=== PATIENT | female | born 1950 | race Caucasian/White ===

== ENCOUNTER 2017-09-25 13:15 | Emergency (ER) | payer MEDICARE, OTHER, SELFPAY ==
[2017-09-25 13:25] VITALS: BP 143/64; PULSE 99; RESP 20; TEMP 36.7; O2SAT 99; BMI 21.4
--- NOTE | 2017-09-25 13:32 | HMH.EDBACK ---
ED Disposition Clinical Impression: Contusion of tissue overlying spine Disposition: Home, Self-Care Condition on Discharge: Good Additional Instructions: Radiology thought maybe a small nodule on chest xray; this is not anything emergent but Dr. Barrera may wish to do a follow up CT at his discretion; no new fractures today but T9 showed old compression fracture. Take Aleve over the counter and/or Tylenol and see Dr. Barrera in a few days. Referrals: Alex Barrera MD [Primary Care Provider] - - Critical Care Critical Care Time: No Attestation: On , the high probability of a clinically significant, sudden or life threatening deterioration of the following system(s) required my full and direct attention, intervention and personal management. The time I documented below is in addition to time spent performing reported procedures but includes the following listed in this critical care notation. Medical Decision Making Vital Signs: 09/25/17 13:25 09/25/17 14:07 Temperature 98.0 F Temperature Source Oral Pulse Rate [Right Radial] 99 H 90 Respiratory Rate 20 20 Blood Pressure [Right Arm] 143/64 140/78 Blood Pressure Mean [Right Arm] 90 98 Blood Pressure Source [Right Arm] Automatic Cuff Automatic Cuff Blood Pressure Position [Right Arm] Sitting Sitting 02 Sat by Pulse Oximetry 99 98 Oxygen Delivery Method Room Air Room Air Orders (Tests/Meds): ED MEDICATIONS Discontinued Medications Generic Name Dose Route Start Last Admin Trade Name Freq PRN Reason Stop Dose Admin Ketorolac Tromethamine 60 mg 09/25/17 13:35 09/25/17 13:36 Toradol 60mg/2ml Vial IM 09/25/17 13:36 60 mg ONCE ONE Administration - CT Data CT Scan: C-Spine, T-Spine Time Received: 14:[address] Reviewed: Yes: I have reviewed the patient's CT results Preliminary Findings: Normal/NAD Findings Narrative: old T 9 compression fx neg acute; nodule L lung may need f/u CT - Lance Inquiry Pt receiving controlled substance: No ROS Obtained: Yes All systems reviewed & no additional complaints Physical Exam - General General appearance: alert - Head Head exam: atraumatic - Eye Eye exam: Present: normal appearance, PERRL, EOMI - ENT ENT exam: Present: normal external ear exam - Neck Neck exam: Present: normal inspection, full ROM, trachea midline, tenderness. Absent: other - Chest Chest inspection: Present: normal inspection, symmetric chest wall rise, tenderness, other (He is right axillary tenderness without any subcutaneous air, and without any crepitus deformity or step-offs noted) - Respiratory Respiratory exam: Present: normal lung sounds bilaterally. Absent: respiratory distress, wheezes - Cardiovascular Cardiovascular exam: Present: regular rate, normal rhythm. Absent: JVD - Abdominal Exam Abdominal exam: Present: soft, normal bowel sounds. Absent: distention, tenderness, guarding - Extremities Exam Extremities exam: Present: full ROM, normal capillary refill. Absent: tenderness, pedal edema, joint swelling (Stable to AP and lateral palpation of the pelvis. Forearm diffuse ecchymosis without any crepitus deformity or step-offs.) - Back Exam Back exam: Present: normal inspection, full ROM, tenderness, straight leg raise (R), straight leg raise (L) ( no focal motor or sensory deficits gait steady. diffuse T and C spine region pain without crepitus deformity step-offs or duyen point tenderness.). Absent: muscle spasm, vertebral tenderness, rashes - Neurological Exam Neurological exam: Present: alert, oriented X3, normal gait. Absent: motor sensory deficit - Psychiatric Psychiatric exam: Present: normal affect, normal mood - Skin Skin exam: Present: warm, dry, other (See above for ecchymosis) Back Pain HPI - General Chief Complaint: Fall Stated Complaint: AO 09/24/17 fell hurt right arm and lower back,rib Mode of Arrival: Ambulatory Source of Information: Patient Limitations: No Ford
--- NOTE | 2017-09-25 13:35 | ED_ITS ---
ED Disposition Clinical Impression: Contusion of tissue overlying spine Disposition: Home, Self-Care Condition on Discharge: Good Additional Instructions: Radiology thought maybe a small nodule on chest xray; this is not anything emergent but Dr. Barrera may wish to do a follow up CT at his discretion; no new fractures today but T9 showed old compression fracture. Take Aleve over the counter and/or Tylenol and see Dr. Barrera in a few days. Referrals: Alex Barrera MD [Primary Care Provider] - - Critical Care Critical Care Time: No Attestation: On , the high probability of a clinically significant, sudden or life threatening deterioration of the following system(s) required my full and direct attention, intervention and personal management. The time I documented below is in addition to time spent performing reported procedures but includes the following listed in this critical care notation. Medical Decision Making Vital Signs: 09/25/17 13:25 09/25/17 14:07 Temperature 98.0 F Temperature Source Oral Pulse Rate [Right Radial] 99 H 90 Respiratory Rate 20 20 Blood Pressure [Right Arm] 143/64 140/78 Blood Pressure Mean [Right Arm] 90 98 Blood Pressure Source [Right Arm] Automatic Cuff Automatic Cuff Blood Pressure Position [Right Arm] Sitting Sitting 02 Sat by Pulse Oximetry 99 98 Oxygen Delivery Method Room Air Room Air Orders (Tests/Meds): ED MEDICATIONS Discontinued Medications Generic Name Dose Route Start Last Admin Trade Name Freq PRN Reason Stop Dose Admin Ketorolac Tromethamine 60 mg 09/25/17 13:35 09/25/17 13:36 Toradol 60mg/2ml Vial IM 09/25/17 13:36 60 mg ONCE ONE Administration - CT Data CT Scan: C-Spine, T-Spine Time Received: 14:[address] Reviewed: Yes: I have reviewed the patient's CT results Preliminary Findings: Normal/NAD Findings Narrative: old T 9 compression fx neg acute; nodule L lung may need f/u CT - Lance Inquiry Pt receiving controlled substance: No ROS Obtained: Yes All systems reviewed & no additional complaints Physical Exam - General General appearance: alert - Head Head exam: atraumatic - Eye Eye exam: Present: normal appearance, PERRL, EOMI - ENT ENT exam: Present: normal external ear exam - Neck Neck exam: Present: normal inspection, full ROM, trachea midline, tenderness. Absent: other - Chest Chest inspection: Present: normal inspection, symmetric chest wall rise, tenderness, other (He is right axillary tenderness without any subcutaneous air , and without any crepitus deformity or step-offs noted) - Respiratory Respiratory exam: Present: normal lung sounds bilaterally. Absent: respiratory distress, wheezes - Cardiovascular Cardiovascular exam: Present: regular rate, normal rhythm. Absent: JVD - Abdominal Exam Abdominal exam: Present: soft, normal bowel sounds. Absent: distention, tenderness, guarding - Extremities Exam Extremities exam: Present: full ROM, normal capillary refill. Absent: tenderness, pedal edema, joint swelling (Stable to AP and lateral palpation of the pelvis. Forearm diffuse ecchymosis without any crepitus deformity or step- offs.) - Back Exam Back exam: Present: normal inspection, full ROM, tenderness, straight leg raise (R), straight leg raise (L) ( no focal motor or sensory deficits gait steady. diffuse
--- NOTE | 2017-09-25 13:44 | CT_ITS ---
CT cervical spine wo con INDICATION: Posttraumatic pain, neck pain following injury ITS.REASON: Fall ORDERING PHYSICIAN: Dory Orta MD PATIENT AGE: 67 years COMPARISON: None TECHNIQUE: Axial images are obtained without contrast. Sagittal and coronal reformatted images are reviewed as well. FINDINGS: There is normal alignment. No fracture or dislocation. No lytic or blastic change. No prevertebral soft tissue swelling. Fibrotic changes in lung apices. There is mild degenerative disc disease at C5-C6 and C6-C7. 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 IMPRESSION: No acute fracture. Mild cervical spondylosis
--- NOTE | 2017-09-25 13:44 | XR_ITS ---
XR chest 2V HISTORY: Posttraumatic pain ITS.REASON: Fall, rib pain ORDERING PHYSICIAN: Dory Orta MD PATIENT AGE: 67 years COMPARISON: 05/11/2017 FINDINGS: The cardiomediastinal silhouette and pulmonary vascularity are within normal limits. No lobar consolidation or collapse is evident. There is an artifact overlying the left chest. An 8 mm nodular opacity overlies the left lower lung zone nonspecific but not readily apparent on the previous study. Chest CT may be of further value. The remaining lungs are clear. Mild wedging involves T9 unchanged. IMPRESSION: 1. No acute finding. 2. 8 mm nodular opacity left lower lung zone. Developing nodule is considered. Chest CT may be of further value..
--- NOTE | 2017-09-25 13:44 | CT_ITS ---
CT thoracic spine wo con INDICATION: Pain following injury. Mid and upper back pain ITS.REASON: Fall ORDERING PHYSICIAN: Dory Orta MD PATIENT AGE: 67 years COMPARISON: Chest CT of 03/07/2017 TECHNIQUE: Axial images are obtained without contrast. Sagittal and coronal reformatted images are reviewed as well. FINDINGS: There is normal alignment. There is mild wedging of the T9 vertebral body which is chronic. There is loss of height anteriorly of approximately 40% loss of height posteriorly by 20% similar to the previous chest CT of 03/07/2017. No acute fracture or dislocation. No lytic or blastic change. There is mild spondylosis of the thoracic spine with mild degenerative disc disease and anterior spurring at T4-T7. Small Schmorl's node is present along the superior endplate of T12 with slight decrease in height of T12 similar to the previous exam. IMPRESSION: 1. No acute fracture. 2. Old wedge compression changes of T9 with minimal wedge compression changes of T12. 3. Mild thoracic spondylosis
[2017-09-25 14:07] VITALS: BP 140/78; PULSE 90; RESP 20; O2SAT 98
[2017-09-25 15:09] VITALS: BP 143/64; PULSE 74; RESP 20; O2SAT 97
== END 2017-09-25 15:09 | disposition home or self-care (01) ==
PROVIDERS: Emergency Provider Emergency Medicine; Family Provider Internal Medicine Adolescent Medicine; PCP Internal Medicine Adolescent Medicine
DX: S30.0XXA Contusion of lower back and pelvis, initial encounter (principal); W10.8XXA Fall (on) (from) other stairs and steps, initial encounter; Y93.89 Activity, other specified; Y92.9 Unspecified place or not applicable
CPT/HCPCS: 71046; 72125; 72128; 96372; 99282

== ENCOUNTER → 2017-10-07 09:18 | Outpatient (CLI) | payer MEDICARE, OTHER, SELFPAY ==
[2017-10-07 09:38] LABS: Blood Urea Nitrogen 9 mg/dL (7-18); Creatinine,Serum 0.72 mg/dL (0.55-1.02); Estimated Glomerular Filt Rate 80 ml/min (>60); GFR (African American) 97 ML/MIN (>60)
--- NOTE | 2017-10-07 09:52 | CT_ITS ---
CT chest w con HISTORY: Follow-up pulmonary nodule, solitary pulmonary nodule, follow-up abnormal chest x-ray, post traumatic chest pain ITS.REASON: PULMONARY NODULE ORDERING PHYSICIAN: Mary Kay May PATIENT AGE: 67 years TECHNIQUE: Axial images obtained following the administration of 75 mL of Isovue 370 . Sagittal, and coronal reformatted images are also generated and reviewed. COMPARISON: Chest x-ray of 09/25/[address] of 03/07/2017 FINDINGS: No mediastinal or hilar mass or adenopathy is evident. Mild thickening of the distal esophagus nonspecific. There is normal heart size There are scattered fibrotic changes. Atelectasis is present in the right middle lobe and left lower lobe. No suspicious pulmonary nodules evident.. No effusions. There is mild wedging of T9 vertebral body unchanged. Upper abdominal images are unremarkable. IMPRESSION: 1. Overall no change from 03/07/2017 with no acute finding. 2. Nodular opacity seen on the recent chest x-ray represents underlying atelectatic or fibrotic change. No suspicious pulmonary nodules are evident
--- NOTE | 2017-10-07 10:34 | HMH.ITSHM ---
METOPRLOL,ESTRADIOLOL,CALCIUM,SINGULAR ASPIRIN ALAPRAZOLOAM FLONASE
== END ==
PROVIDERS: Family Provider Internal Medicine Adolescent Medicine; PCP Internal Medicine Adolescent Medicine; Visit Provider Nurse Practitioner Family
DX: R91.1 Solitary pulmonary nodule (principal)
CPT/HCPCS: 36415; 71260; 82565; 84520; Q9967

== ENCOUNTER 2017-11-26 12:39 | Emergency (ER) | payer MEDICARE, OTHER, SELFPAY ==
[2017-11-26 12:41] VITALS: BP 127/69; BP 137/65; PULSE 64; PULSE 65; RESP 18; TEMP 36.4; O2SAT 96; O2SAT 97; BMI 21.4
[2017-11-26 13:20] VITALS: BP 122/61; PULSE 61; RESP 18; O2SAT 95
--- NOTE | 2017-11-26 14:10 | PC.NURSE ---
notified pt of delay in MD seeing pt r/t critical situation in ER. Pt voiced understanding and stated she is ok, warm blanket offered for comfort.
[2017-11-26 14:57] VITALS: BP 118/68; PULSE 62; RESP 18; TEMP 36.7; O2SAT 97
== END 2017-11-26 14:57 | disposition left against medical advice (07) ==
PROVIDERS: Emergency Provider Emergency Medicine; Family Provider Internal Medicine Adolescent Medicine; PCP Internal Medicine Adolescent Medicine
DX: R10.30 Lower abdominal pain, unspecified (principal); I10 Essential (primary) hypertension
CPT/HCPCS: 99211; 99282

== ENCOUNTER → 2017-11-28 13:56 | Outpatient (POV) | payer MEDICARE, OTHER, SELFPAY | PROVIDERS: Visit Provider Dermatology | DX: Z00.00 Encounter for general adult medical examination without abnormal findings (principal) ==

== ENCOUNTER → 2017-11-29 15:21 | Outpatient (CLI) | payer MEDICARE, OTHER, SELFPAY ==
--- NOTE | 2017-11-29 15:32 | XR_ITS ---
XR shoulder LT min 2V COMPARISON: Right shoulder same date HISTORY: Left shoulder pain after a fall TECHNIQUE: 3 views left shoulder FINDINGS: There is no fracture or dislocation. The AC joint appears normal. There are no soft tissue calcifications. IMPRESSION: Negative left shoulder
--- NOTE | 2017-11-29 15:32 | XR_ITS ---
XR cervical spine 4V COMPARISON: None HISTORY: Neck pain after a fall TECHNIQUE: AP lateral and oblique views and spot view of the odontoid FINDINGS: There is normal curvature and alignment. C1-C7 appear intact with no fracture or subluxation noted. Disc spaces are well maintained throughout. Oblique films show normal neural foramina bilaterally. The prevertebral soft tissues are normal and the odontoid is normal. IMPRESSION: Negative cervical spine
--- NOTE | 2017-11-29 15:32 | XR_ITS ---
XR shoulder RT min 2V COMPARISON: None HISTORY: Right shoulder pain after a fall TECHNIQUE: 3 views right shoulder FINDINGS: The clavicle is intact and the AC joint appears normal. The humeral head and glenoid are normal and the no soft tissue calcifications. IMPRESSION: Negative right shoulder
--- NOTE | 2017-11-29 15:33 | XR_ITS ---
XR thoracic spine 3V COMPARISON: CT scan thoracic spine 09/25/2017 HISTORY: Back pain after a fall TECHNIQUE: AP and lateral views FINDINGS: There is mild kyphotic curvature of the upper thoracic spine. There is generalized osteopenia. Again noted is mild compression fracture of T9 with approximately 40% loss of height centrally and anteriorly stable and unchanged in appearance from the previous CT scan. All remaining thoracic vertebrae appear intact. Is no paraspinal mass. IMPRESSION: Child is osteopenia, stable mild compression fracture T9
== END ==
PROVIDERS: PCP Internal Medicine Adolescent Medicine; Visit Provider Internal Medicine Adolescent Medicine
DX: M54.6 Pain in thoracic spine (principal); M54.2 Cervicalgia; M25.511 Pain in right shoulder; M25.512 Pain in left shoulder
CPT/HCPCS: 72050; 72072; 73030

== ENCOUNTER → 2017-12-04 13:19 | Outpatient (CLI) | payer MEDICARE, OTHER, SELFPAY ==
[2017-12-04 14:14] LABS: Albumin Level 3.3 gm/dL (3.4-5.0); Calcium 9.1 mg/dL (8.5-10.1); Creatinine,Serum 0.68 mg/dL (0.55-1.02); Estimated Glomerular Filt Rate 86 ml/min (>60); GFR (African American) 104 ML/MIN (>60)
== END ==
PROVIDERS: Visit Provider Obstetrics & Gynecology
DX: M81.0 Age-related osteoporosis without current pathological fracture (principal)
CPT/HCPCS: 36415; 82040; 82310; 82565

== ENCOUNTER 2017-12-05 13:09 | Outpatient (CLI) | payer MEDICARE, OTHER, SELFPAY ==
[2017-12-05 13:21] VITALS: BP 121/44; PULSE 61; RESP 18; TEMP 36.6; O2SAT 99
[2017-12-05 13:45] VITALS: BP 119/49; PULSE 65; RESP 18; O2SAT 97
== END 2017-12-05 13:50 | disposition home or self-care (01) ==
LOC: INF 13:09
PROVIDERS: Family Provider Internal Medicine Adolescent Medicine; PCP Internal Medicine Adolescent Medicine; Visit Provider Obstetrics & Gynecology
DX: M81.0 Age-related osteoporosis without current pathological fracture (principal)
CPT/HCPCS: 96365; J3489

== ENCOUNTER → 2018-03-13 13:43 | Outpatient (CLI) | payer MEDICARE, OTHER, SELFPAY ==
--- NOTE | 2018-03-13 13:55 | XR_ITS ---
. DEXA DEXA SCAN.-BONE DENSITY STUDY HIPS AND LUMBAR SPINE HISTORY: Postmenopausal female 5-year-old female TECHNIQUE: DEXA scan hip and lumbar spine The most complete data summary and color graphic presentation of the today's ( and any prior ) DEXA findings are available in PACS. Definition and treatment guidelines included. COMPARISON: . -Study is best to compare to the previous November 2015 exam as it uses the same vertebrae sampling pattern I did not use 2017 since it has a different sampling pattern LUMBAR SPINE: Overall osteoporosis L1 vertebral body demonstrates the lowest bone density with T score -2.8 with BMD0.796 g/cm sq Overall mean lumbar L1-L4 T score -2.7 with BMD0.854 g/cm sq . 2017 prior DEXA the mean T score -2.9 with BMD was0.835g/cm sq Thus when comparing today's study to the prior exam there's been a 2.3% increase mean bone density at the lumbar spine since 2017. HIPS: Femoral neck density is best predictor of hip fracture risk . demonstrates the lowest T score -0.8 with BMD0.933 g/cm sq . all region included with today's Hip Mean T score 0.4 with BMD1.054 g/cm sq . T score -0.8 with mean BMD0.933 g/cm sq Thus this reflects a 6% decrease in overall mean bone density at the hips in the interval. IMPRESSION 1. LUMBAR SPINE: Osteoporosis with T score unchanged from the previous exam 2. HIPS: Osteopenia for both hips and T score is basically unchanged from the previous exam WHO criteria for post-menopausal, Women: Normal: T-score at or above -1 SD Osteopenia: T-score between -1 and -2.5 SD Osteoporosis: T-score at or below -2.5 SD
== END ==
PROVIDERS: Family Provider Internal Medicine Adolescent Medicine; PCP Internal Medicine Adolescent Medicine; Visit Provider Internal Medicine Adolescent Medicine
DX: M81.0 Age-related osteoporosis without current pathological fracture (principal)
CPT/HCPCS: 77080

== ENCOUNTER 2018-03-20 15:31 | Inpatient (IN) ==
[2018-03-20 15:53] LABS: Appearance,Urine CLEAR (Clear); Bilirubin,Urine Negative (Negative); Blood, Urine Negative (Negative); Color,Urine YELLOW (Yellow); Glucose,Urine (UA) Negative (Negative); Ketones,Urine Negative (Negative); Leukocyte Esterase,Urine Negative (Negative); Microscopic, Urine URINE MICROSCOPIC (MICROSCOPIC); PH,Urine 6.5 (5.0-8.5); Protein,Urine Negative (Negative); Urobilinogen,Urine 0.2 EU/dl (0.2)
[2018-03-20 16:04] LABS: Bacteria,Urine Trace /lpf
--- NOTE | 2018-03-20 18:20 | Emergency Department Note ---
ED Disposition Clinical Impression: Altered mental status, Hypertension, Postmenopausal Disposition: Still a Patient Condition on Discharge: Fair Instructions: DI for Urinary Tract Infection (UTI), DI for Urinary Tract Infection in Children Referrals: Alex Barrera MD [Primary Care Provider] - - Critical Care Critical Care Time: No Attestation: On 03/20/18, the high probability of a clinically significant, sudden or life threatening deterioration of the following system(s) required my full and direct attention, intervention and personal management. The time I documented below is in addition to time spent performing reported procedures but includes the following listed in this critical care notation. Medical Decision Making - Lance Inquiry Pt receiving controlled substance: No Lance was queried for this patient: No Vital Signs: 03/20/18 15:31 Temperature 99.0 F Temperature Source Oral Pulse Rate [Right Radial] 92 H Respiratory Rate 16 Blood Pressure [Right Arm] 144/75 Blood Pressure Mean [Right Arm] 98 Blood Pressure Source [Right Arm] Automatic Cuff Blood Pressure Position [Right Arm] Supine 02 Sat by Pulse Oximetry 98 Oxygen Delivery Method Room Air - Lab Data Lab Results 03/20/18 15:50: Urine Color Yellow, Urine Appearance Clear, Urine pH 6.5, Ur Specific [place] 1.010, Urine Protein Negative, Urine Glucose (UA) Negative, Urine Ketones Negative, Urine Blood Negative, Urine Nitrate Negative, Urine Bilirubin Negative, Urine Urobilinogen 0.2, Ur Leukocyte Esterase Negative, Urine RBC None, Urine WBC None, Ur Squamous Epith Cells 5-10, Urine Bacteria Trace 03/20/18 18:56: WBC 9.4, RBC 4.19 L, Hgb 13.0, Hct 40.4, MCV 96.4, MCH 31.1, MCHC 32.3, RDW 13.0, Plt Count 290, MPV 7.5, Neut % (Auto) 69.3, Lymph % (Auto) 22.0, Wilson % (Auto) 6.9, Eos % (Auto) 1.5, Baso % (Auto) 0.3, Neut # (Auto) 6.5 , Lymph # (Auto) 2.1, Wilson # (Auto) 0.6, Eos # (Auto) 0.1, Baso # (Auto) 0.0 03/20/18 18:56: Sodium 144, Potassium 3.5, Chloride 111 H, Carbon Dioxide 27, Anion Gap 9.5, BUN 5 L, Creatinine 0.72, Estimated Creat Clear 40, Estimated GFR 80, Est GFR ( Amer) 97, Glucose 96, Calcium 8.7, Total Bilirubin 0.3 , AST 20, ALT 13, Alkaline Phosphatase 74, Total Creatine Kinase 29, CK-MB (CK-2 ) 0.6, CK-MB (CK-2) Rel Index 2.1, Troponin I < 0.02, Total Protein 6.5, Albumin 3.0 L, Globulin 3.5 H, Albumin/Globulin Ratio 0.9 L Result diagrams: 03/20/18 18:56 03/20/18 18:56 Orders (Tests/Meds): ORDERS Category Date Time Status XR acute abdomen series Stat Exams 03/20/18 18:01 Taken - Radiology Data #1 Image(s): Chest, Abdomen Image Reviewed: Yes I reviewed the patient's radiology image Preliminary Findings: Normal/NAD Postop changes no acute. - CT Data CT Scan: Head Time Received: 19:17 Findings Narrative: MPRESSION: No acute adrenal findings. Stable CT of the head without contrast. Medical Decision Narrative: Patient remained symptomatic with her anterograde amnesia, her CT scan was negative for acute events she had normal labs. I spoke with Dr. Valdivia is covering for her primary care physician Dr. Barrera who agreed to admit the patient for observation. I discussed with the family and the patient were agreeable for admission. Altered Mental Status HPI - General Chief Complaint: Urogenital-Female Stated Complaint: FREQUENT URINATION Time Seen by Provider: 03/20/18 16:00 Mode of Arrival: EMS Limitations: No Limitations Description of Symptoms (Recalled from ER Triage Doc. by RN): PT COMPLAINS OF URINARY URGENCY, FREQUENCY AND HESITATION FOR TWO DAYS. - History of Present Illness HPI narrative: 67 years old white female with history of anxiety and anemia. But by her son today because of altered mental status started at 9 AM reported by his father, she is repeating herself and forgetful, not believe she might have hypoglycemia so he gave her food and her sugar was 106, he complained of suprapubic tenderness and dysuria so she was brought to the ED underwent a negative urine examination. She denies having chest pain, course of breath palpitations nausea or vomiting, or diarrhea. Has no hematemesis coffee-ground emesis hemoptysis melanotic stool or bleeding per rectum. Her son stated that when she goes up to the bathroom she forgets where her bed to get her back to her bedroom in the ED. complaint: altered mental status Time: 09:00 Timing confirmed by: spouse, family member Severity: mild Consistency of symptoms: waxing and waning Associated symptoms: denies other symptoms - Related Data Home Medications Medication Instructions Recorded Confirmed Estradiol 1 mg PO DAILY 11/26/17 03/20/18 ALPRAZolam [Xanax 0.5mg tab] 0.5 mg PO BID 12/05/17 03/20/18 ALPRAZolam [Xanax Xr 1mg Tab] 1 mg PO HS 12/05/17 03/20/18 Aspirin [Aspirin 81mg chewable 81 mg PO DAILY 12/05/17 03/20/18 tab] Calcium Carbonate [Calcium] 1,200 mg PO DAILY 12/05/17 03/20/18 Cholecalciferol (Vitamin D3) 1,000 unit PO DAILY 12/05/17 03/20/18 [Vitamin D3 1,000 Unit Cap] Metoprolol Tartrate 50 mg PO BID 12/05/17 03/20/18 Montelukast Sodium [Singulair 10mg 10 mg PO PM 12/05/17 03/20/18 tablet] Thiamine HCl [Vitamin B-1 100mg/mL 100 mg IJ MONTHLY 12/05/17 03/20/18 vial] Vitamin E 1,000 unit PO DAILY 12/05/17 03/20/18 diphenhydrAMINE HCl [Benadryl] 25 mg PO BID 12/05/17 03/20/18 Raloxifene HCl 60 mg PO DAILY 03/20/18 03/20/18 Allergies Allergy/AdvReac Type Severity Reaction Status Date / Time amoxicillin [From AMOXIL] Allergy Intermediate I-HIVES Verified 09/25/17 13:34 clindamycin [CLINDAMYCIN] Allergy Intermediate I-HIVES Verified 09/25/17 13:34 Penicillins [PENICILLINS] Allergy Intermediate I-HIVES Verified 09/25/17 13:34 Sulfa (Sulfonamide Allergy Intermediate I-HIVES Verified 09/25/17 13:34 Antibiotics) [SULFA (SULFONAMIDE ANTIBIOTICS)] codeine [CODEINE] Allergy Unknown NAUSEA AND Verified 09/25/17 13:34 VOMITING erythromycin base Allergy Unknown I-HIVES Verified 09/25/17 13:34 [ERYTHROMYCIN BASE] Fish Containing Products Allergy Unknown FACIAL Verified 09/25/17 13:34 [FISH CONTAINING PRODUCTS] SWELLLING latex [LATEX] Allergy Unknown I-HIVES Verified 09/25/17 13:34 Iodinated Contrast Media - Allergy Verified 11/26/17 12:52 Oral and [facility] History I have reviewed the patient's past medical history: Yes Medical History: Denies:: Cancer, Diabetes Mellitus Type 1, Diabetes Mellitus Type 2 - Social History Smoking Status: Never smoker Alcohol Intake: never - Psychiatric History Expresses thoughts of harming self/others: None Suicide Plan Description: No Plan ROS Obtained: Yes All systems reviewed & no additional complaints Physical Exam - General General appearance: alert, in no apparent distress - Head Head exam: atraumatic, normocephalic, normal inspection - Eye Eye exam: Present: normal appearance, PERRL, EOMI. Absent: scleral icterus - ENT ENT exam: Present: normal exam, normal oropharynx, mucous membranes moist, TM's normal bilaterally, normal external ear exam - Neck Neck exam: Present: normal inspection, full ROM, trachea midline. Absent: tenderness, meningismus, lymphadenopathy - Chest Chest inspection: Present: normal inspection, symmetric chest wall rise. Absent : tenderness - Respiratory Respiratory exam: Present: normal lung sounds bilaterally. Absent: respiratory distress, wheezes - Cardiovascular Cardiovascular exam: Present: regular rate, normal rhythm. Absent: JVD - Abdominal Exam Abdominal exam: Present: soft, normal bowel sounds. Absent: distention, tenderness, guarding, rebound, rigidity - External exam: Present: normal external exam - Extremities Exam Extremities exam: Present: normal inspection, full ROM, normal capillary refill. Absent: tenderness, calf tenderness - Back Exam Back exam: Present: normal inspection. Absent: tenderness - Neurological Exam Neurological exam: Present: alert, oriented X3, CN II-XII intact, normal gait, motor sensory deficit, reflexes normal - Psychiatric Psychiatric exam: Present: normal affect, normal mood - Skin Skin exam: Present: warm, dry, intact, normal color - Lymphatic Lymphatic Findings: no adenopathy
[2018-03-20 19:04] LABS: Basophils % 0.3 % (0.1-2.0); Eosinophils # 0.1 K/mm3 (0.0-0.4); Eosinophils % 1.5 % (0.1-12.0); Hematocrit 40.4 % (37.0-47.0); Lymphocytes # 2.1 K/mm3 (0.7-4.5); Mean Corpuscular HGB Conc 32.3 g/dL (31.8-35.4); Mean Corpuscular Hemoglobin 31.1 pg (27.0-31.2); Mean Corpuscular Volume 96.4 fl (81-99); Mean Platelet Volume 7.5 fl (7.4-10.4); Monocytes # 0.6 K/mm3 (0.1-1.0); Monocytes % 6.9 % (1.7-9.3); Neutrophils # 6.5 K/mm3 (1.8-7.8); Neutrophils % 69.3 % (37.0-80.0); Platelet Count 290 K/mm3 (142-424); Red Blood Count 4.19 M/mm3 (4.20-5.40); White Blood Count 9.4 K/mm3 (4.8-10.8)
[2018-03-20 19:28] LABS: Alanine Aminotransferase 13 U/L (12-78); Albumin/Globulin Ratio 0.9 (1.1-1.8); Alkaline Phosphatase 74 U/L (46-116); Anion Gap 9.5 mEq/L (5-15); Aspartate Amino Transferase 20 U/L (15-37); Bilirubin,Total 0.3 mg/dL (0.2-1.0); Blood Urea Nitrogen 5 mg/dL (7-18); Calcium 8.7 mg/dL (8.5-10.1); Carbon Dioxide 27 mmol/L (21.0-32.0); Chloride 111 mmol/L (98-107); Creatine Kinase 29 U/L (26-192); Globulin 3.5 gm/dl (1.3-3.2); Glucose 96 mg/dL (74-106); Potassium 3.5 mmoL/L (3.5-5.1); Sodium 144 mmol/L (136-145); Total Protein,Serum 6.5 gm/dL (6.4-8.2)
[2018-03-21 06:42] LABS: Basophils % 0.3 % (0.1-2.0); Eosinophils % 0.3 % (0.1-12.0); Hematocrit 42.9 % (37.0-47.0); Hemoglobin 13.8 g/dL (12.2-16.2); Lymphocytes # 1.8 K/mm3 (0.7-4.5); Lymphocytes % 14.7 K/mm3 (10-50); Mean Corpuscular Hemoglobin 31.2 pg (27.0-31.2); Mean Corpuscular Volume 97.2 fl (81-99); Mean Platelet Volume 7.5 fl (7.4-10.4); Monocytes # 0.5 K/mm3 (0.1-1.0); Neutrophils # 9.7 K/mm3 (1.8-7.8); Neutrophils % 80.7 % (37.0-80.0); Platelet Count 294 K/mm3 (142-424); Red Blood Count 4.42 M/mm3 (4.20-5.40); White Blood Count 12.1 K/mm3 (4.8-10.8)
[2018-03-21 06:50] LABS: Anion Gap 13.1 mEq/L (5-15); Calcium 8.9 mg/dL (8.5-10.1); Potassium 4.1 mmoL/L (3.5-5.1)
--- NOTE | 2018-03-21 07:27 | Pharmacy Consult Notes ---
[facility] Pharmacy VTE Monitoring - Patient Demographics Admission date: 03/20/18 Report Date: 03/21/18 Time: 07:26 Allergies/Adverse Reactions: Patient Allergies amoxicillin [From AMOXIL] Allergy (Intermediate, Verified 09/25/17 13:34) I-HIVES clindamycin [CLINDAMYCIN] Allergy (Intermediate, Verified 09/25/17 13:34) I-HIVES Penicillins [PENICILLINS] Allergy (Intermediate, Verified 09/25/17 13:34) I-HIVES Sulfa (Sulfonamide Antibiotics) [SULFA (SULFONAMIDE ANTIBIOTICS)] Allergy ( Intermediate, Verified 09/25/17 13:34) I-HIVES codeine [CODEINE] Allergy (Unknown, Verified 09/25/17 13:34) NAUSEA AND VOMITING erythromycin base [ERYTHROMYCIN BASE] Allergy (Unknown, Verified 09/25/17 13:34) I-HIVES Fish Containing Products [FISH CONTAINING PRODUCTS] Allergy (Unknown, Verified 09/25/17 13:34) FACIAL SWELLLING latex [LATEX] Allergy (Unknown, Verified 09/25/17 13:34) I-HIVES Iodinated Contrast Media - Oral and Allergy (Verified 11/26/17 12:52) Height: 5 m Weight: 49.101 kg Patient Problems: Current Active Problems Altered mental status (Acute) Hypertension (Acute) Postmenopausal (Acute) - VTE Risk Labs: VTE Related Lab Results Hgb 13.8 g/dL (12.2-16.2) 03/21/18 06:25 Hct 42.9 % (37.0-47.0) 03/21/18 06:25 Plt Count 294 K/mm3 (142-424) 03/21/18 06:25 BUN 4 mg/dL (7-18) L 03/21/18 06:25 Creatinine 0.68 mg/dL (0.55-1.02) 03/21/18 06:25 Estimated Creat Clear 41 mL/min (0-300) 03/21/18 06:25 VTE Score: 3 VTE Risk Level: Low Risk - Prophylaxis VTE Prophylaxis Ordered?: Yes Types of VTE Prophylaxis: TEDS Knee High Location of Applied Device: Bilateral Lower Extremeties - VTE Diagnosis Confirmed Treatment or plan recommended: Continue Current Treatment
--- NOTE | 2018-03-21 09:59 | Carotid Imaging Report ---
"Cerebrovascular Exam Indications: 780.4 Dizziness and giddiness. IMPRESSIONS 1. The bilateral vertebral arteries are patent with normal antegrade flow. 2. Study suggests less than 20% stenosis involving the right internal carotid artery and the left internal carotid artery. History: Risk factors: Hypertension. Altered mental status Carotid duplex study. Complete study and Doppler flow study including spectral analysis, color and huggins scale imaging. Location: Bedside. Patient status: Inpatient. Tables: Arterial flow: + +--------+--------+ |Location |V sys |V ed | + +--------+--------+ |Right CCA - proximal|99cm/s |21.2cm/s| + +--------+--------+ |Right CCA - distal |84.1cm/s|23.6cm/s| + +--------+--------+ |Right ECA |164cm/s |--------| + +--------+--------+ |Right ICA - proximal|67.6cm/s|18.1cm/s| + +--------+--------+ |Right ICA - mid |107cm/s |33.8cm/s| + +--------+--------+ |Right ICA - distal |97.4cm/s|22cm/s | + +--------+--------+ |Right vertebral |48.1cm/s|--------| + +--------+--------+ |Left CCA - proximal |82.5cm/s|15.7cm/s| + +--------+--------+ |Left CCA - distal |75.6cm/s|15.7cm/s| + +--------+--------+ |Left ECA |133cm/s |--------| + +--------+--------+ |Left ICA - proximal |60.9cm/s|14.7cm/s| + +--------+--------+ |Left ICA - mid |87.4cm/s|22.6cm/s| + +--------+--------+ |Left ICA - distal |82.5cm/s|26.5cm/s| + +--------+--------+ |Left vertebral |57.9cm/s|--------| + +--------+--------+ Velocity ratios: + + + + + + | |Right, V sys|Right, V ed|Left, V sys|Left, V ed| + + + + + + |Max ICA/dist CCA|1.27 |1.43 |1.16 |1.69 | + + + + + + (Report amended ) Electronically signed by: Cecilio Castro [id number]"
--- NOTE | 2018-03-21 10:20 | Progress Note ---
Internal Medicine - PN: Subj *Date: 03/21/18 *Time: 17:53 Interval history: Patient remains pleasantly confused this morning. Thinks it is 1987, knows she is in [facility], Her name and sons name at bedside. HAs poor recall of acute events over the past 24hrs. Afebrile, hemodynamically stable. Has continued to have N/V/D overnight. Feels "cold" this morning per her report. Denies CP, SOA, fever. C/o abdominal tenderness. Son at bedside, states she is significantly different from her baseline. At baseline she manages home finances, go shopping, is usually "pretty sharp". Has had no focal deficits. No acute injuries that he recalls. He reports she was complaining of burning with urination and was concerned she might have a UTI. Exam Vital signs and Labs for Last 24 Hours: Temp Pulse Resp BP Pulse Ox 97.8 F 63 18 157/61 98 03/21/18 08:00 03/21/18 08:00 03/21/18 08:00 03/21/18 08:00 03/21/18 08:00 Laboratory Results - last 24 hr 03/20/18 15:50: Urine Color Yellow, Urine Appearance Clear, Urine pH 6.5, Ur Specific [place] 1.010, Urine Protein Negative, Urine Glucose (UA) Negative, Urine Ketones Negative, Urine Blood Negative, Urine Nitrate Negative, Urine Bilirubin Negative, Urine Urobilinogen 0.2, Ur Leukocyte Esterase Negative, Urine RBC None, Urine WBC None, Ur Squamous Epith Cells 5-10, Urine Bacteria Trace 03/20/18 18:56: WBC 9.4, RBC 4.19 L, Hgb 13.0, Hct 40.4, MCV 96.4, MCH 31.1, MCHC 32.3, RDW 13.0, Plt Count 290, MPV 7.5, Neut % (Auto) 69.3, Lymph % (Auto) 22.0, [place] % (Auto) 6.9, Eos % (Auto) 1.5, Baso % (Auto) 0.3, Neut # (Auto) 6.5 , Lymph # (Auto) 2.1, [place] # (Auto) 0.6, Eos # (Auto) 0.1, Baso # (Auto) 0.0 03/20/18 18:56: Sodium 144, Potassium 3.5, Chloride 111 H, Carbon Dioxide 27, Anion Gap 9.5, BUN 5 L, Creatinine 0.72, Estimated Creat Clear 40, Estimated GFR 80, Est GFR ( Amer) 97, Glucose 96, Calcium 8.7, Total Bilirubin 0.3 , AST 20, ALT 13, Alkaline Phosphatase 74, Total Creatine Kinase 29, CK-MB (CK-2 ) 0.6, CK-MB (CK-2) Rel Index 2.1, Troponin I < 0.02, Total Protein 6.5, Albumin 3.0 L, Globulin 3.5 H, Albumin/Globulin Ratio 0.9 L 03/21/18 06:25: WBC 12.1 H D, RBC 4.42, Hgb 13.8, Hct 42.9, MCV 97.2, MCH 31.2, MCHC 32.0, RDW 13.0, Plt Count 294, MPV 7.5, Neut % (Auto) 80.7 H, Lymph % (Auto ) 14.7, [place] % (Auto) 4.0, Eos % (Auto) 0.3, Baso % (Auto) 0.3, Neut # (Auto) 9.7 H, Lymph # (Auto) 1.8, [place] # (Auto) 0.5, Eos # (Auto) 0.0, Baso # (Auto) 0.0 03/21/18 06:25: Sodium 145, Potassium 4.1, Chloride 107, Carbon Dioxide 29, Anion Gap 13.1, BUN 4 L, Creatinine 0.68, Estimated Creat Clear 41, Estimated GFR 86, Est GFR ( Amer) 104, Glucose 122 H D, Calcium 8.9 I & O for Last 24 hours: Intake & Output 03/18/18 03/19/18 03/20/18 03/21/18 23:59 23:59 23:59 23:59 Intake Total 490 / 490 Balance 490 / 490 Weight 49.101 kg 49.101 kg - *Routine HEENT Exam Head: Present: normocephalic, atraumatic Eye: Present: EOMI, PERRL ENT: Present: mucous membranes moist - *Routine Neck Exam Present: supple. Absent: carotid bruit, lymphadenopathy - *Routine Respiratory Exam Present: CTA bilaterally. Absent: wheezes, crackles - *Routine Cardiovascular Exam Present: RRR, Normal S1, Normal S2. Absent: murmur - *Routine Abdominal Exam Present: soft, normoactive bowel sounds, tenderness (In lower quadrants). Absent: distended, rebound - *Routine Rectal Exam Patient deferred: visual exam - *Routine Exam Patient deferred: external exam - *Routine Extremities Exam Absent: clubbing, edema Comments: Hands and feet cool to touch, cap refill 2-3 seconds - *Routine Skin Exam Present: intact, dry. Absent: erythema - *Routine Neurological Exam Present: alert. Absent: sensory deficit, motor deficit (Oriented to person and place, disoriented to time) Assessment and Plan (1) Gastroenteritis Current visit: Yes Status: Acute Category: Medical Code(s): K52.9 - Noninfective gastroenteritis and colitis, unspecified Present on admission, nausea and vomiting and diarrhea prior to admission -Stool PCR ordered -Continue Zofran for nausea (2) Altered mental status Current visit: Yes Status: Acute Category: Medical Code(s): R41.82 - Altered mental status, unspecified Unclear etiology, insetting of acute gastroenteritis, suspect due to acute illness -UA unremarkable, urine culture pending -CT negative -MRI ordered, appropriate age-related changes, no acute abnormalities, infarcts , injuries -Carotid duplex normal with no pathologic occlusions -Decreased Xanax dose to half her home dose, continue neuro checks (3) Hypertension Current visit: Yes Status: Acute Category: Medical Code(s): I10 - Essential (primary) hypertension Continue home treatment (4) Abdominal pain Current visit: No Status: Acute Category: Medical Code(s): R10.9 - Unspecified abdominal pain
[2018-03-21 20:16] LABS: Microscopic, Urine URINE MICROSCOPIC (MICROSCOPIC)
[2018-03-21 20:29] LABS: Appearance,Urine CLEAR (Clear); Bilirubin,Urine Negative (Negative); Blood, Urine Negative (Negative); Color,Urine YELLOW (Yellow); Glucose,Urine (UA) Negative (Negative); Ketones,Urine 1+ (Negative); Leukocyte Esterase,Urine Negative (Negative); Protein,Urine Negative (Negative); Urobilinogen,Urine 0.2 EU/dl (0.2)
[2018-03-21 20:47] LABS: Bacteria,Urine Trace /lpf; Mucus,Urine Trace /lpf; RBC,Urine Occasional #/hpf (0-3); Squamous Epithelial Cell,Urine Occasional #/hpf (0-5); WBC,Urine Occasional #/hpf (0-3)
[2018-03-22 06:53] LABS: Basophils % 0.2 % (0.1-2.0); Eosinophils # 0.2 K/mm3 (0.0-0.4); Eosinophils % 1.5 % (0.1-12.0); Hematocrit 40.6 % (37.0-47.0); Hemoglobin 13.2 g/dL (12.2-16.2); Lymphocytes # 1.4 K/mm3 (0.7-4.5); Lymphocytes % 9.9 K/mm3 (10-50); Mean Corpuscular HGB Conc 32.5 g/dL (31.8-35.4); Mean Corpuscular Hemoglobin 31.3 pg (27.0-31.2); Mean Corpuscular Volume 96.1 fl (81-99); Mean Platelet Volume 7.8 fl (7.4-10.4); Monocytes # 0.6 K/mm3 (0.1-1.0); Monocytes % 3.8 % (1.7-9.3); Neutrophils # 12.2 K/mm3 (1.8-7.8); Neutrophils % 84.5 % (37.0-80.0); Platelet Count 296 K/mm3 (142-424); Red Blood Count 4.22 M/mm3 (4.20-5.40); Red Cell Distribution Width 12.8 % (11.5-17.5); White Blood Count 14.4 K/mm3 (4.8-10.8)
[2018-03-22 07:14] LABS: Albumin/Globulin Ratio 0.8 (1.1-1.8); Anion Gap 10.2 mEq/L (5-15); Bilirubin,Total 0.5 mg/dL (0.2-1.0); Calcium 8.7 mg/dL (8.5-10.1); Globulin 3.6 gm/dl (1.3-3.2); Potassium 3.2 mmoL/L (3.5-5.1); Thyroid Stimulating Hormone 1.21 uIU/ml (0.358-3.740); Total Protein,Serum 6.6 gm/dL (6.4-8.2)
--- NOTE | 2018-03-22 14:52 | Progress Note ---
Internal Medicine - PN: Subj *Date: 03/22/18 *Time: 14:49 Interval history: Held Xanax overnight. Patient continues to be pleasantly confused this morning. Additionally after CT scan last night of abdomen, bladder noted to be quite distended. David placed with greater than 600 cc of urine voided significant for urinary retention. David anchored overnight to help relieve bladder distention with improvement and lower abdominal pain per report. Has remained afebrile hemodynamically stable, no acute events on telemetry overnight. Patient reports intermittent nausea, denies emesis, denies diarrhea. Has had no bowel movement yet today. Family remains at bedside with concern for patient remaining confused. Continues to have poor appetite. Of note, further history from family obtained last night after extensive come. Appears patient has had difficulty with recall and confusion as long ago as 4-6 weeks ago. Son states she was having more more difficulty playing [employer] and remembering certain hands. This was unlike her. Things became acutely worse with her recent diarrhea. Of note as well had fall 4-5 months ago. Was continuing to take raloxifene, estradiol, meclizine, Benadryl, Xyzal, Xanax. Unclear dosing regimen as patient's recall of her medication regimen is only consistent with the Xanax dosing. When asked about any of her medication she states "I take a half in the morning and half in the afternoon and a whole tablet at night". Concerned she may have been taking more than her prescribed dosage. She is on significant anticholinergic medications that could account for urinary retention, diarrhea, altered mental status. Exam Vital signs and Labs for Last 24 Hours: Temp Pulse Resp BP Pulse Ox 98.7 F 78 18 171/74 95 03/22/18 07:38 03/22/18 07:38 03/22/18 07:38 03/22/18 07:38 03/22/18 07:38 Laboratory Results - last 24 hr 03/21/18 19:55: Urine Color Yellow, Urine Appearance Clear, Urine pH 7.0, Ur Specific [place] 1.020, Urine Protein Negative, Urine Glucose (UA) Negative, Urine Ketones 1+, Urine Blood Negative, Urine Nitrate Negative, Urine Bilirubin Negative, Urine Urobilinogen 0.2, Ur Leukocyte Esterase Negative, Urine RBC Occasional, Urine WBC Occasional, Ur Squamous Epith Cells Occasional, Urine Bacteria Trace, Urine Mucus Trace 03/22/18 06:43: WBC 14.4 H, RBC 4.22, Hgb 13.2, Hct 40.6, MCV 96.1, MCH 31.3 H, MCHC 32.5, RDW 12.8, Plt Count 296, MPV 7.8, Neut % (Auto) 84.5 H, Lymph % (Auto ) 9.9 L, [place] % (Auto) 3.8, Eos % (Auto) 1.5, Baso % (Auto) 0.2, Neut # (Auto) 12.2 H, Lymph # (Auto) 1.4, [place] # (Auto) 0.6, Eos # (Auto) 0.2, Baso # (Auto) 0.0 03/22/18 06:43: Sodium 132 L, Potassium 3.2 L D, Chloride 98, Carbon Dioxide 27 , Anion Gap 10.2, BUN 4 L, Creatinine 0.68, Estimated Creat Clear 41, Estimated GFR 86, Est GFR ( Amer) 104, Glucose 151 H, Calcium 8.7, Total Bilirubin 0.5, AST 21, ALT 13, Alkaline Phosphatase 74, Total Protein 6.6, Albumin 3.0 L, Globulin 3.6 H, Albumin/Globulin Ratio 0.8 L, TSH 1.21 I & O for Last 24 hours: Intake & Output 03/19/18 03/20/18 03/21/18 03/22/18 23:59 23:59 23:59 23:59 Intake Total 1828 / 1828 1184 / 1184 Output Total 2300 / 2300 Balance 1828 / 1828 -1116 / -1116 Weight 49.101 kg 49.101 kg Microbiology Reports for the Last 24 Hours: Microbiology 03/20/18 15:50 Urine,Random Urine Culture - Preliminary NO GROWTH AFTER 24 HOURS - *Routine HEENT Exam Head: Present: normocephalic, atraumatic Eye: Present: EOMI ENT: Present: mucous membranes moist - *Routine Neck Exam Present: supple. Absent: lymphadenopathy - *Routine Respiratory Exam Present: CTA bilaterally. Absent: accessory muscle use, wheezes, crackles - *Routine Cardiovascular Exam Present: RRR, Normal S1, Normal S2. Absent: murmur - *Routine Abdominal Exam Present: soft Comments: Hypoactive active bowel sounds, interval improvement in lower abdominal discomfort with palpation, no rebound, no tympany. - *Routine Rectal Exam Patient deferred: visual exam - *Routine Exam Patient deferred: external exam - *Routine Extremities Exam Present: edema (Trace lower extremity edema). Absent: cyanosis, clubbing - *Routine Skin Exam Present: intact. Absent: cyanosis - *Routine Neurological Exam Present: alert, CN II-XII intact. Absent: sensory deficit (Oriented to person and place, disoriented to time, slow recall with answers "I do not know" to multiple questions.) Assessment and Plan (1) Gastroenteritis Current visit: Yes Status: Acute Category: Medical Code(s): K52.9 - Noninfective gastroenteritis and colitis, unspecified (2) Altered mental status Current visit: Yes Status: Acute Category: Medical Code(s): R41.82 - Altered mental status, unspecified Suspect secondary to either adverse and affect this patient was on raloxifene, estradiol, Benadryl, Xyzal, meclizine, Xanax prior to admission versus acute GI illness causing mild metabolic encephalopathy. (3) Hypertension Current visit: Yes Status: Acute Category: Medical Code(s): I10 - Essential (primary) hypertension (4) Abdominal pain Current visit: No Status: Acute Category: Medical Code(s): R10.9 - Unspecified abdominal pain - Assessment and plan all Dx Assessment and Plan for all problems:: Patient continues to have encephalopathy with confusion to time. Workup today unremarkable with normal CT, MRI, abdominal CT significant for mild inflammation just above enterocolitis Diarrhea resolved Urinary retention resolved, remove David today, UA negative, urine culture pending Continue to hold sedating and anticholinergic medications CIWA score to assess for benzo withdrawal Initiate Paxil this evening Discontinue IV fluids, encourage p.o. intake Zofran for nausea
[2018-03-23 04:12] LABS: Basophils % 0.1 % (0.1-2.0); Eosinophils # 0.2 K/mm3 (0.0-0.4); Eosinophils % 1.9 % (0.1-12.0); Hematocrit 37.5 % (37.0-47.0); Hemoglobin 12.5 g/dL (12.2-16.2); Lymphocytes # 1.7 K/mm3 (0.7-4.5); Lymphocytes % 13.7 K/mm3 (10-50); Mean Corpuscular HGB Conc 33.3 g/dL (31.8-35.4); Mean Corpuscular Hemoglobin 30.8 pg (27.0-31.2); Mean Corpuscular Volume 92.5 fl (81-99); Monocytes # 0.6 K/mm3 (0.1-1.0); Monocytes % 5.3 % (1.7-9.3); Neutrophils # 9.5 K/mm3 (1.8-7.8); Neutrophils % 78.9 % (37.0-80.0); Platelet Count 251 K/mm3 (142-424); Red Blood Count 4.05 M/mm3 (4.20-5.40); Red Cell Distribution Width 12.7 % (11.5-17.5)
--- NOTE | 2018-03-23 04:30 | Progress Note ---
Internal Medicine - PN: Subj *Date: 03/23/18 *Time: 05:05 Interval history: Mrs. Bradford had significant interval improvement throughout the course of Saturday and her orientation, alertness, interactivity. Patient was initiating conversations, had become oriented to person place and time throughout the course of the day. Able to ambulate several times with assistance. Spontaneously voiding. No further episodes of diarrhea, but was passing flatus. Still had poor appetite. Denied any shortness of breath, fever, tremor , agitation. Of note, at approximately 1:45 AM on Saturday morning Ms. Bradford had an episode best described as seizure-like. She had stiffening of her arms and posturing for approximately 20 seconds with subsequent relaxation, deep breathing, decreased responsiveness. Son witnessed episode and states had a similar episode the night before lasting less than 30 seconds. Of concern after a suspected post ictal. She developed acute delirium where she was talking to her dog, answering questions in a nonsensical manner, responding to internal stimuli as well as external stimuli intermittently. She was quite agitated, attempting to get out of bed in a very confused altered state. She did not have any focal deficits with laterality. Administered 1 mg of Ativan, patient calmed for approximately 10 minutes, with return to delirious state. Subsequently received at approximately 3:45 AM a combination of Benadryl, Haldol , Ativan for her acute delirium and agitation in the setting of suspected withdrawal from multiple medications. Medication list obtained from family that they state patient has been taking for the past 6 months consists of trazodone 100 mg nightly (not prescribed to patient), promethazine (not prescribed the patient), omeprazole, metoprolol, meclizine, estradiol, diphenhydramine, Xanax 1 mg. Exam Vital signs and Labs for Last 24 Hours: Temp Pulse Resp BP Pulse Ox 98.3 F 60 18 147/63 97 03/22/18 20:00 03/22/18 20:00 03/22/18 20:00 03/22/18 20:00 03/22/18 20:00 Laboratory Results - last 24 hr 03/22/18 06:43: WBC 14.4 H, RBC 4.22, Hgb 13.2, Hct 40.6, MCV 96.1, MCH 31.3 H, MCHC 32.5, RDW 12.8, Plt Count 296, MPV 7.8, Neut % (Auto) 84.5 H, Lymph % (Auto ) 9.9 L, [place] % (Auto) 3.8, Eos % (Auto) 1.5, Baso % (Auto) 0.2, Neut # (Auto) 12.2 H, Lymph # (Auto) 1.4, [place] # (Auto) 0.6, Eos # (Auto) 0.2, Baso # (Auto) 0.0 03/22/18 06:43: Sodium 132 L, Potassium 3.2 L D, Chloride 98, Carbon Dioxide 27 , Anion Gap 10.2, BUN 4 L, Creatinine 0.68, Estimated Creat Clear 41, Estimated GFR 86, Est GFR ( Amer) 104, Glucose 151 H, Calcium 8.7, Total Bilirubin 0.5, AST 21, ALT 13, Alkaline Phosphatase 74, Total Protein 6.6, Albumin 3.0 L, Globulin 3.6 H, Albumin/Globulin Ratio 0.8 L, TSH 1.21 03/23/18 03:14: POC Glucose 108 03/23/18 04:00: WBC 12.0 H, RBC 4.05 L, Hgb 12.5, Hct 37.5, MCV 92.5, MCH 30.8, MCHC 33.3, RDW 12.7, Plt Count 251, MPV 8.0, Neut % (Auto) 78.9, Lymph % (Auto) 13.7, [place] % (Auto) 5.3, Eos % (Auto) 1.9, Baso % (Auto) 0.1, Neut # (Auto) 9.5 H, Lymph # (Auto) 1.7, [place] # (Auto) 0.6, Eos # (Auto) 0.2, Baso # (Auto) 0.0 I & O for Last 24 hours: Intake & Output 03/20/18 03/21/18 03/22/18 03/23/18 23:59 23:59 23:59 23:59 Intake Total 1828 / 1828 1304 / 1304 Output Total 2700 / 2700 Balance 1827 / 8 -1396 / -1396 Weight 49.101 kg 49.101 kg Microbiology Reports for the Last 24 Hours: Microbiology 03/20/18 15:50 Urine,Random Urine Culture - Preliminary NO GROWTH AFTER 24 HOURS Narrative: Exam obtained at time of agitation - *Routine HEENT Exam Head: Present: normocephalic, atraumatic Eye: Present: EOMI, PERRL. Absent: conjunctival icterus, periorbital swelling ENT: Present: mucous membranes moist Comments: Injury to bottom lip consistent with biting of lip - *Routine Neck Exam Present: supple, full ROM. Absent: JVD, lymphadenopathy - *Routine Respiratory Exam Present: CTA bilaterally. Absent: prolonged expiratory phase, rales, respiratory distress, wheezes, crackles - *Routine Cardiovascular Exam Present: RRR, Normal S1, Normal S2. Absent: murmur, gallop - *Routine Abdominal Exam Present: soft. Absent: tenderness, rigid Comments: Hypoactive bowel sounds - *Routine Rectal Exam Patient deferred: visual exam - *Routine Exam Patient deferred: external exam - *Routine Extremities Exam Present: full ROM, pulses intact. Absent: cyanosis, clubbing, edema - *Routine Skin Exam Present: intact. Absent: cyanosis, erythema - *Routine Neurological Exam Present: altered mental status, moving all extremities, hearing grossly intact, normal speech (Speech not dysarthric, nonsensical responses to questions, speaking to internal stimulus). Absent: clonus, hemineglect, facial asymmetry, tremors Assessment and Plan (1) Altered mental status Current visit: Yes Status: Acute Category: Medical Code(s): R41.82 - Altered mental status, unspecified Continue to suspect secondary to medication side effect given combination of anticholinergic, antihistamine, MAOI medications. -Placed on telemetry after combination for agitation -Neurochecks every 4 -Initiate Xanax 0.5 mg at night -Labs pending -Continues to meet criteria for hospitalization given acute delirium overnight (2) Gastroenteritis Current visit: Yes Status: Acute Category: Medical Code(s): K52.9 - Noninfective gastroenteritis and colitis, unspecified (3) Hypertension Current visit: Yes Status: Acute Category: Medical Code(s): I10 - Essential (primary) hypertension (4) Abdominal pain Current visit: No Status: Acute Category: Medical Code(s): R10.9 - Unspecified abdominal pain (5) Acute hyponatremia Current visit: Yes Status: Acute Category: Medical Code(s): E87.1 - Hypo- osmolality and hyponatremia Unclear etiology at this time, clinically patient appears euvolemic with normal vitals, normal skin turgor, moist mucous membranes, no edema. Strong suspicion hyponatremia due to SIADH in the setting of normal saline infusion with decrease in serum sodium 2 days in a row -Fluid status for hospitalization essentially neutral with a few missed voids per family -Has had poor p.o. intake but receiving normal saline IV infusion until yesterday morning -Acute change could account for patient's altered mental status and delirium experienced overnight -Urine studies ordered, pending -Serum Osm is a send out lab, ordered, pending -For the time being will fluid restrict as patient appears euvolemic -Labs every 6 hrs today to monitor for improvement (6) Hypokalemia Current visit: Yes Status: Acute Category: Medical Code(s): E87.6 - Hypokalemia Urine studies pending -Replace via IV given patient's poor p.o. intake -Transition oral replacement unable to tolerate p.o. better
[2018-03-23 04:33] LABS: Albumin Level 3.1 gm/dL (3.4-5.0); Albumin/Globulin Ratio 0.9 (1.1-1.8); Anion Gap 11.5 mEq/L (5-15); Bilirubin,Total 0.8 mg/dL (0.2-1.0); Calcium 8.5 mg/dL (8.5-10.1); Globulin 3.5 gm/dl (1.3-3.2); Total Protein,Serum 6.6 gm/dL (6.4-8.2)
[2018-03-23 04:37] LABS: Phosphorous 1.7 mg/dL (2.4-4.9); Potassium 2.5 mmoL/L (3.5-5.1)
[2018-03-23 06:49] LABS: Microscopic, Urine URINE MICROSCOPIC (MICROSCOPIC)
[2018-03-23 07:10] LABS: Appearance,Urine CLEAR (Clear); Bilirubin,Urine Negative (Negative); Blood, Urine TRACE-L (Negative); Color,Urine YELLOW (Yellow); Glucose,Urine (UA) Negative (Negative); Ketones,Urine Negative (Negative); Leukocyte Esterase,Urine 1+ (Negative); Protein,Urine Negative (Negative); Specific Gravity, Urine <= 1.005 (1.005-1.030); Urobilinogen,Urine 0.2 EU/dl (0.2)
[2018-03-23 07:13] LABS: Bacteria,Urine 2+ /lpf
[2018-03-23 09:34] LABS: Phosphorous 1.7 mg/dL (2.4-4.9)
[2018-03-23 10:09] LABS: Anion Gap 9.6 mEq/L (5-15); Calcium 8.6 mg/dL (8.5-10.1)
[2018-03-23 10:10] LABS: Potassium 2.6 mmoL/L (3.5-5.1)
[2018-03-23 15:28] LABS: Phosphorous 1.5 mg/dL (2.4-4.9)
[2018-03-23 21:53] LABS: Anion Gap 7.4 mEq/L (5-15); Calcium 8.9 mg/dL (8.5-10.1); Potassium 3.4 mmoL/L (3.5-5.1)
[2018-03-23 22:00] LABS: Phosphorous 1.5 mg/dL (2.4-4.9)
[2018-03-24 05:52] LABS: Basophils % 0.2 % (0.1-2.0); Eosinophils # 0.3 K/mm3 (0.0-0.4); Eosinophils % 2.4 % (0.1-12.0); Hemoglobin 12.6 g/dL (12.2-16.2); Lymphocytes # 1.9 K/mm3 (0.7-4.5); Lymphocytes % 17.4 K/mm3 (10-50); Mean Corpuscular HGB Conc 32.3 g/dL (31.8-35.4); Mean Corpuscular Hemoglobin 30.5 pg (27.0-31.2); Mean Corpuscular Volume 94.5 fl (81-99); Mean Platelet Volume 8.5 fl (7.4-10.4); Monocytes # 0.8 K/mm3 (0.1-1.0); Monocytes % 7.1 % (1.7-9.3); Neutrophils # 8.1 K/mm3 (1.8-7.8); Platelet Count 260 K/mm3 (142-424); Red Blood Count 4.13 M/mm3 (4.20-5.40); Red Cell Distribution Width 12.9 % (11.5-17.5); White Blood Count 11.1 K/mm3 (4.8-10.8)
[2018-03-24 06:21] LABS: Anion Gap 7.4 mEq/L (5-15); Potassium 3.4 mmoL/L (3.5-5.1)
[2018-03-24 06:22] LABS: Calcium 8.4 mg/dL (8.5-10.1)
[2018-03-24 06:23] LABS: Phosphorous 1.8 mg/dL (2.4-4.9)
--- NOTE | 2018-03-24 08:27 | Progress Note ---
Internal Medicine - PN: Subj *Date: 03/24/18 *Time: 08:23 Interval history: Patient markedly improved overnight, sodium levels improved during the day yesterday up to 133 and this morning she is at 143. Mental status has improved nicely. Her sons are at bedside and reports that she is "back to her normal self." Urine culture observed this morning. Exam Vital signs and Labs for Last 24 Hours: Temp Pulse Resp BP Pulse Ox 98.2 F 78 20 121/43 99 03/24/18 07:59 03/24/18 07:59 03/24/18 07:59 03/24/18 07:59 03/24/18 07:59 Laboratory Results - last 24 hr 03/23/18 06:35: Urine Color Yellow, Urine Appearance Clear, Urine pH 7.0, Ur Specific [place] <= 1.005, Urine Protein Negative, Urine Glucose (UA) Negative, Urine Ketones Negative, Urine Blood Trace-l, Urine Nitrate Negative, Urine Bilirubin Negative, Urine Urobilinogen 0.2, Ur Leukocyte Esterase 1+ A, Urine RBC 3-5, Urine WBC 10-20, Ur Squamous Epith Cells 5-10, Urine Bacteria 2+ 03/23/18 09:08: Phosphorus 1.7 L, Magnesium 1.5 03/23/18 09:08: Sodium 129 L, Potassium 2.6 L*, Chloride 94 L, Carbon Dioxide 28 , Anion Gap 9.6, BUN 6 L, Creatinine 0.66, Estimated Creat Clear 41, Estimated GFR 89, Est GFR ( Amer) 107, Glucose 90, Calcium 8.6, Troponin I 0.02 03/23/18 15:02: Sodium 133 L, Potassium 3.0 L, Chloride 98, Carbon Dioxide 28, Anion Gap 10.0, BUN 7, Creatinine 0.71, Estimated Creat Clear 41, Estimated GFR 82, Est GFR ( Amer) 99, Glucose 92, Calcium 9.0, Phosphorus 1.5 L, Magnesium 2.2 D 03/23/18 15:02: Troponin I < 0.02 03/23/18 15:04: POC Glucose 86 03/23/18 21:30: Sodium 135 L, Potassium 3.4 L, Chloride 102, Carbon Dioxide 29, Anion Gap 7.4, BUN 9 D, Creatinine 0.75, Estimated Creat Clear 41, Estimated GFR 77, Est GFR ( Amer) 93, Glucose 96, Calcium 8.9, Phosphorus 1.5 L, Magnesium 2.2 03/23/18 21:30: Ammonia 21 03/24/18 05:30: WBC 11.1 H, RBC 4.13 L, Hgb 12.6, Hct 39.0, MCV 94.5, MCH 30.5, MCHC 32.3, RDW 12.9, Plt Count 260, MPV 8.5, Neut % (Auto) 73.0, Lymph % (Auto) 17.4, [place] % (Auto) 7.1, Eos % (Auto) 2.4, Baso % (Auto) 0.2, Neut # (Auto) 8.1 H, Lymph # (Auto) 1.9, [place] # (Auto) 0.8, Eos # (Auto) 0.3, Baso # (Auto) 0.0 03/24/18 05:30: Sodium 143, Potassium 3.4 L, Chloride 110 H, Carbon Dioxide 29, Anion Gap 7.4, BUN 7, Creatinine 0.71, Estimated Creat Clear 41, Estimated GFR 82, Est GFR ( Amer) 99, Glucose 92, Calcium 8.4 L, Phosphorus 1.8 L, Magnesium 2.1 I & O for Last 24 hours: Intake & Output 03/21/18 03/22/18 03/23/18 03/24/18 11:59 11:59 11:59 11:59 Intake Total 640 / 640 2372 / 2372 220 / 220 1296 / 1296 Output Total 2300 / 2300 1400 / 1400 250 / 250 Balance 640 / 640 72 / 72 -1180 / -1180 1046 / 1046 Weight 108 lb 4 oz Microbiology Reports for the Last 24 Hours: Microbiology 03/23/18 06:35 Urine,Catheterized Urine Culture - Preliminary Gram Negative Rods 03/20/18 15:50 Urine,Random Urine Culture - Final Multiple organisms, suggests contamination. Narrative: Patient is awake, alert, oriented 2, a little fuzzy about the date but much more oriented than previous notes. She recognizes me, recognizes all of her family. Understand she is in the hospital. No focal neurologic deficits. Able to cloth calender with hands bilaterally, able to move arms and legs well. No tremors. Heart rate regular, lungs clear, abdomen soft. She ate a banana and a bowl of Cheerios for breakfast. Assessment and Plan (1) Altered mental status Current visit: Yes Status: Acute Category: Medical Code(s): R41.82 - Altered mental status, unspecified Overall improved. Multifactorial etiology-inappropriate administration of medications by her . Patient's own Xanax therapy interacted with this. Overall medical frailty and now the evidence of UTI. PT/OT evaluation to see if patient would benefit from skilled care stay. EEG today to complete workup for mental status changes. Possible discharge from acute care tomorrow depending on electrolytes, any changes through the night and urinary sensitivity. (2) Gastroenteritis Current visit: Yes Status: Acute Category: Medical Code(s): K52.9 - Noninfective gastroenteritis and colitis, unspecified (3) Hypertension Current visit: Yes Status: Acute Category: Medical Code(s): I10 - Essential (primary) hypertension (4) Abdominal pain Current visit: No Status: Acute Category: Medical Code(s): R10.9 - Unspecified abdominal pain (5) Acute hyponatremia Current visit: Yes Status: Acute Category: Medical Code(s): E87.1 - Hypo- osmolality and hyponatremia Overall improving. Hold IV fluids today. (6) Hypokalemia Current visit: Yes Status: Acute Category: Medical Code(s): E87.6 - Hypokalemia (7) Urinary tract infection Current visit: Yes Status: Acute Category: Medical Code(s): N39.0 - Urinary tract infection, site not specified Start ceftriaxone. Patient has had cephalosporins in office before. Await sensitivity results. - Assessment and plan all Dx Assessment and Plan for all problems:: Urinary tract infection
--- NOTE | 2018-03-24 15:16 | History & Physical Report ---
*Admission Date: 03/20/18 *Chief complaint: Altered Mental Status *History of present illness: Mrs. Bradford is a pleasantly confused 67yo F with Hx of Anxiety who was brought in by her family last night to the ER due to several days of confusion and unsteady gate. Further Hx elicited from her family at bedside is positive for symptoms of memory loss and early signs of AMS as long as 1 month ago. Most acutely, she has become confused to place and time over the past 3 days after developing a GI illness with diarrhea, N/V. Her family reports that before her Sx began she reportedly ate some "bad chicken" that had been in the fridge for an unspecified time period. She has not been febrile. No blood in stools. Has felt more weak, having trouble urinating, gait has been wobbly and unsteady. Her son who is an EMT checked her Blood glucose, found to be mid 80s. He was concerned for dehydration and AMS so he brought her to the ER. Of history, she had a similar episode with a fall ~4months ago with resolution of baseline mental status after several days. Of Note, family did some investigating and found that she has been taking or been given a stable "cocktail" of meds nightly for the past 5-6 months. They report she gets help with her meds from her and she has been taking Trazadone (not hers), Promethazine (not hers), meclizine, metoprolol, benadryl as needed, estradiol 1mg, raloxifene, and xanax (0.5mg AM and Mid day, 1mg QHS). Reviewed labs obtained in ER: significant for UA with no LE or Nitrates, BMP with Na, Cl, K in normal range, Cr: 0.6. CBC with no signs of Anemia or leukocytosis. Head CT with no acute intracranial process. [facility] History Medical History: Reports:: Palpitations Denies:: Cancer, Diabetes Mellitus Type 1, Diabetes Mellitus Type 2 - *Social History Smoking Status: Never smoker Alcohol Intake: never Occupational Status: retired - Psychiatric History Expresses thoughts of harming self/others: None Suicide Plan Description: No Plan Meds Home Medications Medication Instructions Recorded Confirmed Type Estradiol 1 mg PO DAILY 11/26/17 03/21/18 History ALPRAZolam [Xanax 0.5mg tab] 0.5 mg PO BID 12/05/17 03/21/18 History ALPRAZolam [Xanax Xr 1mg Tab] 1 mg PO HS 12/05/17 03/21/18 History Aspirin [Aspirin 81mg chewable 81 mg PO DAILY 12/05/17 03/21/18 History tab] Calcium Carbonate [Calcium] 1,200 mg PO DAILY 12/05/17 03/21/18 History Cholecalciferol (Vitamin D3) 1,000 unit PO DAILY 12/05/17 03/21/18 History [Vitamin D3 1,000 Unit Cap] Metoprolol Tartrate 50 mg PO BID 12/05/17 03/21/18 History Montelukast Sodium [Singulair 10mg 10 mg PO HS 12/05/17 03/21/18 History tablet] Thiamine HCl [Vitamin B-1 100mg/mL 100 mg IM MONTHLY 12/05/17 03/21/18 History vial] Vitamin E 1,000 unit PO DAILY 12/05/17 03/21/18 History diphenhydrAMINE HCl [Benadryl] 25 mg PO BID 12/05/17 03/21/18 History Raloxifene HCl 60 mg PO DAILY 03/20/18 03/21/18 History Fluticasone Propionate [Flonase 1 spr NS BID 03/21/18 03/21/18 History 50mcg nasal spray 16gm] Levocetirizine Dihydrochloride 5 mg PO HS 03/21/18 03/21/18 History [Xyzal] Meclizine HCl [Meclizine 25mg Tab] 25 mg PO TIDP PRN 03/21/18 03/21/18 History Tobramycin/Dexamethasone [Tobradex 2 drops EYE-BOTH QID 03/21/18 03/21/18 History opth susp 2.5mL] Allergies Allergy/AdvReac Type Severity Reaction Status Date / Time amoxicillin [From AMOXIL] Allergy Intermediate I-HIVES Verified 09/25/17 13:34 clindamycin [CLINDAMYCIN] Allergy Intermediate I-HIVES Verified 09/25/17 13:34 Penicillins [PENICILLINS] Allergy Intermediate I-HIVES Verified 09/25/17 13:34 Sulfa (Sulfonamide Allergy Intermediate I-HIVES Verified 09/25/17 13:34 Antibiotics) [SULFA (SULFONAMIDE ANTIBIOTICS)] codeine [CODEINE] Allergy Unknown NAUSEA AND Verified 09/25/17 13:34 VOMITING erythromycin base Allergy Unknown I-HIVES Verified 09/25/17 13:34 [ERYTHROMYCIN BASE] Fish Containing Products Allergy Unknown FACIAL Verified 09/25/17 13:34 [FISH CONTAINING PRODUCTS] SWELLLING latex [LATEX] Allergy Unknown I-HIVES Verified 09/25/17 13:34 Iodinated Contrast Media - Allergy Verified 11/26/17 12:52 Oral and Exam Vital signs and Labs for Last 24 Hours: Temp Pulse Resp BP Pulse Ox 98.0 F 78 18 109/46 99 03/24/18 12:00 03/24/18 12:00 03/24/18 12:00 03/24/18 12:00 03/24/18 12:00 Laboratory Results - last 24 hr 03/23/18 06:35: Urine Color Yellow, Urine Appearance Clear, Urine pH 7.0, Ur Specific [place] <= 1.005, Urine Protein Negative, Urine Glucose (UA) Negative, Urine Ketones Negative, Urine Blood Trace-l, Urine Nitrate Negative, Urine Bilirubin Negative, Urine Urobilinogen 0.2, Ur Leukocyte Esterase 1+ A, Urine RBC 3-5, Urine WBC 10-20, Ur Squamous Epith Cells 5-10, Urine Bacteria 2+ 03/23/18 15:02: Sodium 133 L, Potassium 3.0 L, Chloride 98, Carbon Dioxide 28, Anion Gap 10.0, BUN 7, Creatinine 0.71, Estimated Creat Clear 41, Estimated GFR 82, Est GFR ( Amer) 99, Glucose 92, Calcium 9.0, Phosphorus 1.5 L, Magnesium 2.2 D 03/23/18 15:02: Troponin I < 0.02 03/23/18 15:04: POC Glucose 86 03/23/18 21:30: Sodium 135 L, Potassium 3.4 L, Chloride 102, Carbon Dioxide 29, Anion Gap 7.4, BUN 9 D, Creatinine 0.75, Estimated Creat Clear 41, Estimated GFR 77, Est GFR ( Amer) 93, Glucose 96, Calcium 8.9, Phosphorus 1.5 L, Magnesium 2.2 03/23/18 21:30: Ammonia 21 03/24/18 05:30: WBC 11.1 H, RBC 4.13 L, Hgb 12.6, Hct 39.0, MCV 94.5, MCH 30.5, MCHC 32.3, RDW 12.9, Plt Count 260, MPV 8.5, Neut % (Auto) 73.0, Lymph % (Auto) 17.4, [place] % (Auto) 7.1, Eos % (Auto) 2.4, Baso % (Auto) 0.2, Neut # (Auto) 8.1 H, Lymph # (Auto) 1.9, [place] # (Auto) 0.8, Eos # (Auto) 0.3, Baso # (Auto) 0.0 03/24/18 05:30: Sodium 143, Potassium 3.4 L, Chloride 110 H, Carbon Dioxide 29, Anion Gap 7.4, BUN 7, Creatinine 0.71, Estimated Creat Clear 41, Estimated GFR 82, Est GFR ( Amer) 99, Glucose 92, Calcium 8.4 L, Phosphorus 1.8 L, Magnesium 2.1 I & O for Last 24 hours: Intake & Output 03/21/18 03/22/18 03/23/18 03/24/18 23:59 23:59 23:59 23:59 Intake Total 1828 / 1828 1304 / 1304 450 / 450 1153 / 1153 Output Total 2700 / 2700 1250 / 1250 Balance 1828 / 1828 -1396 / -1396 -800 / -800 1153 / 1153 Weight 49.101 kg Microbiology Reports for the Last 24 Hours: Microbiology 03/23/18 06:35 Urine,Catheterized Urine Culture - Preliminary Gram Negative Rods - *Routine HEENT Exam Head: Present: normocephalic, atraumatic Eye: Present: EOMI, PERRL. Absent: conjunctival icterus ENT: Present: mucous membranes moist, dentition normal - *Routine Neck Exam Present: supple, full ROM. Absent: JVD, lymphadenopathy - *Routine Respiratory Exam Present: CTA bilaterally. Absent: prolonged expiratory phase, rales, stridor, wheezes - *Routine Cardiovascular Exam Present: RRR, Normal S1, Normal S2 - *Routine Abdominal Exam Present: soft Comments: hypoactive BS, TTP diffusely in RLQ and LLQ with significant Tenderness in suprapubic region - *Routine Rectal Exam Patient deferred: visual exam - *Routine Exam Patient deferred: external exam - *Routine Extremities Exam Present: full ROM, pulses intact, normal capillary refill. Absent: cyanosis, clubbing, edema, joint swelling - *Routine Skin Exam Present: intact, dry. Absent: cyanosis, erythema, jaundice Comments: multiple ecchymoses on bilateral UEs - *Routine Neurological Exam Present: alert, CN II-XII intact, altered mental status. Absent: sensory deficit, motor deficit oriented to person and place, disoriented to time H&P: Result - Labs Labs: Short CBC 03/24/18 Range/Units 05:30 WBC 11.1 H (4.8-10.8) K/mm3 Hgb 12.6 (12.2-16.2) g/dL Hct 39.0 (37.0-47.0) % Plt Count 260 (142-424) K/mm3 BMP 03/23/18 03/23/18 03/24/18 15:02 21:30 05:30 Sodium 133 L 135 L 143 Potassium 3.0 L 3.4 L 3.4 L Chloride 98 102 110 H Carbon Dioxide 28 29 29 BUN 7 9 D 7 Creatinine 0.71 0.75 0.71 Glucose 92 96 92 Calcium 9.0 8.9 8.4 L Cardiac Enzymes 03/23/18 Range/Units 15:02 Troponin I < 0.02 (0.00-0.06) ng/ml Urine 03/23/18 Range/Units 06:35 Urine Color Yellow (Yellow) Urine Appearance Clear (Clear) Urine pH 7.0 (5.0-8.5) Ur Specific [place] <= 1.005 (1.005-1.030) Urine Protein Negative (Negative) Urine Glucose (UA) Negative (Negative) - Impressions 67 yo female with Gastroenteritis and AMS. Given acute illness in setting of multiple Anticholinergic medications suspect adverse reaction to medication. The combination of xanax, trazadone, promethazine, benadryl, and meclizine property assistant have side effects of diarrhea, urinary retention, confusion, hallucinations, tremors, tachycardia. I suspect her encephalopathy is due to medications vs acute illness in the setting of having normal metabolic panels, normal UA, normal Head CT, no recent trauma Assessment and Plan (1) Altered mental status Current visit: Yes Status: Acute Category: Medical Code(s): R41.82 - Altered mental status, unspecified (2) Gastroenteritis Current visit: Yes Status: Acute Category: Medical Code(s): K52.9 - Noninfective gastroenteritis and colitis, unspecified (3) Hypertension Current visit: Yes Status: Acute Category: Medical Code(s): I10 - Essential (primary) hypertension (4) Abdominal pain Current visit: No Status: Acute Category: Medical Code(s): R10.9 - Unspecified abdominal pain - Assessment and plan all Dx Assessment and Plan for all problems:: Admit for rehydration and infectious work-up - UC pending, Stool PCR ordered if repeat Diarrhea - Repeat labs in AM - MRI head to look for additional intracranial processes unable to be identified on CT - Hold home meds in setting of acute encephalopathy - MIVF NS @75cc/hr - PO as tolerated - PT/OT consult when appropriate - Neuro checks - Carotid duplex to assess cerebral flow.
[2018-03-25 06:01] LABS: Basophils % 0.1 % (0.1-2.0); Eosinophils # 0.1 K/mm3 (0.0-0.4); Eosinophils % 0.8 % (0.1-12.0); Hemoglobin 12.1 g/dL (12.2-16.2); Lymphocytes % 14.6 K/mm3 (10-50); Mean Corpuscular HGB Conc 32.6 g/dL (31.8-35.4); Mean Corpuscular Hemoglobin 30.7 pg (27.0-31.2); Mean Platelet Volume 7.9 fl (7.4-10.4); Monocytes # 1.1 K/mm3 (0.1-1.0); Monocytes % 8.1 % (1.7-9.3); Neutrophils # 10.6 K/mm3 (1.8-7.8); Neutrophils % 76.4 % (37.0-80.0); Platelet Count 266 K/mm3 (142-424); Red Blood Count 3.93 M/mm3 (4.20-5.40); White Blood Count 13.8 K/mm3 (4.8-10.8)
[2018-03-25 06:07] LABS: Albumin Level 2.6 gm/dL (3.4-5.0); Albumin/Globulin Ratio 0.8 (1.1-1.8); Anion Gap 6.1 mEq/L (5-15); Bilirubin,Total 0.6 mg/dL (0.2-1.0); Globulin 3.2 gm/dl (1.3-3.2); Potassium 3.1 mmoL/L (3.5-5.1); Total Protein,Serum 5.8 gm/dL (6.4-8.2)
--- NOTE | 2018-03-25 08:25 | Progress Note ---
Internal Medicine - PN: Subj *Date: 03/25/18 *Time: 14:00 Interval history: Mrs. Bradford remains hemodynamically stable this morning. Her labs are remarkable for elevation in her leukocytosis, hyponatremia, hypokalemia. Contacted [facility] this morning to track down urine sodium obtained over the weekend, noted to be 35 at time patient had serum sodium of 122. Of note Ms. Bradford received 1 L IV fluid infusion yesterday of normal saline. And has proceeded to develop worsening hyponatremia from being normal and atraumatic yesterday. Remains alert, not agitated or combative, oriented to person and place but not time. Noted to have some additional short-term deficits with recall. Son at bedside this morning states she had a "decent" night. Ambulating with assistance, no further episodes of seizure-like activity overnight. Remains afebrile, had one loose stool overnight, urinating independently, denies lower abdominal pain, significant nausea. Complains of slight headache, itching of left eye. Exam Vital signs and Labs for Last 24 Hours: Temp Pulse Resp BP Pulse Ox 99.8 F H 56 L 16 123/44 93 L 03/25/18 07:56 03/25/18 07:56 03/25/18 07:56 03/25/18 07:56 03/25/18 07:56 Laboratory Results - last 24 hr 03/25/18 05:45: WBC 13.8 H, RBC 3.93 L, Hgb 12.1 L, Hct 37.0, MCV 94.0, MCH 30.7 , MCHC 32.6, RDW 13.0, Plt Count 266, MPV 7.9, Neut % (Auto) 76.4, Lymph % (Auto ) 14.6, [place] % (Auto) 8.1, Eos % (Auto) 0.8, Baso % (Auto) 0.1, Neut # (Auto) 10.6 H, Lymph # (Auto) 2.0, [place] # (Auto) 1.1 H, Eos # (Auto) 0.1, Baso # (Auto ) 0.0 03/25/18 05:45: Sodium 132 L, Potassium 3.1 L, Chloride 99, Carbon Dioxide 30, Anion Gap 6.1, BUN 8, Creatinine 0.68, Estimated Creat Clear 43, Estimated GFR 86, Est GFR ( Amer) 104, Glucose 98, Calcium 8.0 L, Total Bilirubin 0.6, AST 21, ALT 14, Alkaline Phosphatase 69, Total Protein 5.8 L, Albumin 2.6 L, Globulin 3.2, Albumin/Globulin Ratio 0.8 L I & O for Last 24 hours: Intake & Output 03/22/18 03/23/18 03/24/18 03/25/18 23:59 23:59 23:59 23:59 Intake Total 1304 / 1304 450 / 450 2263 / 2263 360 / 360 Output Total 2700 / 2700 1250 / 1250 118 / 118 Balance -1396 / -1396 -800 / -800 2263 / 2263 242 / 242 Weight 50.802 kg Microbiology Reports for the Last 24 Hours: Microbiology 03/23/18 06:35 Urine,Catheterized Urine Culture - Final Escherichia coli - *Routine HEENT Exam Head: Present: normocephalic, atraumatic Eye: Present: EOMI, PERRL, scleral injection (Left eye with injection mild erythema of eyelid, 2 mm stye upper eyelid medial corner). Absent: conjunctival icterus ENT: Present: mucous membranes moist - *Routine Neck Exam Present: supple - *Routine Respiratory Exam Present: CTA bilaterally. Absent: accessory muscle use, rales, wheezes, crackles - *Routine Cardiovascular Exam Present: RRR, Normal S1, Normal S2 - *Routine Abdominal Exam Present: soft, normoactive bowel sounds. Absent: tenderness - *Routine Rectal Exam Patient deferred: visual exam - *Routine Exam Patient deferred: external exam - *Routine Extremities Exam Present: pulses intact. Absent: cyanosis, clubbing, edema, full ROM - *Routine Skin Exam Present: intact. Absent: cyanosis - *Routine Neurological Exam Present: alert, CN II-XII intact. Absent: sensory deficit, abnormal gait ( Oriented to person, place. Disoriented to time. Poor short-term recall, has immediate recall but not five-minute recall. Intact long-term memory.) - Routine Psychiatric Exam Present: normal affect, cooperative. Absent: tactile hallucinations - Detailed Eye Exam Eyelids: Left normal inspection Assessment and Plan (1) Altered mental status Current visit: Yes Status: Acute Category: Medical Code(s): R41.82 - Altered mental status, unspecified (2) Gastroenteritis Current visit: Yes Status: Acute Category: Medical Code(s): K52.9 - Noninfective gastroenteritis and colitis, unspecified (3) Hypertension Current visit: Yes Status: Acute Category: Medical Code(s): I10 - Essential (primary) hypertension (4) Abdominal pain Current visit: No Status: Acute Category: Medical Code(s): R10.9 - Unspecified abdominal pain (5) Acute hyponatremia Current visit: Yes Status: Acute Category: Medical Code(s): E87.1 - Hypo- osmolality and hyponatremia (6) Hypokalemia Current visit: Yes Status: Acute Category: Medical Code(s): E87.6 - Hypokalemia (7) Urinary tract infection Current visit: Yes Status: Acute Category: Medical Code(s): N39.0 - Urinary tract infection, site not specified - Assessment and plan all Dx Assessment and Plan for all problems:: Mrs. Bradford's urine culture returned from Saturday with E. coli. Significant resistance to multiple antibiotics. -Due to her allergies to medications will initiate ertapenem -Sodium noted to be low this morning. Urine sodium 35 from similar episode on Saturday suggestive of SIADH. -Fluid restrict less than 1 for today -Repeat labs every 8 hours -Neurochecks.
[2018-03-25 14:59] LABS: Anion Gap 8.6 mEq/L (5-15); Calcium 8.6 mg/dL (8.5-10.1); Phosphorous 2.5 mg/dL (2.4-4.9)
[2018-03-25 15:12] LABS: Potassium 2.6 mmoL/L (3.5-5.1)
[2018-03-25 20:22] LABS: Anion Gap 8.3 mEq/L (5-15); Calcium 8.8 mg/dL (8.5-10.1); Potassium 3.3 mmoL/L (3.5-5.1)
[2018-03-26 07:16] LABS: Anion Gap 8.4 mEq/L (5-15); Calcium 9.1 mg/dL (8.5-10.1); Potassium 3.4 mmoL/L (3.5-5.1)
--- NOTE | 2018-05-12 14:24 | Swing Bed Reports ---
*Admission Date: 03/20/18 *Chief complaint: UTI/acute delirium/SIADH *History of present illness: Mrs. Bradford is a pleasantly confused 67yo F with Hx of Anxiety who was brought in by her family last night to the ER due to several days of confusion and unsteady gate. Further Hx elicited from her family at bedside is positive for symptoms of memory loss and early signs of AMS as long as 1 month ago. Most acutely, she has become confused to place and time over the past 3 days after developing a GI illness with diarrhea, N/V. Her family reports that before her Sx began she reportedly ate some "bad chicken" that had been in the fridge for an unspecified time period. She has not been febrile. No blood in stools. Has felt more weak, having trouble urinating, gait has been wobbly and unsteady. Her son who is an EMT checked her Blood glucose, found to be mid 80s. He was concerned for dehydration and AMS so he brought her to the ER. Of history, she had a similar episode with a fall ~4months ago with resolution of baseline mental status after several days. Of Note, family did some investigating and found that she has been taking or been given a stable "cocktail" of meds nightly for the past 5-6 months. They report she gets help with her meds from her and she has been taking Trazadone (not hers), Promethazine (not hers), meclizine, metoprolol, benadryl as needed, estradiol 1mg, raloxifene, and xanax (0.5mg AM and Mid day, 1mg QHS). Reviewed labs obtained in ER: significant for UA with no LE or Nitrates, BMP with Na, Cl, K in normal range, Cr: 0.6. CBC with no signs of Anemia or leukocytosis. Head CT with no acute intracranial process. Hospital Course Hospital Course: Patient was admitted to acute care is in the. Workup ensued, revealing no evidence of structural damage or stroke in the CT or MRI images. EEG was done which revealed normal waveforms for age. Patient was found to have significant hyponatremia that was corrected with fluid restriction and appropriate IV fluid administration, and elevated urine sodium consistent with SIADH. It was also found that her who suffers from significant psychiatric illness and is treated at the [facility], has been giving her some of his medications at night including trazodone and high-dose Benadryl along with her chronic benzodiazepine doses. These were obviously held and her mental status cleared over the next 3-4 days. Urine culture grew E. coli, only sensitive to Invanz and Macrobid. Invanz was begun and she tolerated this very nicely Sodium improved with fluid restriction as noted above. Patient was found to be significantly weak, and PT/OT recommended ongoing re habilitation in a subacute setting. She will be transferred over to the swing bed today for ongoing IV antibiotics, PT/OT and ongoing observation of her sodium levels. In retrospect she has had some memory deficits over the past couple of months and the diagnosis of early dementia with acute worsening delirium needs to be considered. This will be addressed as an outpatient. Please note prognosis is good. Exam Vital signs and Labs for Last 24 Hours: Temp Pulse Resp BP Pulse Ox 98.3 F 57 L 18 184/68 95 03/26/18 07:30 03/26/18 07:30 03/26/18 07:30 03/26/18 07:30 03/26/18 07:30 Laboratory Results - last 24 hr 03/25/18 14:06: Sodium 135 L, Potassium 2.6 L*, Chloride 100, Carbon Dioxide 29, Anion Gap 8.6, BUN 11 D, Creatinine 0.79, Estimated Creat Clear 43, Estimated GFR 72, Est GFR ( Amer) 87, Glucose 117 H, Calcium 8.6, Phosphorus 2.5 D , Magnesium 1.9 03/25/18 20:01: Sodium 137, Potassium 3.3 L D, Chloride 102, Carbon Dioxide 30, Anion Gap 8.3, BUN 12, Creatinine 0.79, Estimated Creat Clear 43, Estimated GFR 72, Est GFR ( Amer) 87, Glucose 106, Calcium 8.8 03/25/18 20:01: Magnesium 1.9 03/26/18 06:16: Sodium 140, Potassium 3.4 L, Chloride 106, Carbon Dioxide 29, Anion Gap 8.4, BUN 9, Creatinine 0.67, Estimated Creat Clear 43, Estimated GFR 87, Est GFR ( Amer) 106 D, Glucose 93, Calcium 9.1, Magnesium 2.0 I & O for Last 24 hours: Intake & Output 03/23/18 03/24/18 03/25/18 08/01/18 11:59 11:59 11:59 11:59 Intake Total 220 / 220 1503 / 1503 1540 / 1540 930 / 930 Output Total 1400 / 1400 250 / 250 468 / 468 1725 / 1725 Balance -1180 / -1180 1253 / 1253 1072 / 1072 -795 / -795 Weight 112 lb Microbiology Reports for the Last 24 Hours: Microbiology 03/23/18 06:35 Urine,Catheterized Urine Culture - Final Escherichia coli Narrative: Patient is alert. Pleasant. Talkative, oriented 2. Does have a little bit of waxing and waning of memory according to her son but is overall vastly improved. Heart rate regular without murmurs. Anterior lung zarate are clear. Abdomen is soft and nontender. She has no edema. She is globally weak but has no symmetric deficits of power or strength or sensation. Results Labs on day of discharge: Labs from last 24 hours 03/26/18 03/25/18 03/25/18 06:16 20:01 20:01 Sodium 140 137 Potassium 3.4 L 3.3 L D Chloride 106 102 Carbon Dioxide 29 30 Anion Gap 8.4 8.3 BUN 9 12 Creatinine 0.67 0.79 Estimated Creat Clear 43 43 Estimated GFR 87 72 Est GFR ( Amer) 106 D 87 Glucose 93 106 Calcium 9.1 8.8 Phosphorus Magnesium 2.0 1.9 03/25/18 14:06 Sodium 135 L Potassium 2.6 L* Chloride 100 Carbon Dioxide 29 Anion Gap 8.6 BUN 11 D Creatinine 0.79 Estimated Creat Clear 43 Estimated GFR 72 Est GFR ( Amer) 87 Glucose 117 H Calcium 8.6 Phosphorus 2.5 D Magnesium 1.9 DS: Diagnosis - Discharge Diagnosis (1) Altered mental status Status: Resolved (2) Gastroenteritis Status: Resolved (3) Hypertension Status: Chronic (4) Abdominal pain Status: Resolved (5) Acute hyponatremia Status: Resolved (6) Hypokalemia Status: Resolved (7) Urinary tract infection Status: Acute (8) SIADH (syndrome of inappropriate ADH production) Status: Chronic Problem details: Admit to swing bed for further management of urinary tract infection, continuation of IV ertapenem. Continue physical therapy daily Continue to monitor electrolytes with fluid restriction (9) Early onset Alzheimer's dementia Status: Chronic Discharge/Transfer (Swing Bed) - Plan of Care Resident has been informed of condition and prognosis?: Yes Mobility Status: ambulatory with assistance Goal of treatment:: Improvement Rehab Potential: Good Mental Status: Oriented x 2 I concur with the most recent H&P: Yes Date of most recent H&P: 03/26/18 Certification: I have reviewed and agree with this resident's plan of care. I certify that post-hospital fdc facility services are required to be given on an inpatient basis because of the need for fdc care on a continuing basis for the condition(s) for which he/she is receiving inpatient hospital services prior to admission to swing bed. I also certify that the resident meets existing SNF level of care definition. - Discharge from Acute Disposition: [facility] Condition: Good Current Home Med List: Home Medications Medication Instructions Recorded Confirmed Type Fluticasone Propionate [Flonase 1 spr NS BID 03/21/18 03/21/18 History 50mcg nasal spray 16gm] Home Med List for [facility]: Continue Aspirin [Aspirin 81mg chewable tab] 81 mg PO DAILY Metoprolol Tartrate 50 mg PO BID Calcium Carbonate [Calcium] 1,200 mg PO DAILY Fluticasone Propionate [Flonase 50mcg nasal spray 16gm] 1 spr NS BID Cholecalciferol (Vitamin D3) [Vitamin D3 1,000 Unit Cap] 1,000 unit PO DAILY Discontinued Estradiol 2 mg PO DAILY Vitamin E 1,000 unit PO DAILY Thiamine HCl [Vitamin B-1 100mg/mL vial] 100 mg IM MONTHLY diphenhydrAMINE HCl [Benadryl] 25 mg PO BID ALPRAZolam [Xanax Xr 1mg Tab] 1 mg PO HS ALPRAZolam [Xanax 0.5mg tab] 0.5 mg PO BID Raloxifene HCl 60 mg PO DAILY Meclizine HCl [Meclizine 25mg Tab] 25 mg PO TIDP PRN PRN Reason: Vertigo Levocetirizine Dihydrochloride [Xyzal] 5 mg PO HS Tobramycin/Dexamethasone [Tobradex opth susp 2.5mL] 2 drops EYE-BOTH QID No Action LORazepam [Ativan 0.5mg tablet] 0.25 mg PO HS
== END 2018-03-26 11:47 | disposition swing bed (61) ==
LOC: 2ND 15:31 → ER 15:31 → 2ND 21:50
PROVIDERS: ADMIT Family Medicine; ATTEND Internal Medicine Adolescent Medicine
DX: T43.1X5A Adverse effect of monoamine-oxidase-inhibitor antidepressants, initial encounter; T44.3X5A Adverse effect of other parasympatholytics [anticholinergics and antimuscarinics] and spasmolytics, initial encounter; K52.9 Noninfective gastroenteritis and colitis, unspecified; G30.0 Alzheimer's disease with early onset; N39.0 Urinary tract infection, site not specified; E22.2 Syndrome of inappropriate secretion of antidiuretic hormone; F02.81 Dementia in other diseases classified elsewhere, unspecified severity, with behavioral disturbance; I10 Essential (primary) hypertension; R41.82 Altered mental status, unspecified; E87.6 Hypokalemia; Z91.83 Wandering in diseases classified elsewhere

== ENCOUNTER 2018-03-26 11:48 | Inpatient (IN) ==
--- NOTE | 2018-03-26 12:21 | Pharmacy Consult Notes ---
[facility] Pharmacy VTE Monitoring - Patient Demographics Admission date: 03/26/18 Report Date: 03/26/18 Time: 12:20 Allergies/Adverse Reactions: Patient Allergies amoxicillin [From AMOXIL] Allergy (Intermediate, Verified 09/25/17 13:34) I-HIVES clindamycin [CLINDAMYCIN] Allergy (Intermediate, Verified 09/25/17 13:34) I-HIVES Penicillins [PENICILLINS] Allergy (Intermediate, Verified 09/25/17 13:34) I-HIVES Sulfa (Sulfonamide Antibiotics) [SULFA (SULFONAMIDE ANTIBIOTICS)] Allergy ( Intermediate, Verified 09/25/17 13:34) I-HIVES codeine [CODEINE] Allergy (Unknown, Verified 09/25/17 13:34) NAUSEA AND VOMITING erythromycin base [ERYTHROMYCIN BASE] Allergy (Unknown, Verified 09/25/17 13:34) I-HIVES Fish Containing Products [FISH CONTAINING PRODUCTS] Allergy (Unknown, Verified 09/25/17 13:34) FACIAL SWELLLING latex [LATEX] Allergy (Unknown, Verified 09/25/17 13:34) I-HIVES Iodinated Contrast Media - Oral and Allergy (Verified 11/26/17 12:52) Height: 1.55 m Weight: 52.305 kg - Prophylaxis VTE Prophylaxis Ordered?: Yes Types of VTE Prophylaxis: TEDS Knee High Location of Applied Device: Bilateral Lower Extremeties - VTE Diagnosis Confirmed Treatment or plan recommended: Continue Current Treatment
[2018-03-26 21:44] LABS: Anion Gap 8.8 mEq/L (5-15); Calcium 9.1 mg/dL (8.5-10.1); Potassium 3.8 mmoL/L (3.5-5.1)
[2018-03-27 07:30] LABS: Calcium 9.2 mg/dL (8.5-10.1)
[2018-03-27 07:37] LABS: Anion Gap 9.2 mEq/L (5-15); Potassium 4.2 mmoL/L (3.5-5.1)
[2018-03-28 06:22] LABS: Anion Gap 6.6 mEq/L (5-15); Potassium 4.6 mmoL/L (3.5-5.1)
--- NOTE | 2018-03-28 07:57 | Progress Note ---
Internal Medicine - PN: Subj *Date: 03/28/18 *Time: 09:15 Interval history: No acute events overnight people on room air. Reports feeling much better. Tolerating regular diet. Voiding independently. Denies any confusion. Interview this morning with patient oriented to person place and time with intact short-term memory. Motor dynamically. Labs reviewed and stable. Exam Vital signs and Labs for Last 24 Hours: Temp Pulse Resp BP Pulse Ox 97.8 F 63 17 131/53 95 03/27/18 20:00 03/27/18 20:00 03/27/18 20:00 03/27/18 20:00 03/27/18 20:00 Laboratory Results - last 24 hr 03/28/18 05:35: Sodium 138, Potassium 4.6, Chloride 106, Carbon Dioxide 30, Anion Gap 6.6, BUN 8, Creatinine 0.68, Estimated Creat Clear 44, Estimated GFR 86, Est GFR ( Amer) 104, Glucose 96, Calcium 9.0 I & O for Last 24 hours: Intake & Output 03/25/18 03/26/18 03/27/18 03/28/18 23:59 23:59 23:59 23:59 Intake Total 600 / 600 1270 / 1270 10 / 10 Output Total 950 / 950 300 / 300 200 / 200 Balance -350 / -350 970 / 970 -190 / -190 Weight 52.305 kg - *Routine HEENT Exam Head: Present: normocephalic, atraumatic Eye: Present: EOMI ENT: Present: mucous membranes moist - *Routine Neck Exam Present: supple. Absent: lymphadenopathy - *Routine Respiratory Exam Present: CTA bilaterally. Absent: prolonged expiratory phase, rales, wheezes, crackles - *Routine Cardiovascular Exam Present: RRR, Normal S1, Normal S2. Absent: murmur - *Routine Abdominal Exam Present: soft, normoactive bowel sounds. Absent: tenderness - *Routine Rectal Exam Patient deferred: visual exam - *Routine Exam Patient deferred: external exam - *Routine Extremities Exam Absent: cyanosis, clubbing, edema - *Routine Skin Exam Present: intact. Absent: cyanosis - *Routine Neurological Exam Present: alert, oriented X3, CN II-XII intact. Absent: sensory deficit Assessment and Plan (1) Altered mental status Current visit: No Status: Resolved Category: Medical Code(s): R41.82 - Altered mental status, unspecified (2) Urinary tract infection Current visit: No Status: Acute Category: Medical Code(s): N39.0 - Urinary tract infection, site not specified Continue ertapenem through tomorrow for 5 total days of carbapenem treatment, transition to Macrobid tomorrow for total of 10d of treatment (3) Acute hyponatremia Current visit: No Status: Chronic Category: Medical Code(s): E87.1 - Hypo- osmolality and hyponatremia Stable, continue fluid restriction (4) SIADH (syndrome of inappropriate ADH production) Current visit: No Status: Chronic Category: Medical Code(s): E22.2 - Syndrome of inappropriate secretion of antidiuretic hormone Etiology still not clear, suspect due to medications or acute illness as cortisol is normal, TSH is normal. Responding appropriately to fluid restriction. Will pursue outpatient nephrology consult after discharge.
[2018-03-29 07:10] LABS: Anion Gap 6.8 mEq/L (5-15); Calcium 9.4 mg/dL (8.5-10.1); Potassium 4.8 mmoL/L (3.5-5.1)
[2018-03-30 07:14] LABS: Anion Gap 8.4 mEq/L (5-15); Potassium 4.4 mmoL/L (3.5-5.1)
--- NOTE | 2018-03-30 13:11 | Discharge Summary ---
General - General Admission date:: 03/26/18 Discharge date: 03/30/18 HPI HPI: This serves as HPI and hospital course. Ms. Bradford is a 67-year-old who presented initially with significant altered mental status. History determined that she had been taking a significant combination of potentially toxic medications including trazodone, alprazolam, Benadryl, meclizine, Phenergan, estradiol. In addition prior to admission she had eaten some "bad chicken" causing significant gastroenteritis. She was additionally diagnosed with UTI during admission. While admitted at [facility] she developed significant fluctuations in her sodium and potassium. Determined to be due to SIADH. Through fluid restriction and aggressive replacement electrolytes have normalized. Patient's clinically improved with antibiotic therapy and significant alteration to her medication regimen. Time she is participating in physical therapy, ambulating with assistance. Continuing IV antibiotics for UTI. Hospital Course Hospital Course: Ms. Bradford was admitted to swing bed for continued IV antibiotics for her E. coli UTI and continued monitoring of her hyponatremia/SIADH and fluid restriction. She has done quite well through her admission with resumption of baseline mental status. Significant improvement in orientation to person place time and short-term memory recall. Her electrolytes have been stable with fluid restriction. She has remained afebrile and hemodynamically stable. Has had no complaints of abdominal pain, dysuria, confusion. No further episodes of acute delirium. Tolerating regular diet and oral medications. Stable for discharge home. Objective Vital signs: Temp Pulse Resp BP Pulse Ox 98.0 F 54 L 18 147/55 97 03/30/18 07:46 03/30/18 07:46 03/30/18 07:46 03/30/18 07:46 03/30/18 07:50 - *Routine HEENT Exam Head: Present: normocephalic, atraumatic Eye: Present: EOMI, PERRL ENT: Present: mucous membranes moist, dentition normal - *Routine Neck Exam Present: supple. Absent: lymphadenopathy - *Routine Respiratory Exam Present: CTA bilaterally. Absent: prolonged expiratory phase, rales, wheezes, crackles - *Routine Cardiovascular Exam Present: RRR, Normal S1, Normal S2. Absent: murmur - *Routine Abdominal Exam Present: soft, normoactive bowel sounds. Absent: tenderness - *Routine Rectal Exam Patient deferred: visual exam - *Routine Exam Patient deferred: external exam - *Routine Extremities Exam Present: full ROM, pulses intact. Absent: cyanosis, clubbing, edema - *Routine Skin Exam Present: intact. Absent: cyanosis, erythema, dry - *Routine Neurological Exam Present: alert, oriented X3, CN II-XII intact. Absent: sensory deficit, motor deficit, altered mental status, abnormal gait - Routine Psychiatric Exam Present: normal affect, normal thought process, cooperative, good insight. Absent: visual hallucinations Results Labs on day of discharge: Labs from last 24 hours 03/30/18 06:15 Sodium 141 Potassium 4.4 Chloride 106 Carbon Dioxide 31 Anion Gap 8.4 BUN 9 D Creatinine 0.70 Estimated Creat Clear 44 Estimated GFR 83 Est GFR ( Amer) 100 Glucose 96 Calcium 9.0 DS: Diagnosis - Discharge Diagnosis (1) Altered mental status Status: Resolved (2) Urinary tract infection Status: Acute (3) Acute hyponatremia Status: Resolved (4) SIADH (syndrome of inappropriate ADH production) Status: Chronic Problem details: Admit to swing bed for further management of urinary tract infection, continuation of IV ertapenem. Continue physical therapy daily Continue to monitor electrolytes with fluid restriction Discharge Plan - Patient Discharge Instructions ACTIVITY: Continue current activity, Ambulate as tolerated DIET: continue same diet Additional Instructions: No salt restriction in her diet. Continue fluid restriction with no more than 1 -1.2 L per day. Follow-up as instructed March 31 in the morning with outpatient infusion at [facility] for 1 more dose of ertapenem IV antibiotic to complete treatment for E. coli urinary tract infection. Patient Instructions: High-Potassium Diet - Follow up Plan Follow up with: Ang Warner MD [Staff Physician] - 04/04/18 11:30 am Disposition: Home, Self-Half-Way Medications: Home Medications Medication Instructions Recorded Confirmed Type Aspirin [Aspirin 81mg chewable 81 mg PO DAILY 12/05/17 03/26/18 History tab] Calcium Carbonate [Calcium] 1,200 mg PO DAILY 12/05/17 03/26/18 History Cholecalciferol (Vitamin D3) 1,000 unit PO DAILY 12/05/17 03/26/18 History [Vitamin D3 1,000 Unit Cap] Metoprolol Tartrate 50 mg PO BID 12/05/17 03/26/18 History Montelukast Sodium [Singulair 10mg 10 mg PO HS 12/05/17 03/26/18 History tablet] Fluticasone Propionate [Flonase 1 spr NS BID 03/21/18 03/26/18 History 50mcg nasal spray 16gm] Prescriptions/Medication Reconciliation: New LORazepam [Ativan 0.5mg tablet] 0.25 mg PO HS tablet Continue Aspirin [Aspirin 81mg chewable tab] 81 mg PO DAILY Metoprolol Tartrate 50 mg PO BID Calcium Carbonate [Calcium] 1,200 mg PO DAILY Fluticasone Propionate [Flonase 50mcg nasal spray 16gm] 1 spr NS BID Cholecalciferol (Vitamin D3) [Vitamin D3 1,000 Unit Cap] 1,000 unit PO DAILY Discontinued Montelukast Sodium [Singulair 10mg tablet] 10 mg PO HS Other Amb Orders: Basic Metabolic Panel Time Frame: 2 Days, Facility: [facility], Location: Laboratory Magnesium Time Frame: 2 Days, Facility: [facility], Location: Laboratory
== END 2018-03-30 14:47 | disposition home or self-care (01) ==
LOC: 2ND 11:48
PROVIDERS: ADMIT Internal Medicine Adolescent Medicine; ATTEND Internal Medicine Adolescent Medicine
CPT/HCPCS: 36415; 80048; 83735; 87507; 93880; 97165; J1335; J2405

== ENCOUNTER 2018-03-31 10:12 | Outpatient (CLI) | payer MEDICARE, OTHER, SELFPAY ==
[2018-03-31 10:53] VITALS: BMI 19.7
[2018-03-31 11:25] LABS: Anion Gap 7.6 mEq/L (5-15); Blood Urea Nitrogen 13 mg/dL (7-18); Calcium 9.8 mg/dL (8.5-10.1); Carbon Dioxide 30 mmol/L (21.0-32.0); Chloride 105 mmol/L (98-107); Creatinine Clearance Estimated 38 mL/min (0-300); Creatinine,Serum 0.75 mg/dL (0.55-1.02); Estimated Glomerular Filt Rate 77 ml/min (>60); GFR (African American) 93 ML/MIN (>60); Glucose 85 mg/dL (74-106); Magnesium 2.4 mg/dL (1.4-2.2); Potassium 3.6 mmoL/L (3.5-5.1); Sodium 139 mmol/L (136-145)
[2018-03-31 12:22] VITALS: BP 123/56; PULSE 56; RESP 20; TEMP 36.8; O2SAT 97
== END 2018-03-31 12:05 | disposition home or self-care (01) ==
LOC: INF 10:16
PROVIDERS: PCP Internal Medicine Adolescent Medicine; Visit Provider Internal Medicine Adolescent Medicine
DX: E22.2 Syndrome of inappropriate secretion of antidiuretic hormone (principal); N39.0 Urinary tract infection, site not specified; B96.20 Unspecified Escherichia coli [E. coli] as the cause of diseases classified elsewhere
CPT/HCPCS: 80048; 83735; 96365; J1335

== ENCOUNTER → 2018-04-04 12:39 | Outpatient (CLI) | payer MEDICARE, OTHER, SELFPAY ==
[2018-04-04 14:13] LABS: Anion Gap 11.2 mEq/L (5-15); Blood Urea Nitrogen 11 mg/dL (7-18); Calcium 10.4 mg/dL (8.5-10.1); Carbon Dioxide 33 mmol/L (21.0-32.0); Chloride 106 mmol/L (98-107); Creatinine,Serum 0.83 mg/dL (0.55-1.02); Estimated Glomerular Filt Rate 68 ml/min (>60); GFR (African American) 82 ML/MIN (>60); Glucose 82 mg/dL (74-106); Magnesium 2.2 mg/dL (1.4-2.2); Potassium 4.2 mmoL/L (3.5-5.1); Sodium 146 mmol/L (136-145)
== END ==
PROVIDERS: Visit Provider Internal Medicine Adolescent Medicine
DX: E22.2 Syndrome of inappropriate secretion of antidiuretic hormone (principal)
CPT/HCPCS: 36415; 80048; 83735

== ENCOUNTER → 2018-07-02 11:54 | Outpatient (CLI) | payer MEDICARE, OTHER, SELFPAY ==
--- NOTE | 2018-07-02 11:59 | XR_ITS ---
XR chest 2V HISTORY: ITS.REASON: PLEURITIC CHEST PAIN ORDERING PHYSICIAN: Alex Barrera MD PATIENT AGE: 67 years COMPARISON: 09/25/2017 FINDINGS: The cardiomediastinal silhouette and pulmonary vascularity are within normal limits. The lungs are clear without infiltrates, suspicious nodules, or pleural effusions. There is mild wedging of T11 and T9. The wedging at T11 has developed since 09/25/2017 in the wedging at T9 is unchanged. There is loss of height anteriorly of approximately 30-40% at both T11 and T9. Previously noted nodular opacity overlying the left lower lung zone is not apparent on today's exam IMPRESSION: 1. There are wedge compression changes at T11 which have developed since the previous exam. Mild wedging at T9 also noted unchanged. 2. Otherwise negative
== END ==
PROVIDERS: PCP Internal Medicine Adolescent Medicine; Visit Provider Internal Medicine Adolescent Medicine
DX: R07.81 Pleurodynia (principal)
CPT/HCPCS: 71046

== ENCOUNTER → 2018-09-15 14:49 | Outpatient (CLI) | payer MEDICARE, OTHER, SELFPAY ==
[2018-09-15 15:22] LABS: Basophils # 0.1 K/mm3 (0-0.2); Basophils % 0.7 % (0.1-2.0); Eosinophils # 0.2 K/mm3 (0.0-0.4); Eosinophils % 2.6 % (0.1-12.0); Hematocrit 44.7 % (37.0-47.0); Hemoglobin 13.9 g/dL (12.2-16.2); Lymphocytes # 2.8 K/mm3 (0.7-4.5); Lymphocytes % 30.8 % (10-50); Mean Corpuscular HGB Conc 31.1 g/dL (31.8-35.4); Mean Corpuscular Hemoglobin 31.1 pg (27.0-31.2); Mean Corpuscular Volume 99.8 fl (81-99); Mean Platelet Volume 6.9 fl (7.4-10.4); Monocytes # 0.6 K/mm3 (0.1-1.0); Monocytes % 6.4 % (1.7-9.3); Neutrophils # 5.5 K/mm3 (1.8-7.8); Neutrophils % 59.5 % (37.0-80.0); Platelet Count 331 K/mm3 (142-424); Red Blood Count 4.48 M/mm3 (4.20-5.40); Red Cell Distribution Width 14.6 % (11.5-17.5); White Blood Count 9.2 K/mm3 (4.8-10.8)
[2018-09-15 19:05] LABS: Alanine Aminotransferase 19 U/L (12-78); Albumin Level 3.3 gm/dL (3.4-5.0); Albumin/Globulin Ratio 0.9 (1.1-1.8); Alkaline Phosphatase 101 U/L (46-116); Anion Gap 11.7 mEq/L (5-15); Aspartate Amino Transferase 25 U/L (15-37); Bilirubin,Total 0.3 mg/dL (0.2-1.0); Blood Urea Nitrogen 12 mg/dL (7-18); Carbon Dioxide 30 mmol/L (21.0-32.0); Chloride 98 mmol/L (98-107); Creatinine,Serum 0.99 mg/dL (0.55-1.02); Estimated Glomerular Filt Rate 55 ml/min (>60); GFR (African American) 67 ML/MIN (>60); Globulin 3.7 gm/dl (1.3-3.2); Glucose 91 mg/dL (74-106); Potassium 4.7 mmoL/L (3.5-5.1); Sodium 135 mmol/L (136-145)
== END ==
PROVIDERS: Visit Provider Internal Medicine Adolescent Medicine
DX: R53.83 Other fatigue (principal)
CPT/HCPCS: 36415; 80053; 85025

== ENCOUNTER → 2018-11-14 08:54 | Outpatient (POV) | payer MEDICARE, SELFPAY ==
[2018-11-14 09:21] VITALS: BP 149/55; PULSE 60; RESP 18; O2SAT 98
--- NOTE | 2018-11-14 09:48 | HMH.PMCON ---
Assessment and Plan (1) Compression fracture of body of thoracic vertebra Current visit: Yes Status: Acute Category: Medical Code(s): S22.000A - Wedge compression fracture of unspecified thoracic vertebra, initial encounter for closed fracture - Assessment and plan all Dx Assessment and Plan for all problems:: We will order this patient a back brace to help stabilize her spine. We will also order a MRI of the thoracic and lumbar spine to discern activity uptake and acuteness of the T10 and T12 compression fractures. Tentatively we will put her on the schedule for kyphoplasty of T10 and T12 next Saturday. HPI - Data of Consult Patient: new to practice Consult date: 11/14/18 Requesting Physician: Roger Salvador MD Primary Care Provider: Alex Barrera MD - Consult Narrative Reason for consult: Compression fracture History of present illness: Ms. Bradford is a 68 year old female who has increasing mid back pain. She does have a CT scan which does show compression fractures of T10 and T12 age-indeterminate. There is 75% loss of height at T10 vertebral body and 60% loss of height at T12. Talking to the patient she says all this started after she went to the chiropractor 3 months ago. She does not have a back brace. She does have increasing mid back pain. There is approximately 7 mm retropulsion centrally at the T12 compression fracture. She also has degenerative changes seen throughout the thoracic lumbar spine. CC: Roger Salvador MD [facility] History I have reviewed the patient's past medical history: Yes Medical History: Reports:: Asthma, Palpitations Denies:: Cancer, Diabetes Mellitus Type 1, Diabetes Mellitus Type 2, Hypertension Other Medical History: Reports: Hormone Therapy Other Surgeries: Yes: Other (hysterectomy) - *Social History Smoking Status: Never smoker Alcohol Intake: never *Occupational Status:: retired Housing: house Household Members: spouse *Travel in the last 8 weeks: None - Psychiatric History Expresses thoughts of harming self/others: None Suicide Plan Description: No Plan Family Hx:: Unable to obtain Review of Systems - Review of Systems Review of systems:: pertinent systems reviewed and negative unless documented below - *Musculoskeletal Reports back pain, Reports loss of height Meds Home Medications Medication Instructions Recorded Confirmed Type Aspirin [Aspirin 81mg chewable 81 mg PO DAILY 12/05/17 11/08/18 History tab] Calcium Carbonate [Calcium] 1,200 mg PO DAILY 12/05/17 11/08/18 History Cholecalciferol (Vitamin D3) 1,000 unit PO DAILY 12/05/17 11/08/18 History [Vitamin D3 1,000 Unit Cap] Metoprolol Tartrate 50 mg PO BID 12/05/17 11/08/18 History Fluticasone Propionate [Flonase 1 spr NS BID 03/21/18 11/08/18 History 50mcg nasal spray 16gm] LORazepam [Ativan 0.5mg 0.25 mg PO HS 03/31/18 11/08/18 History tablet] Hydrocod/Acet 5/325 mg [Porter 1 tab PO BID PRN #5 tab 11/08/18 Rx 5/325mg tablet] levoFLOXacin [Levaquin 500mg 500 mg PO DAILY #7 tab 11/08/18 Rx tab] Allergies Allergy/AdvReac Type Severity Reaction Status Date / Time amoxicillin [From AMOXIL] Allergy Intermediate I-HIVES Verified 11/08/18 20:03 clindamycin [CLINDAMYCIN] Allergy Intermediate I-HIVES Verified 11/08/18 20:03 Penicillins [PENICILLINS] Allergy Intermediate I-HIVES Verified 11/08/18 20:03 Sulfa (Sulfonamide Allergy Intermediate I-HIVES Verified 11/08/18 20:03 Antibiotics) [SULFA (SULFONAMIDE ANTIBIOTICS)] codeine [CODEINE] Allergy Unknown NAUSEA AND Verified 11/08/18 20:03 VOMITING erythromycin base Allergy Unknown I-HIVES Verified 11/08/18 20:03 [ERYTHROMYCIN BASE] Fish Containing Products Allergy Unknown FACIAL Verified 11/08/18 20:03 [FISH CONTAINING PRODUCTS] SWELLLING latex [LATEX] Allergy Unknown I-HIVES Verified 11/08/18 20:03 Iodinated Contrast Media - Allergy Verified 11/08/18 20:03 Oral and Objective
== END ==
PROVIDERS: PCP Internal Medicine Adolescent Medicine; Visit Provider Anesthesiology
DX: M48.54XA Collapsed vertebra, not elsewhere classified, thoracic region, initial encounter for fracture (principal)
CPT/HCPCS: 99201

== ENCOUNTER → 2018-11-19 14:48 | Outpatient (CLI) | payer MEDICARE, SELFPAY ==
--- NOTE | 2018-11-19 14:50 | MR_ITS ---
MR thoracic spine wo con HISTORY: Mid and low back pain x3 months. Compression fracture, abnormal CT scan ITS.REASON: BACK PAIN ORDERING PHYSICIAN: Roger Salvador MD PATIENT AGE: 68 years Comparison: 11/19/2018, 07/02/2018 TECHNIQUE: Standard multiplanar multiecho sequences are performed without contrast. 3-D MIP and myelographic images are also rendered and reviewed FINDINGS: Reviewing multiple previous studies there appears to be 13 sets of ribs with 13th thoracic vertebra. Wedge compression changes are present involving T9, T11, and T 13,. The compression changes at T9 were present on prior lateral chest radiograph of 07/02/2018 and do not appear acute. There is loss of height anteriorly of approximately 40% with only minimal posterior ridging at the superior posterior aspect of T9 without impingement. There are wedge compression changes involving T11 with loss of height centrally of greater than 50%. There is anterolisthesis of the anterior aspect of T11 vertebral body by approximately 4 mm with mild retropulsion of 3 mm without impingement upon the cord. Degenerative disc disease is present at T10-T11 and T11-T12. Central compression changes are also present at T 13 with loss of height centrally of greater than 50%. There is retropulsion of the posterior inferior aspect of this vertebral body x 7 mm causing canal stenosis of 10 mm. There is some minimal flattening of the cord anteriorly. This compression fracture also appears acute. IMPRESSION: 1. There are 13 thoracic vertebra with 13 sets of ribs. 2. Acute compression fractures involve the T11 and T 13 with loss of height of greater than 50% at both levels. There is moderate retropulsion of the posterior aspect of the T 13 vertebral body x 7 mm causing some minimal flattening of the cord anteriorly and canal stenosis. 3. Chronic wedge compression changes at T9.
== END ==
PROVIDERS: PCP Internal Medicine Adolescent Medicine; Visit Provider Anesthesiology
DX: M54.6 Pain in thoracic spine (principal)
CPT/HCPCS: 72146

== ENCOUNTER → 2019-02-02 11:06 | Outpatient (POV) | payer MEDICARE, SELFPAY ==
[2019-02-02 11:24] VITALS: BP 105/69; PULSE 66; RESP 18; O2SAT 98; BMI 22.4
--- NOTE | 2019-02-02 11:38 | HMH.PAINSOAP ---
[facility] Pain Management SOAP Note Subjective:: She is a pleasant 68-year-old white female who has increasing mid back pain. Patient has an MRI showing compression fractures at T10 and T 13. She rates her pain today and 7 out of 10. She is utilizing a back brace. Patient is interested in a kyphoplasty. Patient states that all of her pain began when she went to chiropractor 3 months ago. There are degenerative changes seen throughout the thoracic spine. ROS General: no recent weight change, no fever, no sleep disturbances Respiratory: no cough, no shortness of air, no recurring pulmonary infections Cardiovascular/Peripheral Vascular: No chest pain, No palpitations, no edema, no shortness of breath. Gastrointestinal: no incontinence, normal bowel movements reported Genitourinary: no incontinence Musculoskeletal: Back pain Psychiatric: normal mood/ affect, Neurological: [denies weakness in extremities], [denies balance issues] Objective:: Physical Exam General: Alert and oriented x3, no acute distress, pleasant and cooperative, [on room air] Lungs: Resps E/U, Symmetrical chest expansion, Eyes: PERRL Musculoskeletal: Flexion and extension of thoracic and lumbar spine somewhat guarded secondary to pain, deep tendon reflexes normal, strength in upper and lower extremities [5/5], [abnormal gait noted] Neurological: speech clear, jack setter equal, no gross sensory deficits Assessment:: Degenerative disc disease thoracic spine, compression fracture of thoracic vertebrae Plan:: We will set the patient up for high so we will tentatively plan on doing a T10 and t13 kyphoplasty. I discussed this with the patient. She was given an appointment time. Patient's not on any anticoagulation therapy. She is also not on any oral antibiotics. She has no open wounds. Dr. Salvador has reviewed this note and agrees with this plan of care. This note was dictated using voice recognition software and may contain errors or omissions
--- NOTE | 2019-02-02 11:41 | P.CONS_ITS ---
[facility] Pain Management SOAP Note Subjective:: She is a pleasant 68-year-old white female who has increasing mid back pain. Patient has an MRI showing compression fractures at T10 and T 13. She rates her pain today and 7 out of 10. She is utilizing a back brace. Patient is interested in a kyphoplasty. Patient states that all of her pain began when she went to chiropractor 3 months ago. There are degenerative changes seen throughout the thoracic spine. ROS General: no recent weight change, no fever, no sleep disturbances Respiratory: no cough, no shortness of air, no recurring pulmonary infections Cardiovascular/Peripheral Vascular: No chest pain, No palpitations, no edema, no shortness of breath. Gastrointestinal: no incontinence, normal bowel movements reported Genitourinary: no incontinence Musculoskeletal: Back pain Psychiatric: normal mood/ affect, Neurological: [denies weakness in extremities], [denies balance issues] Objective:: Physical Exam General: Alert and oriented x3, no acute distress, pleasant and cooperative, [on room air] Lungs: Resps E/U, Symmetrical chest expansion, Eyes: PERRL Musculoskeletal: Flexion and extension of thoracic and lumbar spine somewhat guarded secondary to pain, deep tendon reflexes normal, strength in upper and lower extremities [5/5], [abnormal gait noted] Neurological: speech clear, property adjuster equal, no gross sensory deficits Assessment:: Degenerative disc disease thoracic spine, compression fracture of thoracic vertebrae Plan:: We will set the patient up for high so we will tentatively plan on doing a T10 and t13 kyphoplasty. I discussed this with the patient. She was given an appointment time. Patient's not on any anticoagulation therapy. She is also not on any oral antibiotics. She has no open wounds. Dr. Salvador has reviewed this note and agrees with this plan of care. This note was dictated using voice recognition software and may contain errors or omissions
== END ==
PROVIDERS: PCP Internal Medicine Adolescent Medicine; Visit Provider Clinical Nurse Specialist Family Health
DX: M51.34 Other intervertebral disc degeneration, thoracic region (principal); M48.54XA Collapsed vertebra, not elsewhere classified, thoracic region, initial encounter for fracture
CPT/HCPCS: 99212

== ENCOUNTER → 2019-03-10 13:02 | Outpatient (CLI) | payer MEDICARE, SELFPAY ==
[2019-03-10 13:06] LABS: Adenovirus F 40/41, stool Not Detected (NotDetected); Astrovirus Not Detected (NotDetected); Campylobacter Not Detected (NotDetected); Clostridium Difficile A/B, PCR Not Detected (NotDetected); Cryptosporidium Not Detected (NotDetected); Cyclospora Cayetanesis Not Detected (NotDetected); Entamoeba histolytica Not Detected (NotDetected); Enteroaggregative E coli Not Detected (NotDetected); Enteropathogenic E coli Not Detected (NotDetected); Enterotoxigenic E coli Not Detected (NotDetected); Giardia lamblia Not Detected (NotDetected); Norovirus Not Detected (NotDetected); Plesimonas Shigalloides, PCR Not Detected (NotDetected); Rotavirus A Not Detected (NotDetected); Salmonella, PCR Not Detected (NotDetected); Sapovirus Not Detected (NotDetected); Shiga-like toxin E coli Not Detected (NotDetected); Shigella Enterovasive E coli Not Detected (NotDetected); Vibrio Cholerae Not Detected (NotDetected); Vibrio, PCR Not Detected (NotDetected); Yersinia Entercolitica, PCR Not Detected (NotDetected)
== END ==
PROVIDERS: Visit Provider Internal Medicine Adolescent Medicine
DX: R19.7 Diarrhea, unspecified (principal)
CPT/HCPCS: 87506

== ENCOUNTER → 2019-04-20 10:17 | Outpatient (POV) | payer MEDICARE, SELFPAY ==
[2019-04-20 10:27] VITALS: BP 145/56; PULSE 66; RESP 18; O2SAT 98; BMI 21.4
--- NOTE | 2019-04-20 10:31 | P.CONS_ITS ---
[facility] Pain Management SOAP Note Subjective:: Patient is a pleasant 68-year-old white female who presents today for follow-up after lumbar epidural steroid injection which is post kyphoplasty. She rates her pain a 5 out of 10 states she is doing extremely well. Patient says her pain has improved immensely. ROS General: no recent weight change, no fever, no sleep disturbances Respiratory: no cough, no shortness of air, no recurring pulmonary infections Cardiovascular/Peripheral Vascular: No chest pain, No palpitations, no edema, no shortness of breath. Gastrointestinal: no incontinence, normal bowel movements reported Genitourinary: no incontinence Musculoskeletal: Back pain Psychiatric: normal mood/ affect Neurological: [denies weakness in extremities], [denies balance issues] Objective:: Physical Exam General: Alert and oriented x3, no acute distress, pleasant and cooperative, [on room air] Lungs: Resps E/U, Symmetrical chest expansion, Eyes: PERRL Musculoskeletal: Flexion and extension of thoracic and lumbar spine somewhat guarded secondary to pain, deep tendon reflexes normal, strength in upper and lower extremities [5/5], [abnormal gait noted] Neurological: speech clear, miniature model maker equal, no gross sensory deficits Assessment:: 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 Dr. Salvador has reviewed this note and agrees with this plan of care. This note was dictated using voice recognition software and may contain errors or omissions Pain Management Hx Components *Have you ever received a pneumonia vaccine?: No *Have you received a flu vaccine this season?: No - *Social History *Occupational Status:: other *Travel in the last 8 weeks: None
== END ==
PROVIDERS: PCP Internal Medicine Adolescent Medicine; Visit Provider Clinical Nurse Specialist Family Health
DX: M51.36 Other intervertebral disc degeneration, lumbar region (principal); M48.54XD Collapsed vertebra, not elsewhere classified, thoracic region, subsequent encounter for fracture with routine healing; M85.80 Other specified disorders of bone density and structure, unspecified site; Z87.39 Personal history of other diseases of the musculoskeletal system and connective tissue
CPT/HCPCS: 99212

== ENCOUNTER → 2019-06-22 11:06 | Outpatient (POV) | payer MEDICARE, SELFPAY ==
[2019-06-22 12:13] VITALS: BP 135/67; PULSE 59; RESP 18; O2SAT 98; BMI 21.7
--- NOTE | 2019-06-22 12:40 | HMH.PAINSOAP ---
[facility] Pain Management SOAP Note Subjective:: Patient is a pleasant 68-year-old white female who presents today for follow-up. Patient had a kyphoplasty and was doing well until just recently she went to the ER for increased pain. It was found that she had 3 new compression fractures. She rates her pain today an 8 out of 10. We did a long discussion about options. Patient and I discussed both injective therapy along with potential intrathecal therapy. Discussed starting with epidural injections to see if this is beneficial. She is not on any anticoagulation therapy. She is on anti-inflammatories. ROS General: no recent weight change, no fever, no sleep disturbances Respiratory: no cough, no shortness of air, no recurring pulmonary infections Cardiovascular/Peripheral Vascular: No chest pain, No palpitations, no edema, no shortness of breath. Gastrointestinal: no new onset incontinence, normal bowel movements reported Genitourinary: no new onset incontinence Musculoskeletal: Back pain Psychiatric: normal mood/ affect, Neurological: [denies new onset weakness in extremities], [denies new onset balance issues] Objective:: Physical Exam General: Alert and oriented x3, no acute distress, pleasant and cooperative, [on room air] Lungs: Resps E/U, Symmetrical chest expansion, [CTA bilateral] Eyes: PERRL Musculoskeletal: Flexion and extension of thoracic and lumbar spine somewhat guarded secondary to pain, deep tendon reflexes normal, strength in upper and lower extremities [5/5], [abnormal gait noted] Neurological: speech clear, life skills coordinator equal, no gross sensory deficits Assessment:: Acute compression fracture T6 T8-T9. Plan:: We will schedule a T7-T8 epidural injection to see if this is beneficial for the patient. We also discussed potential intrathecal therapy I do believe it would be beneficial for her. I gave her information on both the injection and the intrathecal pain pump to review. She is been instructed to call the office if she has any issues prior to her next appointment. Dr. Salvador has reviewed this note and agrees with this plan of care. This note was dictated using voice recognition software and may contain errors or omissions [facility] History I have reviewed the patient's past medical history: Yes Medical History: Reports:: Asthma, Hypertension, Palpitations Denies:: Cancer, Diabetes Mellitus Type 1, Diabetes Mellitus Type 2, Internal Pacemaker, MRSA, Seizures *Have you ever received a pneumonia vaccine?: Yes *Have you received a flu vaccine this season?: Yes Other Medical History: Reports: Hormone Therapy. Denies: Blood Transfusion Reaction Other Surgeries: Yes: Other (hysterectomy). No: Pacemaker Amputation: No Fractures: No - *Social History Smoking Status: Never smoker Alcohol Intake: never Substance Use Type: other *Occupational Status:: other Housing: house Household Members: spouse *Travel in the last 8 weeks: None Family Hx:: Unable to obtain
--- NOTE | 2019-06-22 12:43 | P.CONS_ITS ---
[facility] Pain Management SOAP Note Subjective:: Patient is a pleasant 68-year-old white female who presents today for follow-up. Patient had a kyphoplasty and was doing well until just recently she went to the ER for increased pain. It was found that she had 3 new compression fractures. She rates her pain today an 8 out of 10. We did a long discussion about options. Patient and I discussed both injective therapy along with potential intrathecal therapy. Discussed starting with epidural injections to see if this is beneficial. She is not on any anticoagulation therapy. She is on anti-inflammatories. ROS General: no recent weight change, no fever, no sleep disturbances Respiratory: no cough, no shortness of air, no recurring pulmonary infections Cardiovascular/Peripheral Vascular: No chest pain, No palpitations, no edema, no shortness of breath. Gastrointestinal: no new onset incontinence, normal bowel movements reported Genitourinary: no new onset incontinence Musculoskeletal: Back pain Psychiatric: normal mood/ affect, Neurological: [denies new onset weakness in extremities], [denies new onset balance issues] Objective:: Physical Exam General: Alert and oriented x3, no acute distress, pleasant and cooperative, [on room air] Lungs: Resps E/U, Symmetrical chest expansion, [CTA bilateral] Eyes: PERRL Musculoskeletal: Flexion and extension of thoracic and lumbar spine somewhat guarded secondary to pain, deep tendon reflexes normal, strength in upper and lower extremities [5/5], [abnormal gait noted] Neurological: speech clear, cold rolling supervisor equal, no gross sensory deficits Assessment:: Acute compression fracture T6 T8-T9. Plan:: We will schedule a T7-T8 epidural injection to see if this is beneficial for the patient. We also discussed potential intrathecal therapy I do believe it would be beneficial for her. I gave her information on both the injection and the intrathecal pain pump to review. She is been instructed to call the office if she has any issues prior to her next appointment. Dr. Salvador has reviewed this no te and agrees with this plan of care. This note was dictated using voice recognition software and may contain errors or omissions [facility] History I have reviewed the patient's past medical history: Yes Medical History: Reports:: Asthma, Hypertension, Palpitations Denies:: Cancer, Diabetes Mellitus Type 1, Diabetes Mellitus Type 2, Internal Pacemaker, MRSA, Seizures *Have you ever received a pneumonia vaccine?: Yes *Have you received a flu vaccine this season?: Yes Other Medical History: Reports: Hormone Therapy. Denies: Blood Transfusion Reaction Other Surgeries: Yes: Other (hysterectomy). No: Pacemaker Amputation: No Fractures: No - *Social History Smoking Status: Never smoker Alcohol Intake: never Substance Use Type: other *Occupational Status:: other Housing: house Household Members: spouse *Travel in the last 8 weeks: None Family Hx:: Unable to obtain
== END ==
PROVIDERS: PCP Internal Medicine Adolescent Medicine; Visit Provider Clinical Nurse Specialist Family Health
DX: M48.54XA Collapsed vertebra, not elsewhere classified, thoracic region, initial encounter for fracture
CPT/HCPCS: 99212

== ENCOUNTER → 2019-09-10 11:33 | Outpatient (CLI) | payer MEDICARE, SELFPAY ==
--- NOTE | 2019-09-10 11:44 | XR_ITS ---
PROCEDURE: XR CHEST 2V CLINICAL HISTORY: right sided chest pain COMPARISON: CHESTW CT chest w con from 10/07/2017 [id number] XR chest portable from 10/11/2018 XR CHEST 2V from 06/19/2019 XR CHEST 2V from 08/01/2019 FINDINGS: The cardiomediastinal silhouette and pulmonary vascularity are within normal limits. There are atelectatic changes in the right upper lobe anteriorly. The remaining lungs are clear. Status post prior vertebroplasty at T11. Multiple wedge compression changes are present with severe compression of L1 which is not significantly changed, moderate wedging of T10 not significantly changed and T9 slightly greater on today's exam. Moderate wedging also present involving T7 which may be slightly greater. IMPRESSION: 1. Right perihilar/upper lobe atelectatic or fibrotic change. 2. Multiple wedge compression fractures of the thoracic spine which have slightly increased at T9 and T7 Dictated by: Cecilio Castro MD 09/10/2019 16:54 Electronically signed by Cecilio Castro MD in [place] 09/10/2019 16:54
== END ==
PROVIDERS: PCP Physician Assistant; Visit Provider Internal Medicine Cardiovascular Disease
DX: I10 Essential (primary) hypertension (principal); I73.9 Peripheral vascular disease, unspecified; R06.00 Dyspnea, unspecified; R56.9 Unspecified convulsions; R79.89 Other specified abnormal findings of blood chemistry; R94.31 Abnormal electrocardiogram [ECG] [EKG]; R07.9 Chest pain, unspecified
CPT/HCPCS: 71046; 93270

== ENCOUNTER → 2019-09-21 06:18 | Outpatient (CLI) | payer MEDICARE, SELFPAY ==
--- NOTE | 2019-09-21 | CA_ITS ---
APPROVED REPORT Exam: Pharmacologic Technologist: Jania German Ht: 5 ft 0 in Wt: 112 lbs BSA: 1.46 m2 HR: 66 bpm BP: 139/59 mmHg Indications: Shortness of Breath, Seizures Medical History Medications: Metoprolol,,,,, Vitamin D3,,,,, Albuterol,,,,, Calcium,,,,, PaROXETINE,,,,, Levetiracetam,,,,, FluTICASONE,,,,, AZelastine,,,,, Budesonide,,,,, Stress Test Details Test: LEXISCAN HR Resting HR: 66 bpm Max Heart Rate (APMHR): 149 bpm Max HR Achieved: 91 bpm Target HR (85% APMHR): 126 bpm % of APMHR: 61 Recovery HR: 76 bpm BP Resting BP: 139.0/59.0 mmHg Max BP: 159.0/85.0 mmHg Recovery BP: 141.0/64.0 mmHg ECG Clinical Exercise duration: 04:00 min Highest Stage Achieved: Exercise capacity: 1.0 METs Stress ECG Conclusion Resting ECG: Sinus rhythm. Lexiscan portion completed. Patient complained of shortness of breath and palpitations during infusion. Symptoms: Shortness of breath. Palpitations during peak infusion. Resolved in recovery. No chest pain. Arrhythmias/Ectopy: Occasional PVC. Trigeminy noted. ST-T Changes: Less than 1.[address] depression. Conclusion: Images to follow. Electronically signed by : Aidan Goldstein, 09/21/2019 19:55:44
--- NOTE | 2019-09-21 06:21 | CA_ITS ---
APPROVED REPORT EXAM: Comprehensive 2D, Doppler, and color-flow Echocardiogram Correctional Medicine Physician: Denita Srivastava RVT Ht: 5 ft 0 in Wt: 110lbs BSA: 1.45 BP: 139/52 mmHg Indications: Shortness of Breath, Hyperlipidemia, Hypertension,Elevated troponin,Abn EKG,Seizures 2D Dimensions LVOT 2.06 cm (M/F) 1.5-2.5 M-Mode Dimensions RVDd 2.17 cm (0.9-2.6) LVDd 5.43 cm (3.5-5.7) LVDs 3.87 cm (3.5-5.7) IVSd 0.82 cm (0.6-1.1) PWd 0.71 cm (0.6-1.1) EF (Teich) 54.80% FS 28.70% EDV (Teich) 143.10 mL ESV (Teich) 64.70 mL LV Diastology E/A Ratio 0.78 Mitral Valve MV A Velocity 72.00 (40-130 cm/s) Left Ventricle Left atrium is mildly enlarged, left ventricle is normal size, mild concentric left ventricular hypertrophy, visually estimated ejection fraction 55% with no regional wall motion abnormality. Grade 1 diastolic dysfunction seen without tissue Doppler evidence of raise left atrial pressure. Right Ventricle Right atrium right ventricular mildly enlarged with normal contractility. Aortic Valve Aortic valve is thickened and calcified leaflet chordae display good mobility, there is moderate aortic insufficiency. Mitral Valve Mitral valve leaflets are minimally thickened, there is moderate mitral regurgitation. Tricuspid Valve Tricuspid valve is grossly normal, there is mild tricuspid regurgitation, tricuspid regurgitation jet velocity is inadequate for calculation of the right ventricular systolic pressure. Pulmonic Valve Pulmonic valve is poorly visualized. Great Vessels Aortic root is normal size. Pericardium No significant pericardial effusion noted. Conclusion 1. Mildly enlarged left atrium, normal left ventricular size, mild concentric left ventricular hypertrophy, visually estimated ejection fraction 55% with no regional wall motion abnormality, grade 1 diastolic dysfunction seen without tissue Doppler evidence of raise left atrial pressure. 2. Moderate aortic, moderate mitral and mild tricuspid regurgitation. 3. No significant pericardial effusion noted. Electronically signed by : Aidan Goldstein, 09/21/2019 20:30:46
--- NOTE | 2019-09-21 06:29 | NM_ITS ---
APPROVED REPORT Exam: Nuclear Stress Test Indication: SOB, Family history Patient Location: Outpatient Stress Tech: Jania German [place] Tech:Cande Granger, ARRT, RT (R)(N) Ht: 5 ft 0 in Wt: 112 lbs Bra Size: 36B HR: 66 bpm BP: 139/59 mmHg BSA: 1.46 m2 History: SOB, Family history Procedure: Patient received a 0.4 mg of intravenous Lexiscan, resting heart rate 66 bpm, resting blood pressure 139/59 mmHg, with Lexiscan maximum heart rate achived was 88 bpm which is % of the maximum predicted heart rate and blood pressure was 140/59 mmHg. With Lexiscan, patient denied any complaint of chest pain. Electrocardiogram Resting electrocardiogram showed sinus rhythm, nonspecific ST-T changes, with Lexiscan there is less than 1.[address] segment depression noted from the baseline EKG. The EKG portion of the Lexiscan Myoview is nondiagnostic. Cardiac Stress and Resting SPECT Images: Cardiac Stress and Resting SPECT images were obtained using technetium 99m Myoview 32.1 mCi stress and 9.89 mCi at rest. Gated SPECT for analysis of segmental wall motion and calculation of the ejection fraction also done. Cardiac stress and resting SPECT images show uniform myocardial activity without segmental perfusion abnormality, computer derived ejection fraction is over 65% with no regional wall motion abnormality, right ventricle is normal size and contractility. Conclusion: 1. The EKG portion of the Lexiscan Myoview is nondiagnostic. 2. No scintigraphic evidence of reversible ischemia seen, computer derived ejection fraction is over 65% with no regional wall motion abnormality, right ventricle is normal size and contractility. 3. Normal Lexiscan Myoview study. Electronically signed by : Aidan Goldstein, 09/21/2019 19:57:27
--- NOTE | 2019-09-21 07:38 | HMH.ITSHM ---
Current Home Medications as stated by this patient Nicci Bradford or in store representative. []PAROXETINE METOPROLOL LEVETIRACETAM BUDESONIDE AZELASTINE FLUTICASONE VITAMIN D3 CALCIUM ALBUTEROL
--- NOTE | 2019-09-21 15:01 | MR_ITS ---
PROCEDURE: MR HEAD/BRAIN WO CON CLINICAL INDICATION: seizure, LOC Seizure, loss of consciousness COMPARISON: HEADWO CT head/brain wo con from 10/11/2018 TECHNIQUE: Routine multiplanar multi echo sequences are performed without gadolinium enhancement. FINDINGS: No midline shift, mass effect, intracranial hemorrhage, or hydrocephalus. No evidence of acute infarction. There are periventricular and subcortical T2 white matter hyperintensities consistent with ischemic gliotic change from microvascular disease. The cerebellopontine angles, cerebellum, and brainstem are unremarkable. The pituitary, optic chiasm, corpus callosum, and craniocervical junction have an unremarkable appearance. No mastoid effusion or sinus air-fluid level.. There are scattered perivascular dilated spaces as an incidental finding. The hippocampal gyri are symmetric as are the temporal horns. There is however slight increase in FLAIR signal in the left hippocampus. This is of questionable clinical significance IMPRESSION: 1. There is slight increase in FLAIR signal within the left hippocampus compared to the right side. This is of questionable clinical significance. Suggest neurological correlation. Repeat exam without and with contrast may provide further evaluation if clinically warranted. Follow-up is recommended. 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 2. Otherwise negative MRI of the brain without contrast Dictated by: Cecilio Castro MD 09/22/2019 10:02 Electronically signed by Cecilio Castro MD in [place] 09/22/2019 10:02
== END ==
PROVIDERS: PCP Physician Assistant; Visit Provider Internal Medicine Cardiovascular Disease
DX: R06.00 Dyspnea, unspecified (principal); I10 Essential (primary) hypertension; I73.9 Peripheral vascular disease, unspecified; R06.02 Shortness of breath; R79.89 Other specified abnormal findings of blood chemistry; R94.31 Abnormal electrocardiogram [ECG] [EKG]; R41.89 Other symptoms and signs involving cognitive functions and awareness
CPT/HCPCS: 70551; 78452; 93017; 93306; A9502; J2785

== ENCOUNTER → 2019-09-22 07:47 | Outpatient (CLI) | payer SELFPAY ==
--- NOTE | 2019-09-22 07:48 | CT_ITS ---
PROCEDURE: CT HEART W CALCIUM SCORE CLINICAL HISTORY: cardiac work up COMPARISON: CHESTW CT chest w con from 10/07/2017 TECHNIQUE: Axial images obtained with sagittal and coronal reformats. All CT scans at the facility use one or more dose reduction, viz: automated exposure control, ma/kV adjustment per patient size (including targeted exams where dose is matched to indication, i.e. head), or iterative reconstruction technique. FINDINGS: The coronary artery calcium score is 34 indicating mild atherosclerotic calcific plaque burden with moderate cardiovascular disease risk. Incidental findings include atelectatic or fibrotic changes in the right upper lobe with volume loss of the right upper lobe medially. This has developed since 10/07/2017. There is mild bronchial thickening. There are mild atelectatic or fibrotic changes in the left lung base. IMPRESSION: 1. Moderate cardiovascular disease risk with the coronary artery calcium score of 34. 2. Right upper lobe fibrotic or atelectatic changes with bronchial thickening. Dictated by: Cecilio Castro MD 09/23/2019 10:53 Electronically signed by Cecilio Castro MD in [place] 09/23/2019 10:54
== END ==
PROVIDERS: PCP Physician Assistant; Visit Provider Internal Medicine Cardiovascular Disease
DX: Z13.6 Encounter for screening for cardiovascular disorders (principal); I10 Essential (primary) hypertension; I73.9 Peripheral vascular disease, unspecified; R06.02 Shortness of breath; R79.89 Other specified abnormal findings of blood chemistry; R94.31 Abnormal electrocardiogram [ECG] [EKG]
CPT/HCPCS: 75571

== ENCOUNTER → 2019-09-23 09:43 | Outpatient (CLI) | payer MEDICARE, SELFPAY | PROVIDERS: PCP Physician Assistant; Visit Provider Physician Assistant | DX: R41.89 Other symptoms and signs involving cognitive functions and awareness (principal) | CPT/HCPCS: 95816 ==

== ENCOUNTER → 2019-09-29 07:28 | Outpatient (CLI) | payer MEDICARE, SELFPAY ==
--- NOTE | 2019-09-29 07:29 | CT_ITS ---
PROCEDURE: CT ABDOMEN WO CON CLINICAL HISTORY: abdominal pain Abdominal pain and diarrhea COMPARISON: CT ABDOMEN PELVIS W CON from 08/02/2019 TECHNIQUE: Axial images obtained with sagittal and coronal reformats. All CT scans at the facility use one or more dose reduction, viz: automated exposure control, ma/kV adjustment per patient size (including targeted exams where dose is matched to indication, i.e. head), or iterative reconstruction technique. FINDINGS: No acute finding in the lung bases. Prior cholecystectomy. Small hiatal hernia. The liver, spleen, adrenal glands, pancreas, and kidneys show no acute finding. Mild amount of retained colonic feces. Fluid-filled small bowel loops are present in the mid abdominal region. There is mild thickening of the descending colon which could be due to nondistention or colitis. Pelvis is not included on the exam. There is severe wedge compression fracture of T12 with loss of height centrally of near 90 percent. There is retropulsion the posterior aspect of the T12 vertebral body inferiorly by nearly 11 mm. This is not significantly changed. There is also severe wedging T10. There has been prior kyphoplasty at T10. IMPRESSION: 1. Retained colonic feces with possible enterocolitis. 2. No change severe wedging of T12 with retropulsion and prior kyphoplasty with severe wedging at T10 Dictated by: Cecilio Castro MD 09/30/2019 12:49 Electronically signed by Cecilio Castro MD in [place] 09/30/2019 12:49
== END ==
PROVIDERS: PCP Physician Assistant; Visit Provider Physician Assistant
DX: R10.9 Unspecified abdominal pain (principal); R63.0 Anorexia
CPT/HCPCS: 74150

== ENCOUNTER → 2019-10-21 10:35 | Outpatient (CLI) | payer MEDICARE, SELFPAY ==
--- NOTE | 2019-10-21 10:41 | XR_ITS ---
PROCEDURE: XR HIP LT 2-3V W/PELVIS CLINICAL INDICATION: Left hip pain COMPARISON: BONE BONE DENSITOMETRY(HIP:LT SPINE from 06/07/2014 BONE3 BONE DENSITOMETRY(HIP:LT SPINE from 12/09/2015 BONE3 BONE DENSITOMETRY(HIP:LT SPINE from 04/25/2017 FINDINGS: No fracture or dislocation is evident. No significant degenerative change. No lytic or blastic change. Unremarkable soft tissues. IMPRESSION: Negative left hip Dictated by: Cecilio Castro MD 10/21/2019 12:00 Electronically signed by Cecilio Castro MD in [place] 10/21/2019 12:00
== END ==
PROVIDERS: PCP Physician Assistant; Visit Provider Physician Assistant
DX: M25.552 Pain in left hip (principal)
CPT/HCPCS: 73502

== ENCOUNTER → 2020-01-11 09:11 | Outpatient (POV) | payer MEDICARE, SELFPAY ==
[2020-01-11 09:40] VITALS: BP 157/65; PULSE 65; RESP 18; TEMP 36.6; O2SAT 98; BMI 19.5
--- NOTE | 2020-01-11 09:41 | HMH.PAINSOAP ---
[facility] Pain Management SOAP Note Subjective:: Patient is a pleasant 69-year-old white female who presents today for follow-up. She has had a kyphoplasty and did well after it however she had increased pain and new compression fractures. Her pain is in a 6 out of 10 today. We had a long discussion about options patient and I discussed with injective therapy along with potential intrathecal therapy. We discussed starting with epidural injections to see if this is beneficial. We will do a series of 3 epidural injections. She is not on any anticoagulation therapy. She is on anti-inflammatories. ROS General: no recent weight change, no fever, no sleep disturbances Respiratory: no cough, no shortness of air, no recurring pulmonary infections Cardiovascular/Peripheral Vascular: No chest pain, No palpitations, no edema, no shortness of breath. Gastrointestinal: no new onset incontinence, normal bowel movements reported Genitourinary: no new onset incontinence Musculoskeletal: Back pain Psychiatric: normal mood/ affect Neurological: [denies new onset weakness in extremities], [denies new onset balance issues] Objective:: Physical Exam General: Alert and oriented x3, no acute distress, pleasant and cooperative, [on room air] Lungs: Resps E/U, Symmetrical chest expansion, Eyes: PERRL Musculoskeletal: Flexion and extension of lumbar and thoracic spine somewhat guarded secondary to pain, deep tendon reflexes normal, strength in upper and lower extremities [5/5], antalgic gait noted Neurological: speech clear, buttonhole machine operator equal, no gross sensory deficits Assessment:: Multiple compression fractures T6 T8-T9 Plan:: We will schedule a T 78 epidural injection to see if this is beneficial for the patient. I gave her information about the injection. We discussed risks and benefits. She wants to proceed. She is been instructed to call the office if she has any issues prior to her next appointment. Dr. Salvador has reviewed this note and agrees with this plan of care. This note was dictated using voice recognition software and may contain errors or omissions [facility] History I have reviewed the patient's past medical history: Yes Medical History: Reports:: Asthma, Hypertension, Palpitations, Seizures Denies:: Cancer, Diabetes Mellitus Type 1, Diabetes Mellitus Type 2, Internal Pacemaker, MRSA *Have you ever received a pneumonia vaccine?: No *Have you received a flu vaccine this season?: No Other Medical History: Reports: Anemia, Hormone Therapy. Denies: Blood Transfusion Reaction Other Surgeries: Yes: , Hysterectomy-Total, Other (hysterectomy). No: Pacemaker Amputation: No Fractures: No - *Social History Smoking Status: Never smoker Alcohol Intake: never Substance Use Type: other, denies use *Occupational Status:: retired Housing: house Household Members: spouse *Travel in the last 8 weeks: None Family Hx:: Coronary Artery Disease, Cancer
== END ==
PROVIDERS: PCP Physician Assistant; Visit Provider Clinical Nurse Specialist Family Health
DX: S22.050A Wedge compression fracture of T5-T6 vertebra, initial encounter for closed fracture; S22.060A Wedge compression fracture of T7-T8 vertebra, initial encounter for closed fracture
CPT/HCPCS: 99212

== ENCOUNTER 2020-01-15 13:46 | Day surgery (SDC) | payer MEDICARE, SELFPAY ==
[2020-01-15 14:03] VITALS: BP 145/41; PULSE 62; RESP 18; TEMP 36.6; O2SAT 97
[2020-01-15 14:23] VITALS: BP 132/85; BP 138/89; PULSE 85; PULSE 88; RESP 18; O2SAT 98
[2020-01-15 14:33] VITALS: BP 156/63; PULSE 64; RESP 18; O2SAT 97
--- NOTE | 2020-01-15 14:46 | HMH.PMPROC ---
- Procedure Date: 01/15/20 Time: 14:46 Anesthesiologist:: Roger Salvador MD Complications:: None Pre-procedure Diagnosis:: Degenerative disc disease of the thoracic spine with multiple compression fractures of T6, T8 and T9. Post-procedure Diagnosis:: Same Indications for Procedure:: This patient is a pleasant 69-year-old white female who we are treating for mid back pain with multiple compression fractures of T6, T8 and T9. We will do a thoracic epidural steroid injection today to see if this will help with her mid back pain symptoms. Procedure Details:: Thoracic epidural steroid injection under fluoroscopy Informed consent was obtained risk and benefits of the procedure were explained to the patient. Patient was taken to the procedure room. The back was prepped using ChloraPrep. The skin and subcutaneous tissues were anesthetized using lidocaine. I placed a 17-gauge epidural needle and advanced into the T7-T8 interspace. After confirmation of needle placement in the epidural space, with dye we injected 3 mils lidocaine 1.5% and Depo-Medrol 80 mg into the thoracic epidural space. The patient tolerated the procedure well with no complications. Plan and Disposition:: We will follow-up with her in 2 weeks. Will reevaluate symptoms at that time. I do believe that she may be a candidate for intrathecal therapy in the future.
== END 2020-01-15 14:34 | disposition home or self-care (01) ==
LOC: SC.PAINP 13:48
PROVIDERS: PCP Physician Assistant; Visit Provider Anesthesiology
DX: M51.34 Other intervertebral disc degeneration, thoracic region (principal); S22.050A Wedge compression fracture of T5-T6 vertebra, initial encounter for closed fracture; S22.060A Wedge compression fracture of T7-T8 vertebra, initial encounter for closed fracture; S22.070A Wedge compression fracture of T9-T10 vertebra, initial encounter for closed fracture; I10 Essential (primary) hypertension; M81.0 Age-related osteoporosis without current pathological fracture; I49.9 Cardiac arrhythmia, unspecified; J45.909 Unspecified asthma, uncomplicated
CPT/HCPCS: 62321; J1040; Q9966

== ENCOUNTER 2020-01-22 09:27 | Day surgery (SDC) | payer MEDICARE, SELFPAY ==
[2020-01-22 09:51] VITALS: BP 127/56; PULSE 65; RESP 18; TEMP 36.7; O2SAT 98; BMI 42.2
[2020-01-22 10:39] VITALS: BP 147/55; PULSE 59; RESP 18
[2020-01-22 10:40] VITALS: BP 155/74; PULSE 85; RESP 18; O2SAT 99
[2020-01-22 11:00] VITALS: BP 150/54; PULSE 57; RESP 20; O2SAT 98
--- NOTE | 2020-01-22 11:50 | P.PCN_ITS ---
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 Post-procedure Diagnosis:: Same Indications for Procedure:: This patient's pleasant 69-year-old white female who we are treating for mid back pain with multiple compression fractures of T6, T8 and T9. She did very well from her last thoracic epidural steroid injection. She is 80 to 90% better. She still has some residual pain. We will do a repeat thoracic epid ural steroid injection under fluoroscopy today. Procedure Details:: Thoracic epidural steroid injection under fluoroscopy Informed consent was obtained risk and benefits of the procedure was explained to the patient. Patient was taken to the procedure room. The back was prepped using ChloraPrep. The skin and subcutaneous tissues were anesthetized using lidocaine. I placed a 17-gauge epidural needle into the T7-T8 interspace. After confirmation of needle placement in the epidural space with dye, we injected 3 mL lidocaine 1.5% and Depo-Medrol 80 mg into the thoracic epidural space. Patient tolerated the procedure well with no complications. Plan and Disposition:: I am very pleased with her progress. We will hold off on a third epidural steroid injection. We will follow-up with her in 2 weeks. Will reevaluate her symptoms at that time. Again if she does not get long-term relief she may be a candidate for intrathecal therapy.
== END 2020-01-22 11:00 | disposition home or self-care (01) ==
LOC: SC.PAINP 09:29
PROVIDERS: PCP Physician Assistant; Visit Provider Anesthesiology
DX: S22.050A Wedge compression fracture of T5-T6 vertebra, initial encounter for closed fracture (principal); S22.060A Wedge compression fracture of T7-T8 vertebra, initial encounter for closed fracture; S22.070A Wedge compression fracture of T9-T10 vertebra, initial encounter for closed fracture; Z88.0 Allergy status to penicillin; Z88.2 Allergy status to sulfonamides; Z88.8 Allergy status to other drugs, medicaments and biological substances; J45.909 Unspecified asthma, uncomplicated; I10 Essential (primary) hypertension; R00.2 Palpitations; D64.9 Anemia, unspecified; Z79.890 Hormone replacement therapy; Z90.710 Acquired absence of both cervix and uterus
CPT/HCPCS: 62321; J1040; Q9966

== ENCOUNTER → 2020-02-09 17:13 | Outpatient (CLI) | payer MEDICARE, SELFPAY | PROVIDERS: Visit Provider Physician Assistant | DX: R10.9 Unspecified abdominal pain (principal) | CPT/HCPCS: 87086; 87088 ==

== ENCOUNTER → 2020-02-19 13:28 | Outpatient (CLI) | payer MEDICARE, SELFPAY | PROVIDERS: Visit Provider Physician Assistant | DX: N39.0 Urinary tract infection, site not specified (principal); R10.9 Unspecified abdominal pain | CPT/HCPCS: 87086; 87088; 87186 ==

== ENCOUNTER 2020-05-08 03:55 | Emergency (ER) | payer MEDICARE, SELFPAY ==
[2020-05-08 04:01] VITALS: BP 168/75; PULSE 71; RESP 16; TEMP 36.8; O2SAT 95; BMI 19.1
[2020-05-08 04:06] VITALS: BMI 19.1
--- NOTE | 2020-05-08 04:07 | CT_ITS ---
PROCEDURE: CT HEAD/BRAIN WO CON CLINICAL INDICATION: seizure COMPARISON: CT HEADWO CT head/brain wo con from 10/11/2018 TECHNIQUE: Axial images obtained. All CT scans at the facility use one or more dose reduction, viz: automated exposure control, ma/kV adjustment per patient size (including targeted exams where dose is matched to indication, i.e. head), or iterative reconstruction technique. FINDINGS: No midline shift, mass effect, intracranial hemorrhage, hydrocephalus, or extra-axial fluid collection is evident. The sylvian fissures and cortical sulci are mildly prominent. There are mild periventricular hypodensities consistent with chronic ischemic white matter changes. The calvarium has an unremarkable appearance. No mastoid effusion, mild chronic inflammatory changes of the mastoids noted.. No sinus air-fluid level. IMPRESSION: Findings of age-appropriate cortical atrophy and mild chronic ischemic white matter changes, no acute intracranial pathology noted Dictated by: Dr. Jason Vu MD 05/08/2020 08:50 Dr. Jason Vu MD in [place] 05/08/2020 08:50
--- NOTE | 2020-05-08 04:07 | HMH.EDGENADL ---
ED Disposition Clinical Impression: Seizure disorder Disposition: Home, Self-Care Condition on Discharge: Good Instructions: DI for Seizure Disorder -- Adult Additional Instructions: Stop taking gabapentin. Take Dilantin 200 mg twice a day first day, then 100 mg twice a day thereafter. See Dr. Warner in the office this week. Call tomorrow morning for appointment. Additional instructions for SEIZURE OR LOSS OF CONSCIOUSNESS/POSSIBLE SEIZURE: NO DRIVING, BIKE RIDING, SWIMMING, TUB BATHING, LADDERS UNTIL CLEARED BY DOCTOR. RETURN IF SEIZURE RECURS. NO ALCOHOL OR STREET DRUGS. See your physician as soon as possible for follow-up. Return to the emergency department if seizure recurs. Prescriptions: Phenytoin Sodium Extended [Dilantin 100mg Capsule] 100 mg PO BID #60 cap Prescription Printed Referrals: Melina Shaw PA [Primary Care Provider] - - Critical Care Critical Care Time: No Attestation: On , the high probability of a clinically significant, sudden or life threatening deterioration of the following system(s) required my full and direct attention, intervention and personal management. The time I documented below is in addition to time spent performing reported procedures but includes the following listed in this critical care notation. Medical Decision Making - Medical Records Medical records reviewed: Yes: I reviewed the patient's medical records. MR Comment: I reviewed [facility] portal. Patient was admitted there through the emergency department on 08/27/2019 for seizure. At that time started on Keppra. Seen by primary care provider 02/18/2020 and Keppra discontinued, started on gabapentin. EEG done here 09/23/2019, normal. - Lance Inquiry Pt receiving controlled substance: Yes (ativan for seizure prophylaxis) Lance was queried for this patient: No Reason not queried -: Emergent pt cond-no time Risks and benefits of using a controlled substance: were not discussed with pt by me Vital Signs: 05/08/20 04:01 05/08/20 04:12 05/08/20 04:54 Temperature 98.2 F Temperature Source Oral Pulse Rate Pulse Rate [Right Brachial] 71 70 65 Respiratory Rate 16 16 16 Blood Pressure Blood Pressure [Right Arm] 168/75 H 166/73 H 159/62 H Blood Pressure Mean [Right Arm] 106 104 94 Blood Pressure Source Blood Pressure Source [Right Arm] Automatic Cuff Automatic Cuff Blood Pressure Position Blood Pressure Position [Right Arm] Sitting Sitting 02 Sat by Pulse Oximetry 95 92 L 96 Oxygen Delivery Method Room Air Room Air Room Air 05/08/20 05:05 Temperature 98.2 F Temperature Source Oral Pulse Rate 68 Pulse Rate [Right Brachial] Respiratory Rate 16 Blood Pressure 170/73 H Blood Pressure [Right Arm] Blood Pressure Mean [Right Arm] Blood Pressure Source Automatic Cuff Blood Pressure Source [Right Arm] Blood Pressure Position Sitting Blood Pressure Position [Right Arm] 02 Sat by Pulse Oximetry Oxygen Delivery Method Room Air - Lab Data Lab results reviewed: Yes: I reviewed the patient's lab results. Lab Results 05/08/20 02:58: WBC 8.4, RBC 3.59 L, Hgb 11.7 L, Hct 36.1 L, MCV 100.4 H, MCH 32.5 H, MCHC 32.4, RDW 13.6, Plt Count 268, MPV 8.2, Neut % (Auto) 54.3, Lymph % (Auto) 35.3, [place] % (Auto) 7.0, Eos % (Auto) 2.8, Baso % (Auto) 0.6, Neut # (Auto) 4.6, Lymph # (Auto) 3.0, [place] # (Auto) 0.6, Eos # (Auto) 0.2, Baso # (Auto) 0.1 05/08/20 02:58: Sodium 140, Potassium 3.5, Chloride 105, Carbon Dioxide 26, Anion Gap 12.5, BUN 10, Creatinine 0.80, Estimated Creat Clear 36, Estimated GFR 71, Est GFR ( Amer) 86, Glucose 108 H, Calcium 9.7, Total Bilirubin 0.3, AST 45 H, ALT 12, Alkaline Phosphatase 82, Total Protein 6.1 L, Albumin 3.3 L, Globulin 2.8, Albumin/Globulin Ratio 1.2 05/08/20 04:11: Urine Color Yellow, Urine Appearance Clear, Urine pH 6.5, Ur Specific [place] 1.010, Urine Protein Negative, Urine Glucose (UA) Negative, Urine Ketones Negative, Urine Blood Nega
--- NOTE | 2020-05-08 04:09 | XR_ITS ---
PROCEDURE: XR CHEST 2V CLINICAL HISTORY: seizure COMPARISON: CT CHESTW CT chest w con from 10/07/2017 CR XR CHEST 2V from 06/19/2019 CR XR CHEST 2V from 08/01/2019 CR XR CHEST 2V from 09/10/2019 FINDINGS: The lung zarate are well expanded and appear clear of infiltrate. There is minimal focal postinflammatory scarring right suprahilar region. There is borderline cardiomegaly however the vascularity is normal and there is no pleural fluid. There is mild kyphotic curvature of the thoracic spine with generalized osteopenia there has been a previous vertebroplasty T11. Additional mild multilevel compression fractures are seen mid lower thoracic spine. IMPRESSION: No acute findings. Dictated by: Dr. Jason Vu MD 05/08/2020 08:45 Dr. Jason Vu MD in [place] 05/08/2020 08:45
[2020-05-08 04:12] VITALS: BP 166/73; PULSE 70; RESP 16; O2SAT 92
[2020-05-08 04:18] LABS: Appearance,Urine CLEAR (Clear); Bilirubin,Urine Negative (Negative); Blood, Urine Negative (Negative); Color,Urine YELLOW (Yellow); Glucose,Urine (UA) Negative (Negative); Ketones,Urine Negative (Negative); Leukocyte Esterase,Urine Negative (Negative); Microscopic, Urine URINE MICROSCOPIC (MICROSCOPIC); Nitrate,Urine Negative (Negative); PH,Urine 6.5 (5.0-8.5); Protein,Urine Negative (Negative); Urobilinogen,Urine 0.2 EU/dl (0.2)
[2020-05-08 04:21] LABS: Alanine Aminotransferase 12 U/L (12-78); Albumin Level 3.3 g/dl (3.5-5.0); Albumin/Globulin Ratio 1.2 (1.1-1.8); Alkaline Phosphatase 82 U/L (38-126); Anion Gap 12.5 mEq/L (5-15); Aspartate Amino Transferase 45 U/L (14-36); Bilirubin,Total 0.3 mg/dl (0.2-1.3); Blood Urea Nitrogen 10 mg/dl (7-17); Calcium 9.7 mg/dl (8.4-10.2); Carbon Dioxide 26 mmol/L (22.0-30.0); Chloride 105 mmol/L (98-107); Creatinine Clearance Estimated 36 mL/min (50-200); Estimated Glomerular Filt Rate 71 ml/min (>60); GFR (African American) 86 ML/MIN (>60); Globulin 2.8 g/dL (1.3-3.2); Glucose 108 mg/dl (74-100); Potassium 3.5 mmoL/L (3.5-5.1); Sodium 140 mmol/L (136-145); Total Protein,Serum 6.1 g/dl (6.3-8.2)
[2020-05-08 04:25] LABS: Basophils # 0.1 K/mm3 (0-0.2); Basophils % 0.6 % (0.1-2.0); Eosinophils # 0.2 K/mm3 (0.0-0.4); Eosinophils % 2.8 % (0.1-12.0); Hematocrit 36.1 % (37.0-47.0); Hemoglobin 11.7 g/dL (12.2-16.2); Lymphocytes % 35.3 % (10-50); Mean Corpuscular HGB Conc 32.4 g/dL (31.8-35.4); Mean Corpuscular Hemoglobin 32.5 pg (27.0-31.2); Mean Corpuscular Volume 100.4 fl (81-99); Mean Platelet Volume 8.2 fl (7.4-10.4); Monocytes # 0.6 K/mm3 (0.1-1.0); Neutrophils # 4.6 K/mm3 (1.8-7.8); Neutrophils % 54.3 % (37.0-80.0); Platelet Count 268 K/mm3 (142-424); Red Blood Count 3.59 M/mm3 (4.20-5.40); Red Cell Distribution Width 13.6 % (11.5-17.5); White Blood Count 8.4 K/mm3 (4.8-10.8)
[2020-05-08 04:28] LABS: Barbiturates Screen,Urine Negative ng/ml (<200); Benzodiazepines Screen,Urine Negative ng/ml (<200)
[2020-05-08 04:29] LABS: Amphetamine/Metha Screen,Urine Negative ng/ml (<1000)
[2020-05-08 04:30] LABS: Cannabinoid Screen,Urine Negative ng/ml (<50); Methadone Screen,Urine Negative ng/ml (<300)
[2020-05-08 04:31] LABS: Cocaine Screen,Urine Negative ng/ml (<300)
[2020-05-08 04:32] LABS: Opiate Screen,Urine Negative ng/ml (<300); Phencyclidine Screen,Urine Negative ng/ml (<25)
[2020-05-08 04:54] VITALS: BP 159/62; PULSE 65; RESP 16; O2SAT 96
[2020-05-08 05:05] VITALS: BP 170/73; PULSE 68; RESP 16; TEMP 36.8; O2SAT 97
== END 2020-05-08 05:14 | disposition home or self-care (01) ==
PROVIDERS: Emergency Provider Emergency Medicine; PCP Physician Assistant
DX: G40.909 Epilepsy, unspecified, not intractable, without status epilepticus (principal); I10 Essential (primary) hypertension; R00.2 Palpitations; Z90.710 Acquired absence of both cervix and uterus; Z79.899 Other long term (current) drug therapy; Z88.0 Allergy status to penicillin; Z88.2 Allergy status to sulfonamides; Z88.5 Allergy status to narcotic agent; Z88.8 Allergy status to other drugs, medicaments and biological substances
CPT/HCPCS: 70450; 71046; 80053; 80305; 81001; 85025; 96374; 99283

== ENCOUNTER → 2020-06-03 08:48 | Outpatient (CLI) | payer MEDICARE, SELFPAY ==
--- NOTE | 2020-06-03 08:54 | MM_ITS ---
PROCEDURE: MM DIG SCREENING MAMM BI W/CAD Referring Doctor: Ang Warner Patient Age:69Y CLINICAL INDICATION: SCREENING no hormones no new complaints . Noncontributory family history COMPARISON: MG DMSB DIGITAL MAMM-SCREEN BILATERAL from 07/08/2012 MG DIG MAMM-BILATERAL ADD VIE from 08/07/2012 MG DMSB DIG MAMM-SCREEN [place] from 06/07/2014 MG DMSB DIG MAMM-SCREEN [place] from 12/09/2015 MG DMSB DIG MAMM-SCREEN [place] W/CAD from 04/25/2017 TECHNIQUE: Standard CC and MLO images were obtained. R2 CAD reviewed. Bilateral digital breast tomosynthesis included. FINDINGS: [id number] residual fibroglandular elements. No new areas of concern. No dominant mass. No suspicious calcifications. No significant findings, follow-up 1 year adequate IMPRESSION: stable bilateral mammogram with no new areas of concern. Bilateral follow-up 1 year recommended the BI-RAD Category: 1 Negative FOLLOW-UP: 1YR 1 Year Follow-up (A letter has been sent to the patient regarding results of the study.) Dictated by: Rey Oates MD 06/10/2020 09:36 Rey Oates MD in [place] 06/10/2020 09:36
--- NOTE | 2020-06-03 08:55 | XR_ITS ---
PROCEDURE: XR DEXA AXIAL SKELETON CLINICAL HISTORY: POST MENOPAUSAL COMPARISON: CR DEXAAX XR DEXA axial skeleton from 03/13/2018 FINDINGS: The right hip BMD is 0.458 with a T-score of -3.5. The left hip BMD is 0.536 with a T-score of -3.3. The lumbar spine BMD is 0.615 with a T-score of -3.9. Previously the lowest density was in the spine with T-score of -2.7 indicating decreasing bone density. IMPRESSION: This patient is considered osteoporotic according to the World Health Organization criteria. Fracture risk is high. Treatment is advised. Based on these results a follow-up exam is recommended in 1 year. Dictated by: Cecilio Castro MD 06/04/2020 06:10 Cecilio Castro MD in [place] 06/04/2020 06:10
== END ==
PROVIDERS: PCP Internal Medicine Adolescent Medicine; Visit Provider Internal Medicine Adolescent Medicine
DX: Z12.31 Encounter for screening mammogram for malignant neoplasm of breast (principal); M81.0 Age-related osteoporosis without current pathological fracture
CPT/HCPCS: 77063; 77067; 77080

== ENCOUNTER → 2020-06-11 11:17 | Outpatient (CLI) | payer MEDICARE, SELFPAY ==
[2020-06-11 14:03] LABS: Coronavirus 19 IgG Antibody Negative (Negative); Coronavirus 19 IgM Antibody Negative (Negative)
== END ==
PROVIDERS: Visit Provider Internal Medicine Gastroenterology
DX: Z01.818 Encounter for other preprocedural examination (principal); Z12.11 Encounter for screening for malignant neoplasm of colon
CPT/HCPCS: 36415; 86328

== ENCOUNTER 2020-08-04 06:30 | Emergency (ER) | payer MEDICARE, SELFPAY ==
[2020-08-04 06:33] VITALS: BP 132/70; BP 157/63; PULSE 67; PULSE 84; RESP 16; TEMP 36.8; O2SAT 100; O2SAT 98; BMI 19.1
[2020-08-04 07:15] LABS: Basophils # 0.1 K/mm3 (0-0.2); Basophils % 1.1 % (0.1-2.0); Eosinophils # 0.2 K/mm3 (0.0-0.4); Eosinophils % 2.9 % (0.1-12.0); Hematocrit 47.7 % (37.0-47.0); Hemoglobin 15.3 g/dL (12.2-16.2); Lymphocytes # 1.2 K/mm3 (0.7-4.5); Lymphocytes % 22.1 % (10-50); Mean Corpuscular Hemoglobin 31.8 pg (27.0-31.2); Mean Corpuscular Volume 99.4 fl (81-99); Mean Platelet Volume 7.8 fl (7.4-10.4); Monocytes # 0.5 K/mm3 (0.1-1.0); Monocytes % 9.3 % (1.7-9.3); Neutrophils # 3.5 K/mm3 (1.8-7.8); Neutrophils % 64.7 % (37.0-80.0); Platelet Count 369 K/mm3 (142-424); Red Cell Distribution Width 13.7 % (11.5-17.5); White Blood Count 5.4 K/mm3 (4.8-10.8)
--- NOTE | 2020-08-04 07:16 | HMH.EDUROGF ---
ED Disposition Clinical Impression: Dysuria Shingles Qualifiers: Herpes zoster complications: without complications Qualified Code(s): B02.9 - Zoster without complications Disposition: Home, Self-Care Condition on Discharge: Good Instructions: DI for Shingles Additional Instructions: use meds and call pcp for follow up and urine culture Prescriptions: Acyclovir [Acyclovir 800mg tab] 800 mg PO QID #30 tab Transmission Status: Pending to [facility] Referrals: Ang Warner MD [Primary Care Provider] - - Critical Care Critical Care Time: No Attestation: On 08/04/20, the high probability of a clinically significant, sudden or life threatening deterioration of the following system(s) required my full and direct attention, intervention and personal management. The time I documented below is in addition to time spent performing reported procedures but includes the following listed in this critical care notation. Medical Decision Making - Medical Records Medical records reviewed: Yes: I reviewed the patient's medical records. - Lance Inquiry Pt receiving controlled substance: No Vital Signs: 08/04/20 06:33 08/04/20 07:40 Temperature 98.3 F Temperature Source Oral Pulse Rate [Left Radial] 84 64 Respiratory Rate 16 Blood Pressure [Right Arm] 132/70 170/68 H Blood Pressure Mean [Right Arm] 90 102 Blood Pressure Source [Right Arm] Automatic Cuff Automatic Cuff Blood Pressure Position [Right Arm] Sitting Sitting 02 Sat by Pulse Oximetry 100 97 Oxygen Delivery Method Room Air Room Air - Lab Data Lab results reviewed: Yes: I reviewed the patient's lab results. Lab Results 08/04/20 06:57: WBC 5.4, RBC 4.80, Hgb 15.3, Hct 47.7 H, MCV 99.4 H, MCH 31.8 H, MCHC 32.0, RDW 13.7, Plt Count 369, MPV 7.8, Neut % (Auto) 64.7, Lymph % (Auto) 22.1, [place] % (Auto) 9.3, Eos % (Auto) 2.9, Baso % (Auto) 1.1, Neut # (Auto) 3.5, Lymph # (Auto) 1.2, [place] # (Auto) 0.5, Eos # (Auto) 0.2, Baso # (Auto) 0.1 08/04/20 06:57: Sodium 134 L, Potassium 4.0, Chloride 97 L, Carbon Dioxide 29, Anion Gap 12.0, BUN 10, Creatinine 0.80, Estimated Creat Clear 36, Estimated GFR 71, Est GFR ( Amer) 85, Glucose 98, Calcium 10.1, Total Bilirubin 0.6, Direct Bilirubin 0.1, Conjugated Bilirubin 0.0, Indirect Bilirubin 0.5, Unconjugated Bilirubin 0.5, AST 40 H, ALT 11 L, Alkaline Phosphatase 93, Total Protein 8.3 H D, Albumin 4.8 08/04/20 07:08: Urine Color Yellow, Urine Appearance Clear, Urine pH 6.5, Ur Specific [place] 1.010, Urine Protein Negative, Urine Glucose (UA) Negative, Urine Ketones 1+, Urine Blood Trace-i, Urine Nitrate Negative, Urine Bilirubin Negative, Urine Urobilinogen 0.2, Ur Leukocyte Esterase Trace Result diagrams: 08/04/20 06:57 08/04/20 06:57 Orders (Tests/Meds): ORDERS Category Date Time Status UA [Urinalysis and Microscopic] Stat Lab 08/04/20 07:08 Results Female Urogenital HPI - General Chief complaint: Urogenital-Female Stated complaint: blisters on left leg, left big toe sore Time Seen by Provider: 08/04/20 07:00 Mode of Arrival: Ambulatory Source of Information: Patient, Medical Record Limitations: No Limitations Description of Symptoms (Recalled from ER Triage Doc. by RN): pt stated she was treated by her PCP a week ago on 07/28 for a UTI and finished out her levaquin but still reports pain while urinating and urgency. pt stated she followed up with her pcp on 08/01 to tell her that she didnt feel any better after the 4 days of antibiotics and was given macrobid and pyridium to take as well. pt stated she didnt take her new medications added to her treatment because they both made her nauseous. pt also reports a small cluster of blisters on her left lower leg that appeared 2 days ago. - History of Present Illness HPI Narrative: recent treatment for uti and element of dysuria - has rash to lt lower ext also over the last 2 days MD Complaint: dysuria Onset (ago): day(s) Radiation: non-
[2020-08-04 07:18] LABS: Chloride 97 mmol/L (98-107)
[2020-08-04 07:19] LABS: Sodium 134 mmol/L (136-145)
[2020-08-04 07:21] LABS: Alanine Aminotransferase 11 U/L (12-78); Aspartate Amino Transferase 40 U/L (14-36); Bilirubin,Unconjugated 0.5 mg/dL (0.0-1.1); Blood Urea Nitrogen 10 mg/dl (7-17); Creatinine Clearance Estimated 36 mL/min (50-200); Estimated Glomerular Filt Rate 71 ml/min (>60); GFR (African American) 85 ML/MIN (>60)
[2020-08-04 07:22] LABS: Albumin Level 4.8 g/dl (3.5-5.0); Alkaline Phosphatase 93 U/L (38-126); Bilirubin,Direct 0.1 mg/dl (0.0-0.4); Bilirubin,Indirect 0.5 mg/dL (0.0-0.9); Bilirubin,Total 0.6 mg/dl (0.2-1.3); Calcium 10.1 mg/dl (8.4-10.2); Carbon Dioxide 29 mmol/L (22.0-30.0); Glucose 98 mg/dl (74-100); Total Protein,Serum 8.3 g/dl (6.3-8.2)
[2020-08-04 07:27] LABS: Microscopic, Urine URINE MICROSCOPIC (MICROSCOPIC)
[2020-08-04 07:28] LABS: Appearance,Urine CLEAR (Clear); Bilirubin,Urine Negative (Negative); Blood, Urine TRACE-I (Negative); Color,Urine YELLOW (Yellow); Glucose,Urine (UA) Negative (Negative); Ketones,Urine 1+ (Negative); Leukocyte Esterase,Urine TRACE (Negative); Nitrate,Urine Negative (Negative); PH,Urine 6.5 (5.0-8.5); Protein,Urine Negative (Negative); Urobilinogen,Urine 0.2 EU/dl (0.2)
[2020-08-04 07:40] VITALS: BP 170/68; PULSE 64; O2SAT 97
[2020-08-04 07:57] VITALS: BP 170/89; PULSE 78; RESP 16; TEMP 36.6; O2SAT 98
== END 2020-08-04 07:59 | disposition home or self-care (01) ==
PROVIDERS: Emergency Provider Emergency Medicine; PCP Internal Medicine Adolescent Medicine
DX: N30.00 Acute cystitis without hematuria (principal); B02.9 Zoster without complications; J45.909 Unspecified asthma, uncomplicated; G40.909 Epilepsy, unspecified, not intractable, without status epilepticus; I10 Essential (primary) hypertension; R00.2 Palpitations; Z79.899 Other long term (current) drug therapy; Z88.0 Allergy status to penicillin; Z88.2 Allergy status to sulfonamides
CPT/HCPCS: 80048; 80076; 81001; 85025; 99282

== ENCOUNTER 2020-08-22 13:04 | Outpatient (CLI) | payer MEDICARE, SELFPAY ==
[2020-08-22 13:25] VITALS: BMI 17.6
[2020-08-22 13:26] VITALS: BP 151/56; PULSE 63; RESP 18; TEMP 36.8; O2SAT 100
[2020-08-22 13:47] LABS: Basophils # 0.1 K/mm3 (0-0.2); Basophils % 1.1 % (0.1-2.0); Chloride 96 mmol/L (98-107); Eosinophils # 0.2 K/mm3 (0.0-0.4); Eosinophils % 2.3 % (0.1-12.0); Hematocrit 46.8 % (37.0-47.0); Mean Corpuscular Hemoglobin 31.8 pg (27.0-31.2); Mean Corpuscular Volume 99.4 fl (81-99); Mean Platelet Volume 8.1 fl (7.4-10.4); Monocytes # 0.7 K/mm3 (0.1-1.0); Monocytes % 9.8 % (1.7-9.3); Neutrophils # 4.1 K/mm3 (1.8-7.8); Neutrophils % 58.7 % (37.0-80.0); Platelet Count 449 K/mm3 (142-424); Red Blood Count 4.71 M/mm3 (4.20-5.40); Red Cell Distribution Width 13.9 % (11.5-17.5); White Blood Count 7.1 K/mm3 (4.8-10.8)
[2020-08-22 13:48] LABS: Potassium 4.5 mmoL/L (3.5-5.1); Sodium 133 mmol/L (136-145)
[2020-08-22 13:50] LABS: Alanine Aminotransferase 10 U/L (12-78); Alkaline Phosphatase 88 U/L (38-126); Anion Gap 12.5 mEq/L (5-15); Aspartate Amino Transferase 35 U/L (14-36); Bilirubin,Total 0.6 mg/dl (0.2-1.3); Blood Urea Nitrogen 10 mg/dl (7-17); Carbon Dioxide 29 mmol/L (22.0-30.0); Creatinine Clearance Estimated 33 mL/min (50-200); Estimated Glomerular Filt Rate 71 ml/min (>60); GFR (African American) 85 ML/MIN (>60)
[2020-08-22 13:51] LABS: Albumin Level 4.9 g/dl (3.5-5.0); Albumin/Globulin Ratio 1.3 (1.1-1.8); Calcium 10.8 mg/dl (8.4-10.2); Globulin 3.8 g/dL (1.3-3.2); Glucose 99 mg/dl (74-100); Magnesium 2.3 mg/dl (1.6-2.3); Total Protein,Serum 8.7 g/dl (6.3-8.2)
[2020-08-22 13:56] VITALS: BP 149/58; PULSE 67; RESP 18; O2SAT 99
[2020-08-22 14:22] LABS: Thyroid Stimulating Hormone 1.36 uIU/mL (0.465-4.68)
[2020-08-22 14:26] VITALS: BP 144/52; PULSE 64; RESP 18; O2SAT 99
[2020-08-22 14:44] VITALS: BP 150/62; PULSE 61; O2SAT 100
[2020-08-22 14:47] LABS: Microscopic, Urine URINE MICROSCOPIC (MICROSCOPIC)
[2020-08-22 15:14] LABS: Appearance,Urine CLEAR (Clear); Bilirubin,Urine Negative (Negative); Blood, Urine Negative (Negative); Color,Urine YELLOW (Yellow); Glucose,Urine (UA) Negative (Negative); Ketones,Urine Negative (Negative); Leukocyte Esterase,Urine 1+ (Negative); Nitrate,Urine Negative (Negative); Protein,Urine Negative (Negative); Urobilinogen,Urine 0.2 EU/dl (0.2)
[2020-08-22 16:18] LABS: Squamous Epithelial Cell,Urine Occasional #/hpf (0-5)
[2020-08-24 09:49] LABS: Oxcarbazepine 17 ug/mL (10-35)
== END 2020-08-22 14:46 | disposition home or self-care (01) ==
LOC: INF 13:06
PROVIDERS: PCP Internal Medicine Adolescent Medicine; Visit Provider Internal Medicine Adolescent Medicine
DX: N39.0 Urinary tract infection, site not specified (principal); G40.909 Epilepsy, unspecified, not intractable, without status epilepticus; Z79.899 Other long term (current) drug therapy
CPT/HCPCS: 80053; 80183; 81001; 83735; 84443; 85025; 87086; 96360

== ENCOUNTER 2020-11-23 12:06 | Outpatient (CLI) | payer MEDICARE, SELFPAY ==
[2020-11-23 12:13] VITALS: BMI 17.2
[2020-11-23 12:30] VITALS: BP 141/62; PULSE 70; RESP 18; TEMP 36.6; O2SAT 97
[2020-11-23 12:38] LABS: Basophils % 0.3 % (0.1-2.0); Eosinophils # 0.2 K/mm3 (0.0-0.4); Eosinophils % 2.4 % (0.1-12.0); Lymphocytes # 1.5 K/mm3 (0.7-4.5); Lymphocytes % 15.9 % (10-50); Mean Corpuscular HGB Conc 31.1 g/dL (31.8-35.4); Mean Corpuscular Hemoglobin 31.2 pg (27.0-31.2); Mean Corpuscular Volume 100.2 fl (81-99); Mean Platelet Volume 7.6 fl (7.4-10.4); Monocytes # 0.6 K/mm3 (0.1-1.0); Monocytes % 6.5 % (1.7-9.3); Neutrophils # 6.9 K/mm3 (1.8-7.8); Platelet Count 342 K/mm3 (142-424); Red Blood Count 4.49 M/mm3 (4.20-5.40); Red Cell Distribution Width 13.4 % (11.5-17.5); White Blood Count 9.2 K/mm3 (4.8-10.8)
[2020-11-23 12:48] LABS: Chloride 93 mmol/L (98-107); Potassium 4.5 mmoL/L (3.5-5.1); Sodium 128 mmol/L (136-145)
[2020-11-23 12:51] LABS: Anion Gap 12.5 mEq/L (5-15); Blood Urea Nitrogen 9 mg/dl (7-17); Calcium 9.9 mg/dl (8.4-10.2); Carbon Dioxide 27 mmol/L (22.0-30.0); Creatinine Clearance Estimated 32 mL/min (50-200); Estimated Glomerular Filt Rate 98 ml/min (>60); GFR (African American) 119 ML/MIN (>60); Glucose 96 mg/dl (74-100)
[2020-11-23 13:29] VITALS: BP 135/57; PULSE 68; RESP 18
== END 2020-11-23 13:29 | disposition home or self-care (01) ==
LOC: INF 12:09
PROVIDERS: Visit Provider Internal Medicine Adolescent Medicine
DX: E86.0 Dehydration (principal); N39.0 Urinary tract infection, site not specified
CPT/HCPCS: 80048; 85025; 96360; 96367

== ENCOUNTER 2020-11-26 11:09 | Emergency (ER) | payer MEDICARE, SELFPAY ==
[2020-11-26 11:21] VITALS: BP 137/74; PULSE 91; RESP 18; TEMP 36.6; O2SAT 100; BMI 17.2
[2020-11-26 11:50] VITALS: PULSE 87; RESP 16; TEMP 36.6; O2SAT 100; BMI 17.2
[2020-11-26 12:28] LABS: Apearance,Urine Clear (Clear); Bilirubin,Urine Negative (Negative); Blood, Urine Negative (Negative); Color,Urine Yellow (Yellow); Glucose,Urine (UA) Negative (Negative); Ketones,Urine Negative (Negative); Protein,Urine Negative (Negative); UTC Leukocyte Esterase,Urine Negative (Negative); UTC Nitrate,Urine Negative (Negative); Urobilinogen,Urine 0.2 EU/dl (0.2)
--- NOTE | 2020-11-26 12:29 | HMH.EDUTC ---
[facility] [place] Clinical Impression: Urinary tract infection Qualifiers: Urinary tract infection type: acute cystitis Hematuria presence: without hematuria Qualified Code(s): N30.00 - Acute cystitis without hematuria Disposition: Home, Self-Care Condition on Discharge: Good Instructions: Urinary Tract Infection Additional Instructions: Increase fluids, water and not soda or tea. Can drink cranberry juice or cranberry extract. White front to back Wear cotton underwear Empty bladder after intercourse Start antibiotics immediately and make sure you take the full course although you may start to see improvement over the next 48 hours. You can eat yogurt or take probiotics to decrease diarrhea or yeast infection caused by the antibiotic Be sure to follow-up anytime for new or worsening symptoms in 48 hours for wound urine culture results be sure to let you PCP no recent urine for culture so they can request records and ensure that you have appropriate antibiotic if you are not getting better or getting worse. If symptoms worsen or do not improve return or be seen in the ER. Follow-up with primary care this week. Referrals: Alex Barrera MD [Primary Care Provider] - Time of Disposition: 13:10 Medical Decision Making - Lance Inquiry Pt receiving controlled substance: No Vital Signs: 11/26/20 11:21 11/26/20 11:50 Temperature 97.8 F 97.9 F Temperature Source Oral Tympanic Pulse Rate [Right] 91 H 87 Respiratory Rate 18 16 Blood Pressure [Right Arm] 137/74 Blood Pressure Mean [Right Arm] 95 02 Sat by Pulse Oximetry 100 100 Oxygen Delivery Method Room Air - Lab Data Lab Results 11/26/20 12:27: Urine Color Yellow, Urine Appearance Clear, Urine pH 7.0, Ur Specific [place] 1.020, Urine Protein Negative, Urine Glucose (UA) Negative, Urine Ketones Negative, Urine Blood Negative, Urine Nitrate Negative, Urine Bilirubin Negative, Urine Urobilinogen 0.2, Ur Leukocyte Esterase Negative 11/26/20 12:40: WBC 5.3, RBC 4.30, Hgb 13.3, Hct 42.6, MCV 99.2 H, MCH 30.9, MCHC 31.1 L, RDW 13.1, Plt Count 333, MPV 7.6, Neut % (Auto) 59.8, Lymph % (Auto) 27.3, [place] % (Auto) 9.4 H, Eos % (Auto) 2.4, Baso % (Auto) 1.1, Neut # (Auto) 3.2, Lymph # (Auto) 1.5, [place] # (Auto) 0.5, Eos # (Auto) 0.1, Baso # (Auto) 0.1 11/26/20 12:40: Sodium 130 L, Potassium 4.5, Chloride 97 L, Carbon Dioxide 28, Anion Gap 9.5, BUN 11, Creatinine 0.60, Estimated Creat Clear 32, Estimated GFR 98, Est GFR ( Amer) 119, Glucose 77, Calcium 9.6 Result diagrams: 11/26/20 12:40 11/26/20 12:40 [facility] [place] - General Chief complaint: Urgent Treatment [facility] Stated complaint: avila when urinates, nausea Time Seen by Provider: 11/26/20 12:29 Mode of Arrival: Ambulatory Source of Information: Patient Limitations: No Limitations Description of Symptoms (Recalled from Triage Doc. by RN): pt is c/o pain when urinating and dizziness. pt states she was seen wed. and they gave her IV antibiotics out pt. but she is not feeling any better. HEENT Symptoms (Recalled from RN notes): Yes (dizziness) Resp Symptoms (Recalled from RN notes): No Skin Symptoms (Recalled from RN notes): No MS Symptoms (Recalled from RN notes): No Functional Status (Recalled from RN notes): na - History of Present Illness Provider Complaint: 70 yr old female presents with c/o pain when urinating and dizziness. pt states she was seen wed. and they gave her IV antibiotics out pt. but she is not feeling any better. - Related Data Home Medications Medication Instructions Recorded Confirmed Fluoxetine HCl 1 cap PO DAILY 05/08/20 08/22/20 Metoprolol Succinate [Metoprolol 100 mg PO DAILY 05/08/20 08/22/20 Succinate 100mg Tablet*] ARIPiprazole [Abilify] 2 mg PO DAILY 06/09/20 08/22/20 Meclizine HCl [Meclizine 25mg Tab] 25 mg PO DAILY 06/09/20 08/22/20 OXcarbazepine [Oxcarbazepine] 450 mg PO BID 06/09/20 08/22/20 Acyclovir [Acyclovir 800mg tab] 800 mg PO QID 08/22/20 08/22/20 Allergies A
[2020-11-26 12:54] LABS: Basophils # 0.1 K/mm3 (0-0.2); Basophils % 1.1 % (0.1-2.0); Eosinophils # 0.1 K/mm3 (0.0-0.4); Eosinophils % 2.4 % (0.1-12.0); Hematocrit 42.6 % (37.0-47.0); Hemoglobin 13.3 g/dL (12.2-16.2); Lymphocytes # 1.5 K/mm3 (0.7-4.5); Lymphocytes % 27.3 % (10-50); Mean Corpuscular HGB Conc 31.1 g/dL (31.8-35.4); Mean Corpuscular Hemoglobin 30.9 pg (27.0-31.2); Mean Corpuscular Volume 99.2 fl (81-99); Mean Platelet Volume 7.6 fl (7.4-10.4); Monocytes # 0.5 K/mm3 (0.1-1.0); Monocytes % 9.4 % (1.7-9.3); Neutrophils # 3.2 K/mm3 (1.8-7.8); Neutrophils % 59.8 % (37.0-80.0); Platelet Count 333 K/mm3 (142-424); Red Cell Distribution Width 13.1 % (11.5-17.5); White Blood Count 5.3 K/mm3 (4.8-10.8)
[2020-11-26 13:04] LABS: Anion Gap 9.5 mEq/L (5-15); Blood Urea Nitrogen 11 mg/dl (7-17); Calcium 9.6 mg/dl (8.4-10.2); Carbon Dioxide 28 mmol/L (22.0-30.0); Chloride 97 mmol/L (98-107); Creatinine Clearance Estimated 32 mL/min (50-200); Estimated Glomerular Filt Rate 98 ml/min (>60); GFR (African American) 119 ML/MIN (>60); Glucose 77 mg/dl (74-100); Potassium 4.5 mmoL/L (3.5-5.1); Sodium 130 mmol/L (136-145)
[2020-11-26 13:16] VITALS: BP 132/79; PULSE 78; RESP 18; TEMP 36.6
== END 2020-11-26 13:18 | disposition home or self-care (01) ==
PROVIDERS: Emergency Provider Nurse Practitioner Family; PCP Internal Medicine Adolescent Medicine
DX: N30.00 Acute cystitis without hematuria (principal); I10 Essential (primary) hypertension; J45.909 Unspecified asthma, uncomplicated; Z88.0 Allergy status to penicillin; Z88.2 Allergy status to sulfonamides; Z88.5 Allergy status to narcotic agent; Z91.040 Latex allergy status; Z79.899 Other long term (current) drug therapy
CPT/HCPCS: 80048; 81003; 85025; 87804; 99202; G0463

== ENCOUNTER → 2020-12-19 11:54 | Outpatient (CLI) | payer MEDICARE, SELFPAY ==
[2020-12-19 13:31] LABS: Alanine Aminotransferase 5 U/L (12-78); Albumin Level 4.3 g/dl (3.5-5.0); Albumin/Globulin Ratio 1.6 (1.1-1.8); Alkaline Phosphatase 98 U/L (38-126); Anion Gap 13.2 mEq/L (5-15); Aspartate Amino Transferase 32 U/L (14-36); Bilirubin,Total 0.4 mg/dl (0.2-1.3); Blood Urea Nitrogen 7 mg/dl (7-17); Calcium 9.9 mg/dl (8.4-10.2); Carbon Dioxide 27 mmol/L (22.0-30.0); Chloride 95 mmol/L (98-107); Estimated Glomerular Filt Rate 98 ml/min (>60); GFR (African American) 119 ML/MIN (>60); Globulin 2.7 g/dL (1.3-3.2); Glucose 87 mg/dl (74-100); Potassium 5.2 mmoL/L (3.5-5.1); Sodium 130 mmol/L (136-145)
[2020-12-19 14:01] LABS: Thyroid Stimulating Hormone 0.99 uIU/mL (0.465-4.68)
[2020-12-19 15:52] LABS: Basophils % 0.8 % (0.1-2.0); Eosinophils # 0.1 K/mm3 (0.0-0.4); Eosinophils % 2.4 % (0.1-12.0); Hematocrit 43.9 % (37.0-47.0); Hemoglobin 14.1 g/dL (12.2-16.2); Lymphocytes # 1.7 K/mm3 (0.7-4.5); Lymphocytes % 30.2 % (10-50); Mean Corpuscular HGB Conc 32.2 g/dL (31.8-35.4); Mean Corpuscular Hemoglobin 31.9 pg (27.0-31.2); Mean Corpuscular Volume 99.2 fl (81-99); Mean Platelet Volume 8.7 fl (7.4-10.4); Monocytes # 0.6 K/mm3 (0.1-1.0); Monocytes % 10.2 % (1.7-9.3); Neutrophils # 3.1 K/mm3 (1.8-7.8); Neutrophils % 56.5 % (37.0-80.0); Platelet Count 349 K/mm3 (142-424); Red Blood Count 4.43 M/mm3 (4.20-5.40); White Blood Count 5.5 K/mm3 (4.8-10.8)
== END ==
PROVIDERS: Visit Provider Internal Medicine Adolescent Medicine
DX: R00.2 Palpitations (principal); F41.9 Anxiety disorder, unspecified
CPT/HCPCS: 36415; 80053; 84443; 85025

== ENCOUNTER → 2021-03-22 16:25 | Outpatient (CLI) | payer MEDICARE, SELFPAY | PROVIDERS: Visit Provider Nurse Practitioner Family | DX: R35.0 Frequency of micturition (principal) | CPT/HCPCS: 87086; 87088; 87186 ==

== ENCOUNTER → 2021-05-12 11:13 | Outpatient (CLI) | payer MEDICARE, SELFPAY | PROVIDERS: Visit Provider Internal Medicine Adolescent Medicine | DX: R35.0 Frequency of micturition (principal) ==

== ENCOUNTER → 2021-05-15 12:56 | Outpatient (CLI) | payer MEDICARE, SELFPAY | PROVIDERS: Visit Provider Internal Medicine Adolescent Medicine | DX: R35.0 Frequency of micturition (principal) | CPT/HCPCS: 87086 ==

== ENCOUNTER → 2021-06-06 15:06 | Outpatient (CLI) | payer MEDICARE, SELFPAY | PROVIDERS: Visit Provider Nurse Practitioner Family | DX: R30.0 Dysuria (principal); B96.20 Unspecified Escherichia coli [E. coli] as the cause of diseases classified elsewhere; B95.7 Other staphylococcus as the cause of diseases classified elsewhere | CPT/HCPCS: 87086; 87088; 87186 ==

== ENCOUNTER → 2021-07-15 08:34 | Outpatient (CLI) | payer MEDICARE, SELFPAY | PROVIDERS: Visit Provider Internal Medicine Adolescent Medicine | DX: R30.0 Dysuria (principal); B96.20 Unspecified Escherichia coli [E. coli] as the cause of diseases classified elsewhere | CPT/HCPCS: 87086; 87088; 87186 ==

== ENCOUNTER → 2021-08-11 17:35 | Outpatient (CLI) | payer MEDICARE, SELFPAY | PROVIDERS: Visit Provider Internal Medicine Adolescent Medicine | DX: R30.0 Dysuria (principal) | CPT/HCPCS: 87086; 87088; 87186 ==

== ENCOUNTER 2021-08-15 15:16 | Outpatient (CLI) | payer MEDICARE, SELFPAY ==
[2021-08-15 15:40] VITALS: BP 188/94; PULSE 57; RESP 18; TEMP 36.1; O2SAT 98
[2021-08-15 16:20] VITALS: BP 187/92; PULSE 62; RESP 18
== END 2021-08-15 16:20 | disposition home or self-care (01) ==
LOC: INF 15:18
PROVIDERS: PCP Internal Medicine Adolescent Medicine; Visit Provider Internal Medicine Adolescent Medicine
DX: N39.0 Urinary tract infection, site not specified (principal); B96.29 Other Escherichia coli [E. coli] as the cause of diseases classified elsewhere
CPT/HCPCS: 96365; J1335

== ENCOUNTER 2021-08-16 12:34 | Outpatient (CLI) | payer MEDICARE, SELFPAY ==
--- NOTE | 2021-08-16 13:13 | PC.NURSE ---
pt presents for daily iv antibiotics. pt to have picc line placed today. notified Jeanie Linares RN.
[2021-08-16 14:07] VITALS: BMI 19.1
--- NOTE | 2021-08-16 14:08 | XR_ITS ---
PROCEDURE: XR CHEST PORTABLE PICC PLAC CLINICAL HISTORY: PICC line placement COMPARISON: CT CHESTW CT chest w con from 10/07/2017 CR XR CHEST 2V from 08/01/2019 CR XR CHEST 2V from 09/10/2019 CR XR CHEST 2V from 05/08/2020 FINDINGS: Status post left upper extremity PICC line placement. The line is looped distally in the region the medial aspect of the subclavian vein and then loops again proximally at the proximal subclavian vein area. Tip overlies the medial aspect of the left clavicle. Normal heart size. Lungs are clear of acute infiltrate. IMPRESSION: Abnormal positioning of the left upper extremity PICC line. Dictated by: Cecilio Castro MD 08/16/2021 14:28 Cecilio Castro MD in [place] 08/16/2021 14:28
--- NOTE | 2021-08-16 14:47 | XR_ITS ---
PROCEDURE: XR CHEST PORTABLE PICC PLAC CLINICAL HISTORY: PICC line placement COMPARISON: CT CHESTW CT chest w con from 10/07/2017 CR XR CHEST 2V from 09/10/2019 CR XR CHEST 2V from 05/08/2020 CR XR CHEST PORTABLE PICC PLAC from 08/16/2021 FINDINGS: Left upper extremity PICC line has been reposition. The tip is now in good position in the region of the superior vena cava. The lungs are clear without infiltrates, suspicious nodules, or pleural effusions. Minimal midthoracic curvature convex right. Prior kyphoplasty at T10. IMPRESSION: Left upper extremity PICC line tip in the region of the distal aspect of the SVC in good position. Dictated by: Cecilio Castro MD 08/16/2021 14:53 Cecilio Castro MD in [place] 08/16/2021 14:53
[2021-08-16 14:54] VITALS: BP 131/65; PULSE 63; RESP 18; TEMP 36.4; O2SAT 97
--- NOTE | 2021-08-16 14:54 | PC.NURSE ---
picc line in place and cxr confirmed that line is in proper placement.
[2021-08-16 15:35] VITALS: BP 133/51; PULSE 61; RESP 18; O2SAT 98
== END 2021-08-16 15:35 | disposition home or self-care (01) ==
LOC: INF 12:36
PROVIDERS: PCP Internal Medicine Adolescent Medicine; Visit Provider Internal Medicine Adolescent Medicine
DX: N39.0 Urinary tract infection, site not specified (principal); Z16.12 Extended spectrum beta lactamase (ESBL) resistance; Z45.2 Encounter for adjustment and management of vascular access device
CPT/HCPCS: 36410; 36569; 71045; 96365; C1751; J1335

== ENCOUNTER 2021-08-17 12:32 | Outpatient (CLI) | payer MEDICARE, SELFPAY ==
[2021-08-17 12:49] VITALS: BP 130/68; PULSE 62; RESP 18; TEMP 36.3; O2SAT 98
[2021-08-17 13:31] VITALS: BP 135/64; PULSE 65; RESP 16; TEMP 36.4; O2SAT 98
== END 2021-08-17 13:35 | disposition home or self-care (01) ==
LOC: INF 12:33
PROVIDERS: PCP Internal Medicine Adolescent Medicine; Visit Provider Internal Medicine Adolescent Medicine
DX: N39.0 Urinary tract infection, site not specified (principal); Z16.12 Extended spectrum beta lactamase (ESBL) resistance
CPT/HCPCS: 96365; J1335

== ENCOUNTER 2021-08-18 12:21 | Outpatient (CLI) | payer MEDICARE, SELFPAY ==
[2021-08-18 12:21] VITALS: BP 149/68; PULSE 69; RESP 16; TEMP 37.7; O2SAT 96
[2021-08-18 13:16] VITALS: BP 142/89; PULSE 69; RESP 16; TEMP 37.7; O2SAT 96
== END 2021-08-18 13:21 | disposition home or self-care (01) ==
LOC: INF 12:23
PROVIDERS: PCP Internal Medicine Adolescent Medicine; Visit Provider Internal Medicine Adolescent Medicine
DX: N39.0 Urinary tract infection, site not specified (principal); Z16.12 Extended spectrum beta lactamase (ESBL) resistance
CPT/HCPCS: 96365; J1335

== ENCOUNTER → 2021-08-19 12:25 | Outpatient (CLI) | payer MEDICARE, SELFPAY ==
[2021-08-19 12:50] VITALS: BP 127/54; PULSE 62; RESP 18; TEMP 36.6; O2SAT 95
[2021-08-19 13:05] VITALS: BP 127/54; PULSE 62; RESP 18; TEMP 36.6; O2SAT 95
== END ==
PROVIDERS: PCP Internal Medicine Adolescent Medicine; Visit Provider Internal Medicine Adolescent Medicine
DX: N39.0 Urinary tract infection, site not specified (principal); Z16.12 Extended spectrum beta lactamase (ESBL) resistance
CPT/HCPCS: 96365; G0463; J1335

== ENCOUNTER → 2021-08-20 12:39 | Outpatient (CLI) | payer MEDICARE, SELFPAY ==
[2021-08-20 12:50] VITALS: BP 141/54; PULSE 65; RESP 18; TEMP 36.7; O2SAT 99
== END ==
PROVIDERS: PCP Internal Medicine Adolescent Medicine; Visit Provider Internal Medicine Adolescent Medicine
DX: N39.0 Urinary tract infection, site not specified (principal); Z16.12 Extended spectrum beta lactamase (ESBL) resistance
CPT/HCPCS: 96365; G0463

== ENCOUNTER 2021-08-21 12:27 | Outpatient (CLI) | payer MEDICARE, SELFPAY ==
[2021-08-21 12:41] VITALS: BP 139/73; PULSE 63; RESP 18; TEMP 36.4; O2SAT 99
[2021-08-21 13:33] VITALS: BP 147/63; PULSE 61; RESP 18; O2SAT 99
== END 2021-08-21 13:40 | disposition home or self-care (01) ==
LOC: INF 12:29
PROVIDERS: PCP Internal Medicine Adolescent Medicine; Visit Provider Internal Medicine Adolescent Medicine
DX: N39.0 Urinary tract infection, site not specified (principal); Z16.12 Extended spectrum beta lactamase (ESBL) resistance
CPT/HCPCS: 96365; J1335

== ENCOUNTER 2021-08-22 12:54 | Outpatient (CLI) | payer MEDICARE, SELFPAY ==
[2021-08-22 13:16] VITALS: BP 122/64; PULSE 65; RESP 18; TEMP 36.4; O2SAT 98
[2021-08-22 14:05] VITALS: BP 158/62; PULSE 68; RESP 18; O2SAT 98
== END 2021-08-22 14:05 | disposition home or self-care (01) ==
LOC: INF 12:56
PROVIDERS: PCP Internal Medicine Adolescent Medicine; Visit Provider Internal Medicine Adolescent Medicine
DX: N39.0 Urinary tract infection, site not specified (principal); Z16.12 Extended spectrum beta lactamase (ESBL) resistance
CPT/HCPCS: 96365; J1335

== ENCOUNTER 2021-08-23 12:20 | Outpatient (CLI) | payer MEDICARE, SELFPAY ==
[2021-08-23 12:31] VITALS: BP 138/63; PULSE 68; RESP 18; TEMP 36.9; O2SAT 98
[2021-08-23 13:13] VITALS: BP 134/62; PULSE 69; RESP 18; O2SAT 98
== END 2021-08-23 13:23 | disposition home or self-care (01) ==
LOC: INF 12:21
PROVIDERS: PCP Internal Medicine Adolescent Medicine; Visit Provider Internal Medicine Adolescent Medicine
DX: N39.0 Urinary tract infection, site not specified (principal); Z16.12 Extended spectrum beta lactamase (ESBL) resistance
CPT/HCPCS: 96365; J1335

== ENCOUNTER 2021-08-24 12:35 | Outpatient (CLI) | payer MEDICARE, SELFPAY ==
[2021-08-24 13:04] VITALS: BP 134/66; PULSE 64; RESP 20; TEMP 36.7; O2SAT 99
[2021-08-24 13:55] VITALS: BP 137/57; PULSE 62; RESP 20; O2SAT 99
== END 2021-08-24 14:02 | disposition home or self-care (01) ==
LOC: INF 12:38
PROVIDERS: PCP Internal Medicine Adolescent Medicine; Visit Provider Internal Medicine Adolescent Medicine
DX: N39.0 Urinary tract infection, site not specified (principal); Z16.12 Extended spectrum beta lactamase (ESBL) resistance
CPT/HCPCS: 87086; 96365; J1335

== ENCOUNTER → 2021-08-24 17:19 | Outpatient (CLI) | payer MEDICARE, SELFPAY | PROVIDERS: Visit Provider Internal Medicine Adolescent Medicine | DX: N39.0 Urinary tract infection, site not specified (principal) | CPT/HCPCS: 87086 ==

== ENCOUNTER → 2021-09-27 07:47 | Outpatient (CLI) | payer MEDICARE, OTHER, SELFPAY ==
--- NOTE | 2021-09-27 08:01 | CT_ITS ---
FINAL REPORT CLINICAL HISTORY: BILATERAL FLANK PAIN, URINARY URGENCY COMPARISON: September 29, 2019 FINDINGS: Axial CT images of the abdomen and pelvis were obtained without intravenous contrast. Coronal reformatted images were also obtained.This study was performed with techniques to keep radiation doses as low as reasonably achievable (ALARA). Individualized dose reduction techniques using automated exposure control or adjustment of mA and/or kV according to the patient's size were employed. Abdomen: Motion artifact limits exam. The lung bases are clear. The heart is enlarged. There is no evidence of renal stone or hydronephrosis. There has been cholecystectomy. The liver, spleen and pancreas have an unremarkable, unenhanced appearance. No mass or adenopathy is seen. No inflammatory process is identified. There is moderate vascular calcification. Pelvis: Images of the pelvis reveal no evidence of ureteral dilation or ureteral stone.No mass or abnormal fluid collection is identified. Postoperative changes are seen in the pelvis. There are severe chronic T12 and T10 compression fractures, stable from prior. A moderate L3 compression fracture is new from the prior exam and likely acute with approximately 50% loss of height. IMPRESSION: No renal or ureteral stone, or hydronephrosis. Moderate L3 compression fracture, likely acute. MRI could further evaluate. Stable severe chronic T12 and T10 compression fractures. Reviewed, Interpreted and Dictated by Glen Villela III, MD Transcribed by Jasmeet Vásquez Authenticated by Glen Villela III, MD on 09/27/2021 10:30:50 AM [facility]
== END ==
PROVIDERS: PCP Internal Medicine Adolescent Medicine; Visit Provider Internal Medicine Adolescent Medicine
DX: M54.9 Dorsalgia, unspecified (principal); M54.50 Low back pain, unspecified; R39.15 Urgency of urination
CPT/HCPCS: 74176

== ENCOUNTER → 2021-10-12 14:16 | Outpatient (CLI) | payer MEDICARE, OTHER, SELFPAY ==
--- NOTE | 2021-10-12 14:22 | US_ITS ---
FINAL REPORT CLINICAL HISTORY: PELVIC PAIN-- hx of tvh FINDINGS: Transvaginal sonographic images of the pelvis were obtained. The uterus and ovary are not seen. The patient has a history of hysterectomy. There is no mass or free fluid identified. IMPRESSION: No acute abnormality identified. Reviewed, Interpreted and Dictated by Glen Villela III, MD Transcribed by Deepika Garcia Authenticated by Glen Villela III, MD on 10/12/2021 04:16:32 PM [facility]
== END ==
PROVIDERS: PCP Internal Medicine Adolescent Medicine; Visit Provider Nurse Practitioner Family
DX: R10.2 Pelvic and perineal pain (principal)
CPT/HCPCS: 76830

== ENCOUNTER → 2021-10-26 09:49 | Outpatient (POV) | payer MEDICARE, OTHER, SELFPAY ==
[2021-10-26 11:16] VITALS: BP 125/56; PULSE 70; RESP 18; TEMP 37.1; O2SAT 99; BMI 18.9
--- NOTE | 2021-10-26 11:35 | HMH.PMCON ---
Assessment and Plan (1) Degenerative joint disease (DJD) of lumbar spine Status: Acute Category: Medical Code(s): M47.816 - Spondylosis without myelopathy or radiculopathy, lumbar region (2) Lumbar facet arthropathy Status: Acute Category: Medical Code(s): M47.816 - Spondylosis without myelopathy or radiculopathy, lumbar region (3) Lumbar spondylosis Status: Acute Category: Medical Code(s): M47.816 - Spondylosis without myelopathy or radiculopathy, lumbar region I discussed with the patient that we will obtain x-rays of the lumbar spine today for further evaluation for lumbar facet arthropathy. I discussed with the patient she will benefit from diagnostic lumbar facet joint/medial branch block injections at L4-L5 and L5-S1 bilaterally #1. Lance was reviewed and appropriate. ORT was performed today and the patient was deemed low risk. HPI - Data of Consult Consult date: 10/26/21 Requesting Physician: Jael Waite MD - Consult Narrative Reason for consult: Chronic low back pain History of present illness: Ms. rBadford is a 71 year old female who presents today for initial consultation for her chronic low back pain. She states that she has been experiencing this pain for many years now. She denies any inciting event such as any falls or trauma to precipitate this pain. However, she does have a history of a vertebral compression fracture at T10, T12, and L3. She states that the pain is a deep dull aching pain that is worse with certain activities such as bending or twisting. She also notes significant pain when she tries to get up for prolonged sitting. She denies any radiation of pain down into her legs. She rates her pain today as an 8 out of 10. She states that she is tried stretching program for greater than 6 weeks with no pain relief. She is not currently on any controlled medications per Lance report. She has tried [id number] all pain medications including Tylenol and ibuprofen with very minimal pain relief. CC: Jael Waite MD [facility] History Medical History: Reports:: Arrhythmia, Asthma, Hypertension, Palpitations, Seizures Denies:: Cancer, Diabetes Mellitus Type 1, Diabetes Mellitus Type 2, Internal Pacemaker, MRSA *Have you ever received a pneumonia vaccine?: No *Have you received a flu vaccine this season?: Yes Other Medical History: Reports: Anemia, Hormone Therapy, Sinus Problems. Denies: Blood Transfusion Reaction Other Surgeries: Yes: Colonoscopy, , Hysterectomy-Total, Other (hysterectomy). No: Pacemaker Amputation: No Fractures: No - *Social History Smoking Status: Unknown if ever smoked Alcohol Intake: never Substance Use Type: other, denies use *Occupational Status:: retired Housing: house Household Members: spouse *Travel in the last 8 weeks: None Family Hx:: Cancer, Coronary Artery Disease Review of Systems - Review of Systems Review of systems:: pertinent systems reviewed and negative unless documented below Meds Home Medications Medication Instructions Recorded Confirmed Type Fluoxetine HCl 1 cap PO DAILY 05/08/20 10/26/21 History Metoprolol Succinate [Metoprolol 100 mg PO DAILY 05/08/20 10/26/21 History Succinate 100mg Tablet*] ARIPiprazole [Abilify] 2 mg PO DAILY 06/09/20 10/26/21 History Meclizine HCl [Meclizine 25mg Tab] 25 mg PO DAILY 06/09/20 10/26/21 History OXcarbazepine [Oxcarbazepine] 450 mg PO BID 06/09/20 10/26/21 History Acyclovir [Acyclovir 800mg tab] 800 mg PO QID 08/22/20 10/26/21 History [id number]/Sod Sulf,Bicarb,Cl/KCl 240 ml PO Q10M 10/26/21 10/26/21 History [[id number] and Electrolytes Soln] Allergies Allergy/AdvReac Type Severity Reaction Status Date / Time amoxicillin [From AMOXIL] Allergy Intermediate I-HIVES Verified 08/17/21 15:00 clindamycin [CLINDAMYCIN] Allergy Intermediate I-HIVES Verified 08/17/21 15:00 Penicillins [PENICILLINS] Allergy Intermediate I-HIVES Verified 08/17/21 15:00 Sulfa (Sulfonamide Allergy Interme
== END ==
PROVIDERS: Visit Provider Anesthesiology Pain Medicine
DX: M47.816 Spondylosis without myelopathy or radiculopathy, lumbar region (principal)
CPT/HCPCS: 72110; 99202; G0463

== ENCOUNTER → 2021-10-26 10:58 | Outpatient (CLI) | payer MEDICARE, OTHER, SELFPAY ==
--- NOTE | 2021-10-26 11:06 | XR_ITS ---
FINAL REPORT CLINICAL HISTORY: BACK PAIN for years COMPARISON: CT dated 09/27/2021 FINDINGS: LUMBAR SPINE SERIES Five views demonstrate severe T12 compression fracture which is stable. There is a mild L2 superior endplate compression fracture, new since prior. There is a stable moderate L3 compression fracture with sclerosis. Mild vascular calcification is identified. IMPRESSION: New, L2 compression fracture. Other stable fractures as above. Reviewed, Interpreted and Dictated by Glen Villela III, MD Transcribed by Meme Phillips Authenticated by Glen Villela III, MD on 10/26/2021 12:45:40 PM [facility]
== END ==
PROVIDERS: PCP Internal Medicine Adolescent Medicine; Visit Provider Clinical Nurse Specialist Family Health
DX: M54.50 Low back pain, unspecified (principal)
CPT/HCPCS: 72110

== ENCOUNTER 2021-11-23 11:32 | Emergency (ER) | payer MEDICARE, OTHER, SELFPAY ==
[2021-11-23] VITALS (10 sets, daily range): BP systolic 123–155; BP diastolic 56–66; PULSE 72–89; RESP 16–20; TEMP 36.8; O2SAT 96–99; BMI 17.4
--- NOTE | 2021-11-23 11:34 | PC.NURSE ---
ED MD at
--- NOTE | 2021-11-23 11:37 | CT_ITS ---
FINAL REPORT CLINICAL HISTORY: garbled speech, resolved COMPARISON: May 08, 2020 FINDINGS: Axial images of the head were obtained without contrast. Coronal reformatted images were also obtained. This study was performed with techniques to keep radiation doses as low as reasonably achievable (ALARA). Individualized dose reduction techniques using automated exposure control or adjustment of mA and/or kV according to the patient''s size were employed. There is generalized age-appropriate atrophy. Periventricular low-attenuation areas are seen consistent with mild chronic ischemic changes. There is no evidence of intracranial hemorrhage or mass. There is no evidence of acute infarct. There is no evidence of shift of the midline structures. No skull abnormality is seen on the bone window images. IMPRESSION: Atrophy and mild periventricular chronic ischemic changes. No acute intracranial abnormality identified. Reviewed, Interpreted and Dictated by Glen Villela III, MD Transcribed by Jasmeet Vásquez Authenticated by Glen Villela III, MD on 11/23/2021 01:47:54 PM [facility]
--- NOTE | 2021-11-23 11:40 | HMH.EDNEU ---
ED Disposition Clinical Impression: Gastroenteritis, Transaminitis, Difficulty comprehending speech Disposition: Home, Self-Care Condition on Discharge: Good Instructions: Diarrhea, Nausea and Vomiting-Adult Additional Instructions: follow up general surgery and pcp, return for worse Prescriptions: Ondansetron [Zofran 4mg ODT] 4 mg PO TIDP PRN #15 tab PRN Reason: Nausea And Vomiting Transmission Status: Pending to [facility] Referrals: Alex Barrera MD [Primary Care Provider] - Glen Rouse MD [Staff Physician] - - Critical Care Critical Care Time: No Attestation: On 11/23/21, the high probability of a clinically significant, sudden or life threatening deterioration of the following system(s) required my full and direct attention, intervention and personal management. The time I documented below is in addition to time spent performing reported procedures but includes the following listed in this critical care notation. Medical Decision Making - Medical Records Medical records reviewed: Yes: I reviewed the patient's medical records. - Lance Inquiry Pt receiving controlled substance: No Vital Signs: 11/23/21 11:32 11/23/21 12:08 11/23/21 12:31 Temperature 98.3 F Temperature Source Oral Pulse Rate 82 73 Pulse Rate [Right] 88 Respiratory Rate 18 Blood Pressure 124/62 123/66 Blood Pressure [Right Arm] 145/63 H Blood Pressure Mean 82 86 Blood Pressure Mean [Right Arm] 90 Blood Pressure Source [Right Arm] Automatic Cuff Blood Pressure Position [Right Arm] Supine 02 Sat by Pulse Oximetry 97 96 96 Oxygen Delivery Method Room Air 11/23/21 12:45 11/23/21 13:31 11/23/21 14:00 Temperature Temperature Source Pulse Rate 72 75 76 Pulse Rate [Right] Respiratory Rate 16 16 Blood Pressure 155/56 H 139/64 Blood Pressure [Right Arm] Blood Pressure Mean 76 89 Blood Pressure Mean [Right Arm] Blood Pressure Source [Right Arm] Blood Pressure Position [Right Arm] 02 Sat by Pulse Oximetry 97 99 99 Oxygen Delivery Method 11/23/21 14:30 11/23/21 15:00 11/23/21 15:30 Temperature Temperature Source Pulse Rate 72 89 80 Pulse Rate [Right] Respiratory Rate 18 20 Blood Pressure 145/60 H 142/62 H 140/62 Blood Pressure [Right Arm] Blood Pressure Mean 88 81 84 Blood Pressure Mean [Right Arm] Blood Pressure Source [Right Arm] Blood Pressure Position [Right Arm] 02 Sat by Pulse Oximetry 98 97 96 Oxygen Delivery Method - Lab Data Lab Results 11/23/21 11:51: WBC 5.0, RBC 4.81, Hgb 15.4, Hct 48.2 H, MCV 100.3 H, MCH 32.1 H, MCHC 32.0, RDW 13.6, Plt Count 429 H, MPV 8.2, Neut % (Auto) 69.8, Lymph % (Auto) 23.1, [place] % (Auto) 5.1, Eos % (Auto) 1.2, Baso % (Auto) 0.8, Neut # (Auto) 3.5, Lymph # (Auto) 1.2, [place] # (Auto) 0.3, Eos # (Auto) 0.1, Baso # (Auto) 0.0 11/23/21 11:51: Sodium 133 L, Potassium 3.8, Chloride 100, Carbon Dioxide 25, Anion Gap 11.8, BUN 10, Creatinine 0.70, Estimated GFR 82, Est GFR ( Amer) 99, Glucose 81, Calcium 8.8, Total Bilirubin 0.5, AST 265 H, ALT 111 H, Alkaline Phosphatase 264 H, Total Protein 7.3, Albumin 4.1, Globulin 3.2, Albumin/Globulin Ratio 1.3 11/23/21 11:51: Lipase 121 11/23/21 13:22: SARS-CoV-2 (PCR) Not detected, Influenza A Untype (PCR) Not detected, Influenza Type B (PCR) Not detected 11/23/21 13:54: Urine Color Yellow, Urine Appearance Clear, Urine pH 6.5, Ur Specific [place] 1.010, Urine Protein Negative, Urine Glucose (UA) Negative, Urine Ketones 1+, Urine Blood Negative, Urine Nitrate Negative, Urine Bilirubin Negative, Urine Urobilinogen 0.2, Ur Leukocyte Esterase Negative, Urine RBC None, Urine WBC Occasional, Ur Squamous Epith Cells Occasional, Urine Bacteria None Result diagrams: 11/23/21 11:51 11/23/21 11:51 Orders (Tests/Meds): ED MEDICATIONS Generic Name Dose Route Start Last Admin Trade Name Freq PRN Reason Stop Dose Admin Sodium Chloride 1,000 mls @ 500 mls/
[2021-11-23 12:12] LABS: Basophils % 0.8 % (0.1-2.0); Eosinophils # 0.1 K/mm3 (0.0-0.4); Eosinophils % 1.2 % (0.1-12.0); Hematocrit 48.2 % (37.0-47.0); Hemoglobin 15.4 g/dL (12.2-16.2); Lymphocytes # 1.2 K/mm3 (0.7-4.5); Lymphocytes % 23.1 % (10-50); Mean Corpuscular Hemoglobin 32.1 pg (27.0-31.2); Mean Corpuscular Volume 100.3 fl (81-99); Mean Platelet Volume 8.2 fl (7.4-10.4); Monocytes # 0.3 K/mm3 (0.1-1.0); Monocytes % 5.1 % (1.7-9.3); Neutrophils # 3.5 K/mm3 (1.8-7.8); Neutrophils % 69.8 % (37.0-80.0); Platelet Count 429 K/mm3 (142-424); Red Blood Count 4.81 M/mm3 (4.20-5.40); Red Cell Distribution Width 13.6 % (11.5-17.5)
[2021-11-23 12:13] LABS: Chloride 100 mmol/L (98-107)
[2021-11-23 12:14] LABS: Potassium 3.8 mmoL/L (3.5-5.1); Sodium 133 mmol/L (136-145)
[2021-11-23 12:16] LABS: Alanine Aminotransferase 111 U/L (12-78); Aspartate Amino Transferase 265 U/L (14-36); Blood Urea Nitrogen 10 mg/dl (7-17); Estimated Glomerular Filt Rate 82 ml/min (>60); GFR (African American) 99 ML/MIN (>60)
[2021-11-23 12:17] LABS: Albumin Level 4.1 g/dl (3.5-5.0); Albumin/Globulin Ratio 1.3 (1.1-1.8); Alkaline Phosphatase 264 U/L (38-126); Anion Gap 11.8 mEq/L (5-15); Bilirubin,Total 0.5 mg/dl (0.2-1.3); Calcium 8.8 mg/dl (8.4-10.2); Carbon Dioxide 25 mmol/L (22.0-30.0); Globulin 3.2 g/dL (1.3-3.2); Glucose 81 mg/dl (74-100); Total Protein,Serum 7.3 g/dl (6.3-8.2)
--- NOTE | 2021-11-23 12:30 | US_ITS ---
FINAL REPORT CLINICAL HISTORY: n/v/d, elev lft s, abd pain COMPARISON: CT performed on the same day. FINDINGS: Sonographic images of the right upper quadrant were obtained. The pancreas is partially obscured.The liver has an unremarkable appearance. The gallbladder is not seen consistent with cholecystectomy seen on the CT performed on the same day. There is moderate biliary ductal dilatation.The common duct measures 10 mm. Limited images of the right kidney are unremarkable. IMPRESSION: Post cholecystectomy. Moderate biliary ductal dilatation. Reviewed, Interpreted and Dictated by Glen Villela III, MD Transcribed by Alina Franco Authenticated by Glen Villela III, MD on 11/23/2021 03:22:07 PM [facility]
[2021-11-23 13:09] LABS: Lipase 121 U/L (23-300)
--- NOTE | 2021-11-23 13:21 | CT_ITS ---
FINAL REPORT CLINICAL HISTORY: abn gallbladder, elev lft, abd pain, n/v/d COMPARISON: September 27, 2021 FINDINGS: CT OF THE ABDOMEN AND PELVIS WITH CONTRAST Axial CT images of the abdomen and pelvis were obtained after the administration of IV contrast. Coronal reformatted images were also obtained and reviewed.This study was performed with techniques to keep radiation doses as low as reasonably achievable (ALARA). Individualized dose reduction techniques using automated exposure control or adjustment of mA and/or kV according to the patient's size were employed. Abdomen: The lung bases are clear. There is cardiomegaly. There is worsening biliary ductal dilatation of uncertain significance. This may represent post cholecystectomy, change but a common duct stone is not excluded. There are several probable small cysts within the liver. There are postoperative changes from cholecystectomy. The spleen is unremarkable. No adrenal mass is present. The pancreas has an unremarkable appearance. The kidneys are normal, without evidence of mass or hydronephrosis. The aorta is normal in caliber. There is no free fluid or adenopathy. Pelvis: The appendix not seen. There are multiple fluid-filled bowel loops which is nonspecific but may represent enteritis. There are postoperative changes from hysterectomy. The urinary bladder is unremarkable. There is no evidence of mass or adenopathy. There is no evidence of bowel obstruction. There are multiple lower thoracic and lumbar spine compression fractures. The L3 compression fracture has progressed somewhat since the prior exam. IMPRESSION: Worsening biliary ductal dilatation which may represent post cholecystectomy change, however a common duct stone is not excluded. Consider MRCP for further evaluation. Several probable small cysts within the liver. Multiple fluid-filled bowel loops which is nonspecific but may represent enteritis. Reviewed, Interpreted and Dictated by Glen Villela III, MD Transcribed by Alina Franco Authenticated by Glen Villela III, MD on 11/23/2021 03:28:[address] [facility]
--- NOTE | 2021-11-23 13:22 | PC.NURSE ---
ED MD at
[2021-11-23 13:25] LABS: Coronavirus 19, PCR Not Detected (NotDetected); Influenza A, PCR Not Detected (NotDetected); Influenza B, PCR Not Detected (NotDetected)
--- NOTE | 2021-11-23 13:34 | PC.NURSE ---
patient to CT with securities trader by wheelchair
[2021-11-23 13:58] LABS: Microscopic, Urine URINE MICROSCOPIC (MICROSCOPIC)
[2021-11-23 14:04] LABS: Appearance,Urine CLEAR (Clear); Bilirubin,Urine Negative (Negative); Blood, Urine Negative (Negative); Color,Urine YELLOW (Yellow); Glucose,Urine (UA) Negative (Negative); Ketones,Urine 1+ (Negative); Leukocyte Esterase,Urine Negative (Negative); Nitrate,Urine Negative (Negative); PH,Urine 6.5 (5.0-8.5); Protein,Urine Negative (Negative); Urobilinogen,Urine 0.2 EU/dl (0.2)
[2021-11-23 14:26] LABS: Squamous Epithelial Cell,Urine Occasional #/hpf (0-5); WBC,Urine Occasional #/hpf (0-3)
--- NOTE | 2021-11-23 15:27 | PC.NURSE ---
Family at BS
== END 2021-11-23 15:58 | disposition home or self-care (01) ==
PROVIDERS: Emergency Provider Emergency Medicine; PCP Internal Medicine Adolescent Medicine
DX: K52.9 Noninfective gastroenteritis and colitis, unspecified (principal); R74.01 Elevation of levels of liver transaminase levels; J45.909 Unspecified asthma, uncomplicated; I10 Essential (primary) hypertension; Z88.0 Allergy status to penicillin; Z88.2 Allergy status to sulfonamides
CPT/HCPCS: 70450; 74177; 76705; 80053; 81001; 83690; 85025; 96365; 96375; 99284; C9803; Q9967; U0003; U0005

== ENCOUNTER 2022-09-08 10:52 | Emergency (ER) | payer MEDICARE, SELFPAY ==
[2022-09-08] VITALS (10 sets, daily range): BP systolic 127–148; BP diastolic 52–102; PULSE 62–85; RESP 15–20; TEMP 36.7–36.8; O2SAT 96–98; BMI 19.5
--- NOTE | 2022-09-08 10:53 | PC.NURSE ---
seizure pads placed on pts bed
--- NOTE | 2022-09-08 11:15 | CT_ITS ---
PROCEDURE INFORMATION: Exam: CT Head Without Contrast Exam date and time: 09/08/2022 12:55 PM Age: 72 years old Clinical indication: Other: Seizure TECHNIQUE: Imaging protocol: Computed tomography of the head without contrast. Radiation optimization: All CT scans at this facility use at least one of these dose optimization techniques: automated exposure control; mA and/or kV adjustment per patient size (includes targeted exams where dose is matched to clinical indication); or iterative reconstruction. COMPARISON: CT HEAD/BRAIN WO CON 11/23/2021 11:54 AM FINDINGS: Brain: No intracranial hemorrhage. No mass effect, edema or midline shift. Cortical sulci are unremarkable for age. There are vague areas of decreased attenuation within the periventricular white matter likely secondary to chronic microvascular changes. Small indistinct hypodensity left midbrain unchanged that may represent old lacunar infarct or incidental prominent perivascular space. Cerebral ventricles: No ventricular dilatation unchanged unremarkable for age.. Paranasal sinuses: Visualized sinuses are unremarkable. No fluid levels. Mastoid air cells: Visualized mastoid air cells are well aerated. Bones/joints: Unremarkable. No acute fracture. Soft tissues: Unremarkable. IMPRESSION: No acute intracranial abnormality.
--- NOTE | 2022-09-08 11:18 | HMH.EDGENADL ---
Discharge Plan Disposition Patient Disposition: Home, Self-Care Condition: Good Prescriptions Prescriptions: New polymyxin B sulf-trimethoprim 10,000 unit- 1 mg/mL drops 2 drp ophthalmic (eye) QID 10 Days Qty: 10 0RF No Action metoprolol succinate 100 MG tablet extended release 24 hr 100 mg PO DAILY fluoxetine 10 mg capsule 1 cap PO DAILY acyclovir 800 MG tablet 800 mg PO QID peg 3350-electrolytes 4,000 ML recon soln 240 ml PO Q10M Rx Instructions: until fecal effluent is clear ondansetron 4 MG tablet,disintegrating 4 mg PO TIDP PRN (Reason: Nausea And Vomiting) Qty: 15 0RF oxcarbazepine 300 MG tablet 450 mg PO BID meclizine 25 MG tablet,chewable 25 mg PO DAILY aripiprazole 2 MG tablet 2 mg PO DAILY Referrals Follow up/Referrals: Mandi Prieto MD [Staff Physician] - See instructions Activity Restrictions/Add. Instructions Additional Instructions/Restrictions: At this time was felt you are safe to be discharged home. If new or worsening symptoms please not hesitate to return for continued evaluation. Please take medication as prescribed. Please follow-up with your family doctor early next week for rechecking your blood (hemoglobin). Please call and schedule an appointment for neurology evaluation. Clinical Impressions Clinical Impression: Seizure, Conjunctivitis, Anemia Instructions Patient Instructions: DI for Seizure Disorder -- Adult Discharge ED Provider: Sae Archuleta General Adult HPI General Chief complaint: Seizure Stated complaint: seizure Time Seen by Provider: 09/08/22 11:10 History of Present Illness HPI narrative: Patient is a 72-year-old female with past medical history of hypertension, epilepsy previously on Keppra that has been discontinued who presents emergency department for evaluation of seizure-like activity. Onset was acute, occurring earlier this morning. Patient was found in an altered state in her bed with confusion and progressive return to baseline in route with EMS consistent with her previous seizures. Seizure was unwitnessed. She normally lives at home with her , completes her activities of daily living. She denies trauma. She is also complaining of left eye discharge for which the onset was unknown. She is alert and oriented. No other acute complaints at this time. Fingerstick blood glucose in route was acceptable. With respect to her patient states that her vision has been blurry for some time and that the discharge has never been evaluated by a doctor. Denies eye pain or pain with extraocular movements. Related Data Home Medications Medication Instructions Recorded Confirmed fluoxetine 10 mg capsule 1 cap PO DAILY Depression 05/08/20 10/26/21 metoprolol succinate 100 mg 100 mg PO DAILY arrhythmia 05/08/20 10/26/21 tablet,extended release 24 hr aripiprazole 2 mg tablet 2 mg PO DAILY sleep 06/09/20 10/26/21 meclizine 25 mg chewable tablet 25 mg PO DAILY dizziness 06/09/20 10/26/21 oxcarbazepine 300 mg tablet 450 mg PO BID seizures 06/09/20 10/26/21 acyclovir 800 mg tablet 800 mg PO QID shingles 08/22/20 10/26/21 peg 3350-electrolytes 236 240 ml PO Q10M . 10/26/21 10/26/21 gram-22.74 gram-6.74 gram-5.86 gram solution Previous Rx's Medication Instructions Recorded ondansetron 4 mg disintegrating 4 mg PO TIDP PRN Nausea And 11/23/21 tablet Vomiting #15 tabs polymyxin B sulfate 10,000 2 drp ophthalmic (eye) QID 10 days 09/08/22 unit-trimethoprim 1 mg/mL eye drops #10 mL Allergies Allergy/AdvReac Type Severity Reaction Status Date / Time amoxicillin [From AMOXIL] Allergy Intermediate I-HIVES Verified 08/17/21 15:00 clindamycin [CLINDAMYCIN] Allergy Intermediate I-HIVES Verified 08/17/21 15:00 Penicillins [PENICILLINS] Allergy Intermediate I-HIVES Verified 08/17/21 15:00 Sulfa (Sulfonamide Allergy Intermediate I-HIVES Verified 08/17/21 15:00 Antibiotics) [SULFA (SULFONAM
[2022-09-08 11:31] LABS: Basophils % 0.2 % (0.1-2.0); Eosinophils # 0.1 K/mm3 (0.0-0.4); Eosinophils % 1.5 % (0.1-12.0); Hemoglobin 7.1 g/dL (12.2-16.2); Lymphocytes # 0.8 K/mm3 (0.7-4.5); Lymphocytes % 20.5 % (10-50); Mean Corpuscular HGB Conc 32.2 g/dL (31.8-35.4); Mean Corpuscular Hemoglobin 30.6 pg (27.0-31.2); Mean Corpuscular Volume 95.1 fl (81-99); Monocytes # 0.4 K/mm3 (0.1-1.0); Monocytes % 9.2 % (1.7-9.3); Neutrophils # 2.7 K/mm3 (1.8-7.8); Neutrophils % 68.5 % (37.0-80.0); Platelet Count 232 K/mm3 (142-424); Red Blood Count 2.31 M/mm3 (4.20-5.40)
[2022-09-08 11:37] LABS: Chloride 103 mmol/L (98-107); Potassium 4.2 mmoL/L (3.5-5.1); Sodium 137 mmol/L (136-145)
[2022-09-08 11:39] LABS: Blood Urea Nitrogen 12 mg/dl (7-17); Estimated Glomerular Filt Rate 82 ml/min (>60); GFR (African American) 99 ML/MIN (>60)
[2022-09-08 11:40] LABS: Alanine Aminotransferase 10 U/L (12-78); Albumin Level 3.8 g/dl (3.5-5.0); Albumin/Globulin Ratio 1.2 (1.1-1.8); Alkaline Phosphatase 107 U/L (38-126); Anion Gap 9.2 mEq/L (5-15); Aspartate Amino Transferase 34 U/L (14-36); Bilirubin,Total 0.5 mg/dl (0.2-1.3); Calcium 8.9 mg/dl (8.4-10.2); Carbon Dioxide 29 mmol/L (22.0-30.0); Globulin 3.1 g/dL (1.3-3.2); Glucose 102 mg/dl (74-100); Magnesium 2.2 mg/dl (1.6-2.3); Total Protein,Serum 6.9 g/dl (6.3-8.2)
--- NOTE | 2022-09-08 12:04 | ECG_ITS ---
APPROVED REPORT Exam: Resting ECG HR:63 bpm ECG Measurements Heart Rate 63 AXES GA 149 P 26 QRSd 89 QRS 15 QT 431 T 31 QTc 439 Conclusion SINUS RHYTHM NONSPECIFIC ST & T-WAVE ABNORMALITY BORDERLINE ECG UNCONFIRMED REPORT Electronically signed by : Alex Barrera MD 09/08/2022 18:45:53
[2022-09-08 12:17] LABS: Microscopic, Urine URINE MICROSCOPIC (MICROSCOPIC)
[2022-09-08 12:19] LABS: Appearance,Urine CLEAR (Clear); Bilirubin,Urine Negative (Negative); Blood, Urine Negative (Negative); Color,Urine YELLOW (Yellow); Glucose,Urine (UA) Negative (Negative); Ketones,Urine Negative (Negative); Leukocyte Esterase,Urine Negative (Negative); Nitrate,Urine Negative (Negative); Protein,Urine Negative (Negative); Urobilinogen,Urine 0.2 EU/dl (0.2)
[2022-09-08 12:30] LABS: Bacteria,Urine Trace /lpf
--- NOTE | 2022-09-08 13:58 | PC.NURSE ---
rounded on pt at this time, pt resting with eyes closed. son at bedside.
== END 2022-09-08 15:25 | disposition home or self-care (01) ==
PROVIDERS: Emergency Provider Emergency Medicine; PCP Internal Medicine Adolescent Medicine
DX: D64.9 Anemia, unspecified; H10.32 Unspecified acute conjunctivitis, left eye; G40.909 Epilepsy, unspecified, not intractable, without status epilepticus; I10 Essential (primary) hypertension
CPT/HCPCS: 70450; 80053; 81001; 83735; 85025; 87086; 93005; 99285

== ENCOUNTER → 2023-02-28 15:28 | Outpatient (CLI) | payer MEDICARE, SELFPAY ==
[2023-02-28 15:44] LABS: Microscopic, Urine URINE MICROSCOPIC (MICROSCOPIC)
[2023-02-28 16:15] LABS: Basophils % 0.5 % (0.1-2.0); Eosinophils # 0.2 K/mm3 (0.0-0.4); Eosinophils % 2.6 % (0.1-12.0); Hematocrit 46.1 % (37.0-47.0); Hemoglobin 14.3 g/dL (12.2-16.2); Lymphocytes # 2.1 K/mm3 (0.7-4.5); Lymphocytes % 30.6 % (10-50); Mean Corpuscular Hemoglobin 29.4 pg (27.0-31.2); Mean Corpuscular Volume 94.9 fl (81-99); Mean Platelet Volume 7.5 fl (7.4-10.4); Monocytes # 0.8 K/mm3 (0.1-1.0); Monocytes % 11.7 % (1.7-9.3); Neutrophils # 3.8 K/mm3 (1.8-7.8); Neutrophils % 54.6 % (37.0-80.0); Platelet Count 396 K/mm3 (142-424); Red Blood Count 4.86 M/mm3 (4.20-5.40); Red Cell Distribution Width 14.1 % (11.5-17.5)
[2023-02-28 16:18] LABS: Appearance,Urine CLEAR (Clear); Bilirubin,Urine Negative (Negative); Blood, Urine TRACE-I (Negative); Color,Urine YELLOW (Yellow); Glucose,Urine (UA) Negative (Negative); Ketones,Urine Negative (Negative); Leukocyte Esterase,Urine Negative (Negative); Nitrate,Urine Negative (Negative); Protein,Urine Negative (Negative); Specific Gravity, Urine 1.015 (1.005-1.030)
[2023-02-28 16:37] LABS: Alanine Aminotransferase 17 U/L (12-78); Albumin Level 4.7 g/dl (3.5-5.0); Albumin/Globulin Ratio 1.6 (1.1-1.8); Alkaline Phosphatase 114 U/L (38-126); Aspartate Amino Transferase 40 U/L (14-36); Bilirubin,Total 0.5 mg/dl (0.2-1.3); Blood Urea Nitrogen 17 mg/dl (7-17); Calcium 9.3 mg/dl (8.4-10.2); Carbon Dioxide 24 mmol/L (22.0-30.0); Chloride 93 mmol/L (98-107); Estimated Glomerular Filt Rate 82 ml/min (>60); GFR (African American) 99 ML/MIN (>60); Glucose 82 mg/dl (74-100); Sodium 128 mmol/L (136-145); Total Protein,Serum 7.7 g/dl (6.3-8.2)
[2023-02-28 16:52] LABS: RBC,Urine Occasional #/hpf (0-3); Squamous Epithelial Cell,Urine Occasional #/hpf (0-5); WBC,Urine Occasional #/hpf (0-3)
[2023-02-28 17:08] LABS: Thyroid Stimulating Hormone 1.24 uIU/mL (0.465-4.68)
[2023-02-28 17:27] LABS: Vitamin B12 357 pg/mL (239-931)
[2023-03-02 10:12] LABS: Rapid Plasma Reagin Ab Titer Non Reactive (NonRea<1:1)
== END ==
LOC: LAB 15:29
PROVIDERS: PCP Nurse Practitioner Family; Visit Provider Nurse Practitioner Family
DX: R53.83 Other fatigue (principal); R41.0 Disorientation, unspecified
CPT/HCPCS: 36415; 80053; 81001; 82607; 84443; 85025; 86593; 87086

== ENCOUNTER → 2023-03-01 12:33 | Outpatient (CLI) | payer MEDICARE, SELFPAY ==
--- NOTE | 2023-03-01 12:38 | CT_ITS ---
FINAL REPORT CLINICAL HISTORY: SUDDEN MEMORY CHANGE COMPARISON: 09/08/2022 FINDINGS: Axial images of the head were obtained without contrast. Coronal reformatted images were also obtained.This study was performed with techniques to keep radiation doses as low as reasonably achievable (ALARA). Individualized dose reduction techniques using automated exposure control or adjustment of mA and/or kV according to the patient's size were employed. There is no evidence of intracranial hemorrhage or mass. The ventricular size is within normal limits. There is no evidence of shift of the midline structures. No abnormal extra axial fluid collection is identified. No skull abnormality is seen on the bone window images. Mucosal thickening is seen in several paranasal sinuses. IMPRESSION: No acute intracranial abnormality. Reviewed, Interpreted and Dictated by Glen Villela III, MD Transcribed by Deepika Garcia Authenticated and [facility]
== END ==
PROVIDERS: PCP Internal Medicine Adolescent Medicine; Visit Provider Nurse Practitioner Family
DX: R41.3 Other amnesia (principal); G40.909 Epilepsy, unspecified, not intractable, without status epilepticus
CPT/HCPCS: 70450

== ENCOUNTER 2023-05-10 07:22 | Inpatient (IN) | payer MEDICARE, SELFPAY ==
[2023-05-10] VITALS (23 sets, daily range): BP systolic 120–166; BP diastolic 54–98; PULSE 61–81; RESP 16–20; TEMP 36.4–37; O2SAT 93–99; BMI 27.4; BMI 19.1
--- NOTE | 2023-05-10 07:27 | CT_ITS ---
FINAL REPORT CLINICAL HISTORY: seizure, AMS COMPARISON: 03/01/2023 FINDINGS: Axial images of the head were obtained without contrast. Coronal reformatted images were also obtained. This study was performed with techniques to keep radiation doses as low as reasonably achievable (ALARA). Individualized dose reduction techniques using automated exposure control or adjustment of mA and/or kV according to the patient's size were employed. There is generalized age-appropriate atrophy. Periventricular low-attenuation areas are seen consistent with mild chronic ischemic changes. There is no evidence of intracranial hemorrhage or mass. There is no evidence of acute infarct. There is no evidence of shift of the midline structures. No skull abnormality is seen on the bone window images. IMPRESSION: Atrophy and mild periventricular chronic ischemic changes. No acute intracranial abnormality identified. Reviewed, Interpreted and Dictated by Glen Villela III, MD Transcribed by Meme Phillips Authenticated and [facility]
--- NOTE | 2023-05-10 07:27 | XR_ITS ---
FINAL REPORT CLINICAL HISTORY: dyspnea COMPARISON: 08/16/2021 FINDINGS: SINGLE-VIEW CHEST The heart size is normal. The mediastinum is normal. There are bilateral pulmonary opacities worrisome for bilateral pneumonia. There is no pneumothorax. IMPRESSION: Findings worrisome for bilateral pneumonia. Reviewed, Interpreted and Dictated by Glen Villela III, MD Transcribed by Meme Phillips Authenticated and [facility]
--- NOTE | 2023-05-10 07:28 | HMH.EDGENADL ---
Discharge Plan Disposition Patient Disposition: Admitted Chief Complaint: Seizure Clinical Impressions Clinical Impression: Breakthrough seizure, Acute hyponatremia, Encephalopathy acute Discharge ED Provider: Oksana Marie General Adult HPI General Chief complaint: Seizure Stated complaint: seizures Time Seen by Provider: 05/10/23 07:23 History of Present Illness HPI narrative: Patient is a 72-year-old female presenting by EMS after a seizure. Reviewing her chart she has a history of seizures [facility] was started on Keppra but she had intolerance to this medication was transitioned to Neurontin is currently on oxcarbazepine. called EMS today noting seizure-like activity. When EMS got to the patient she was not seizing but had a seizure in front of them which they described as generalized tonic-clonic lasting 45 seconds she was given 1 of Versed in route and this stopped her seizures. She is currently postictal and history is significantly limited. No other history from EMS that is significant. Family is not present at the moment. Related Data Home Medications Medication Instructions Recorded Confirmed fluoxetine 10 mg capsule 1 cap PO DAILY Depression 05/08/20 10/26/21 metoprolol succinate 100 mg 100 mg PO DAILY arrhythmia 05/08/20 10/26/21 tablet,extended release 24 hr aripiprazole 2 mg tablet 2 mg PO DAILY sleep 06/09/20 10/26/21 meclizine 25 mg chewable tablet 25 mg PO DAILY dizziness 06/09/20 10/26/21 oxcarbazepine 300 mg tablet 450 mg PO BID seizures 06/09/20 10/26/21 acyclovir 800 mg tablet 800 mg PO QID shingles 08/22/20 10/26/21 peg 3350-electrolytes 236 240 ml PO Q10M . 10/26/21 10/26/21 gram-22.74 gram-6.74 gram-5.86 gram solution Previous Rx's Medication Instructions Recorded ondansetron 4 mg disintegrating 4 mg PO TIDP PRN Nausea And 11/23/21 tablet Vomiting #15 tabs polymyxin B sulfate 10,000 2 drp ophthalmic (eye) QID 10 days 09/08/22 unit-trimethoprim 1 mg/mL eye drops #10 mL Allergies Allergy/AdvReac Type Severity Reaction Status Date / Time amoxicillin [From AMOXIL] Allergy Intermediate I-HIVES Verified 08/17/21 15:00 clindamycin [CLINDAMYCIN] Allergy Intermediate I-HIVES Verified 08/17/21 15:00 Penicillins [PENICILLINS] Allergy Intermediate I-HIVES Verified 08/17/21 15:00 Sulfa (Sulfonamide Allergy Intermediate I-HIVES Verified 08/17/21 15:00 Antibiotics) [SULFA (SULFONAMIDE ANTIBIOTICS)] codeine [CODEINE] Allergy Unknown NAUSEA AND Verified 08/17/21 15:00 VOMITING erythromycin base Allergy Unknown I-HIVES Verified 08/17/21 15:00 [ERYTHROMYCIN BASE] Fish Containing Products Allergy Unknown FACIAL Verified 08/17/21 15:00 [FISH CONTAINING PRODUCTS] SWELLLING latex [LATEX] Allergy Unknown I-HIVES Verified 08/17/21 15:00 Iodinated Contrast Media Allergy Verified 08/17/21 15:[address] [facility] Disclaimer: The information contained in this section may have been updated after the patient was seen, as this information can be updated by other users. Social History Smoking Status: Unknown if ever smoked alcohol intake: never substance use type: denies use and other current occupational status: retired Travel in the last 8 weeks: None household members: spouse housing: house education level: high school current occupational exposures/hazards: No caffeine: Yes ROS Obtained: Yes All systems reviewed & no additional complaints except as documented Physical Exam General General appearance: other (Snoring respirations but protecting airway) Respiratory Respiratory exam: Present other (99% room air) Cardiovascular Cardiovascular exam: Present regular rate; Absent tachycardia Neurological Exam Neurological exam: Absent alert Expanded Neurological Exam Coma scale eye opening: To pain Coma scale motor response: Localizes to pain Coma scale verbal response: None Coma scale total: 8
--- NOTE | 2023-05-10 07:38 | ECG_ITS ---
APPROVED REPORT Exam: Resting ECG HR:68 bpm ECG Measurements Heart Rate 68 AXES OR 184 P 50 QRSd 102 QRS -19 QT 430 T 20 QTc 447 Conclusion SINUS RHYTHM MODERATE ST DEPRESSION [0.05+ mV ST DEPRESSION] ABNORMAL ECG UNCONFIRMED REPORT Electronically signed by : Alex Barrera MD 05/10/2023 15:53:53
--- NOTE | 2023-05-10 07:46 | PC.NURSE ---
Dr. Marie at to speak with family
--- NOTE | 2023-05-10 07:46 | PC.NURSE ---
Seizure pads applied to bed rails
[2023-05-10 07:47] LABS: Basophils % 0.6 % (0.1-2.0); Eosinophils # 0.1 K/mm3 (0.0-0.4); Eosinophils % 2.2 % (0.1-12.0); Hemoglobin 13.9 g/dL (12.2-16.2); Lymphocytes # 1.2 K/mm3 (0.7-4.5); Lymphocytes % 23.1 % (10-50); Mean Corpuscular HGB Conc 30.9 g/dL (31.8-35.4); Mean Corpuscular Volume 93.8 fl (81-99); Mean Platelet Volume 8.1 fl (7.4-10.4); Monocytes # 0.4 K/mm3 (0.1-1.0); Monocytes % 7.3 % (1.7-9.3); Neutrophils # 3.6 K/mm3 (1.8-7.8); Neutrophils % 66.8 % (37.0-80.0); Platelet Count 320 K/mm3 (142-424); Red Blood Count 4.79 M/mm3 (4.20-5.40); Red Cell Distribution Width 14.5 % (11.5-17.5); White Blood Count 5.4 K/mm3 (4.8-10.8)
--- NOTE | 2023-05-10 07:50 | PC.NURSE ---
Pt to CT at this time per stretcher when transporting pt from stretcher to CT bed pt began opening her eyes, looking around.
--- NOTE | 2023-05-10 07:52 | PC.NURSE ---
per lab, blood drawn was hemolyzed, lab will come to pt for redraw
--- NOTE | 2023-05-10 08:03 | PC.NURSE ---
pt return from CT lab at
--- NOTE | 2023-05-10 08:27 | PC.NURSE ---
lab at attempting to recollect blood again
[2023-05-10 08:46] LABS: Chloride 91 mmol/L (98-107); Potassium 4.5 mmoL/L (3.5-5.1); Sodium 121 mmol/L (136-145)
[2023-05-10 08:49] LABS: Alanine Aminotransferase 26 U/L (12-78); Albumin Level 3.4 g/dl (3.5-5.0); Albumin/Globulin Ratio 1.2 (1.1-1.8); Alkaline Phosphatase 130 U/L (38-126); Anion Gap 12.5 mEq/L (5-15); Aspartate Amino Transferase 63 U/L (14-36); Bilirubin,Total 0.4 mg/dl (0.2-1.3); Blood Urea Nitrogen 7 mg/dl (7-17); Calcium 8.8 mg/dl (8.4-10.2); Carbon Dioxide 22 mmol/L (22.0-30.0); Creatinine Clearance Estimated 53 mL/min (50-200); Estimated Glomerular Filt Rate 98 ml/min (>60); GFR (African American) 118 ML/MIN (>60); Globulin 2.9 g/dL (1.3-3.2); Glucose 95 mg/dl (74-100); Total Protein,Serum 6.3 g/dl (6.3-8.2)
--- NOTE | 2023-05-10 08:50 | PC.NURSE ---
in/out catheter done to obtain urine specimen sent to lab at this time
[2023-05-10 08:52] LABS: Microscopic, Urine URINE MICROSCOPIC (MICROSCOPIC)
--- NOTE | 2023-05-10 08:52 | PC.NURSE ---
pt alert, can answer some questions correctly, some of pts speech is jumbled. Pt follows all commands.
[2023-05-10 08:54] LABS: Appearance,Urine CLEAR (Clear); Bilirubin,Urine Negative (Negative); Blood, Urine Negative (Negative); Color,Urine YELLOW (Yellow); Glucose,Urine (UA) Negative (Negative); Ketones,Urine Negative (Negative); Leukocyte Esterase,Urine Negative (Negative); Nitrate,Urine Negative (Negative); Protein,Urine Negative (Negative); Urobilinogen,Urine 0.2 EU/dl (0.2)
[2023-05-10 08:55] LABS: Bacteria,Urine Trace /lpf; Squamous Epithelial Cell,Urine Occasional #/hpf (0-5)
[2023-05-10 09:05] LABS: Amphetamine/Metha Screen,Urine Negative ng/ml (<1000); Barbiturates Screen,Urine Negative ng/ml (<200)
[2023-05-10 09:06] LABS: Benzodiazepines Screen,Urine Positive ng/ml (<200)
[2023-05-10 09:07] LABS: Cannabinoid Screen,Urine Negative ng/ml (<50); Cocaine Screen,Urine Negative ng/ml (<300)
[2023-05-10 09:08] LABS: Methadone Screen,Urine Negative ng/ml (<300); Opiate Screen,Urine Negative ng/ml (<300)
[2023-05-10 09:09] LABS: Phencyclidine Screen,Urine Negative ng/ml (<25)
--- NOTE | 2023-05-10 09:14 | PC.NURSE ---
Dr Holly wilson
--- NOTE | 2023-05-10 09:17 | PC.NURSE ---
Dr Marie speaking with Dr Barrera
--- NOTE | 2023-05-10 09:22 | PC.NURSE ---
placed call to [facility] for pt transfer, awaiting Dr Das to call back for neurology.
--- NOTE | 2023-05-10 09:35 | PC.NURSE ---
skin tear on posterior L hand cleaned with hibiclens and saline, steri strips placed, telfa and tegaderm dressing placed
--- NOTE | 2023-05-10 09:42 | PC.NURSE ---
family at bs
--- NOTE | 2023-05-10 09:47 | PC.NURSE ---
Dr Marie speaking with hospitalist at [facility]
--- NOTE | 2023-05-10 10:29 | PC.NURSE ---
Dr Marie speaking with Dr Barrera again
--- NOTE | 2023-05-10 10:35 | PC.NURSE ---
Rounded on pt. No needs voiced at this time. Call light within reach.
--- NOTE | 2023-05-10 10:35 | PC.NURSE ---
Spoke with Dee Dee in CM for admission
--- NOTE | 2023-05-10 10:48 | PC.NURSE ---
change pt bed sheets and brief with [facility] call light at bs
--- NOTE | 2023-05-10 11:10 | PC.NURSE ---
pt assigned to room 216, room needs to be cleaned per second floor staff. States will notify us when room is ready
--- NOTE | 2023-05-10 12:03 | INFXCTL.NOTE ---
report called to maría stewart on second floor.
--- NOTE | 2023-05-10 12:13 | PC.NURSE ---
arrived by stretcher from ED
--- NOTE | 2023-05-10 12:29 | EXP.HP ---
History of Present Illness *Admission Date: 05/10/23 *Reason for visit:: Chief complaint: Seizure *History of present illness: This is a 72-year-old female that presents to [facility] emergency department via EMS for seizure identified at home. Her past medical history is significant for seizure disorder on Trileptal therapy, generalized anxiety disorder on SSRI therapy and chronic valacyclovir therapy. History is acquired from the ED physician and medical record. There is no family at bedside. It is reported that she had a seizure so EMS was called. They delivered IV benzodiazepine therapy and transported the patient to the ED. In the ED the patient was started on IV Keppra and laboratory studies identified a sodium 121 with normal potassium, CO2, BUN and creatinine. Her CBC was normal. She was started on 3% normal saline. No further seizures were identified. Her PCP was contacted and recommended transition of care to a facility with neurology availability. ED contacted [facility] and they accepted the patient for transition of care for neurology and nephrology services with bed availability delay identified. Our hospitalist service was consulted for admission awaiting transfer to [facility]. [facility] Medical History (Updated 05/10/23 @ 12:52 by Christian Covington MD) Degenerative joint disease (DJD) of lumbar spine Hypertension Osteoarthritis of hips, bilateral Osteoporosis Seizure disorder Shingles Vertebral compression fracture Surgical History (Updated 05/10/23 @ 12:40 by Christian Covington MD) S/P epidural steroid injection Family History (Updated 05/10/23 @ 12:40 by Christian Covington MD) Other Coronary artery disease Social History (Updated 05/10/23 @ 12:41 by Christian Covington MD) Smoking Status: Never smoker alcohol intake: never substance use type: denies use and other current occupational status: retired Travel in the last 8 weeks: None household members: spouse housing: house education level: high school current occupational exposures/hazards: No caffeine: Yes Review of Systems Review of Systems Review of systems:: unable to obtain Meds Home Medications and Allergies Home Medications Medication Instructions Recorded Confirmed Type aripiprazole 2 mg tablet 2 mg PO DAILY sleep 06/09/20 05/10/23 History meclizine 25 mg chewable tablet 25 mg PO DAILY dizziness 06/09/20 10/26/21 History oxcarbazepine 300 mg tablet 450 mg PO BID seizures 06/09/20 05/10/23 History acyclovir 800 mg tablet 800 mg PO QID shingles 08/22/20 10/26/21 History peg 3350-electrolytes 236 240 ml PO Q10M . 10/26/21 10/26/21 History gram-22.74 gram-6.74 gram-5.86 gram solution ondansetron 4 mg disintegrating 4 mg PO TIDP PRN Nausea And 11/23/21 Rx tablet Vomiting #15 tabs polymyxin B sulfate 10,000 2 drp ophthalmic (eye) QID 10 days 09/08/22 Rx unit-trimethoprim 1 mg/mL eye drops #10 mL fluoxetine 40 mg capsule 40 mg PO DAILY Depression 05/10/23 05/10/23 History metoprolol tartrate 100 mg tablet 100 mg PO BID High Blood Pressure 05/10/23 05/10/23 History New Prescriptions to Start Prescriptions: Allergies Allergy/AdvReac Type Severity Reaction Status Date / Time amoxicillin [From AMOXIL] Allergy Intermediate I-HIVES Verified 05/10/23 12:33 clindamycin [CLINDAMYCIN] Allergy Intermediate I-HIVES Verified 05/10/23 12:33 Penicillins [PENICILLINS] Allergy Intermediate I-HIVES Verified 05/10/23 12:33 Sulfa (Sulfonamide Allergy Intermediate I-HIVES Verified 05/10/23 12:33 Antibiotics) [SULFA (SULFONAMIDE ANTIBIOTICS)] codeine [CODEINE] Allergy Unknown NAUSEA AND Verified 05/10/23 12:33 VOMITING erythromycin base Allergy Unknown I-HIVES Verified 05/10/23 12:33 [ERYTHROMYCIN BASE] Fish Containing Products Allergy Unknown FACIAL Verified 05/10/23 12:33 [FISH CONTAINING PRODUCTS] SWELLLING latex [LATEX] Allergy Unknown I-HIVES Verified
--- NOTE | 2023-05-10 12:51 | CT_ITS ---
FINAL REPORT TECHNIQUE: Axial CT images were performed from the lung apices through the upper abdomen. Coronal reformats were submitted. This study was performed with techniques to keep radiation doses as low as reasonably achievable (ALARA). Individualized dose reduction techniques using automated exposure control or adjustment of mA and/or kV according to the patient's size were employed. CLINICAL HISTORY: ABnormal CXR COMPARISON: 05/10/2013 FINDINGS: There is no axillary adenopathy. There is no hilar or mediastinal mass or adenopathy. Heart size is normal. There is no pericardial effusion. There are bibasilar pulmonary opacities, favor atelectasis over pneumonia. Small pleural effusions are identified. Limited images of the upper abdomen reveals mild bilateral hydronephrosis. The patient is status post cholecystectomy. IMPRESSION: Bibasilar opacities, favor atelectasis over pneumonia. Small pleural effusions. Bilateral hydronephrosis. Reviewed, Interpreted and Dictated by Glen Villela III, MD Transcribed by Meme Phillips Authenticated and [facility]
[2023-05-10 13:01] LABS: Anion Gap 13.2 mEq/L (5-15); Blood Urea Nitrogen 6 mg/dl (7-17); Carbon Dioxide 21 mmol/L (22.0-30.0); Chloride 101 mmol/L (98-107); Creatinine Clearance Estimated 53 mL/min (50-200); Estimated Glomerular Filt Rate 98 ml/min (>60); GFR (African American) 118 ML/MIN (>60); Glucose 87 mg/dl (74-100); Potassium 4.2 mmoL/L (3.5-5.1); Sodium 131 mmol/L (136-145)
[2023-05-10 13:02] LABS: Magnesium 1.9 mg/dl (1.6-2.3)
[2023-05-10 15:48] LABS: Sodium 132 mmol/L (136-145)
[2023-05-10 17:10] LABS: Chloride 100 mmol/L (98-107); Potassium 4.1 mmoL/L (3.5-5.1); Sodium 132 mmol/L (136-145)
[2023-05-10 17:13] LABS: Anion Gap 11.1 mEq/L (5-15); Blood Urea Nitrogen 7 mg/dl (7-17); Carbon Dioxide 25 mmol/L (22.0-30.0); Creatinine Clearance Estimated 37 mL/min (50-200); Estimated Glomerular Filt Rate 98 ml/min (>60); GFR (African American) 118 ML/MIN (>60)
[2023-05-10 17:14] LABS: Calcium 9.3 mg/dl (8.4-10.2); Glucose 98 mg/dl (74-100)
[2023-05-10 21:32] LABS: Chloride 101 mmol/L (98-107); Sodium 131 mmol/L (136-145)
[2023-05-10 21:34] LABS: Blood Urea Nitrogen 8 mg/dl (7-17)
[2023-05-10 21:35] LABS: Alanine Aminotransferase 26 U/L (12-78); Albumin Level 3.5 g/dl (3.5-5.0); Albumin/Globulin Ratio 1.2 (1.1-1.8); Alkaline Phosphatase 136 U/L (38-126); Aspartate Amino Transferase 62 U/L (14-36); Bilirubin,Total 0.4 mg/dl (0.2-1.3); Calcium 9.3 mg/dl (8.4-10.2); Carbon Dioxide 22 mmol/L (22.0-30.0); Creatinine Clearance Estimated 37 mL/min (50-200); Estimated Glomerular Filt Rate 98 ml/min (>60); GFR (African American) 118 ML/MIN (>60); Globulin 2.9 g/dL (1.3-3.2); Glucose 93 mg/dl (74-100); Total Protein,Serum 6.4 g/dl (6.3-8.2)
[2023-05-11] VITALS (12 sets, daily range): BP systolic 102–125; BP diastolic 43–60; PULSE 65–79; RESP 16–20; TEMP 36.6–37.2; O2SAT 93–99; BMI 18.4
--- NOTE | 2023-05-11 08:29 | EXP.ACUTE.PN ---
Subjective *Date: 05/11/23 *Time: 08:29 Interval history: Appreciate Dr. Covington's help yesterday and admitting patient. Patient is overall doing very nicely. Sodium levels have stabilized. Patient has had no further epileptic activity. She is alert, oriented x3 and able to move arms and legs well today. Please see notes below for detailed neuro exam. She is hungry and wishes to eat. Medical Exam Vital signs and Labs for Last 24 Hours: Vital Signs Temp Pulse Pulse Resp BP BP Pulse Ox 05/11/23 07:55 98.5 F 05/11/23 06:58 05/11/23 06:00 72 16 122/43 L 95 05/11/23 05:00 05/11/23 04:00 72 05/11/23 04:00 97.9 F 67 16 124/47 L 95 05/11/23 04:00 94 L 05/11/23 03:00 05/11/23 02:00 75 16 125/51 L 95 05/11/23 00:00 77 05/11/23 01:00 05/10/23 20:00 77 05/11/23 00:00 76 16 112/47 L 94 L 05/10/23 23:00 05/10/23 20:00 98.6 F 76 16 120/54 L 94 L 05/10/23 20:00 96 05/10/23 21:00 05/10/23 19:00 79 20 124/55 L 95 05/10/23 18:00 79 20 128/62 95 05/10/23 17:00 80 20 125/55 L 95 05/10/23 16:00 78 20 133/63 96 05/10/23 15:00 72 20 130/62 96 05/10/23 14:00 77 20 154/64 H 96 05/10/23 13:30 76 20 130/98 H 96 05/10/23 12:23 76 18 164/74 H 93 L 05/10/23 19:00 05/10/23 17:00 05/10/23 16:50 81 95 05/10/23 12:40 76 93 L 05/10/23 15:00 05/10/23 13:00 05/10/23 16:00 80 05/10/23 12:24 70 05/10/23 15:57 98.2 F 76 18 134/57 L 98 05/10/23 12:01 65 160/71 H 95 05/10/23 12:10 97.6 F 65 16 160/71 H 05/10/23 11:30 61 160/74 H 94 L 05/10/23 10:30 71 166/72 H 95 05/10/23 10:00 78 18 161/78 H 96 05/10/23 09:30 67 16 158/76 H 96 05/10/23 09:00 63 154/73 H 97 05/10/23 08:41 65 18 141/63 H 99 O2 Del Method 05/11/23 07:55 05/11/23 06:58 Room Air 05/11/23 06:00 Room Air 05/11/23 05:00 Room Air 05/11/23 04:00 05/11/23 04:00 Room Air 05/11/23 04:00 Room Air 05/11/23 03:00 Room Air 05/11/23 02:00 Room Air 05/11/23 00:00 05/11/23 01:00 Room Air 05/10/23 20:00 05/11/23 00:00 Room Air 05/10/23 23:00 Room Air 05/10/23 20:00 Room Air 05/10/23 20:00 Room Air 05/10/23 21:00 Room Air 05/10/23 19:00 Room Air 05/10/23 18:00 Room Air 05/10/23 17:00 Room Air 05/10/23 16:00 Room Air 05/10/23 15:00 Room Air 05/10/23 14:00 Room Air 05/10/23 13:30 Room Air 05/10/23 12:23 Room Air 05/10/23 19:00 Room Air 05/10/23 17:00 Room Air 05/10/23 16:50 Room Air 05/10/23 12:40 Room Air 05/10/23 15:00 Room Air 05/10/23 13:00 Room Air 05/10/23 16:00 05/10/23 12:24 05/10/23 15:57 Room Air 05/10/23 12:01 Room Air 05/10/23 12:10 Room Air 05/10/23 11:30 Room Air 05/10/23 10:30 Room Air 05/10/23 10:00 Room Air 05/10/23 09:30 Room Air 05/10/23 09:00 Room Air 05/10/23 08:41 Intake and Output 05/10/23 05/11/23 05/11/23 19:59 03:59 11:59 Intake Total 0 / 0 Output Total 0 / 725 700 / 725 25 / 725 Balance 0 / -725 -700 / -725 -25 / -725 Intake: Intake, Oral Amount 0 / 0 Output: Output, Urine Amount 0 / 725 700 / 725 25 / 725 Other: Number of Voids 1 Number of Unmeasured Voids 0 1 0 Number of Bowel Movements 1 Weight 104 lb 3.2 oz 100 lb 3 oz Patient Weight 05/11/23 11:59 Weight 100 lb 3 oz Laboratory Results - last 24 hr 05/10/23 08:33: Sodium 121 L, Potassium 4.5, Chloride 91 L, Carbon Dioxide 22, Anion Gap 12.5, BUN 7, Creatinine 0.60, Estimated Creat Clear 53, Estimated GFR 98, Est GFR ( Amer) 118, Glucose 95, Calcium 8.8, Total Bilirubin 0.4, AST 63 H, ALT 26, Alkaline Phosphatase 130 H, Total Protein 6.3, Albumin 3.4 L, Globulin 2.9, Albumin/Globulin Ratio 1.2 05/10/23 08:49: Urine Color Yellow, Urine Appearance Clear, Urine pH 8.0, Ur Sp
[2023-05-11 08:32] LABS: Basophils % 0.7 % (0.1-2.0); Eosinophils # 0.1 K/mm3 (0.0-0.4); Eosinophils % 1.2 % (0.1-12.0); Hematocrit 42.4 % (37.0-47.0); Hemoglobin 13.1 g/dL (12.2-16.2); Lymphocytes # 1.5 K/mm3 (0.7-4.5); Lymphocytes % 22.6 % (10-50); Mean Corpuscular HGB Conc 30.8 g/dL (31.8-35.4); Mean Corpuscular Hemoglobin 28.6 pg (27.0-31.2); Mean Corpuscular Volume 92.9 fl (81-99); Mean Platelet Volume 8.1 fl (7.4-10.4); Monocytes # 0.6 K/mm3 (0.1-1.0); Monocytes % 9.8 % (1.7-9.3); Neutrophils # 4.3 K/mm3 (1.8-7.8); Neutrophils % 65.8 % (37.0-80.0); Platelet Count 307 K/mm3 (142-424); Red Blood Count 4.57 M/mm3 (4.20-5.40); Red Cell Distribution Width 14.6 % (11.5-17.5); White Blood Count 6.6 K/mm3 (4.8-10.8)
[2023-05-11 08:40] LABS: Anion Gap 14.8 mEq/L (5-15); Blood Urea Nitrogen 11 mg/dl (7-17); Calcium 8.5 mg/dl (8.4-10.2); Carbon Dioxide 21 mmol/L (22.0-30.0); Chloride 99 mmol/L (98-107); Creatinine Clearance Estimated 35 mL/min (50-200); Estimated Glomerular Filt Rate 98 ml/min (>60); GFR (African American) 118 ML/MIN (>60); Glucose 72 mg/dl (74-100); Potassium 3.8 mmoL/L (3.5-5.1); Sodium 131 mmol/L (136-145)
[2023-05-12 04:00] VITALS: BP 132/70; PULSE 72; RESP 16; TEMP 36.7; O2SAT 92; BMI 19.9
--- NOTE | 2023-05-12 05:04 | PC.NURSE ---
Patient has had a great night. Has been up multiple times to the bathroom. Complains of being sore and having a headache at one point, but after the PRN medication, has not complained since. No other issues noted.
[2023-05-12 07:08] LABS: Basophils % 0.7 % (0.1-2.0); Eosinophils # 0.2 K/mm3 (0.0-0.4); Eosinophils % 3.1 % (0.1-12.0); Hematocrit 41.7 % (37.0-47.0); Hemoglobin 12.8 g/dL (12.2-16.2); Lymphocytes # 1.7 K/mm3 (0.7-4.5); Lymphocytes % 31.7 % (10-50); Mean Corpuscular HGB Conc 30.6 g/dL (31.8-35.4); Mean Corpuscular Hemoglobin 28.3 pg (27.0-31.2); Mean Corpuscular Volume 92.5 fl (81-99); Mean Platelet Volume 8.6 fl (7.4-10.4); Monocytes # 0.6 K/mm3 (0.1-1.0); Monocytes % 10.8 % (1.7-9.3); Neutrophils # 2.8 K/mm3 (1.8-7.8); Neutrophils % 53.7 % (37.0-80.0); Platelet Count 316 K/mm3 (142-424); Red Blood Count 4.51 M/mm3 (4.20-5.40); Red Cell Distribution Width 14.4 % (11.5-17.5); White Blood Count 5.2 K/mm3 (4.8-10.8)
[2023-05-12 07:21] LABS: Anion Gap 11.9 mEq/L (5-15); Blood Urea Nitrogen 9 mg/dl (7-17); Calcium 8.8 mg/dl (8.4-10.2); Carbon Dioxide 24 mmol/L (22.0-30.0); Chloride 100 mmol/L (98-107); Creatinine Clearance Estimated 38 mL/min (50-200); Estimated Glomerular Filt Rate 82 ml/min (>60); GFR (African American) 99 ML/MIN (>60); Glucose 89 mg/dl (74-100); Potassium 3.9 mmoL/L (3.5-5.1); Sodium 132 mmol/L (136-145)
[2023-05-12 07:29] VITALS: BP 135/63; PULSE 72; RESP 18; TEMP 36.4; O2SAT 97
--- NOTE | 2023-05-12 08:31 | EXP.DC.SUM ---
General Admission date:: 05/10/23 Discharge date: 05/12/23 HPI HPI HPI: This is a 72-year-old female that presents to [facility] emergency department via EMS for seizure identified at home. Her past medical history is significant for seizure disorder on Trileptal therapy, generalized anxiety disorder on SSRI therapy and chronic valacyclovir therapy. History is acquired from the ED physician and medical record. There is no family at bedside. It is reported that she had a seizure so EMS was called. They delivered IV benzodiazepine therapy and transported the patient to the ED. In the ED the patient was started on IV Keppra and laboratory studies identified a sodium 121 with normal potassium, CO2, BUN and creatinine. Her CBC was normal. She was started on 3% normal saline. No further seizures were identified. Her PCP was contacted and recommended transition of care to a facility with neurology availability. ED contacted [facility] and they accepted the patient for transition of care for neurology and nephrology services with bed availability delay identified. Our hospitalist service was consulted for admission awaiting transfer to [facility]. Hospital Course Hospital Course Hospital Course: Patient was admitted. She had been given hypertonic saline in the ER, this was discontinued after admission and she was placed on normal saline. Her sodium levels jc fairly quickly but she had no stigmata of neurologic compromise and neurologic exams remained normal after she resolved her postictal state. She had no further seizures in the hospital. She had good functional status after being more alert. We stopped oxcarbazepine and instituted Keppra therapy to help with history of hyponatremia and also breakthrough seizure issues and she tolerated this fairly well. Overnight last night she did well, up and around, doing all of her self-care activities. Sodium this morning is 132, other labs are unremarkable. She will be discharged home, I have instructed her to brain picker her Keppra prescription today. I will see her in my office on Saturday for hospital follow-up and will initiate neurologic referral at that point. Exam Data for Last 24 hours Vital signs and Labs for Last 24 Hours: Temp Pulse Resp BP Pulse Ox O2 Del Method O2 Flow Rate 97.5 F L 72 18 135/63 97 Room Air 2 05/12/23 07:29 05/12/23 07:29 05/12/23 07:29 05/12/23 07:29 05/12/23 07:29 05/12/23 07:29 05/10/23 07:38 Laboratory Results - last 24 hr 05/11/23 07:31: WBC 6.6, RBC 4.57, Hgb 13.1, Hct 42.4, MCV 92.9, MCH 28.6, MCHC 30.8 L, RDW 14.6, Plt Count 307, MPV 8.1, Neut % (Auto) 65.8, Lymph % (Auto) 22.6, Tucker % (Auto) 9.8 H, Eos % (Auto) 1.2, Baso % (Auto) 0.7, Neut # (Auto) 4.3, Lymph # (Auto) 1.5, Tucker # (Auto) 0.6, Eos # (Auto) 0.1, Baso # (Auto) 0.0, Sodium 131 L, Potassium 3.8, Chloride 99, Carbon Dioxide 21 L, Anion Gap 14.8, BUN 11 D, Creatinine 0.60, Estimated Creat Clear 35, Estimated GFR 98, Est GFR ( Amer) 118, Glucose 72 L D, Calcium 8.5 05/12/23 06:21: WBC 5.2, RBC 4.51, Hgb 12.8, Hct 41.7, MCV 92.5, MCH 28.3, MCHC 30.6 L, RDW 14.4, Plt Count 316, MPV 8.6, Neut % (Auto) 53.7, Lymph % (Auto) 31.7, Tucker % (Auto) 10.8 H, Eos % (Auto) 3.1, Baso % (Auto) 0.7, Neut # (Auto) 2.8, Lymph # (Auto) 1.7, Tucker # (Auto) 0.6, Eos # (Auto) 0.2, Baso # (Auto) 0.0, Sodium 132 L, Potassium 3.9, Chloride 100, Carbon Dioxide 24, Anion Gap 11.9, BUN 9, Creatinine 0.70, Estimated Creat Clear 38, Estimated GFR 82, Est GFR ( Amer) 99, Glucose 89 D, Calcium 8.8 I & O for Last 24 hours: Intake & Output 05/09/23 05/10/23 05/11/23 05/12/23 11:59 11:59 11:59 11:59 Intake Total 240 / 240 370 / 370 Output Total 725 / 725 0 / 0 Balance -485 / -485 370 / 370 Weight 150 lb 100 lb 3 oz 108 lb 4.8 oz Constitutional Constitutional: no acute distress *Routine HEENT Exam Head: Present normocephalic Eye: Present
--- NOTE | 2023-05-13 15:32 | CARE MANAGER ---
Contacted patient related to hospital discharge. She is taking medication as prescribed and stopped taking the ones as directed. She is aware of follow up appointments and denies questions or concerns. MARITA Lazar
[2023-05-13 19:24] LABS: Oxcarbazepine 20 ug/mL (10-35)
== END 2023-05-12 10:00 | disposition home or self-care (01) | DRG 100 ==
LOC: ER 07:30 → 2ND 10:46
PROVIDERS: Family Medicine; Nurse Practitioner Critical Care Medicine; Admitting Provider Internal Medicine Adolescent Medicine; Emergency Provider Student in an Organized Health Care Education/Training Program; PCP Internal Medicine Adolescent Medicine; Visit Provider Internal Medicine Adolescent Medicine
DX: G40.909 Epilepsy, unspecified, not intractable, without status epilepticus (principal); G93.41 Metabolic encephalopathy; J69.0 Pneumonitis due to inhalation of food and vomit; E87.1 Hypo-osmolality and hyponatremia; F41.1 Generalized anxiety disorder; I10 Essential (primary) hypertension; M16.0 Bilateral primary osteoarthritis of hip; M81.0 Age-related osteoporosis without current pathological fracture
CPT/HCPCS: 36415; 70450; 71045; 71250; 80048; 80053; 80183; 80305; 81001; 83735; 84295; 85025; 93005; 99291; J1953

== ENCOUNTER → 2023-07-12 23:54 | Outpatient (CLI) | payer MEDICARE, SELFPAY ==
[2023-07-12 19:17] LABS: Anion Gap 16.1 mEq/L (5-15); Blood Urea Nitrogen 10 mg/dl (7-17); Calcium 9.2 mg/dl (8.4-10.2); Carbon Dioxide 25 mmol/L (22.0-30.0); Chloride 99 mmol/L (98-107); Estimated Glomerular Filt Rate 82 ml/min (>60); GFR (African American) 99 ML/MIN (>60); Glucose 94 mg/dl (74-100); Potassium 4.1 mmoL/L (3.5-5.1); Sodium 136 mmol/L (136-145)
== END ==
PROVIDERS: PCP Internal Medicine Adolescent Medicine; Visit Provider Student in an Organized Health Care Education/Training Program
DX: R11.2 Nausea with vomiting, unspecified (principal)
CPT/HCPCS: 80048

== ENCOUNTER → 2023-07-16 12:56 | Outpatient (CLI) | payer MEDICARE, SELFPAY ==
--- NOTE | 2023-07-16 12:56 | MR_ITS ---
FINAL REPORT CLINICAL HISTORY: Seizure, DIZZINESS, NAUSEA AND CONSTANT EAR INFECTIONS COMPARISON: None FINDINGS: Multiplanar MR imaging of the brain was performed without and with contrast. There is moderate age-appropriate atrophy. Scattered foci of increased T2 signal are seen in the cerebral white matter that have a nonspecific appearance but likely represent moderate chronic ischemic/gliotic changes. There is abnormal T2 signal in the hippocampi bilaterally, more prominent on the left than on the right, worrisome for mesial temporal sclerosis. There is no evidence of intracranial hemorrhage or mass. No abnormal ventricular dilatation is identified. There is no evidence of shift of the midline structures. No abnormal extra-axial fluid collection is seen. No area of abnormal restricted diffusion is identified. The posterior fossa and brainstem have an unremarkable appearance. No abnormal contrast enhancement is seen. Normal major vessel vascular flow voids are seen. IMPRESSION: Moderate atrophy and chronic ischemic/gliotic changes. Abnormal T2 signal in the hippocampi bilaterally, more prominent on the left than on the right, worrisome for mesial temporal sclerosis. Reviewed, Interpreted and Dictated by Glen Villela III, MD Transcribed by Elif Blanca Authenticated and [facility]
== END ==
LOC: RAD 12:56
PROVIDERS: PCP Internal Medicine Adolescent Medicine; Visit Provider Specialist
DX: G40.909 Epilepsy, unspecified, not intractable, without status epilepticus (principal)
CPT/HCPCS: 70553; A9576

== ENCOUNTER → 2023-07-23 08:43 | Outpatient (CLI) | payer MEDICARE, SELFPAY ==
--- NOTE | 2023-07-23 08:54 | XR_ITS ---
FINAL REPORT CLINICAL HISTORY: POST MENOPAUSAL FINDINGS: Using L1-4, the bone mineral density of the spine is 0.678 g/cm2, corresponding to T-score of -3.4. Using the left hip, the bone mineral density of the femoral neck is 0.428 g/cm2, corresponding to a T-score of -3.8. Using the right hip, the bone mineral density of the femoral neck is 0.430 g/cm2, corresponding to a T-score of -3.8. IMPRESSION: Diminished bone mineral density of the lumbar spine and bilateral hips consistent with osteoporosis. Reviewed, Interpreted and Dictated by Justino Vences MD Transcribed by Jasmeet Vásquez Authenticated and [facility] [place] [place]
--- NOTE | 2023-07-23 08:57 | MM_ITS ---
PROCEDURE INFORMATION: Exam: MG Bilateral Screening 3D Mammography Exam date and time: 07/23/2023 8:45 AM Age: 73 years old Clinical indication: Screening mammogram TECHNIQUE: Imaging protocol: Bilateral Screening tomosynthesis and 2D mammography including computer-aided detection (CAD) when performed. COMPARISON: 1. MG MM DIG SCREENING MAMM BI W/CAD 06/03/2020 9:20 AM 2. MG DMSB DIG MAMM-SCREEN [place] W/CAD 04/25/2017 10:44 AM 3. MG DMSB DIG MAMM-SCREEN [place] 12/09/2015 3:32 PM 4. MG DMSB DIG MAMM-SCREEN [place] 06/07/2014 10:33 AM FINDINGS: MAMMOGRAPHY: Breast composition: There are scattered areas of fibroglandular density. Mass: None. Architectural distortion: No new or suspicious architectural distortion. Calcifications: No new or suspicious calcifications are present Asymmetric density: No new or suspicious asymmetric density is present Skin thickening: None. Axillary adenopathy: None. IMPRESSION: No mammographic evidence of malignancy. Recommend annual screening mammography unless otherwise clinically indicated. ASSESSMENT: BI-RADS category 1: Negative
== END ==
PROVIDERS: PCP Internal Medicine Adolescent Medicine; Visit Provider Nurse Practitioner Family
DX: Z12.31 Encounter for screening mammogram for malignant neoplasm of breast; Z13.820 Encounter for screening for osteoporosis; Z78.0 Asymptomatic menopausal state
CPT/HCPCS: 77063; 77067; 77080

== ENCOUNTER → 2023-08-13 12:28 | Outpatient (CLI) | payer MEDICARE, SELFPAY | PROVIDERS: PCP Internal Medicine Adolescent Medicine; Visit Provider Specialist | DX: G40.909 Epilepsy, unspecified, not intractable, without status epilepticus (principal) ==

== ENCOUNTER 2023-10-08 14:02 | Outpatient (CLI) | payer MEDICARE, OTHER, SELFPAY ==
[2023-10-08 14:22] LABS: MANUAL DIFFERENTIAL MANUAL DIFFERENTIAL (MANUAL DIFF); Microscopic, Urine URINE MICROSCOPIC (MICROSCOPIC)
[2023-10-08 14:44] LABS: Appearance,Urine CLEAR (Clear); Bilirubin,Urine Negative (Negative); Blood, Urine Negative (Negative); Color,Urine YELLOW (Yellow); Glucose,Urine (UA) Negative (Negative); Ketones,Urine Negative (Negative); Leukocyte Esterase,Urine TRACE (Negative); Nitrate,Urine Negative (Negative); Protein,Urine Negative (Negative); Specific Gravity, Urine <= 1.005 (1.005-1.030); Urobilinogen,Urine 0.2 EU/dl (0.2)
[2023-10-08 14:49] LABS: Basophils % 0.4 % (0.1-2.0); Eosinophils # 0.1 K/mm3 (0.0-0.4); Hematocrit 41.3 % (37.0-47.0); Hemoglobin 13.2 g/dL (12.2-16.2); Lymphocytes # 3.3 K/mm3 (0.7-4.5); Lymphocytes % 46.2 % (10-50); Mean Corpuscular HGB Conc 31.8 g/dL (31.8-35.4); Mean Corpuscular Hemoglobin 30.9 pg (27.0-31.2); Mean Corpuscular Volume 97.2 fl (81-99); Mean Platelet Volume 10.1 fl (7.4-10.4); Monocytes # 0.8 K/mm3 (0.1-1.0); Monocytes % 10.7 % (1.7-9.3); Neutrophils # 2.9 K/mm3 (1.8-7.8); Neutrophils % 40.7 % (37.0-80.0); Platelet Count 397 K/mm3 (142-424); Red Blood Count 4.25 M/mm3 (4.20-5.40); Red Cell Distribution Width 17.5 % (11.5-17.5); White Blood Count 7.1 K/mm3 (4.8-10.8)
[2023-10-08 14:54] LABS: Bacteria,Urine Trace /lpf; Squamous Epithelial Cell,Urine Occasional #/hpf (0-5); WBC,Urine Occasional #/hpf (0-3)
[2023-10-08 15:16] LABS: Alanine Aminotransferase 12 U/L (12-78); Albumin Level 4.6 g/dl (3.5-5.0); Albumin/Globulin Ratio 1.5 (1.1-1.8); Alkaline Phosphatase 89 U/L (38-126); Anion Gap 11.1 mEq/L (5-15); Aspartate Amino Transferase 36 U/L (14-36); Bilirubin,Total 0.4 mg/dl (0.2-1.3); Blood Urea Nitrogen 11 mg/dl (7-17); Calcium 9.7 mg/dl (8.4-10.2); Carbon Dioxide 26 mmol/L (22.0-30.0); Chloride 105 mmol/L (98-107); Estimated Glomerular Filt Rate 70 ml/min (>60); GFR (African American) 85 ML/MIN (>60); Globulin 3.1 g/dL (1.3-3.2); Glucose 89 mg/dl (74-100); Potassium 4.1 mmoL/L (3.5-5.1); Sodium 138 mmol/L (136-145); Total Protein,Serum 7.7 g/dl (6.3-8.2)
[2023-10-08 15:30] LABS: Free T4 (Free Thyroxine) 1.05 ng/dl (0.78-2.19)
[2023-10-08 15:44] LABS: Anisocytosis 1+; Hypochromasia 1+; Lymphocytes % 41 % (10-50); Macrocytosis 1+; Monocytes % 5 % (2-9); Neutrophils % 54 % (42-76); Platelet Estimate Slight Increase; Total Cells Counted 100
[2023-10-08 15:45] LABS: Thyroid Stimulating Hormone 1.68 uIU/mL (0.465-4.68)
[2023-10-09 07:12] LABS: Triiodothyronine (T3) Free 2.7 pg/mL (2.0-4.4)
[2023-10-10 09:51] LABS: Levetiracetam (Keppra) 22.8 ug/mL (10.0-40.0)
== END 2023-10-08 23:59 ==
LOC: LAB 14:03
PROVIDERS: PCP Internal Medicine Adolescent Medicine; Visit Provider Specialist
DX: E87.1 Hypo-osmolality and hyponatremia (principal); G40.909 Epilepsy, unspecified, not intractable, without status epilepticus; R30.0 Dysuria; R63.4 Abnormal weight loss
CPT/HCPCS: 36415; 80053; 80177; 81001; 84439; 84443; 84481; 85007; 85014; 85018; 85048; 85049

== ENCOUNTER 2024-02-24 11:04 | Outpatient (CLI) | payer MEDICARE, OTHER, SELFPAY ==
--- NOTE | 2024-02-24 11:14 | XR_ITS ---
FINAL REPORT TECHNIQUE: 3 views CLINICAL HISTORY: ACUTE MIDLINE THORACIC BACK PAIN COMPARISON: CT dated 05/10/2023 FINDINGS: The patient has undergone previous kyphoplasty at the T10 level. There are multiple moderate and severe thoracic vertebral body compression fractures, most appear stable. At the T8 vertebral body there is a new or worsening compression fracture of the superior endplate, of uncertain age. If clinically indicated MRI would be helpful for further evaluation. IMPRESSION: Previous kyphoplasty at the T10 level. Multiple moderate and severe thoracic vertebral body compression fractures, most appear stable. Compared to the prior CT of April 2023 there is new or worsening compression of the superior endplate of the T8 vertebral body of uncertain age. If clinically indicated MRI would be helpful for further evaluation. Reviewed, Interpreted and Dictated by Glen Villela III, MD Transcribed by Elif Blanca Authenticated and [facility]
== END 2024-02-24 23:59 | disposition home or self-care (01) ==
LOC: RAD 11:05
PROVIDERS: PCP Internal Medicine Adolescent Medicine; Visit Provider Nurse Practitioner Family
DX: M54.6 Pain in thoracic spine (principal)
CPT/HCPCS: 72072

== ENCOUNTER 2024-03-11 13:50 | Outpatient (POV) | payer MEDICARE, OTHER, SELFPAY ==
--- NOTE | 2024-03-11 14:14 | A.OFFVIS_ITS ---
[facility] Disclaimer: The information contained in this section may have been updated after the patient was seen, as this information can be updated by other users. Medical History Vertebral compression fracture Osteoarthritis of hips, bilateral Osteoporosis Degenerative joint disease (DJD) of lumbar spine Shingles Seizure disorder Onset of seizure 30 years ago, denies aura type phenomena and apparently not seen by neurology for long time. Previously on oxcarbazepine and Keppra, (Keppra was discontinued in 2019). Recurrent seizure in the setting of monotherapy with oxcarbazepine and hyponatremia, (sodium level: 121) Hypertension Surgical History S/P epidural steroid injection Family History Other Coronary artery disease Social History Smoking Status: Never smoker alcohol intake: never substance use type: denies use and other current occupational status: retired Travel in the last 8 weeks: None household members: spouse housing: house education level: high school current occupational exposures/hazards: No caffeine: Yes PM Subjective & Objective Subjective Subjective:: Patient is a pleasant 73-year-old female who presents today for follow-up. Patient rates her pain today a 10 out of 10. Patient has not been seen by our office since 2021. She states today that she is coming because about 3 weeks ago she started having worsening pain in her mid back that did radiate out into her chest area and ribs with burning and tingling sensations and does even go down into her low back. Patient denies any specific trauma or injury. She states that she was lifting her dog up onto the couch and denies doing anything more significant. Patient does state that she ended up trying heat and ice and topicals and did go to her primary care provider who did prescribe her some pain medication. Patient states that she does try to minimize how much she is taking this however the pain is just severe. Patient states that she is unable to do any activities of daily living such as cooking and cleaning. Patient does have a longstanding history of prior compression fractures as well as a kyphoplasty at the T10 level. Patient does state that she has had osteoporosis and is on calcium daily however denies any additional medication. Patient states she is interested in any help we may be able to provide. She is currently managed with [place] 5 mg from her PCP. Her Lance has been reviewed and is appropriate. Review of Systems: General: No recent weight changes, no fever, no sleep disturbances Respiratory: No cough, no shortness of air, no recurring pulmonary infections Cardiovascular/peripheral vascular: No chest pain, no palpitations, no edema, no shortness of breath Gastrointestinal: No new onset incontinence, normal bowel movements reported Genitourinary: No new onset incontinence Musculoskeletal: Mid back pain, rib/chest pain, low back pain Psychiatric: [Normal mood/affect] Neurological: [Denies weakness in extremities], [denies balance issues] Pain at rest (0-10 scale): 10 Objective Objective:: Physical Exam: General: Alert and oriented x3, no acute distress, pleasant and cooperative Lungs: Respirations even and unlabored, symmetrical chest expansion Eyes: PERRL Musculoskeletal: Flexion and extension of thoracic [spine] somewhat guarded secondary to pain, [antalgic gait noted] point tenderness along her mid thoracic spine Neurological: Speech clear, no gross sensory deficit FINDINGS: The patient has undergone previous kyphoplasty at the T10 level. There are multiple moderate and severe thoracic vertebral body compression fractures, most appear stable. At the T8 vertebral body there is a new or worsening compression fracture of the superior endplate, of uncertain age. If clinically indicated MRI would be helpful for further evaluation. IMPRESSION: Previous kyphoplasty at the T10 level. Multiple moderate and severe thoracic vertebral body compression fractures, most appear stable. Compared to the prior CT of April 2023 there is new or worsening compression of the superior endplate of the T8 vertebral body of uncertain age. If clinically indicated MRI would be helpful for further evaluation. Reviewed, Interpreted and Dictated by Glen Villela III, MD Transcribed by Elif Blanca Authenticated and . [facility] Has patient had previous pain injection?: No Conservative treatment options previously tried: NSAIDS Length of treatment: Longer than 3 weeks longer than 3 weeks and Home exercise plan Length of treatment: Longer than 3 weeks Meds Home Medications and Allergies Home Medications Medication Instructions Recorded Confirmed Type moxifloxacin 0.5 % eye drops 1 drp Eye-Left DIRECTED EYE 07/12/23 03/11/24 History doxycycline hyclate 20 mg tablet 20 mg PO DAILY 10/09/23 03/11/24 History buspirone 10 mg tablet 10 mg PO TID 12/18/23 03/11/24 History levetiracetam 500 mg tablet 1,500 mg (3 x 500 mg) PO DAILY 12/18/23 03/11/24 Rx (Keppra) Seizures #270 tabs levocetirizine 5 mg tablet 5 mg PO DAILY 12/18/23 03/11/24 History vitamin B comp and C no.3 15 mg-10 1 cap PO DAILY 12/18/23 03/11/24 History mg-50 mg-5 mg-300 mg capsule (B Complex Plus Vitamin C) baclofen 5 mg tablet 5 mg PO TID #42 tabs 03/11/24 Rx New Prescriptions to Start Prescriptions: baclofen Bee Anguiano Allergies Allergy/AdvReac Type Severity Reaction Status Date / Time amoxicillin [From AMOXIL] Allergy Intermediate I-HIVES Verified 10/09/23 10:03 clindamycin [CLINDAMYCIN] Allergy Intermediate I-HIVES Verified 10/09/23 10:03 Penicillins [PENICILLINS] Allergy Intermediate I-HIVES Verified 10/09/23 10:03 Sulfa (Sulfonamide Allergy Intermediate I-HIVES Verified 10/09/23 10:03 Antibiotics) [SULFA (SULFONAMIDE ANTIBIOTICS)] codeine [CODEINE] Allergy Unknown NAUSEA AND Verified 10/09/23 10:03 VOMITING erythromycin base Allergy Unknown I-HIVES Verified 10/09/23 10:03 [ERYTHROMYCIN BASE] Fish Containing Products Allergy Unknown FACIAL Verified 10/09/23 10:03 [FISH CONTAINING PRODUCTS] SWELLLING latex [LATEX] Allergy Unknown I-HIVES Verified 10/09/23 10:03 Iodinated Contrast Media Allergy Verified 10/09/23 10:03 Assessment and Plan *Assessment and plan (1) Mid back pain: Status: Acute Category: Medical Code(s): M54.9 - Dorsalgia, unspecified (2) Compression fracture of thoracic vertebra: Status: Acute Qualifiers: Encounter type: initial encounter Thoracic vertebra fracture level: T8 Qualified Code(s): S22.060A - Wedge compression fracture of T7-T8 vertebra, initial encounter for closed fracture Category: Medical Code(s): S22.000A - Wedge compression fracture of unspecified thoracic vertebra, initial encounter for closed fracture Plan Patient is experiencing significant pain throughout her mid back with radiating burning/tingling sensations into her chest and ribs. Patient did have limited range of motion of her thoracic spine with point tenderness in and around her approximate T8-T9 level. I did discuss with the patient that she may be a beneficial candidate at a kyphoplasty. Risk and benefits and educational handouts were given at today's visit. Patient would like to proceed forward with this plan of care. I will order an MRI without contrast of her thoracic spine to rule out whether this is an acute or chronic compression fracture. Due to the prolonged positioning I will prescribe the patient a one-time dose of diazepam 2 mg to be given within 45 minutes of the imaging. Patient acknowledges understanding. I will send in a 2-week dose of baclofen 5 mg 3 times daily and also order the patient a thoracic epidural due to the severity of pain she is currently having. Patient is unable to tolerate current physical therapy due to the recent compression fracture and extent of pain. Patient has continued to try and do at home stretching exercise for the last 3 weeks with no change. Patient has also tried conservative therapy including oral medication, heat and ice and topicals with no change. Patient will be ordered a back brace to help add support and stabilization around this compression fracture site. We will submit to insurance for the MRI without contrast of her thoracic spine as well as a thoracic epidural steroid injection [id number] fluoroscopy. Patient has been instructed to contact the clinic with any concerns before the next appointment. Dr. Salvador has reviewed this note and agrees with this plan of care. This note was dictated using voice recognition software and make contain errors or omissions.
[2024-03-11 14:24] VITALS: BP 130/70; PULSE 90; RESP 18; O2SAT 97; BMI 19.1
== END 2024-03-11 23:59 | disposition home or self-care (01) ==
PROVIDERS: PCP Internal Medicine Adolescent Medicine; Visit Provider Nurse Practitioner Family
DX: M54.9 Dorsalgia, unspecified (principal); S22.060A Wedge compression fracture of T7-T8 vertebra, initial encounter for closed fracture
CPT/HCPCS: 99212; G0463

== ENCOUNTER 2024-03-17 08:51 | Day surgery (SDC) | payer MEDICARE, SELFPAY ==
[2024-03-17 09:05] VITALS: BP 136/43; PULSE 67; RESP 20; O2SAT 98
[2024-03-17] MEDS: methylPREDNISolone ACETATE 80MG/ML VIAL 80 MG (09:06)
[2024-03-17 09:09] VITALS: BP 136/63; PULSE 67; RESP 18; TEMP 36.8; O2SAT 98; BMI 38.7
[2024-03-17 09:17] VITALS: BP 151/58; PULSE 68; RESP 18; TEMP 36.8; O2SAT 98
--- NOTE | 2024-03-17 09:19 | EXP.PAIN.PRO ---
Procedure Date: 03/17/24 Time: 09:10 Anesthesiologist:: Randy Dudley CRNA Complications:: None Pre-procedure Diagnosis:: Degenerative disc thoracic spine. T8 thoracic vertebral superior endplate fracture. Thoracic radiculopathy. Post-procedure Diagnosis:: Same. Indications for Procedure:: Patient is a pleasant 73-year-old female comes to clinic today for T8-9 thoracic epidural steroid injection. Patient has acute T8 superior endplate vertebral fracture. Patient has longstanding history of osteoporosis. Patient has kyphoplasty at the T10 level several years ago. She has multiple old vertebral fractures. Her pain is localized to the thoracic spine area as well as thoracic radiculopathy bilaterally. She rates her pain 8/10. Procedure Details:: Procedure:Thoracic epidural steroid injection under fluoroscopy Informed consent was obtained and the risks and benefits of the procedure were explained to the patient. The patient was taken to the procedure room and noninvasive monitors placed, including noninvasive blood pressure cuff and pulse oximeter. The back was viewed using C-Arm fluoroscopy and prepped using Betadine as a cleansing solution and the T8-9 interspace was palpated. Skin and subcutaneous tissues were anesthetized using lidocaine 1.5% and a 25-gauge needle. After this, an 18-gauge Touhy epidural needle was placed into the T8-9 interspace and advanced using fluoroscopic guidance and loss of resistance to air until the epidural space was encountered. After confirmation of needle placement in the epidural space, with dye, a solution containing lidocaine 1.5%, 4 mL and Depo-Medrol 80 mg were incrementally injected into the thoracic epidural space. The patient tolerated the procedure well with no complications. The patient was observed in the Pain Clinic and then discharged home neurologically intact. Plan and Disposition:: Patient was discharged without incident.
== END 2024-03-17 09:18 | disposition home or self-care (01) ==
PROVIDERS: PCP Internal Medicine Adolescent Medicine; Visit Provider Nurse Anesthetist, Certified Registered
DX: M54.14 Radiculopathy, thoracic region (principal)
CPT/HCPCS: 62321; J1010

== ENCOUNTER 2024-04-02 14:38 | Outpatient (POV) | payer MEDICARE, SELFPAY ==
[2024-04-02 14:54] VITALS: BP 131/57; PULSE 80; RESP 16; O2SAT 100; BMI 18.1
--- NOTE | 2024-04-02 15:02 | EXP.PAIN.SOA ---
[facility] Disclaimer: The information contained in this section may have been updated after the patient was seen, as this information can be updated by other users. Medical History Vertebral compression fracture Osteoarthritis of hips, bilateral Osteoporosis Degenerative joint disease (DJD) of lumbar spine Shingles Seizure disorder Onset of seizure 30 years ago, denies aura type phenomena and apparently not seen by neurology for long time. Previously on oxcarbazepine and Keppra, (Keppra was discontinued in 2019). Recurrent seizure in the setting of monotherapy with oxcarbazepine and hyponatremia, (sodium level: 121) Hypertension Surgical History S/P epidural steroid injection Family History Other Coronary artery disease Social History Smoking Status: Never smoker alcohol intake: never substance use type: denies use and other current occupational status: retired Travel in the last 8 weeks: None household members: spouse housing: house education level: high school current occupational exposures/hazards: No caffeine: Yes PM Subjective & Objective Subjective Subjective:: Patient is a pleasant 73-year-old female who presents today for follow-up of thoracic epidural T8-T9 on 03/17/2024. Today she rates her pain a 3 out of 10. Patient states she has had at least 60 to 70% improvement following this injection. Patient does state that she feels much more functional. She states that she has been able to increase her activity with overall decreased pain. Patient does state that she still will have an occasional muscle spasm but it is nothing like what it was before. At her last visit we did order the patient baclofen 5 mg 3 times a day. She states that that did help as well and she is requesting refills. Patient is prescribed [place] from her PCP. Her Lance has been reviewed and is appropriate. Review of Systems: General: No recent weight changes, no fever, no sleep disturbances Respiratory: No cough, no shortness of air, no recurring pulmonary infections Cardiovascular/peripheral vascular: No chest pain, no palpitations, no edema, no shortness of breath Gastrointestinal: No new onset incontinence, normal bowel movements reported Genitourinary: No new onset incontinence Musculoskeletal: Mid back pain Psychiatric: [Normal mood/affect] Neurological: [Denies weakness in extremities], [denies balance issues] Pain at rest (0-10 scale): 3 Objective Objective:: Physical Exam: General: Alert and oriented x3, no acute distress, pleasant and cooperative Lungs: Respirations even and unlabored, symmetrical chest expansion Eyes: PERRL Musculoskeletal: Flexion and extension of thoracic [spine] somewhat guarded secondary to pain, [antalgic gait noted] Neurological: Speech clear, no gross sensory deficit Has patient had previous pain injection?: Yes Percent improvement in pain since last injection: 60 to 70% Conservative treatment options previously tried: Home exercise plan Length of treatment: Longer than 6 weeks Meds Home Medications and Allergies Home Medications ?Medication ?Instructions ?Recorded ?Confirmed ?Type moxifloxacin 0.5 % eye drops 1 drp Eye-Left DIRECTED EYE 07/12/23 04/02/24 History doxycycline hyclate 20 mg tablet 20 mg PO DAILY 10/09/23 04/02/24 History buspirone 10 mg tablet 10 mg PO TID 12/18/23 04/02/24 History levetiracetam 500 mg tablet 1,500 mg (3 x 500 mg) PO DAILY 12/18/23 04/02/24 Rx (Keppra) Seizures #270 tabs levocetirizine 5 mg tablet 5 mg PO DAILY 12/18/23 04/02/24 History vitamin B comp and C no.3 15 mg-10 1 cap PO DAILY 12/18/23 04/02/24 History mg-50 mg-5 mg-300 mg capsule (B Complex Plus Vitamin C) baclofen 5 mg tablet 5 mg PO TID #42 tabs 03/11/24 04/02/24 Rx diazepam 2 mg tablet 2 mg PO ONCE pain #1 tab 03/11/24 04/02/24 Rx New Prescriptions to Start Prescriptions: Allergies Allergy/AdvReac Type Severity Reaction Status Date / Time amoxicillin [From AMOXIL] Allergy Intermediate I-HIVES Verified 10/09/23 10:03 clindamycin [CLINDAMYCIN] Allergy Intermediate I-HIVES Verified 10/09/23 10:03 Penicillins [PENICILLINS] Allergy Intermediate I-HIVES Verified 10/09/23 10:03 Sulfa (Sulfonamide Allergy Intermediate I-HIVES Verified 10/09/23 10:03 Antibiotics) [SULFA (SULFONAMIDE ANTIBIOTICS)] codeine [CODEINE] Allergy Unknown NAUSEA AND Verified 10/09/23 10:03 VOMITING erythromycin base Allergy Unknown I-HIVES Verified 10/09/23 10:03 [ERYTHROMYCIN BASE] Fish Containing Products Allergy Unknown FACIAL Verified 10/09/23 10:03 [FISH CONTAINING PRODUCTS] SWELLLING latex [LATEX] Allergy Unknown I-HIVES Verified 10/09/23 10:03 Iodinated Contrast Media Allergy Verified 10/09/23 10:03 Assessment and Plan *Assessment and plan (1) Mid back pain: Status: Acute Category: Medical Code(s): M54.9 - Dorsalgia, unspecified Plan Patient has had significant improvement following her thoracic epidural and does not require any additional injection therapy at this time. I will refill the patient's baclofen and provide a 1 month supply of this medication. Patient will return to clinic in 1 month for reevaluation of symptoms and plan of care. Patient has been instructed to contact the clinic with any concerns before the next appointment. Dr. Salvador has reviewed this note and agrees with this plan of care. This note was dictated using voice recognition software and make contain errors or omissions. All injections are used with Lidocaine or Bupivacaine and Depo Medrol.
== END 2024-04-02 23:59 | disposition home or self-care (01) ==
PROVIDERS: PCP Internal Medicine Adolescent Medicine; Visit Provider Nurse Practitioner Family
DX: M54.9 Dorsalgia, unspecified (principal)
CPT/HCPCS: 99212; G0463

== ENCOUNTER 2024-05-04 14:59 | Outpatient (POV) | payer MEDICARE, SELFPAY ==
--- NOTE | 2024-05-04 15:42 | A.OFFVIS_ITS ---
[facility] Disclaimer: The information contained in this section may have been updated after the patient was seen, as this information can be updated by other users. Medical History Vertebral compression fracture Osteoarthritis of hips, bilateral Osteoporosis Degenerative joint disease (DJD) of lumbar spine Shingles Seizure disorder Onset of seizure 30 years ago, denies aura type phenomena and apparently not seen by neurology for long time. Previously on oxcarbazepine and Keppra, (Keppra was discontinued in 2019). Recurrent seizure in the setting of monotherapy with oxcarbazepine and hyponatremia, (sodium level: 121) Hypertension Surgical History S/P epidural steroid injection Family History Other Coronary artery disease Social History Smoking Status: Never smoker alcohol intake: never substance use type: denies use and other current occupational status: retired Travel in the last 8 weeks: None household members: spouse housing: house education level: high school current occupational exposures/hazards: No caffeine: Yes PM Subjective & Objective Subjective Subjective:: Patient is a pleasant 73-year-old female who presents today for 1 month follow- up. Today she rates her pain a 5 out of 10. She denies any new trauma or injury. She does state that she notices a little bit more pain from her last visit. Patient does state that it is still manageable and feels like the thoracic epidural at T8-T9 is still helping somewhat. Patient does state that she has been using extra strength Tylenol and only relying on the baclofen 5 mg 3 times daily as needed and does not need any refills. Her Lance has been reviewed and is appropriate. Review of Systems: General: No recent weight changes, no fever, no sleep disturbances Respiratory: No cough, no shortness of air, no recurring pulmonary infections Cardiovascular/peripheral vascular: No chest pain, no palpitations, no edema, no shortness of breath Gastrointestinal: No new onset incontinence, normal bowel movements reported Genitourinary: No new onset incontinence Musculoskeletal: Mid back pain Psychiatric: [Normal mood/affect] Neurological: [Denies weakness in extremities], [denies balance issues] Pain at rest (0-10 scale): 5 Objective Objective:: Physical Exam: General: Alert and oriented x3, no acute distress, pleasant and cooperative Lungs: Respirations even and unlabored, symmetrical chest expansion Eyes: PERRL Musculoskeletal: Flexion and extension of thoracic [spine] somewhat guarded secondary to pain, [antalgic gait noted] Neurological: Speech clear, no gross sensory deficit Has patient had previous pain injection?: No Conservative treatment options previously tried: Home exercise plan Length of treatment: Longer than 6 weeks Meds Home Medications and Allergies Home Medications ?Medication ?Instructions ?Recorded ?Confirmed ?Type moxifloxacin 0.5 % eye drops 1 drp Eye-Left DIRECTED EYE 07/12/23 04/02/24 History doxycycline hyclate 20 mg tablet 20 mg PO DAILY 10/09/23 04/02/24 History buspirone 10 mg tablet 10 mg PO TID 12/18/23 04/02/24 History levetiracetam 500 mg tablet 1,500 mg (3 x 500 mg) PO DAILY 12/18/23 04/02/24 Rx (Keppra) Seizures #270 tabs levocetirizine 5 mg tablet 5 mg PO DAILY 12/18/23 04/02/24 History vitamin B comp and C no.3 15 mg-10 1 cap PO DAILY 12/18/23 04/02/24 History mg-50 mg-5 mg-300 mg capsule (B Complex Plus Vitamin C) diazepam 2 mg tablet 2 mg PO ONCE pain #1 tab 03/11/24 04/02/24 Rx baclofen 5 mg tablet 5 mg PO TID #90 tabs 04/02/24 Rx New Prescriptions to Start Prescriptions: Allergies Allergy/AdvReac Type Severity Reaction Status Date / Time amoxicillin [From AMOXIL] Allergy Intermediate I-HIVES Verified 10/09/23 10:03 clindamycin [CLINDAMYCIN] Allergy Intermediate I-HIVES Verified 10/09/23 10:03 Penicillins [PENICILLINS] Allergy Intermediate I-HIVES Verified 10/09/23 10:03 Sulfa (Sulfonamide Allergy Intermediate I-HIVES Verified 10/09/23 10:03 Antibiotics) [SULFA (SULFONAMIDE ANTIBIOTICS)] codeine [CODEINE] Allergy Unknown NAUSEA AND Verified 10/09/23 10:03 VOMITING erythromycin base Allergy Unknown I-HIVES Verified 10/09/23 10:03 [ERYTHROMYCIN BASE] Fish Containing Products Allergy Unknown FACIAL Verified 10/09/23 10:03 [FISH CONTAINING PRODUCTS] SWELLLING latex [LATEX] Allergy Unknown I-HIVES Verified 10/09/23 10:03 Iodinated Contrast Media Allergy Verified 10/09/23 10:03 Assessment and Plan *Assessment and plan (1) Mid back pain: Status: Acute Category: Medical Code(s): M54.9 - Dorsalgia, unspecified (2) Compression fracture of thoracic vertebra: Status: Acute Qualifiers: Encounter type: initial encounter Thoracic vertebra fracture level: T8 Qualified Code(s): S22.060A - Wedge compression fracture of T7-T8 vertebra, initial encounter for closed fracture Category: Medical Code(s): S22.000A - Wedge compression fracture of unspecified thoracic vertebra, initial encounter for closed fracture Plan Patient is still getting significant improvement following her thoracic epidural however she is starting to notice a little bit more pain from time to time. Patient will return to clinic in 1 month for reevaluation of symptoms and plan of care. Patient has been instructed to contact the clinic with any concerns before the next appointment. Dr. Salvador has reviewed this note and agrees with this plan of care. This note was dictated using voice recognition software and make contain errors or omissions. All injections are used with Lidocaine or Bupivacaine and Depo Medrol.
[2024-05-04 15:45] VITALS: BP 135/54; PULSE 76; RESP 18; O2SAT 96; BMI 17.6
== END 2024-05-04 23:59 | disposition home or self-care (01) ==
LOC: SC.PAIN 15:00
PROVIDERS: PCP Internal Medicine Adolescent Medicine; Visit Provider Nurse Practitioner Family
DX: M54.9 Dorsalgia, unspecified (principal); S22.060A Wedge compression fracture of T7-T8 vertebra, initial encounter for closed fracture
CPT/HCPCS: 99212; G0463

== ENCOUNTER 2024-06-08 15:41 | Outpatient (CLI) | payer MEDICARE, SELFPAY ==
--- NOTE | 2024-06-08 15:48 | XR_ITS ---
FINAL REPORT TECHNIQUE: Chest PA & Lateral CLINICAL HISTORY: PERSISTENT COUGH WITH YELLOWISH SPUTUM, shortness of breath, CP, WHEEZING COMPARISON: None FINDINGS: 2 views of the chest were performed. The heart size is normal. The mediastinum is within normal limits. There is no acute cardiopulmonary process. There are no pleural effusions. There is no pneumothorax. There is 15 degrees of thoracic scoliosis convex to the right. IMPRESSION: No acute cardiopulmonary process. Reviewed, Interpreted and Dictated by Fan Correia MD Transcribed by Perla Cabral Authenticated and [facility]
== END 2024-06-08 23:59 | disposition home or self-care (01) ==
LOC: RAD 15:43
PROVIDERS: PCP Internal Medicine Adolescent Medicine; Visit Provider Nurse Practitioner Family
DX: R05.3 Chronic cough (principal)
CPT/HCPCS: 71046

== ENCOUNTER 2024-07-20 12:46 | Outpatient (CLI) | payer MEDICARE, SELFPAY ==
--- NOTE | 2024-07-20 | XR_ITS ---
FINAL REPORT CLINICAL HISTORY: BACK STRAIN, HX OF FRACTURE COMPARISON: 10/26/2021 FINDINGS: AP, lateral, and oblique views of the lumbar spine were obtained. There are multiple compression fractures of the lumbar spine. At L1 there is 25% loss of vertebral body height which is new from the prior study. At L2, there is less than 25% loss of vertebral body height which appears unchanged. At L3, there is 50-70% loss of height, worse since the prior. At L4, there is a new fracture of the superior endplate with 25% loss of vertebral body height. L5 appears stable. Multilevel degenerative disc disease and osteopenia is noted. No acute paraspinal abnormality is identified. IMPRESSION: Compression fractures of the lumbar spine, some are new and some are worse. Consider MRI. Reviewed, Interpreted and Dictated by Lorri Gary MD Transcribed by Zainab Pedro Authenticated and [facility]
== END 2024-07-20 23:59 | disposition home or self-care (01) ==
LOC: RAD 12:46
PROVIDERS: PCP Internal Medicine Adolescent Medicine; Visit Provider Nurse Practitioner Family
DX: S39.012A Strain of muscle, fascia and tendon of lower back, initial encounter (principal); Z87.81 Personal history of (healed) traumatic fracture
CPT/HCPCS: 72110

== ENCOUNTER 2024-07-27 13:41 | Outpatient (CLI) | payer MEDICARE, SELFPAY ==
--- NOTE | 2024-07-27 16:46 | MR_ITS ---
PROCEDURE INFORMATION: Exam: MR Lumbar Spine Without Contrast Exam date and time: 07/27/2024 4:54 PM Age: 74 years old Clinical indication: Low back pain; Patient HX: PT in alot of pain; Additional info: Closed wedge compresson fracture of t11 TECHNIQUE: Imaging protocol: Magnetic resonance imaging of the lumbar spine without contrast. COMPARISON: 1. CR XR LUMBAR SPINE MIN 4V 07/20/2024 1:[address] lumbar spine dated 11/08/2018 FINDINGS: Bones/joints: There is mild compression of the L2 vertebra with associated marrow edema compatible with acute compression fracture. There is chronic appearing significant compression T9, T10, T12, L3 and L4 vertebra. Bony retropulsion at T12 produces moderate central canal stenosis and cord effacement. Bony retropulsion at L3 produces mild central canal stenosis Moderate multilevel bilateral facet arthropathy. Spinal cord: No evidence of spinal cord edema or myelomalacia. L1-L2: No significant disc bulge or herniation. No severe spinal canal stenosis. No significant neural foraminal narrowing. L2-L3: No significant disc bulge or herniation. No severe spinal canal stenosis. No significant neural foraminal narrowing. L3-L4: No significant disc bulge or herniation. No severe spinal canal stenosis. No significant neural foraminal narrowing. L4-L5: No significant disc bulge or herniation. No severe spinal canal stenosis. No significant neural foraminal narrowing. L5-S1: No significant disc bulge or herniation. No severe spinal canal stenosis. No significant neural foraminal narrowing. Soft tissues: Unremarkable. IMPRESSION: 1. Mild acute compression fracture of L2 without significant bony retropulsion. 2. Chronic multilevel vertebral body compressions, most severe at T12 where bony retropulsion produces moderate central canal stenosis and cord effacement.
== END 2024-07-27 23:59 | disposition home or self-care (01) ==
PROVIDERS: PCP Internal Medicine Adolescent Medicine; Visit Provider Internal Medicine Adolescent Medicine
DX: S22.080A Wedge compression fracture of T11-T12 vertebra, initial encounter for closed fracture (principal)
CPT/HCPCS: 72148

== ENCOUNTER 2024-08-06 12:43 | Outpatient (POV) | payer MEDICARE, SELFPAY ==
[2024-08-06 13:57] VITALS: BP 146/46; PULSE 85; RESP 18; O2SAT 98; BMI 19.1
--- NOTE | 2024-08-06 16:00 | A.OFFVIS_ITS ---
[facility] Disclaimer: The information contained in this section may have been updated after the patient was seen, as this information can be updated by other users. Medical History Vertebral compression fracture Osteoarthritis of hips, bilateral Osteoporosis Degenerative joint disease (DJD) of lumbar spine Shingles Seizure disorder Onset of seizure 30 years ago, denies aura type phenomena and apparently not seen by neurology for long time. Previously on oxcarbazepine and Keppra, (Keppra was discontinued in 2019). Recurrent seizure in the setting of monotherapy with oxcarbazepine and hyponatremia, (sodium level: 121) Hypertension Surgical History S/P epidural steroid injection Family History Other Coronary artery disease Social History Smoking Status: Never smoker alcohol intake: never substance use type: denies use and other current occupational status: retired Travel in the last 8 weeks: None household members: spouse housing: house education level: high school current occupational exposures/hazards: No caffeine: Yes PM Subjective & Objective Subjective Subjective:: Patient is a pleasant 74-year-old female who presents today for worsening pain. She does rate her pain a 10 out of 10. Patient states that over the last month she has been experiencing worsening pain. Patient states that she has not had any falls or injuries however she was sitting down and her dog likes to jump up on her. She states that she ended up lifting up the dog and felt her back pop. She states from then on she has had significant pain throughout her low back and that it is constant and is interfering with activities of daily living such as cooking or cleaning or simple ambulation. Patient states that it is severe and that she has also been wearing the back brace that she was given for her previous compression fracture however she felt like that it was more aggravating than beneficial so she stopped using this. Patient has tried to continue that oral medications such as Tylenol and tizanidine along with heat and ice and topicals with minimal relief. Patient states that she did end up going back to see her primary care where they ordered the updated imaging and did have new findings. Patient is here today to see about any additional interventions we may be able to provide due to the worsening pain. Her Lance has been reviewed and is appropriate. Review of Systems: General: No recent weight changes, no fever, no sleep disturbances Respiratory: No cough, no shortness of air, no recurring pulmonary infections Cardiovascular/peripheral vascular: No chest pain, no palpitations, no edema, no shortness of breath Gastrointestinal: No new onset incontinence, normal bowel movements reported Genitourinary: No new onset incontinence Musculoskeletal: Low back pain, bilateral leg pain Psychiatric: [Normal mood/affect] Neurological: [Denies weakness in extremities], [denies balance issues] Pain at rest (0-10 scale): 10 Objective Objective:: Physical Exam: General: Alert and oriented x3, no acute distress, pleasant and cooperative Lungs: Respirations even and unlabored, symmetrical chest expansion Eyes: PERRL Musculoskeletal: Flexion and extension of lumbar [spine] somewhat guarded secondary to pain, [antalgic gait noted] extreme point tenderness along lumbar spine Neurological: Speech clear, no gross sensory deficit Has patient had previous pain injection?: No Conservative treatment options previously tried: Home exercise plan Length of treatment: Longer than 12 weeks Meds Home Medications and Allergies Home Medications ?Medication ?Instructions ?Recorded ?Confirmed ?Type moxifloxacin 0.5 % eye drops 1 drp Eye-Left DIRECTED EYE 07/12/23 08/06/24 History doxycycline hyclate 20 mg tablet 20 mg PO DAILY 10/09/23 08/06/24 History buspirone 10 mg tablet 10 mg PO TID 12/18/23 08/06/24 History levetiracetam 500 mg tablet 1,500 mg (3 x 500 mg) PO DAILY 12/18/23 08/06/24 Rx (Keppra) Seizures #270 tabs levocetirizine 5 mg tablet 5 mg PO DAILY 12/18/23 08/06/24 History vitamin B comp and C no.3 15 mg-10 1 cap PO DAILY 12/18/23 08/06/24 History mg-50 mg-5 mg-300 mg capsule (B Complex Plus Vitamin C) diazepam 2 mg tablet 2 mg PO ONCE pain #1 tab 03/11/24 08/06/24 Rx baclofen 5 mg tablet 5 mg PO TID #90 tabs 04/02/24 08/06/24 Rx hydrocodone 5 mg-acetaminophen 325 1 tab PO TID #90 tabs 08/06/24 Rx mg tablet New Prescriptions to Start Prescriptions: hydrocodone-acetaminophen Bee Anguiano Allergies Allergy/AdvReac Type Severity Reaction Status Date / Time amoxicillin (From AMOXIL) Allergy Intermediate I-HIVES Verified 10/09/23 10:03 clindamycin (CLINDAMYCIN) Allergy Intermediate I-HIVES Verified 10/09/23 10:03 Penicillins (PENICILLINS) Allergy Intermediate I-HIVES Verified 10/09/23 10:03 Sulfa (Sulfonamide Allergy Intermediate I-HIVES Verified 10/09/23 10:03 Antibiotics) (SULFA (SULFONAMIDE ANTIBIOTICS)) codeine (CODEINE) Allergy Unknown NAUSEA AND Verified 10/09/23 10:03 VOMITING erythromycin base Allergy Unknown I-HIVES Verified 10/09/23 10:03 (ERYTHROMYCIN BASE) Fish Containing Products Allergy Unknown FACIAL Verified 10/09/23 10:03 (FISH CONTAINING PRODUCTS) SWELLLING latex (LATEX) Allergy Unknown I-HIVES Verified 10/09/23 10:03 Iodinated Contrast Media Allergy Verified 10/09/23 10:03 Assessment and Plan *Assessment and plan (1) Compression fracture of lumbar vertebra: Status: Acute Category: Medical Code(s): S32.000A - Wedge compression fracture of unspecified lumbar vertebra, initial encounter for closed fracture Plan I did review over with the patient regarding her updated imaging and her worsening pain they are in her low back. Patient did have multiple compression fractures in the past and with her last updated imaging did show mild compression of the L2 vertebra with edema compatible with acute compression. I did discuss with patient due to the significant osteoporosis present with so many compression fractures already in place from T9, T10, T12, L3 and L4 along with the new one at L2 that I do not believe a kyphoplasty would be beneficial. Patient was discussed regarding osteoporosis medications and she stated that she has never been prescribed anything and just recommended for calcium. I did discuss with the patient due to the extent of her history that I do think that she needs to be on a prescription strength medication and even injection therapy for the osteoporosis. Patient did not have a injury and ended up having acute compression fractures. Patient acknowledges understanding. I did psychosocial rehabilitation counselor her that I would reach out to her primary care and let them know that I was recommending her be put on a medication for the severity of her osteoporosis. I did also discuss with the patient that I do believe she would benefit from a L2 epidural. Risk and benefits were discussed with patient and she would like to proceed forward with this plan of care. Patient is not on any blood thinners. Patient has tried and failed conservative therapy including continued at home stretching exercise for longer than 4 weeks. Due to the extent of compression fractures in her back she is not a good candidate for ongoing physical therapy. Patient will be scheduled for a LESI L2-L3 under fluoroscopy. I will also send in a month supply of pain medication of [place] 5 mg 3 times daily. Patient states she has had this in the past and did okay with this medication. Risks and benefits of the medication have been explained in detail to the patient. The patient does understand the risk of dependence on the medication when given over a prolonged period. Patient has been advised of risks of oversedation with the prescribed medication. Narcan has been offered to the paitent in the event of oversedation. Patient has been advised that a family member should also be educated regarding administration of Narcan. The patient has been advised to consult with his/her primary care provider and pharmacist regarding drug-drug interaction of medications currently prescribed. Patient has been prescribed a controlled substance after being counseled on the medication, medication safety, and possible side effects. Opioid contract was reviewed and signed by the patient, and that they have agreed to all of the terms set forth by our compliance program. A UDS is needed to verify patient's compliance with our office pain contract. This is ordered based off specific treatments related to chronic pain with the potential to abuse certain medications. Patient has been instructed to contact the clinic with any concerns before the next appointment. Dr. Salvador has reviewed this note and agrees with this plan of care. This note was dictated using voice recognition software and make contain errors or omissions.
== END 2024-08-06 23:59 | disposition home or self-care (01) ==
PROVIDERS: PCP Internal Medicine Adolescent Medicine; Visit Provider Nurse Practitioner Family
DX: S32.000A Wedge compression fracture of unspecified lumbar vertebra, initial encounter for closed fracture (principal); Z73.89 Other problems related to life management difficulty
CPT/HCPCS: 99212; G0463

== ENCOUNTER 2024-09-28 13:02 | Outpatient (POV) | payer MEDICARE, SELFPAY ==
--- NOTE | 2024-09-28 13:14 | EXP.PAIN.SOA ---
[facility] Disclaimer: The information contained in this section may have been updated after the patient was seen, as this information can be updated by other users. Medical History (Updated 09/28/24 @ 13:31 by Bee Anguiano APRN) Degenerative joint disease (DJD) of lumbar spine Vertebral compression fracture Osteoarthritis of hips, bilateral Osteoporosis Shingles Seizure disorder Hypertension Surgical History S/P epidural steroid injection Family History Other Coronary artery disease Social History Smoking Status: Never smoker alcohol intake: never substance use type: denies use and other current occupational status: retired Travel in the last 8 weeks: None household members: spouse housing: house education level: high school current occupational exposures/hazards: No caffeine: Yes PM Subjective & Objective Subjective Subjective:: Patient is a pleasant 74-year-old female who presents today for follow-up. She does rate her pain a 7 out of 10. Patient does states she is having chronic pain throughout her low back that does radiate into her legs with numbness and tingling. Patient at her last visit was trying to get scheduled for a lumbar epidural. Patient states she is very interested in still proceeding forward with this however she has not heard anything new on the scheduled date. Patient states the pain is constant and does interfere with her ability perform activities of daily living such as cooking and cleaning. Patient does have chronic compression fractures at multiple locations including T9, T10, T12, L3, L4 and the most recent and L2. Patient has tried to continue that oral medications such as Tylenol and tizanidine along with heat and ice and topicals with minimal relief. Patient was prescribed [place] 5 mg 3 times a day from our office and states this does help some however she needs refills. Patient is scheduled to see a provider on October 08 that she does believe is related to her severe osteoporosis. Her Lance has been reviewed and is appropriate. Review of Systems: General: No recent weight changes, no fever, no sleep disturbances Respiratory: No cough, no shortness of air, no recurring pulmonary infections Cardiovascular/peripheral vascular: No chest pain, no palpitations, no edema, no shortness of breath Gastrointestinal: No new onset incontinence, normal bowel movements reported Genitourinary: No new onset incontinence Musculoskeletal: Low back pain, bilateral leg pain Psychiatric: [Normal mood/affect] Neurological: [Denies weakness in extremities], [denies balance issues] Pain at rest (0-10 scale): 7 Objective Objective:: Physical Exam: General: Alert and oriented x3, no acute distress, pleasant and cooperative Lungs: Respirations even and unlabored, symmetrical chest expansion Eyes: PERRL Musculoskeletal: Flexion and extension of lumbar [spine] somewhat guarded secondary to pain, [antalgic gait noted] positive leg raise Neurological: Speech clear, no gross sensory deficit Has patient had previous pain injection?: No Conservative treatment options previously tried: Home exercise plan Length of treatment: Longer than 12 weeks Meds Home Medications and Allergies Home Medications ?Medication ?Instructions ?Recorded ?Confirmed ?Type moxifloxacin 0.5 % eye drops 1 drp Eye-Left DIRECTED EYE 07/12/23 08/06/24 History doxycycline hyclate 20 mg tablet 20 mg PO DAILY 10/09/23 08/06/24 History buspirone 10 mg tablet 10 mg PO TID 12/18/23 08/06/24 History levetiracetam 500 mg tablet 1,500 mg (3 x 500 mg) PO DAILY 12/18/23 08/06/24 Rx (Keppra) Seizures #270 tabs levocetirizine 5 mg tablet 5 mg PO DAILY 12/18/23 08/06/24 History vitamin B comp and C no.3 15 mg-10 1 cap PO DAILY 12/18/23 08/06/24 History mg-50 mg-5 mg-300 mg capsule (B Complex Plus Vitamin C) diazepam 2 mg tablet 2 mg PO ONCE pain #1 tab 03/11/24 08/06/24 Rx baclofen 5 mg tablet 5 mg PO TID #90 tabs 04/02/24 08/06/24 Rx hydrocodone 5 mg-acetaminophen 325 1 tab PO TID #90 tabs 08/06/24 Rx mg tablet New Prescriptions to Start Prescriptions: Allergies Allergy/AdvReac Type Severity Reaction Status Date / Time amoxicillin (From AMOXIL) Allergy Intermediate I-HIVES Verified 10/09/23 10:03 clindamycin (CLINDAMYCIN) Allergy Intermediate I-HIVES Verified 10/09/23 10:03 Penicillins (PENICILLINS) Allergy Intermediate I-HIVES Verified 10/09/23 10:03 Sulfa (Sulfonamide Allergy Intermediate I-HIVES Verified 10/09/23 10:03 Antibiotics) (SULFA (SULFONAMIDE ANTIBIOTICS)) codeine (CODEINE) Allergy Unknown NAUSEA AND Verified 10/09/23 10:03 VOMITING erythromycin base Allergy Unknown I-HIVES Verified 10/09/23 10:03 (ERYTHROMYCIN BASE) Fish Containing Products Allergy Unknown FACIAL Verified 10/09/23 10:03 (FISH CONTAINING PRODUCTS) SWELLLING latex (LATEX) Allergy Unknown I-HIVES Verified 10/09/23 10:03 Iodinated Contrast Media Allergy Verified 10/09/23 10:03 Assessment and Plan *Assessment and plan (1) Compression fracture of lumbar vertebra: Status: Acute Category: Medical Code(s): S32.000A - Wedge compression fracture of unspecified lumbar vertebra, initial encounter for closed fracture (2) Compression fracture of thoracic vertebra: Status: Acute Qualifiers: Encounter type: initial encounter Thoracic vertebra fracture level: T8 Qualified Code(s): S22.060A - Wedge compression fracture of T7-T8 vertebra, initial encounter for closed fracture Category: Medical Code(s): S22.000A - Wedge compression fracture of unspecified thoracic vertebra, initial encounter for closed fracture (3) Degenerative joint disease (DJD) of lumbar spine: Status: Acute Category: Medical Code(s): M47.816 - Spondylosis without myelopathy or radiculopathy, lumbar region (4) Lumbar radiculopathy: Status: Acute Category: Medical Code(s): M54.16 - Radiculopathy, lumbar region Plan Patient is experiencing significant pain throughout her low back with radiating numbness and tingling that does radiate down into her lower extremities. Patient does have multiple compression fractures due to her severe osteoporosis and is not a candidate for ongoing physical therapy. Patient has tried and failed conservative therapy including at home stretching exercise for longer than 12 weeks. Patient does have point tenderness on her upper lumbar spine during today's visit and I do believe she would still benefit from a lumbar epidural at the L2-L3 level. Risk and benefits were discussed with patient and she would like to proceed forward with this plan of care. I will also refill the patient's [place] and provide a 1 month supply of this medication. Patient will be scheduled for an LESI L2-L3 under fluoroscopy. Risks and benefits of the medication have been explained in detail to the patient. The patient does understand the risk of dependence on the medication when given over a prolonged period. Patient has been advised of risks of oversedation with the prescribed medication. Narcan has been offered to the paitent in the event of oversedation. Patient has been advised that a family member should also be educated regarding administration of Narcan. The patient has been advised to consult with his/her primary care provider and pharmacist regarding drug-drug interaction of medications currently prescribed. Patient has been prescribed a controlled substance after being counseled on the medication, medication safety, and possible side effects. Opioid contract was reviewed and signed by the patient, and that they have agreed to all of the terms set forth by our compliance program. A UDS is needed to verify patient's compliance with our office pain contract. This is ordered based off specific treatments related to chronic pain with the potential to abuse certain medications. Patient has been instructed to contact the clinic with any concerns before the next appointment. Dr. Salvador has reviewed this note and agrees with this plan of care. This note was dictated using voice recognition software and make contain errors or omissions.
[2024-09-28 13:53] VITALS: BP 150/64; PULSE 77; RESP 14; O2SAT 99; BMI 16.9
== END 2024-09-28 23:59 | disposition home or self-care (01) ==
PROVIDERS: PCP Internal Medicine Adolescent Medicine; Visit Provider Nurse Practitioner Family
DX: S32.020A Wedge compression fracture of second lumbar vertebra, initial encounter for closed fracture (principal); S22.070A Wedge compression fracture of T9-T10 vertebra, initial encounter for closed fracture; S32.030A Wedge compression fracture of third lumbar vertebra, initial encounter for closed fracture; S32.040A Wedge compression fracture of fourth lumbar vertebra, initial encounter for closed fracture; S22.080A Wedge compression fracture of T11-T12 vertebra, initial encounter for closed fracture; Z73.89 Other problems related to life management difficulty; M47.26 Other spondylosis with radiculopathy, lumbar region
CPT/HCPCS: 99212; G0463

== ENCOUNTER 2024-10-15 12:54 | Outpatient (CLI) | payer MEDICARE, SELFPAY ==
--- NOTE | 2024-10-15 | CA_ITS ---
FINAL REPORT CLINICAL HISTORY: REDNESS IN LEFT ANTERIOR CALF WITH BRUISING NO INJURY KNOWN COMPARISON: None FINDINGS: DUPLEX VENOUS SONOGRAPHY OF THE LEFT LOWER EXTREMITY Multiple transverse and longitudinal scans were performed of the femoropopliteal deep venous system, with augmentation and compression maneuvers. HISTORY: Redness and bruising FINDINGS: Normal phasic flow was noted in the visualized deep venous system. No intraluminal increased echogenicity is noted to suggest thrombus. There is normal compression and augmentation of the venous structures. No abnormal venous collaterals are seen. IMPRESSION: No evidence of deep venous thrombosis of the left lower extremity. Reviewed, Interpreted and Dictated by Lorri Gary MD Transcribed by Elif Blanca Authenticated and . [facility]
== END 2024-10-15 23:59 | disposition home or self-care (01) ==
LOC: RT 12:55
PROVIDERS: PCP Internal Medicine Adolescent Medicine; Visit Provider Nurse Practitioner Family
DX: M79.605 Pain in left leg (principal)
CPT/HCPCS: 93971

== ENCOUNTER 2024-10-20 10:41 | Day surgery (SDC) | payer MEDICARE, SELFPAY ==
[2024-10-20 10:48] VITALS: BP 129/55; PULSE 74; RESP 16; TEMP 36.8; O2SAT 99; BMI 17.9
[2024-10-20 11:15] VITALS: BP 116/53; PULSE 73; RESP 16; O2SAT 97
[2024-10-20 11:18] VITALS: BP 116/53; PULSE 73; RESP 16; O2SAT 97
--- NOTE | 2024-10-20 11:23 | EXP.PAIN.PRO ---
Procedure Date: 10/20/24 Time: 11:00 Anesthesiologist:: Randy Dudley CRNA Complications:: None Pre-procedure Diagnosis:: Degenerative disc lumbar spine multilevels. Lumbar radiculopathy. Lumbar spondylosis. Multilevel lumbar facet arthropathy. Post-procedure Diagnosis:: Same. Indications for Procedure:: Patient is a very pleasant 74-year-old female who comes our clinic today for lumbar epidural steroid injections at the L2-3 level. Patient describes lumbar pain as constant, dull, aching. She also reports some bilateral hip radicular symptoms. She rates her pain 7/10. Procedure Details:: Procedure: Lumbar epidural steroid injection under fluoroscopy Informed consent was obtained and the risks and benefits of the procedure were explained to the patient. The patient was taken to the procedure room and noninvasive monitors placed, including noninvasive blood pressure cuff and pulse oximeter. The back was viewed using C-arm Fluoroscopy and prepped using Chloraprep as a cleansing solution and the L2-3 interspace was palpated. Skin and subcutaneous tissues were anesthetized using lidocaine 1.5% and a 25-gauge needle. After this, an 18-gauge Touhy epidural needle was placed into the L2-3 interspace and advanced using fluoroscopic guidance and loss of resistance to air until the epidural space was encountered. After confirmation of needle placement in the epidural space, with dye, a solution containing normal saline, 3 mL and Depo-Medrol 80 mg were incrementally injected into the lumbar epidural space. The patient tolerated the procedure well with no complications. The patient was observed in the Pain Clinic and then discharged home neurologically intact. Plan and Disposition:: Patient was discharged without incident.
[2024-10-20 11:26] VITALS: BP 145/63; PULSE 77; RESP 16; O2SAT 97
== END 2024-10-20 11:26 | disposition home or self-care (01) ==
PROVIDERS: PCP Internal Medicine Adolescent Medicine; Visit Provider Nurse Anesthetist, Certified Registered
DX: M51.16 Intervertebral disc disorders with radiculopathy, lumbar region (principal); M47.26 Other spondylosis with radiculopathy, lumbar region
CPT/HCPCS: 62323

== ENCOUNTER 2024-11-04 13:41 | Outpatient (POV) | payer MEDICARE, SELFPAY ==
[2024-11-04 13:58] VITALS: BP 133/73; PULSE 93; RESP 18; O2SAT 97; BMI 16.2
--- NOTE | 2024-11-04 14:00 | A.OFFVIS_ITS ---
[facility] Disclaimer: The information contained in this section may have been updated after the patient was seen, as this information can be updated by other users. Medical History Degenerative joint disease (DJD) of lumbar spine Vertebral compression fracture Osteoarthritis of hips, bilateral Osteoporosis Shingles Seizure disorder Hypertension Surgical History S/P epidural steroid injection Family History Other Coronary artery disease Social History Smoking Status: Never smoker alcohol intake: never substance use type: denies use and other current occupational status: other Travel in the last 8 weeks: None household members: spouse housing: house education level: high school current occupational exposures/hazards: No caffeine: Yes Have you lived/traveled outside [place] in past 30 days?: No Contact w/someone who lives/traveled outside US past 30 days?: No Exposure to someone with infectious disease in past 14 days?: No Do you have a fever (greater than 100.4 F or 38 C)?: No Have you tested positive for COVID-19: No Exposed to someone with COVID-19 in past 14 days?: No Do you have a sore throat?: No Do you have a cough?: No Do you have any weakness?: No Do you have any diarrhea?: No Are you experiencing any unusual bleeding?: No Do you have any muscle aches/pain?: No Do you have any abdominal pain?: No Are you experiencing loss of taste or smell?: No PM Subjective & Objective Subjective Subjective:: Patient is a pleasant 74-year-old female who presents today for follow-up of lumbar epidural steroid injection L2-L3 on 10/20/2024. Today she rates her pain a 5 out of 10. She denies any new trauma or injury. Patient does state that she has had approximately 75% improvement. She does state at bedtime she does feel like she still needs to take the pain medication in order to help her sleep. She does state that occasionally she will take 1 during the day but it does vary when she feels like she needs this. Patient is currently managed with Vida 5 mg 3 times a day from our office and tizanidine. Her Lance has been reviewed and is appropriate. Review of Systems: General: No recent weight changes, no fever, no sleep disturbances Respiratory: No cough, no shortness of air, no recurring pulmonary infections Cardiovascular/peripheral vascular: No chest pain, no palpitations, no edema, no shortness of breath Gastrointestinal: No new onset incontinence, normal bowel movements reported Genitourinary: No new onset incontinence Musculoskeletal: Low back pain Psychiatric: [Normal mood/affect] Neurological: [Denies weakness in extremities], [denies balance issues] Pain at rest (0-10 scale): 5 Objective Objective:: Physical Exam: General: Alert and oriented x3, no acute distress, pleasant and cooperative Lungs: Respirations even and unlabored, symmetrical chest expansion Eyes: PERRL Musculoskeletal: Flexion and extension of lumbar [spine] somewhat guarded secondary to pain, [antalgic gait noted] Neurological: Speech clear, no gross sensory deficit Has patient had previous pain injection?: Yes Percent improvement in pain since last injection: 75% Conservative treatment options previously tried: Home exercise plan Length of treatment: Longer than 12 weeks Meds Home Medications and Allergies Home Medications ?Medication ?Instructions ?Recorded ?Confirmed ?Type moxifloxacin 0.5 % eye drops 1 drp Eye-Left DIRECTED EYE 07/12/23 10/20/24 History doxycycline hyclate 20 mg tablet 20 mg PO DAILY 10/09/23 10/20/24 History buspirone 10 mg tablet 10 mg PO TID 12/18/23 10/20/24 History levetiracetam 500 mg tablet 1,500 mg (3 x 500 mg) PO DAILY 12/18/23 10/20/24 Rx (Keppra) Seizures #270 tabs levocetirizine 5 mg tablet 5 mg PO DAILY 12/18/23 10/20/24 History vitamin B comp and C no.3 15 mg-10 1 cap PO DAILY 12/18/23 10/20/24 History mg-50 mg-5 mg-300 mg capsule (B Complex Plus Vitamin C) diazepam 2 mg tablet 2 mg PO ONCE pain #1 tab 03/11/24 10/20/24 Rx baclofen 5 mg tablet 5 mg PO TID #90 tabs 04/02/24 10/20/24 Rx hydrocodone 5 mg-acetaminophen 325 1 tab PO TID #90 tabs 09/28/24 10/20/24 Rx mg tablet New Prescriptions to Start Prescriptions: Allergies Allergy/AdvReac Type Severity Reaction Status Date / Time amoxicillin (From AMOXIL) Allergy Intermediate I-HIVES Verified 10/20/24 10:49 clindamycin (CLINDAMYCIN) Allergy Intermediate I-HIVES Verified 10/20/24 10:49 Penicillins (PENICILLINS) Allergy Intermediate I-HIVES Verified 10/20/24 10:49 Sulfa (Sulfonamide Allergy Intermediate I-HIVES Verified 10/20/24 10:49 Antibiotics) (SULFA (SULFONAMIDE ANTIBIOTICS)) codeine (CODEINE) Allergy Unknown NAUSEA AND Verified 10/20/24 10:49 VOMITING erythromycin base Allergy Unknown I-HIVES Verified 10/20/24 10:49 (ERYTHROMYCIN BASE) Fish Containing Products Allergy Unknown FACIAL Verified 10/20/24 10:49 (FISH CONTAINING PRODUCTS) SWELLLING latex (LATEX) Allergy Unknown I-HIVES Verified 10/20/24 10:49 Iodinated Contrast Media Allergy Unknown Verified 10/20/24 10:49 allergy reaction Assessment and Plan *Assessment and plan (1) Lumbar radiculopathy: Status: Acute Category: Medical Code(s): M54.16 - Radiculopathy, lumbar region (2) Degenerative joint disease (DJD) of lumbar spine: Status: Acute Category: Medical Code(s): M47.816 - Spondylosis without myelopathy or radiculopathy, lumbar region Plan Patient has had significant improvement following her lumbar epidural and does not require any additional injection therapy at this time. I will refill her Vida and provide a 1 month supply of this medication still keeping it did add 3 times per day at this time. Patient is no longer using the tizanidine. We will have the patient return to clinic in 6 weeks for reevaluation of symptoms and plan of care. Risks and benefits of the medication have been explained in detail to the patient. The patient does understand the risk of dependence on the medication when given over a prolonged period. Patient has been advised of risks of oversedation with the prescribed medication. Narcan has been offered to the paitent in the event of oversedati on. Patient has been advised that a family member should also be educated regarding administration of Narcan. The patient has been advised to consult with his/her primary care provider and pharmacist regarding drug-drug interaction of medications currently prescribed. Patient has been prescribed a controlled substance after being counseled on the medication, medication safety, and possible side effects. Opioid contract was reviewed and signed by the patient, and that they have agreed to all of the terms set forth by our compliance program. A UDS is needed to verify patient's compliance with our office pain contract. This is ordered based off specific treatments related to chronic pain with the potential to abuse certain medications. Patient has been instructed to contact the clinic with any concerns before the next appointment. Dr. Salvador has reviewed this note and agrees with this plan of care. This note was dictated using voice recognition software and make contain errors or omissions.
== END 2024-11-04 23:59 | disposition home or self-care (01) ==
PROVIDERS: PCP Internal Medicine Adolescent Medicine; Visit Provider Nurse Practitioner Family
DX: M47.26 Other spondylosis with radiculopathy, lumbar region (principal)
CPT/HCPCS: 99212; G0463

== ENCOUNTER 2024-12-16 13:39 | Outpatient (POV) | payer MEDICARE, SELFPAY ==
[2024-12-16 13:43] VITALS: BP 118/59; PULSE 84; RESP 18; O2SAT 98; BMI 19.1
--- NOTE | 2024-12-16 14:12 | EXP.PAIN.SOA ---
[facility] Disclaimer: The information contained in this section may have been updated after the patient was seen, as this information can be updated by other users. Medical History Degenerative joint disease (DJD) of lumbar spine Vertebral compression fracture Osteoarthritis of hips, bilateral Osteoporosis Shingles Seizure disorder Hypertension Surgical History S/P epidural steroid injection Family History Other Coronary artery disease Social History Smoking Status: Never smoker alcohol intake: never substance use type: denies use and other current occupational status: other Travel in the last 8 weeks: None household members: spouse housing: house education level: high school current occupational exposures/hazards: No caffeine: Yes PM Subjective & Objective Subjective Subjective:: Patient is a pleasant 74-year-old female who presents today for follow-up. Today she rates her pain a 6 out of 10. She denies any new trauma or injury. She does state she does still have the chronic low back pain but feels like overall she is still maintaining pretty well from her last lumbar epidural steroid injection at L2-L3 on October 20. That injection did provide 75% improvement. Patient is managed with Plymouth 5 mg 3 times a day from our office and tizanidine in the past. She denies any side effects. She is requesting refills on her Plymouth. Patient does also state that she still continues to use her brace from her previous compression fracture and feels like it does help add support to her overall back. Her Lance has been reviewed and is appropriate. Review of Systems: General: No recent weight changes, no fever, no sleep disturbances Respiratory: No cough, no shortness of air, no recurring pulmonary infections Cardiovascular/peripheral vascular: No chest pain, no palpitations, no edema, no shortness of breath Gastrointestinal: No new onset incontinence, normal bowel movements reported Genitourinary: No new onset incontinence Musculoskeletal: Low back pain Psychiatric: [Normal mood/affect] Neurological: [Denies weakness in extremities], [denies balance issues] Pain at rest (0-10 scale): 6 Objective Objective:: Physical Exam: General: Alert and oriented x3, no acute distress, pleasant and cooperative Lungs: Respirations even and unlabored, symmetrical chest expansion Eyes: PERRL Musculoskeletal: Flexion and extension of lumbar [spine] somewhat guarded secondary to pain, [antalgic gait noted] Neurological: Speech clear, no gross sensory deficit Has patient had previous pain injection?: No Conservative treatment options previously tried: Prescription medications Length of treatment: Longer than 12 weeks Meds Home Medications and Allergies Home Medications ?Medication ?Instructions ?Recorded ?Confirmed ?Type moxifloxacin 0.5 % eye drops 1 drp Eye-Left DIRECTED EYE 07/12/23 12/16/24 History doxycycline hyclate 20 mg tablet 20 mg PO DAILY 10/09/23 12/16/24 History buspirone 10 mg tablet 10 mg PO TID 12/18/23 12/16/24 History levetiracetam 500 mg tablet 1,500 mg (3 x 500 mg) PO DAILY 12/18/23 12/16/24 Rx (Keppra) Seizures #270 tabs levocetirizine 5 mg tablet 5 mg PO DAILY 12/18/23 12/16/24 History vitamin B comp and C no.3 15 mg-10 1 cap PO DAILY 12/18/23 12/16/24 History mg-50 mg-5 mg-300 mg capsule (B Complex Plus Vitamin C) diazepam 2 mg tablet 2 mg PO ONCE pain #1 tab 03/11/24 12/16/24 Rx baclofen 5 mg tablet 5 mg PO TID #90 tabs 04/02/24 12/16/24 Rx hydrocodone 5 mg-acetaminophen 325 1 tab PO TID #90 tabs 11/04/24 12/16/24 Rx mg tablet New Prescriptions to Start Prescriptions: Allergies Allergy/AdvReac Type Severity Reaction Status Date / Time amoxicillin (From AMOXIL) Allergy Intermediate I-HIVES Verified 10/20/24 10:49 clindamycin (CLINDAMYCIN) Allergy Intermediate I-HIVES Verified 10/20/24 10:49 Penicillins (PENICILLINS) Allergy Intermediate I-HIVES Verified 10/20/24 10:49 Sulfa (Sulfonamide Allergy Intermediate I-HIVES Verified 10/20/24 10:49 Antibiotics) (SULFA (SULFONAMIDE ANTIBIOTICS)) codeine (CODEINE) Allergy Unknown NAUSEA AND Verified 10/20/24 10:49 VOMITING erythromycin base Allergy Unknown I-HIVES Verified 10/20/24 10:49 (ERYTHROMYCIN BASE) Fish Containing Products Allergy Unknown FACIAL Verified 10/20/24 10:49 (FISH CONTAINING PRODUCTS) SWELLLING latex (LATEX) Allergy Unknown I-HIVES Verified 10/20/24 10:49 Iodinated Contrast Media Allergy Unknown Verified 10/20/24 10:49 allergy reaction Assessment and Plan *Assessment and plan (1) Compression fracture of lumbar vertebra: Status: Acute Category: Medical Code(s): S32.000A - Wedge compression fracture of unspecified lumbar vertebra, initial encounter for closed fracture (2) Compression fracture of thoracic vertebra: Status: Acute Qualifiers: Encounter type: initial encounter Thoracic vertebra fracture level: T8 Qualified Code(s): S22.060A - Wedge compression fracture of T7-T8 vertebra, initial encounter for closed fracture Category: Medical Code(s): S22.000A - Wedge compression fracture of unspecified thoracic vertebra, initial encounter for closed fracture (3) Degenerative joint disease (DJD) of lumbar spine: Status: Acute Category: Medical Code(s): M47.816 - Spondylosis without myelopathy or radiculopathy, lumbar region Plan I will refill the patient's Plymouth and provide a 1 month supply of this medication. Patient will return to clinic in 1 month. Risks and benefits of the medication have been explained in detail to the patient. The patient does understand the risk of dependence on the medication when given over a prolonged period. Patient has been advised of risks of oversedation with the prescribed medication. Narcan has been offered to the paitent in the event of oversedation. Patient has been advised that a family member should also be educated regarding administration of Narcan. The patient has been advised to consult with his/her primary care provider and pharmacist regarding drug-drug interaction of medications currently prescribed. Patient has been prescribed a controlled substance after being counseled on the medication, medication safety, and possible side effects. Opioid contract was reviewed and signed by the patient, and that they have agreed to all of the terms set forth by our compliance program. A UDS is needed to verify patient's compliance with our office pain contract. This is ordered based off specific treatments related to chronic pain with the potential to abuse certain medications. Patient has been instructed to contact the clinic with any concerns before the next appointment. Dr. Salvador has reviewed this note and agrees with this plan of care. This note was dictated using voice recognition software and make contain errors or omissions.
== END 2024-12-16 23:59 | disposition home or self-care (01) ==
PROVIDERS: PCP Internal Medicine Adolescent Medicine; Visit Provider Nurse Practitioner Family
DX: S32.000A Wedge compression fracture of unspecified lumbar vertebra, initial encounter for closed fracture (principal); S22.060A Wedge compression fracture of T7-T8 vertebra, initial encounter for closed fracture; M47.816 Spondylosis without myelopathy or radiculopathy, lumbar region
CPT/HCPCS: 36415; 99212; G0463

== ENCOUNTER 2025-01-13 12:59 | Outpatient (POV) | payer MEDICARE, SELFPAY ==
--- OUTSIDE RECORDS SUMMARY | 2025-01-13 13:01 | XMS_ITS ---
Laboratory report Created on: December 31, 2024 ROC COX : 1950 Sex: Female Author Organization Unknown PROBLEMS Problems List Code Description RESULTS Laboratory Orders Date Order Code Test 2024-12-16 [id number] DRUG SCREEN 13 W /CONF, SERUM 2024-12-16 [id number] OPIATES,MS,WB/SP RFX 2024-12-16 [id number] OXYCODONES,MS,WB /SP RFX Laboratory Results Date LOINC Test Value Unit Reference Range Interpre tation 2024-12-16 [id number] AMPHETAMINES, IA N NG/ML CUTOFF:50 2024-12-16 [id number] BARBITURATES, IA N UG/ML CUTOFF:0.1 2024-12-16 [id number] BENZODIAZEPINES, IA N NG/ML CUTOFF:20 2024-12-16 [id number] COCAINE & METABO LITE, IA N NG/ML CUTOFF:25 2024-12-16 8236-2 PHENCYCLIDINE, IA N NG/ML CUTOFF:8 2024-12-16 8172-9 THC(MARIJUANA) METABOLITE, IA N NG/ML CUTOFF:5 2024-12-16 8219-8 OPIATES, IA MX++PA NG/ML CUTOFF:5 A 2024-12-16 [id number] OXYCODONES, IA N NG/ML CUTOFF:5 2024-12-16 46710-7 METHADONE, IA N NG/ML CUTOFF:25 2024-12-16 [id number] FENTANYL, IA N NG/ML CUTOFF:1.0 2024-12-16 30105-0 PROPOXYPHENE, IA N NG/ML CUTOFF:50 2024-12-16 3744-0 MEPERIDINE, IA N NG/ML CUTOFF:100 2024-12-16 [id number] TRAMADOL, IA N NG/ML CUTOFF:50 2024-12-16 [id number] OPIATE CONFIRMATION +P 2024-12-16 40890-8 CODEINE N NG/ML 2024-12-16 46227-8 MORPHINE N NG/ML 2024-12-16 65918-5 6-ACETYLMORPHINE N 2024-12-16 50029-6 HYDROCODONE 2.1 NG/ML 2024-12-16 05292-8 HYDROMORPHONE N NG/ML 2024-12-16 34308-8 DIHYDROCODEINE N NG/ML 2024-12-16 82473-5 OXYCODONES CONFIRMATION N 2024-12-16 34577-1 OXYCODONE N NG/ML 2024-12-16 14674-5 OXYMORPHONE N NG/ML
--- NOTE | 2025-01-13 13:09 | A.OFFVIS_ITS ---
[facility] Disclaimer: The information contained in this section may have been updated after the patient was seen, as this information can be updated by other users. Medical History Degenerative joint disease (DJD) of lumbar spine Vertebral compression fracture Osteoarthritis of hips, bilateral Osteoporosis Shingles Seizure disorder Hypertension Surgical History S/P epidural steroid injection Family History Other Coronary artery disease Social History Smoking Status: Never smoker alcohol intake: never substance use type: denies use and other current occupational status: other Travel in the last 8 weeks?: None household members: spouse housing: house education level: high school current occupational exposures/hazards: No caffeine: Yes PM Subjective & Objective Subjective Subjective:: Patient is a pleasant 74-year-old female who presents today for worsening pain. Today she rates her pain a 5 out of 10. She denies any new falls or injuries. She states that he is still at same pain related to her previous compression fracture. Patient did previously have a lumbar epidural L2-L3 back in September that did provide 75% improvement and had worked really well up until the last little bit. Patient is states the pain is interfering with her ability perform activities of daily living such as cooking and cleaning. She states she has had to increase using the brace to add support and that it is also affecting her sleeping. Patient states she had to sleep in the recliner last night due to the worsening symptoms. Patient has continued conservative treatment with no additional improvement. Patient is currently managed with Patterson 5 mg 3 times a day and tizanidine as needed from our office. She denies any side effects. Her Lance has been reviewed and is appropriate. Review of Systems: General: No recent weight changes, no fever, no sleep disturbances Respiratory: No cough, no shortness of air, no recurring pulmonary infections Cardiovascular/peripheral vascular: No chest pain, no palpitations, no edema, no shortness of breath Gastrointestinal: No new onset incontinence, normal bowel movements reported Genitourinary: No new onset incontinence Musculoskeletal: Low back pain, leg pain Psychiatric: [Normal mood/affect] Neurological: [Denies weakness in extremities], [denies balance issues] Pain at rest (0-10 scale): 5 Objective Objective:: Physical Exam: General: Alert and oriented x3, no acute distress, pleasant and cooperative Lungs: Respirations even and unlabored, symmetrical chest expansion Eyes: PERRL Musculoskeletal: Flexion and extension of lumbar [spine] somewhat guarded secondary to pain, [antalgic gait noted] positive leg raise Neurological: Speech clear, no gross sensory deficit Has patient had previous pain injection?: No Conservative treatment options previously tried: Home exercise plan Length of treatment: Longer than 12 weeks Meds Home Medications and Allergies Home Medications ?Medication ?Instructions ?Recorded ?Confirmed ?Type moxifloxacin 0.5 % eye drops 1 drp Eye-Left DIRECTED EYE 07/12/23 12/16/24 History doxycycline hyclate 20 mg tablet 20 mg PO DAILY 10/09/23 12/16/24 History buspirone 10 mg tablet 10 mg PO TID 12/18/23 12/16/24 History levetiracetam 500 mg tablet 1,500 mg (3 x 500 mg) PO DAILY 12/18/23 12/16/24 Rx (Keppra) Seizures #270 tabs levocetirizine 5 mg tablet 5 mg PO DAILY 12/18/23 12/16/24 History vitamin B comp and C no.3 15 mg-10 1 cap PO DAILY 12/18/23 12/16/24 History mg-50 mg-5 mg-300 mg capsule (B Complex Plus Vitamin C) diazepam 2 mg tablet 2 mg PO ONCE pain #1 tab 03/11/24 12/16/24 Rx baclofen 5 mg tablet 5 mg PO TID #90 tabs 04/02/24 12/16/24 Rx hydrocodone 5 mg-acetaminophen 325 1 tab PO TID #90 tabs 12/16/24 Rx mg tablet New Prescriptions to Start Prescriptions: Allergies Allergy/AdvReac Type Severity Reaction Status Date / Time amoxicillin (From AMOXIL) Allergy Intermediate I-HIVES Verified 10/20/24 10:49 clindamycin (CLINDAMYCIN) Allergy Intermediate I-HIVES Verified 10/20/24 10:49 Penicillins (PENICILLINS) Allergy Intermediate I-HIVES Verified 10/20/24 10:49 Sulfa (Sulfonamide Allergy Intermediate I-HIVES Verified 10/20/24 10:49 Antibiotics) (SULFA (SULFONAMIDE ANTIBIOTICS)) codeine (CODEINE) Allergy Unknown NAUSEA AND Verified 10/20/24 10:49 VOMITING erythromycin base Allergy Unknown I-HIVES Verified 10/20/24 10:49 (ERYTHROMYCIN BASE) Fish Containing Products Allergy Unknown FACIAL Verified 10/20/24 10:49 (FISH CONTAINING PRODUCTS) SWELLLING latex (LATEX) Allergy Unknown I-HIVES Verified 10/20/24 10:49 Iodinated Contrast Media Allergy Unknown Verified 10/20/24 10:49 allergy reaction Assessment and Plan *Assessment and plan (1) Compression fracture of lumbar vertebra: Status: Acute Category: Medical Code(s): S32.000A - Wedge compression fracture of unspecified lumbar vertebra, initial encounter for closed fracture (2) Degenerative joint disease (DJD) of lumbar spine: Status: Acute Category: Medical Code(s): M47.816 - Spondylosis without myelopathy or radiculopathy, lumbar region (3) Lumbar radiculopathy: Status: Acute Category: Medical Code(s): M54.16 - Radiculopathy, lumbar region Plan Patient is experiencing worsening pain in her low back with numbness and tingl ing into her lower extremities. Patient did have limited range of motion of her lumbar spine with a positive leg raise. I did discuss with patient that I do believe they would benefit from a lumbar epidural steroid injection. Risk and benefits were discussed with patient and the patient would like to proceed forward with this plan of care. Patient is not on any blood thinners. Patient has tried and failed conservative therapy including continued at home stretching exercise for longer than 12 weeks between injections. Patient did previously have a lumbar epidural back in September that provided 75% relief and lasted longer than 3 months. Patient does have a longstanding history of chronic back pain that is gone on for longer than a year and does also have a compression fracture at this level that we have gotten significant relief from in the past through injections. We will schedule the patient for an LESI L2-L3 under fluoroscopy. Patient has been instructed to contact the clinic with any concerns before the next appointment. Dr. Salvador has reviewed this note and agrees with this plan of care. This note was dictated using voice recognition software and make contain errors or omissions. All injections are used with Lidocaine, Bupivacaine and Depo Medrol. Occasionally urine drug screen is needed to verify patient's compliance with our office pain contract. This is ordered based off specific treatments related to chronic pain with the potential to abuse certain medications.
[2025-01-13 13:14] VITALS: BP 105/56; PULSE 78; RESP 14; O2SAT 99; BMI 19.1
== END 2025-01-13 23:59 | disposition home or self-care (01) ==
LOC: SC.PAIN 13:00
PROVIDERS: PCP Nurse Practitioner Family; Visit Provider Nurse Practitioner Family
DX: S32.000A Wedge compression fracture of unspecified lumbar vertebra, initial encounter for closed fracture (principal); M47.26 Other spondylosis with radiculopathy, lumbar region; Z73.89 Other problems related to life management difficulty
CPT/HCPCS: 99212; G0463

== ENCOUNTER 2025-02-09 13:29 | Day surgery (SDC) | payer MEDICARE, SELFPAY ==
[2025-02-09 13:39] VITALS: BP 124/71; PULSE 50; RESP 18; TEMP 36.4; O2SAT 97; BMI 19.1
[2025-02-09] MEDS: DEXAMETHASONE 10MG/ML 1ML VIAL 10 MG (13:53)
[2025-02-09 13:54] VITALS: BP 151/59; PULSE 73; RESP 18; O2SAT 97
[2025-02-09 13:56] VITALS: BP 151/59; PULSE 73; RESP 18; O2SAT 97
[2025-02-09 14:01] VITALS: BP 128/66; PULSE 65; RESP 16; O2SAT 99
--- NOTE | 2025-02-09 14:02 | EXP.PAIN.PRO ---
Procedure Date: 02/09/25 Time: 14:00 Anesthesiologist:: Randy Dudley CRNA Complications:: None Pre-procedure Diagnosis:: Degenerative disc lumbar spine multilevels. Lumbar radiculopathy. Lumbar spondylosis. Multilevel lumbar facet arthropathy. Post-procedure Diagnosis:: Same. Indications for Procedure:: Patient is a pleasant 74-year-old female who comes our clinic today for L2-3 lumbar epidural steroid injection. Patient describes lumbar back pain as constant, dull, aching. She also reports bilateral hips are painful intermittently. She rates her pain 7/10. Procedure Details:: Procedure: Lumbar epidural steroid injection under fluoroscopy Informed consent was obtained and the risks and benefits of the procedure were explained to the patient. The patient was taken to the procedure room and noninvasive monitors placed, including noninvasive blood pressure cuff and pulse oximeter. The back was viewed using C-arm Fluoroscopy and prepped using Chloraprep as a cleansing solution and the L2-3 interspace was palpated. Skin and subcutaneous tissues were anesthetized using lidocaine 1.5% and a 25-gauge needle. After this, an 18-gauge Touhy epidural needle was placed into the L2-3 interspace and advanced using fluoroscopic guidance and loss of resistance to air until the epidural space was encountered. After confirmation of needle placement in the epidural space, with dye, a solution containing normal saline, 3 mL and Depo-Medrol 80 mg were incrementally injected into the lumbar epidural space. The patient tolerated the procedure well with no complications. The patient was observed in the Pain Clinic and then discharged home neurologically intact. Plan and Disposition:: Patient was discharged without incident.
== END 2025-02-09 14:01 | disposition home or self-care (01) ==
PROVIDERS: PCP Nurse Practitioner Family; Visit Provider Nurse Anesthetist, Certified Registered
DX: M51.16 Intervertebral disc disorders with radiculopathy, lumbar region (principal); M47.26 Other spondylosis with radiculopathy, lumbar region; M16.0 Bilateral primary osteoarthritis of hip; M81.0 Age-related osteoporosis without current pathological fracture; I10 Essential (primary) hypertension; G40.909 Epilepsy, unspecified, not intractable, without status epilepticus; Z87.311 Personal history of (healed) other pathological fracture; Z88.0 Allergy status to penicillin; Z79.899 Other long term (current) drug therapy; Z88.1 Allergy status to other antibiotic agents; Z88.2 Allergy status to sulfonamides; Z88.5 Allergy status to narcotic agent; Z91.041 Radiographic dye allergy status; Z91.040 Latex allergy status; Z91.013 Allergy to seafood
CPT/HCPCS: 62323; J1100

== ENCOUNTER 2025-04-07 11:46 | Outpatient (POV) | payer MEDICARE, SELFPAY ==
--- OUTSIDE RECORDS SUMMARY | 2025-02-17 09:18 | XMS_ITS | Encounter Summary ---
Author Organization [facility] Address [address] [place] [address] Care Team Providers Care Campus Aide Name Role Phone Mary Kay May ROBERTO CARLOS Primary Care Provider +1- [phone] Reason for Referral * Imaging (Routine) - Closed Specialty Diagnoses / Procedures Referred By Otilia cisneros Referred To Contact Radiology Diagnoses Primary hyperparathyroidism (CMS/HCC) Procedures NM Parathyroid Scan w SPECT/CT Darby Lazo PA [address] [address] Phone: tel: fax: Referral ID Status Reason Start Date Expiration Date Visits Re quested Visits Authorized [id number] Closed 01/29/2025 07/31/2026 2 2 Reason for Visit * Imaging (Routine) - Closed Specialty Diagnoses / Procedures Referred By Otilia cisneros Referred To Contact Radiology Diagnoses Primary hyperparathyroidism (CMS/HCC) Procedures NM Parathyroid Scan w SPECT/CT Darby Lazo PA [address] [address] Phone: tel: fax: Referral ID Status Reason Start Date Expiration Date Visits Re quested Visits Authorized [id number] Closed 01/29/2025 07/31/2026 2 2 Encounter Details Date Type Department Care Team (Latest Contact Info) Description 02/17/2025 9:18 AM EDT - 02/17/2025 9:31 AM EDT Hospital Encounter [facility] S Radiology [address] [place] [address] Primary hyperparathyroidism (CMS/[facility]) Discharge Disposition: Home or Self Care Social History Tobacco Use Types Packs/Day Years Used Date Smoking Tobacco: Never Passive Smoke Exposure: Past Smokeless Tobacco: Never Alcohol Use Standard Drinks/Week Comments No 0 (1 standard drink = 0.6 oz pur e alcohol) PHQ-2 Answer Date Recorded Patient Health Questionnaire-2 Score 0 01/29/2025 Comments Unknown Sex and Gender Information Value Date Recorded Sex Assigned at Not on file Legal Sex Female 7:30 PM EDT Gender Identity Not on file Sexual Orientation Not on file documented as of this encounter Medications at Time of Discharge azelastine (Astelin) 0.1 % nasal spray Administer 1 spray into each nostril 2 times a day. Use in each nostril as directed budesonide-formoter ol (Symbicort) 160-4.5 MCG/ACT inhaler USE DIRECTED. 07/15/2017 busPIRone (Buspar) 10 MG tablet Take 1 tablet by mouth 3 times a day. 11/30/2024 doxycycline (Periostat) 20 MG tablet Take 1 tablet by mouth daily. 11/30/2024 erythromycin (Romycin) 5 MG/GM ophthalmic ointment apply 1cm OF OINTMENT TO affected eye(s) AT BEDTIME AND three times daily with irritation DIRECTED 11/30/2024 HYDROcodone-acetami nophen ([place]) 5-325 MG tablet Take 1 tablet by mouth as needed for severe pain. levETIRAcetam (Keppra) 750 MG tablet Take 1 tablet by mouth 2 times a day. 11/30/2024 levocetirizine (Xyzal) 5 MG tablet Take 1 tablet by mouth every evening. 11/30/2024 meclizine (Antivert) 12.5 MG tablet take one tablet by mouth every twelve hours for 10 days ondansetron ODT (Zofran-ODT) 4 MG disintegrating tablet DISSOLVE ONE TABLET UNDER THE TONGUE EVERY 8 HOURS NEEDED FOR NAUSEA AND VOMITING FOR 5 DAYS 12/04/2024 documented as of this encounter Plan of Treatment Upcoming Encounters Date Type Department Care Team ([facility] st Contact Info) Description 05/27/2025 9:30 AM EDT Consult Medical Office Building Surgical Specialties [address] [facility], [address] [place] [address] Yoan Salinas MD [address] [facility] [address] [place] [address] documented as of this encounter Procedures Procedure Name Priority Date/Time Associated Diagnosis Comments NM PARATHYROID SCAN W SPECT CT Routine 02/17/2025 12:09 PM EDT Primary hyperparathyroidism (CMS/HCC) documented in this encounter Results * NM Parathyroid Scan w SPECT/CT (02/17/2025 12:09 PM EDT) Anatomical Region Laterality Modality Head Nuclear Medicine Impressions 02/17/2025 4:21 PM EDT Parathyroid scintigraphy demonstrates the followin. Subtle focal sestamibi localizing to a small nodule posteromedial to the upper pole of the left thyroid lobe, might represent a superior parathyroid adenoma. 2. Another subtle focal sestamibi activity seen on the delayed images localizing to a tiny nodule inferior to the lower pole of the left thyroid, might represent another hyperplastic parathyroid gland. Thyroid Gland: Grossly normal. CRITICAL RESULT: No. COMMUNICATION: Per this written report. By electronically signing this report, I, the attending physician, attest that I have personally reviewed the images/data for the above examination(s) and agree with the final edited report. Drafted by Obie Lewis M.D. on 02/17/2025 3:33 PM Final report signed by Mark Mitchell MD on 02/17/2025 4:21 PM Narrative 02/17/2025 4:21 PM EDT CLINICAL INDICATION: Hyperparathyroidism by laboratory examination. On 01/29/2025, PTH level was 70 pg/mL. Total Ca level was 10.3 mg/dL. Patient is not taking thyroid hormone replacement medication. TECHNIQUE: At approximately 10 minutes and 2-3 hours following intravenous administration of 25.5 mCi of Tc-99m sestamibi, SPECT and CT images of neck and chest (early set) and/or neck-only (delayed set) acquired and processed using Siemens Velteovo 16 SPECT/CT hybrid technology. Three-dimensional attenuation-corrected SPECT, CT and fused SPECT/CT tomographic images in coronal, sagittal, and transverse planes created and reviewed interactively to optimize sensitivity, specificity, and anatomic localization. CT: low-dose, [id number], without intravenous contrast; TOTAL DLP (Dose Length Product): 447 mGy*cm. For reference to the report, annotated images have not been created and made available in PACS. COMPARISON/CORRELATION: None. No correlative imaging. FINDINGS: Normal in size thyroid gland with slightly heterogeneous biodistribution and relatively greater activity in right lobe compared to left. Incomplete washout from thyroid gland on delayed images. Subtle focal sestamibi localization posterior medial to the upper pole of the left thyroid lobe with a corresponding small 3 mm nodule (series 3 image 53 series 1006 image 50). Another subtle focal sestamibi activity seen on the delayed images localizing to a tiny 3 mm nodule inferior to the lower pole of the left thyroid series 3 image 64 and series [address]: Unremarkable posterior fossa. The maxillary sinuses are clear bilaterally. No enlarged cervical, mediastinal, or hilar lymph nodes. Aortic and multivessel coronary atherosclerosis. No consolidation or suspicious pulmonary nodules. No pleural effusion or pneumothorax. Partially visualized hypoattenuating lesions in the hepatic dome are too small to characterize, likely simple cysts. Multilevel degenerative changes of the spine with multiple thoracic compression deformities. No suspicious osseous or soft tissue lesions. Procedure Note Mark Paul MD - 02/17/2025 CLINICAL INDICATION: Hyperparathyroidism by laboratory examination. On 01/29/2025, PTH level was70 pg/mL. Total Ca level was 10.3 mg/dL. Patient is not taking thyroidhormone replacement medication. TECHNIQUE: At approximately 10 minutes and 2-3 hours following intravenousadministration of 25.5 mCi of Tc-99m sestamibi, SPECT and CT images ofneck and chest (early set) and/or neck-only (delayed set) acquired andprocessed using Siemens Cozy 16 SPECT/CT hybrid technology.Three-dimensional attenuation-corrected SPECT, CT and fused SPECT/CTtomographic images in coronal, sagittal, and transverse planes created andreviewed interactively to optimize sensitivity, specificity, and anatomiclocalization. CT: low-dose, [id number], without intravenous contrast;TOTAL DLP (Dose Length Product): 447 mGy*cm. For reference to the report, annotated images have not been created andmade available in PACS. COMPARISON/CORRELATION: None. No correlative imaging. FINDINGS: Normal in size thyroid gland with slightly heterogeneous biodistributionand relatively greater activity in right lobe compared to left. Incompletewashout from thyroid gland on delayed images. Subtle focal sestamibi localization posterior medial to the upper pole ofthe left thyroid lobe with a corresponding small 3 mm nodule (series 3image 53 series 1006 image 50). Another subtle focal sestamibi activity seen on the delayed imageslocalizing to a tiny 3 mm nodule inferior to the lower pole of the leftthyroid series 3 image 64 and series [address]: Unremarkable posterior fossa. The maxillary sinuses are clear bilaterally. No enlarged cervical, mediastinal, or hilar lymph nodes. Aortic and multivessel coronary atherosclerosis. No consolidation or suspicious pulmonary nodules. No pleural effusion or pneumothorax. Partially visualized hypoattenuating lesions in the hepatic dome are toosmall to characterize, likely simple cysts. Multilevel degenerative changes of the spine with multiple thoraciccompression deformities. No suspicious osseous or soft tissue lesions. IMPRESSION: Parathyroid scintigraphy demonstrates the followin.Subtle focal sestamibi localizing to a small nodule posteromedial tothe upper pole of the left thyroid lobe, might represent a superiorparathyroid adenoma. 2.Another subtle focal sestamibi activity seen on the delayed imageslocalizing to a tiny nodule inferior to the lower pole of the leftthyroid, might represent another hyperplastic parathyroid gland. Thyroid Gland: Grossly normal. CRITICAL RESULT: No. COMMUNICATION: Per this written report. By electronically signing this report, I, the attending physician, attestthat I have personally reviewed the images/data for the aboveexamination(s) and agree with the final edited report. Drafted by Obie Lewis M.D. on 02/17/2025 3:33 PM Final report signed by Mark Mitchell MD on 02/17/2025 4:21 PM Darby GARCIA IMG NM PROCEDURES Final Resu lt documented in this encounter Visit Diagnoses Diagnosis Primary hyperparathyroidism (CMS/HCC) Primary hyperparathyroidism documented in this encounter Administered Medications Inactive Administered Medications - up to 3 most recent administrations Medication Order MAR Action Action Date Dose Rate Site Technetium Tc 99m Sestamibi radio-isotope injection 25 millicurie 25 millicurie, Intravenous, Once, 1 dose, On Sat02/17/25 at 1030, Routine, Imaging NM Protocol Orders Given 02/17/2025 9:44 AM EDT 25.5 millicuries Left Antecubital documented in this encounter Additional Health Concerns Assessment Noted Time A fall risk assessment has been complete d for the patient 01/29/2025 9:34 AM EDT A Body Mass Index follow-up plan has been documented for the patient 01/29/2025 12:53 PM EDT documented as of this encounter Care Teams Campus Aide Relationship Specialty Start Date End Date Mary Kay May APRN [facility] [place] [address] PCP - General 01/06/21 documented as of this encounter
--- OUTSIDE RECORDS SUMMARY | 2025-02-17 09:32 | XMS_ITS | Encounter Summary ---
Author Organization [facility] Address [address] [place] [address] Care Team Providers Care Buggy Driver Name Role Phone Mary Kay May ROBERTO CARLOS Primary Care Provider +1- [phone] Reason for Visit * Imaging (Routine) - Closed Specialty Diagnoses / Procedures Referred By Otilia cisneros Referred To Contact Radiology Diagnoses Primary hyperparathyroidism (CMS/HCC) Procedures NM Parathyroid Scan w SPECT/CT Darby Lazo, PA [address] [address] Phone: tel: fax: Referral ID Status Reason Start Date Expiration Date Visits Re quested Visits Authorized [id number] Closed 01/29/2025 07/31/2026 2 2 Encounter Details Date Type Department Care Team (Latest Contact Info) Description 02/17/2025 9:32 AM EDT - 02/17/2025 11:31 AM EDT Hospital Encounter [facility] S Radiology [address] [place] [address] Discharge Disposition: Home or Self Care Social [...] daily with irritation DIRECTED 11/30/2024 HYDROcodone-acetami nophen ([place]) 5-325 MG tablet Take 1 tablet by [...] Upcoming Encounters Date Type Department Care Team ([facility] st Contact Info) Description 05/27/2025 9:30 AM EDT Consult Medical Office Building Surgical Specialties [address] [facility], [address] [place] [address] Yoan Salinas MD [address] [address] documented as of this encounter Procedures [...] (delayed set) acquired and processed using Siemens Adbrainvo 16 SPECT/CT hybrid technology. Three-dimensional attenuation-corrected SPECT, CT and fused SPECT/CT tomographic images in coronal, sagittal, and transverse planes created and reviewed interactively to optimize sensitivity, specificity, and anatomic localization. CT: low-dose, [id number], without intravenous contrast; TOTAL DLP (Dose Length [...] neck-only (delayed set) acquired andprocessed using Siemens Matchpoint [employer] Intevo 16 SPECT/CT hybrid technology.Three-dimensional attenuation-corrected SPECT, CT and fused SPECT/CTtomographic images in coronal, sagittal, and transverse planes created andreviewed interactively to optimize sensitivity, specificity, and anatomiclocalization. CT: low-dose, [id number], without intravenous contrast;TOTAL DLP (Dose Length Product): [...] signing this report, I, the attending physician, sea I have personally reviewed the images/data for the aboveexamination(s) and agree with the final edited report. Drafted by Obie Lewis M.D. on 02/17/2025 3:33 PM Final report signed by Mark Mitchell MD on 02/17/2025 4:21 PM Darby GARCIA IMG NM PROCEDURES Final Resu lt documented in this encounter Visit Diagnoses Not on filedocumented in this encounter Additional Health Concerns Assessment Noted Time A fall risk assessment has been complete d for the patient 01/29/2025 9:34 AM EDT A Body Mass Index follow-up plan has been documented for the patient 01/29/2025 12:53 PM EDT documented as of this encounter Care Teams Buggy Driver Relationship Specialty Start Date End Date Mary Kay May APRN [address] [place] [address] [place] [address] PCP - General 01/06/21 documented as of this encounter
--- OUTSIDE RECORDS SUMMARY | 2025-02-17 11:32 | XMS_ITS | Encounter Summary ---
Author Organization [facility] Address [address] [place] [address] Care Team Providers Care Leveler Name Role Phone Mary Kay May ROBERTO CARLOS Primary Care Provider +1- [phone] Reason for Visit * Imaging (Routine) - Closed Specialty Diagnoses / Procedures Referred By Otilia t Referred To Contact Radiology Diagnoses Primary hyperparathyroidism (CMS/HCC) Procedures NM Parathyroid Scan w SPECT/CT Darby Lazo, PA [address] [address] Phone: tel: fax: Referral ID Status Reason Start Date Expiration Date Visits Re quested Visits Authorized [id number] Closed 01/29/2025 07/31/2026 2 2 Encounter Details Date Type Department Care Team (Latest Contact Info) Description 02/17/2025 11:32 AM EDT - 02/17/2025 11:59 PM EDT Hospital Encounter [facility] S Radiology [address] [place] [address] Discharge Disposition: Home or Self [...] daily with irritation DIRECTED 11/30/2024 HYDROcodone-acetami nophen ([place]) 5-325 MG tablet Take 1 tablet by [...] Upcoming Encounters Date Type Department Care Team ([facility] st Contact Info) Description 05/27/2025 9:30 AM EDT Consult Medical Office Building Surgical Specialties [address] [facility], [address] [place] [address] Yoan Salinas MD [address] [address] documented as of this encounter [...] (delayed set) acquired and processed using Siemens cartmivo 16 SPECT/CT hybrid technology. Three-dimensional attenuation-corrected SPECT, CT and fused SPECT/CT tomographic images in coronal, sagittal, and transverse planes created and reviewed interactively to optimize sensitivity, specificity, and anatomic localization. CT: low-dose, [id number], without intravenous contrast; TOTAL DLP (Dose Length [...] neck-only (delayed set) acquired andprocessed using Siemens Midokura Intevo 16 SPECT/CT hybrid technology.Three-dimensional attenuation-corrected SPECT, CT and fused SPECT/CTtomographic images in coronal, sagittal, and transverse planes created andreviewed interactively to optimize sensitivity, specificity, and anatomiclocalization. CT: low-dose, [id number], without intravenous contrast;TOTAL DLP (Dose Length Product): [...] documented as of this encounter Care Teams Leveler Relationship Specialty Start Date End Date Mary Kay May APRN [address] [place] [address] [place] [address] PCP - General 01/06/21 documented as of this encounter
--- OUTSIDE RECORDS SUMMARY | 2025-04-07 11:50 | XMS_ITS | Encounter Summary ---
Author Organization [facility] Address [address] [id number] Care Team Providers Care Bean Weigher Name Role Phone Mary Kay May APRN Primary Care Provider +1- [phone] Reason for Referral * Consultation (Routine) - Closed Specialty Diagnoses / Procedures Referred By Otilia t Referred To Contact Nephrology Diagnoses Osteoporosis, unspecified osteoporosis type, unspecified pathological fracture presence Mary Kay May APRN [address] [address] Phone: tel: fax: [employer] [facility] [address] [facility], [address] [place] [address] Phone: tel: fax: Referral ID Status Reason Start Date Expiration Date V isits Requested Visits Authorized [id number] Closed Specialty Services Required 07/31/2024 01/30/2026 1 1 Encounter Details Date Type Department Care Team (Latest Contact Info) Description 07/31/2024 Community Orders Community Practice [address] [place] [address] Mary Kay May APRN [address] [address] Osteoporosis, unspecified osteoporosis type, unspecified pathological fracture presence (Primary Dx) Social History Tobacco Use Types Packs/Day Years Used Date Smoking Tobacco: Never Alcohol Use Standard Drinks/Week Comments No 0 (1 standard drink = 0.6 oz pur e alcohol) Comments Unknown Sex and Gender Information Value Date Recorded Sex Assigned at Not on file Legal Sex Female 7:30 PM EDT Gender Identity Not on file Sexual Orientation Not on file documented as of this encounter Plan of Treatment Upcoming Encounters Date Type Department Care Team ([facility] st Contact Info) Description 05/27/2025 9:30 AM EDT Consult Medical Office Building Surgical Specialties [address] [facility], [address] [place] [address] Yoan Salinas MD [address] [facility] [address] [place] [address] Scheduled Referrals Name Type Priority Associated Diagnoses Orde r Schedule Ambulatory referral to Nephrology Outpatient Referral Routine Osteoporosis, unspecified osteoporosis type, unspecified pathological fracture presence Ordered: 07/31/2024 documented as of this encounter Visit Diagnoses Diagnosis Osteoporosis, unspecified osteoporosis type, unspecified pathological fracture presence- Primary documented in this encounter Care Teams Bean Weigher Relationship Specialty Start Date End Date Mary Kay May APRN [address] [place] [address] PCP - General 01/06/21 documented as of this encounter
--- OUTSIDE RECORDS SUMMARY | 2025-04-07 11:50 | XMS_ITS | Encounter Summary ---
Author Organization [facility] Address [address] [id number] Care Team Providers Care Motel Front Desk Clerk Name Role Phone Mary Kay May APRN Primary Care Provider +1- [phone] Encounter Details Date Type Department Care Team (Latest Contact Info) Description 02/17/2025 Travel Social History Tobacco Use Types Packs/Day Years [...] Upcoming Encounters Date Type Department Care Team (Late st Contact Info) Description 05/27/2025 9:30 AM EDT Consult Medical Office Building Surgical Specialties [address] [facility], [address] [place] [address] Yoan Salinas MD [address] [facility] [address] [place] [address] documented as of this encounter Visit Diagnoses Not on filedocumented in this encounter Additional Health Concerns Assessment Noted Time A fall risk assessment has been complete d for the patient 01/29/2025 9:34 AM EDT A Body Mass Index follow-up plan has been documented for the patient 01/29/2025 12:53 PM EDT documented as of this encounter Care Teams Motel Front Desk Clerk Relationship Specialty Start Date End Date Mary Kay May APRN [address] [place] [id number] PCP - General 01/06/21 documented as of this encounter
--- OUTSIDE RECORDS SUMMARY | 2025-04-07 11:50 | XMS_ITS | Encounter Summary ---
Author Organization [facility] Address [address] [place] [address] Care Team Providers Care Therapist Radiation Name Role Phone Mary Kay May EMS DRIVER Primary Care Provider [phone]- [phone] Reason for Visit * Reason Onset Date Comments HCN Clinical Concern/Question 02/02/2025 Encounter Details Date Type Department Care Team ([facility] st Contact Info) Description 02/02/2025 Telephone [facility] [address], [address] [place] [address] Darby Lazo, PA [address] [place] [address] HCN Clinical Concern/Question Social History Tobacco Use Types Packs/Day Years [...] on file documented as of this encounter Miscellaneous Notes * Telephone Encounter - Matthew Park LPN - 02/03/2025 11:46 AM EDT Contacted RAD to inform patient was ready to be scheduled. * Telephone Encounter - Matthew Park LPN - 02/03/2025 11:41 AM EDT Patient returned call to the clinic and the reason for imaging discussed, questions answered and patient is now ready to schedule NM scan. * Telephone Encounter - Mtathew Park LPN - 02/03/2025 9:45 AM EDT Called patient to go over reason for NM scan and answer questions the patient has about the imagingstudy. Left voicemail to return call to the clinic. * Telephone Encounter - Matthew Park LPN - 02/02/2025 4:18 PM EDT Secure chat sent to provider since IRENE spoke to patient earlier today about importance of this scan. * Telephone Encounter - Arelis Alvarado - 02/02/2025 3:39 PM EDT Clinical Concern/Question Reason for Call: [facility] calling to state that the PT had no idea that the test had been ordered or why she was having it. He explained the test, but was unsure as to explain the reason of why and stated he would have the clinic call to go over that with her. Can someone please reach out to PT and advise Best contact number: [phone] (home) Optimal time of day to reach caller: ANYTIME Additional comments/information from caller: None Note: Please do not reply to this message. Follow-up communication and further actions as a result of this message need to be communicated with the patient directly, if the patient is not active onMyChart. If the patient is active on MyChart, they will receive notification of the communication/outcome via ParaShoothart. * Telephone Encounter - Matthew Park LPN - 02/02/2025 11:23 AM EDT Returned call to the patient and explained that she needed to NM scan of parathyroid and see surgeon to rule out other causes of osteoporosis. Patient stated she was scheduled in May with surgeonand was told that her parathyroid was not bad enough to be seen any earlier. Again explained about the need for scan and appointment but patient is confused by the May appointment. Secure chat sent to the provider. * Telephone Encounter - Darby Lazo PA - 02/02/2025 10:35 AM EDT Thank you matthew. And yes this was discussed. Lots of info in visit, she may just need to go over again. * Telephone Encounter - Jada Alvarado - 02/02/2025 8:30 AM EDT Clinical Concern/Question Reason for Call: Patient calling to find out what her next step is, as far as getting injections. Best contact number: [phone] (home) Optimal time of day to reach caller: ANYTIME Additional comments/information from caller: None Note: Please do not reply to this message. Follow-up communication and further actions as a result of this message need to be communicated with the patient directly, if the patient is not active onMyChart. If the patient is active on MyChart, they will receive notification of the communication/outcome via Movinaryt. documented in this encounter Plan of Treatment Upcoming Encounters Date Type Department Care Team ([facility] st Contact Info) Description 05/27/2025 9:30 AM EDT Consult Medical Office Building Surgical Specialties [address], [address] [place] [address] Yoan Salinas MD [address] [place] [address] documented as of this encounter Visit Diagnoses Not on filedocumented in this encounter Additional Health Concerns Assessment Noted Time A fall risk assessment has been complete d for the patient 01/29/2025 9:34 AM EDT A Body Mass Index follow-up plan has been documented for the patient 01/29/2025 12:53 PM EDT documented as of this encounter Care Teams Therapist Radiation Relationship Specialty Start Date End Date Mary Kay May APRN [address] [place] [address] PCP - General 01/06/21 documented as of this encounter
--- OUTSIDE RECORDS SUMMARY | 2025-04-07 11:50 | XMS_ITS | Clinical Summary ---
Author Organization [facility] Address [address] [place] [address] Care Team Providers Care Delivery Merchandiser Name Role Phone Mary Kay May ROBERTO CARLOS Primary Care Provider [phone]- [phone] Allergies No known active allergies Medications budesonide-formote rol (Symbicort) 160-4.5 MCG/ACT inhaler USE DIRECTED. 7 Active busPIRone (Buspar) 10 MG tablet Take 1 tablet by mouth 3 times a day. 5 Active doxycycline (Periostat) 20 MG tablet Take 1 tablet by mouth daily. 5 Active erythromycin (Romycin) 5 MG/GM ophthalmic ointment apply 1cm OF OINTMENT TO affected eye(s) AT BEDTIME AND three times daily with irritation DIRECTED 5 Active levocetirizine (Xyzal) 5 MG tablet Take 1 tablet by mouth every evening. 5 Active meclizine (Antivert) 12.5 MG tablet take one tablet by mouth every twelve hours for 10 days Active ondansetron ODT (Zofran-ODT) 4 MG disintegrating tablet DISSOLVE ONE TABLET UNDER THE TONGUE EVERY 8 HOURS NEEDED FOR NAUSEA AND VOMITING FOR 5 DAYS 5 Active levETIRAcetam (Keppra) 750 MG tablet Take 1 tablet by mouth 2 times a day. 5 Active azelastine (Astelin) 0.1 % nasal spray Administer 1 spray into each nostril 2 times a day. Use in each nostril as directed Active HYDROcodone-acetam inophen (Mcpherson) 5-325 MG tablet Take 1 tablet by mouth as needed for severe pain. Active Encounters Date Type Department Care Team Description 02/17/2025 11:32 AM EDT - 02/17/2025 11:59 PM EDT Hospital Encounter [facility] [address] [place] [address] Discharge Disposition: Home or Self Care 02/17/2025 9:32 AM EDT - 02/17/2025 11:31 AM EDT Hospital Encounter [facility] [address] [place] [address] Discharge Disposition: Home or Self Care 02/17/2025 9:18 AM EDT - 02/17/2025 9:31 AM EDT Hospital Encounter [facility] [address] [place] [address] Primary hyperparathyroidism (CMS/HCC) Discharge Disposition: Home or Self Care 02/17/2025 Travel 02/02/2025 Telephone [facility] Mineral Metabolism [address], [address] [place] [address] Darby Lazo PA HCN Clinical Concern/Question 01/29/2025 12:00 PM EDT Office Visit [facility] [address], [address] [place] [address] Darby Lazo PA Age-related osteoporosis with current pathological fracture, initial encounter (Primary Dx); Primary hyperparathyroidism (CMS/HCC) 01/29/2025 8:13 AM EDT - 01/29/2025 11:59 PM EDT Hospital Encounter [facility] [address], [address] [place] [address] Age-related osteoporosis with current pathological fracture, initial encounter Discharge Disposition: Home or Self Care 01/29/2025 Orders Only [facility] [address] [place] [address] Inna Montgomery MD 01/29/2025 Travel from Last 3 Months Family History Medical History Relation Name Comments Cataracts Mother Other cancer Other 1 Other cancer Other 2 Other cancer Sister Relation Name Status Comments Mother Other 1 Other 2 Sister Social History Tobacco Use Types Packs/Day Years Used Date Smoking Tobacco: Never Passive Smoke Exposure: Past Smokeless Tobacco: Never Tobacco Cessation:Counseling Given: Not Answered Alcohol Use Standard Drinks/Week Comments No 0 (1 standard drink = 0.6 oz pur e alcohol) PHQ-2 Answer Date Recorded Patient Health Questionnaire-2 Score 0 01/29/2025 Comments Unknown Sex and Gender Information Value Date Recorded Sex Assigned at Not on file Legal Sex Female 7:30 PM EDT Gender Identity Not on file Sexual Orientation Not on file Last Filed Vital Signs Vital Sign Reading Time Taken Comments Blood Pressure 151/62 01/29/2025 9:38 AM EDT Pulse 63 01/29/2025 9:38 AM EDT Temperature 36.7 C (98.1 F) 01/29/2025 9:36 AM EDT Respiratory Rate 16 05/17/2020 8:49 AM EDT Oxygen Saturation 98% 01/29/2025 9:36 AM EDT Inhaled Oxygen Concentration - - Weight 40.7 kg (89 lb 11.6 oz) 01/29/2025 9:36 A M EDT Height 144.1 cm (4' 8.75 ) 01/29/2025 9:36 AM ED T Body Mass Index 19.59 01/29/2025 9:36 AM EDT Plan of Treatment Upcoming Encounters Date Type Department Care Team ([facility] st Contact Info) Description 05/27/2025 9:30 AM EDT Consult Medical Office Building Surgical Specialties [address], [address] [place] [address] Yoan Salinas MD [address] [address] Health Maintenance Due Date Last Done Comments [facility]-Medicare Annual Wellness (AWV) 1950 [facility]-Infant/Child/Adol SDOH Screenings 1950 [facility]- SDOH Screenings 1966 [facility]-Adult SDOH Screenings 1966 [facility]-DTaP,Tdap,and Td Vaccines (1 - Tdap) 1967 [facility]-Pneumococcal Vaccine: 50+ Years (2 of 2 - PCV) 05/10/2021 05/10/2020 [facility]-Zoster Vaccines (2 of 2) 08/21/2022 06/26/2022 [facility]-RSV Vaccine: 60+ Years or (1 - 1-dose 75+ series) 2023 [id number] Vaccine (4 - season) 2024 06/22/2021, 10/26/2020, 09/28/2020 [facility]-Influenza Vaccine (#1) 04/26/202505/30, 06/26/2022, 08/11/2021, Additional history exists [facility]-Bone Density Scan 01/29/2026 01/29/2025 [facility]-Depression Screening 01/29/2026 01/29/2025 [facility]-Hepatitis C Screening Completed 08/26/2019 HPV Vaccines Aged Out No longer eligi ble based on patient's age to complete this topic [facility]-HIB Vaccines Aged Out No longer e ligible based on patient's age to complete this topic [facility]-Hepatitis A Vaccines Aged Out No longer eligible based on patient's age to complete this topic [facility]-IPV Vaccines Aged Out No longer e ligible based on patient's age to complete this topic [facility]-Rotavirus Vaccines Aged Out No lo nger eligible based on patient's age to complete this topic Procedures Procedure Name Priority Date/Time Associated Diagnosis Comments NM PARATHYROID SCAN W SPECT CT Routine 02/17/2025 12:09 PM EDT Primary hyperparathyroidism (CMS/HCC) IONIZED CALCIUM, SERUM Routine 01/29/2025 9:58 AM EDT Age-related osteoporosis with current pathological fracture, initial encounter PTH INTACT TOTAL Routine 01/29/2025 9:58 AM EDT Age-related osteoporosis with current pathological fracture, initial encounter VITAMIN D, 1, 25-DIHYDROXY Routine 01/29/2025 9:58 AM EDT Age-related osteoporosis with current pathological fracture, initial encounter VITAMIN D 25 HYDROXY Routine 01/29/2025 9:58 AM EDT Age-related osteoporosis with current pathological fracture, initial encounter PTH PANEL 1 Routine 01/29/2025 9:58 AM EDT Age-related osteoporosis with current pathological fracture, initial encounter RENAL FUNCTION PANEL, PLASMA Routine 01/29/2025 9:58 AM EDT Age-related osteoporosis with current pathological fracture, initial encounter DEXA BONE DENSITY AXIAL SKELETON W VFA Routine 01/29/2025 8:13 AM EDT Age-related osteoporosis with current pathological fracture, initial encounter HEPATITIS C ANTIBODY - ED W/REFLEX TO HCV QUANT PCR Routine 08/26/2019 7:05 PM EST from Last 3 Months or Most Recently Relevant to Health Maintenance Results * NM Parathyroid Scan w SPECT/CT [...] (delayed set) acquired and processed using Siemens Symbia Intevo 16 SPECT/CT hybrid technology. Three-dimensional attenuation-corrected SPECT, CT and fused SPECT/CT tomographic images in coronal, sagittal, and transverse planes created and reviewed interactively to optimize sensitivity, specificity, and anatomic localization. CT: low-dose, [id number], without intravenous contrast; TOTAL DLP (Dose Length [...] neck-only (delayed set) acquired andprocessed using Siemens [employer] Intevo 16 SPECT/CT hybrid technology.Three-dimensional attenuation-corrected SPECT, CT and fused SPECT/CTtomographic images in coronal, sagittal, and transverse planes created andreviewed interactively to optimize sensitivity, specificity, and anatomiclocalization. CT: low-dose, [id number], without intravenous contrast;TOTAL DLP (Dose Length Product): [...] Mark Mitchell MD on 02/17/2025 4:21 PM us Darby GARCIA IMG NM PROCEDURES Final Resu lt * (ABNORMAL) Ionized calcium, serum (01/29/2025 9:58 AM EDT) Pathologist [facility] Ionized Calcium, Serum 5.7(H) 4.6 - 5.3 mg/dL LAB HEMATOLOGY METHOD 01/29/2025 11:44 AM EDT [facility] Blood Venous blood specimen / Unknown Venipuncture / Unknown 01/29/2025 9:58 AM EDT 01/29/2025 9:58 AM EDT Darby GARCIA LAB BLOOD ORDERABLES Final R esult Performing Organization Address City/[facility]/ZIP Co de Phone Number [facility] [address] [place] [address] * Vitamin D 1,25 Dihydroxy (01/29/2025 9:58 AM EDT) [facility] VITAMIN D, 1, 25-DIHYDROXY 51.4 19.9 - 79.3 pg/mL 01/29/2025 4:[address] [facility] Blood Venous blood specimen / Unknown Venipuncture / Unknown 01/29/2025 9:58 AM EDT 01/29/2025 9:58 AM EDT Darby GARCIA LAB BLOOD ORDERABLES Final R esult Performing Organization Address City/[facility]/ZIP Co de Phone Number [address] [address] * Vitamin D 25 Hydroxy (01/29/2025 9:58 AM EDT) [facility] Vitamin D 25 Hydroxy 44.6 20.0 - 80.0 ng/mL 01/29/2025 2:39 PM EDT [facility] Blood Venous blood specimen / Unknown Venipuncture / Unknown 01/29/2025 9:58 AM EDT 01/29/2025 9:58 AM EDT Narrative [facility] - 01/29/2025 2:39 PM EDT Testing performed on [employer], standardized against NIST SRM 2972. When testing samples from patients whose predominant form of vitamin D is vitamin D2, such as patients receiving vitamin D2 supplementation, results that are subtherapeutic should be confirmed with another method, such as LC-MS/MS, before being used for patient management. Vitamin D, 25-Hydroxy reference range, age 18 years and up: Deficiency: <12 ng/mL Insufficiency: 12 to 19 ng/mL Sufficiency: 20 to 80 ng/mL Possible toxicity: >100 ng/mL Darby GARCIA LAB BLOOD ORDERABLES Final R esult Performing Organization Address [facility] de Phone Number [facility] [address] [place] [address] * PTH Intact Total (01/29/2025 9:58 AM EDT) PTH Intact Total 70 9 - 77 pg/mL 01/29/2025 1:[address] [facility] Blood Venous blood specimen / Unknown Venipuncture / Unknown 01/29/2025 9:58 AM EDT 01/29/2025 9:58 AM EDT Narrative [facility] - 01/29/2025 1:37 PM EDT Assay performed by immunoassay at the [facility]. Performed on [employer] chemiluminescent immunoassay, tractable to the World Health Organization's first international standard for PTH from the [facility], Code 79/500. Results obtained from different test methods or kits cannot be used interchangeably. Darby GARCIA LAB BLOOD ORDERABLES Final R esult Performing Organization Address [facility] de Phone Number [facility] [address] [place] [address] * (ABNORMAL) Renal Function Panel, Plasma (01/29/2025 9:58 AM EDT) Glucose, Plasma 78 74 - 99 mg/dL 01/29/2025 11:55 AM EDT [facility] BUN, Plasma 10 8 - 23 mg/dL 01/29/2025 11:55 AM EDT [facility] Creatinine, Plasma 0.68 0.60 - 1.10 mg/dL 01/29/2025 11:55 AM EDT [facility] BUN/Creatinine Ratio 15 01/29/2025 11:55 AM EDT [facility] Sodium, Plasma 143 136 - 145 mmol/L 01/29/2025 11:55 AM EDT [facility] Potassium, Plasma 4.7 3.6 - 4.9 mmol/L 01/29/2025 11:55 AM EDT [facility] Chloride, Plasma 105 97 - 107 mmol/L 01/29/2025 11:55 AM EDT [facility] CO2, Plasma 28 22 - 29 mmol/L 01/29/2025 11:55 AM EDT [facility] Anion Gap 10 6 - 16 mmol/L 01/29/2025 11:55 AM EDT [facility] Total Calcium, Plasma 10.3(H) 8.9 - 10.2 mg/dL 01/29/2025 11:55 AM EDT [facility] Phosphorus, Plasma 3.2 2.5 - 4.5 mg/dL 01/29/2025 11:55 AM EDT [facility] Albumin, Plasma 4.6 3.5 - 5.2 g/dL 01/29/2025 11:55 AM EDT [facility] eGFRcr 90.4 mL/min/1.7 3m*2 01/29/2025 11:55 AM EDT [facility] Comment:Reported eGFRcr in m L/min/1.73m2 is based the CKD-EPI 2020 equation that does not use a race coefficient. Blood Venous blood specimen / Unknown Venipuncture / Unknown 01/29/2025 9:58 AM EDT 01/29/2025 9:58 AM EDT us Darby GARCIA LAB BLOOD ORDERABLES Final R esult [facility] [address] [place] [address] * Dexa Bone Density Axial Skeleton W VFA (01/29/2025 8:13 AM EDT) Anatomical Region Laterality Modality Body Radio Fluoroscop y Narrative 02/02/2025 1:44 PM EDT [facility] - [facility] [address] [place] [address], [place] [address] DXA Bone Densitometry Report: [Date of exam] BMD test performed using the [employer] DXA System (analysis version: 14.10) manufactured by [employer]. REFERRING PROVIDER: RADHA Cannon CLINICAL INFORMATION: osteoporosis, compression fracture PATIENT NAME: Nicci Bradford PATIENT AGE: 74 y.o. LEGAL SEX: female RADIOGRAPHIC VIEWS: Sites scanned: AP Spine, HIP Right , HIP Left, VFA, and TBS COMPARISON STUDY: DXA Axial Prior studies are not available for comparison FINDINGS: Based on WHO criteria (post-menopausal female) the diagnosis is Osteoporosis The lowest T score is -4.2 in the spine TBS: The TBS L1-L4 of 1.276 indicates partially degraded microarchitecture VFA: LVA Morphometry performed on T8-L5: There is evidence of severe compression in the T6 through L4 vertebra The compression deformities are both wedge and biconcave morphology A VFA does not provide any indication of the recency/chronicity of a vertebral compression fracture There is thoracic kyphosis There is T10 Kyphoplasty . TREATMENT RECOMMENDATIONS: Measured bone density crosses threshold for treatment of osteoporosis Specific anti-osteoporotic therapy remains indicated given high risk of future fracture Work up for secondary osteoporosis and metabolic bone disease could be considered based on clinical indications. Consider additional imaging of the spine if clinically indicated Suggest general measures to optimize calcium and vitamin D status, fall prevention measures and reduce fracture risk. Consider repeating this study in 1 year(s) or as clinically indicated to assess bone density change or response to treatment (should be performed on the same DXA scanner to allow for direct comparison and calculation of change in BMD). Darby GARCIA IMG DXA PROCEDURES Final Res ult * [place] Hepatitis C Antibody (08/26/2019 7:05 PM EST) [place] Hepatitis C Ab NEGATIVE Reference Range: Negative SUNQUEST 08/26/2019 7:05 PM EST 08/26/2019 7:25 PM EST Harley Gross MD LAB BLOOD ORDERABLES Final Res ult SUNQUEST from Last 3 Months or Most Recently Relevant to Health Maintenance Insurance Care Teams Delivery Merchandiser Relationship Specialty Start Date End Date Mary Kay May APRN [address] [place] [address] PCP - General 01/06/21
--- NOTE | 2025-04-07 12:03 | EXP.PAIN.SOA ---
[facility] Disclaimer: The information contained in this section may have been updated after the patient was seen, as this information can be updated by other users. Medical History Degenerative joint disease (DJD) of lumbar spine Vertebral compression fracture Osteoarthritis of hips, bilateral Osteoporosis Shingles Seizure disorder Hypertension Surgical History S/P epidural steroid injection Family History Other Coronary artery disease Social History Smoking Status: Never smoker alcohol intake: never substance use type: denies use and other current occupational status: other Travel in the last 8 weeks?: None household members: spouse housing: house education level: high school current occupational exposures/hazards: No caffeine: Yes PM Subjective & Objective Subjective Subjective:: Patient is a pleasant 74-year-old female who presents today for worsening pain. Today she rates her pain 8 out of 10. She does state that she ended up missing her last appointment last month so she has not had her regular pain medication and she knows that it is causing increased pain. Patient is currently managed with Delta 5 mg 3 times daily and has been using tizanidine at night. Patient states she has no refills on either of these and would like a refill. Patient denies any recent falls or injuries and states it is still that chronic pain. Patient does have significant osteoporosis with a compression fracture history. Her Lance has been reviewed and is appropriate. Review of Systems: General: No recent weight changes, no fever, no sleep disturbances Respiratory: No cough, no shortness of air, no recurring pulmonary infections Cardiovascular/peripheral vascular: No chest pain, no palpitations, no edema, no shortness of breath Gastrointestinal: No new onset incontinence, normal bowel movements reported Genitourinary: No new onset incontinence Musculoskeletal: Chronic back pain Psychiatric: [Normal mood/affect] Neurological: [Denies weakness in extremities], [denies balance issues] Pain at rest (0-10 scale): 8 Objective Objective:: Physical Exam: General: Alert and oriented x3, no acute distress, pleasant and cooperative Lungs: Respirations even and unlabored, symmetrical chest expansion Eyes: PERRL Musculoskeletal: Flexion and extension of lumbar [spine] somewhat guarded secondary to pain, [antalgic gait noted] Neurological: Speech clear, no gross sensory deficit Has patient had previous pain injection?: No Conservative treatment options previously tried: Home exercise plan Length of treatment: Longer than 12 weeks Meds Home Medications and Allergies Home Medications ?Medication ?Instructions ?Recorded ?Confirmed ?Type moxifloxacin 0.5 % eye drops 1 drp Eye-Left DIRECTED EYE 07/12/23 02/09/25 History doxycycline hyclate 20 mg tablet 20 mg PO DAILY 10/09/23 02/09/25 History buspirone 10 mg tablet 10 mg PO TID 12/18/23 02/09/25 History levetiracetam 500 mg tablet 1,500 mg (3 x 500 mg) PO DAILY 12/18/23 02/09/25 Rx (Keppra) Seizures #270 tabs levocetirizine 5 mg tablet 5 mg PO DAILY 12/18/23 02/09/25 History vitamin B comp and C no.3 15 mg-10 1 cap PO DAILY 12/18/23 02/09/25 History mg-50 mg-5 mg-300 mg capsule (B Complex Plus Vitamin C) diazepam 2 mg tablet 2 mg PO ONCE pain #1 tab 03/11/24 02/09/25 Rx baclofen 5 mg tablet 5 mg PO TID #90 tabs 04/02/24 02/09/25 Rx hydrocodone 5 mg-acetaminophen 325 1 tab PO TID #90 tabs 02/10/25 Rx mg tablet New Prescriptions to Start Prescriptions: Allergies Allergy/AdvReac Type Severity Reaction Status Date / Time amoxicillin (From AMOXIL) Allergy Intermediate I-HIVES Verified 10/20/24 10:49 clindamycin (CLINDAMYCIN) Allergy Intermediate I-HIVES Verified 10/20/24 10:49 Penicillins (PENICILLINS) Allergy Intermediate I-HIVES Verified 10/20/24 10:49 Sulfa (Sulfonamide Allergy Intermediate I-HIVES Verified 10/20/24 10:49 Antibiotics) (SULFA (SULFONAMIDE ANTIBIOTICS)) codeine (CODEINE) Allergy Unknown NAUSEA AND Verified 10/20/24 10:49 VOMITING erythromycin base Allergy Unknown I-HIVES Verified 10/20/24 10:49 (ERYTHROMYCIN BASE) Fish Containing Products Allergy Unknown FACIAL Verified 10/20/24 10:49 (FISH CONTAINING PRODUCTS) SWELLLING latex (LATEX) Allergy Unknown I-HIVES Verified 10/20/24 10:49 Iodinated Contrast Media Allergy Unknown Verified 10/20/24 10:49 allergy reaction Assessment and Plan *Assessment and plan (1) Lumbar radiculopathy: Status: Acute Category: Medical Code(s): M54.16 - Radiculopathy, lumbar region (2) Degenerative joint disease (DJD) of lumbar spine: Status: Acute Category: Medical Code(s): M47.816 - Spondylosis without myelopathy or radiculopathy, lumbar region (3) Compression fracture of lumbar vertebra: Status: Acute Category: Medical Code(s): S32.000A - Wedge compression fracture of unspecified lumbar vertebra, initial encounter for closed fracture (4) Compression fracture of thoracic vertebra: Status: Acute Qualifiers: Encounter type: initial encounter Thoracic vertebra fracture level: T8 Qualified Code(s): S22.060A - Wedge compression fracture of T7-T8 vertebra, initial encounter for closed fracture Category: Medical Code(s): S22.000A - Wedge compression fracture of unspecified thoracic vertebra, initial encounter for closed fracture Plan I will refill the patient's Delta and tizanidine and provide a 1 month supply of these medications. I will also order her compounded cream. Patient was counseled that we can see how she is doing next month following having her medication back and that if she still is having worsening pain then we can see about repeat injection. Patient did have her last lumbar epidural L2-L3 back in January that did provide significant relief. Will follow-up with this in future appointments. Risks and benefits of the medication have been explained in detail to the patient. The patient does understand the risk of dependence on the medication when given over a prolonged period. Patient has been advised of risks of oversedation with the prescribed medication. Narcan has been offered to the paitent in the event of oversedation. Patient has been advised that a family member should also be educated regarding administration of Narcan. The patient has been advised to consult with his/her primary care provider and pharmacist regarding drug-drug interaction of medications currently prescribed. Patient has been prescribed a controlled substance after being counseled on the medication, medication safety, and possible side effects. Opioid contract was reviewed and signed by the patient, and that they have agreed to all of the terms set forth by our compliance program. A UDS is needed to verify patient's compliance with our office pain contract. This is ordered based off specific treatments related to chronic pain with the potential to abuse certain medications. Patient has been instructed to contact the clinic with any concerns before the next appointment. Dr. Salvador has reviewed this note and agrees with this plan of care. This note was dictated using voice recognition software and make contain errors or omissions.
[2025-04-07 12:51] VITALS: BP 132/36; PULSE 88; RESP 14; O2SAT 96; BMI 17.6
== END 2025-04-07 23:59 | disposition home or self-care (01) ==
PROVIDERS: PCP Nurse Practitioner Family; Visit Provider Nurse Practitioner Family
DX: S32.000A Wedge compression fracture of unspecified lumbar vertebra, initial encounter for closed fracture (principal); S22.060A Wedge compression fracture of T7-T8 vertebra, initial encounter for closed fracture; M54.16 Radiculopathy, lumbar region; X58.XXXA Exposure to other specified factors, initial encounter; Y93.9 Activity, unspecified; Y92.9 Unspecified place or not applicable; Z79.891 Long term (current) use of opiate analgesic; Z79.899 Other long term (current) drug therapy
CPT/HCPCS: 99212; G0463

== ENCOUNTER 2025-06-22 09:58 | Day surgery (SDC) | payer MEDICARE, SELFPAY ==
[2025-06-22 10:14] VITALS: BP 120/73; PULSE 82; RESP 16; O2SAT 96; BMI 16.9
--- NOTE | 2025-06-22 10:32 | EXP.PAIN.PRO ---
Procedure Date: 06/22/25 Time: 10:20 Anesthesiologist:: Vignesh Dudley CRNA Complications:: None Pre-procedure Diagnosis:: Degenerative disc thoracic spine. Thoracic radiculopathy. Post-procedure Diagnosis:: Same. Indications for Procedure:: Patient is a pleasant 74-year-old female who comes our clinic today for a T8-9 epidural steroid injection. Patient describes thoracic back pain as constant, dull, aching. She also reports thoracic radicular symptoms around bilateral chest wall. She reports responding well to thoracic epidural in the past. She rates her pain 7/10. Procedure Details:: Procedure:Thoracic epidural steroid injection under fluoroscopy Informed consent was obtained and the risks and benefits of the procedure were explained to the patient. The patient was taken to the procedure room and noninvasive monitors placed, including noninvasive blood pressure cuff and pulse oximeter. The back was viewed using C-Arm fluoroscopy and prepped using Betadine as a cleansing solution and the T8-9 interspace was palpated. Skin and subcutaneous tissues were anesthetized using lidocaine 1.5% and a 25-gauge needle. After this, an 18-gauge Touhy epidural needle was placed into the T8-9 interspace and advanced using fluoroscopic guidance and loss of resistance to air until the epidural space was encountered. After confirmation of needle placement in the epidural space, with dye, a solution containing lidocaine 1.5%, 4 mL and dexamethasone 10 mg were incrementally injected into the thoracic epidural space. The patient tolerated the procedure well with no complications. The patient was observed in the Pain Clinic and then discharged home neurologically intact. Plan and Disposition:: Patient was discharged without incident.
[2025-06-22 10:33] VITALS: BP 138/63; PULSE 77; RESP 16; O2SAT 99
[2025-06-22] MEDS: DEXAMETHASONE 10MG/ML 1ML VIAL 10 MG (10:34)
[2025-06-22 10:40] VITALS: BP 120/73; PULSE 82; RESP 18; O2SAT 96
[2025-06-22 10:43] VITALS: BP 120/73; PULSE 82; RESP 18; O2SAT 96
== END 2025-06-22 10:33 | disposition home or self-care (01) ==
PROVIDERS: PCP Nurse Practitioner Family; Visit Provider Nurse Anesthetist, Certified Registered
DX: M51.14 Intervertebral disc disorders with radiculopathy, thoracic region (principal); I10 Essential (primary) hypertension; G40.909 Epilepsy, unspecified, not intractable, without status epilepticus; Z88.0 Allergy status to penicillin; Z88.1 Allergy status to other antibiotic agents; Z88.2 Allergy status to sulfonamides; Z88.5 Allergy status to narcotic agent; Z91.013 Allergy to seafood; Z91.040 Latex allergy status; Z91.041 Radiographic dye allergy status; Z79.899 Other long term (current) drug therapy
CPT/HCPCS: 62321; J1100